=== PATIENT | female | born 1960 | race Caucasian/White ===

== ENCOUNTER → 2023-06-18 | Outpatient (CLI) | payer BC ==
[2023-06-18 12:05] LABS: Hematocrit 26.8 % (36.0-46.0); Hemoglobin 9.1 g/dL (12.2-16.2); Mean Corpuscular Hemoglobin 28.8 pg (28.0-32.0); Mean Corpuscular Hgb Conc. 33.9 g/dL (32.0-36.0); Mean Corpuscular Volume 85.1 fL (80.0-100.0); Red Blood Cells 3.15 10^6/uL (4.0-5.20); Red Cell Distribution Width 16.7 % (11.8-14.3); White Blood Cell 5.4 10^3/uL (4.4-10.8)
[2023-06-18 12:07] LABS: Basophils % (manual) 0 (0.0-2.0); Blast Cells 0; Metamyelocytes % 0; Promyelocytes % 0; Reactive Lymphocytes 0
[2023-06-18 12:37] LABS: Band Neutrophils % (manual) 11; Eosinophils % (manual) 2 (0-7); Lymphocytes % (manual) 27 (10.0-50.0); Monocytes % (manual) 7 (0-12); Myelocytes % 1; Platelet Estimate Adequate
[2023-06-18 12:46] LABS: Creatinine, Urine 98.74 mg/dL (30.0-125.0)
[2023-06-18 12:50] LABS: Protein, Urine 741.8 mg/dL (0.0-11.9); Urine Protein/Creatinine Ratio 7.51
[2023-06-18 12:55] LABS: Anion Gap 6 (5-15); Calcium 9.1 mg/dL (8.5-10.1); Carbon Dioxide 28 mmol/L (20-30); Chloride 106 mmol/L (98-107); Potassium 4.2 mmol/L (3.5-5.1); Sodium 140 mmol/L (136-145)
[2023-06-18 13:01] LABS: BUN/Creatinine Ratio 7.6 (10.0-20.0); Blood Urea Nitrogen 11 mg/dL (9-23); Glucose 89 mg/dL (74-106)
[2023-06-18 13:05] LABS: Ferritin 299.5 ng/mL (10-291); Folate (Folic Acid) 9.68 ng/mL (>5.38); Thyroid Stimulating Hormone 1.28 uIU/mL (0.55-4.78)
== END | disposition home or self-care (01) ==
LOC: LAB 11:38
PROVIDERS: ATTEND Internal Medicine
DX: N18.31 Chronic kidney disease, stage 3a (principal); E03.9 Hypothyroidism, unspecified; D50.9 Iron deficiency anemia, unspecified
CPT/HCPCS: 36415; 80048; 82570; 82607; 82668; 82728; 82746; 83010; 83615; 84156; 84443; 85007; 85027; 86880

== ENCOUNTER → 2023-10-11 | Outpatient (CLI) | payer BC ==
[2023-10-11 12:33] LABS: Hematocrit 24.1 % (36.0-46.0); Mean Corpuscular Hemoglobin 28.7 pg (28.0-32.0); Mean Corpuscular Hgb Conc. 33.1 g/dL (32.0-36.0); Mean Corpuscular Volume 86.6 fL (80.0-100.0); Red Blood Cells 2.79 10^6/uL (4.0-5.20); Red Cell Distribution Width 18.5 % (11.8-14.3)
[2023-10-11 12:39] LABS: Potassium 4.1 mmol/L (3.5-5.1)
[2023-10-11 12:40] LABS: Calcium 9.4 mg/dL (8.5-10.1)
[2023-10-11 12:47] LABS: Albumin 4.3 g/dL (3.2-4.8); Phosphorus 4.1 mg/dL (2.4-5.1)
[2023-10-11 12:53] LABS: Basophils % (manual) 0 (0.0-2.0); Blast Cells 0; Eosinophils % (manual) 0 (0-7); Promyelocytes % 0; Reactive Lymphocytes 0
[2023-10-11 16:18] LABS: Band Neutrophils % (manual) 4; Lymphocytes % (manual) 20 (10.0-50.0); Metamyelocytes % 2; Monocytes % (manual) 7 (0-12); Myelocytes % 1; Platelet Estimate Adequate
== END | disposition home or self-care (01) ==
LOC: LAB 11:35
PROVIDERS: ATTEND Internal Medicine
DX: N18.31 Chronic kidney disease, stage 3a (principal); D63.1 Anemia in chronic kidney disease; N08 Glomerular disorders in diseases classified elsewhere; D51.0 Vitamin B12 deficiency anemia due to intrinsic factor deficiency
CPT/HCPCS: 36415; 80069; 82607; 85007; 85027

== ENCOUNTER → 2023-12-12 | Outpatient (CLI) | payer BC ==
[2023-12-12 12:28] LABS: Urine Bacteria FEW /hpf (None Seen); Urine Blood TRACE /uL (Negative); Urine Clarity HAZY (Clear); Urine Color Colorless (Yellow); Urine Protein, UAD 2+ (Negative); Urine Specific Gravity 1.015 (1.001-1.035); Urine Urobilinogen Normal (Negative); Urine WBC 109 /hpf (0 - 5); Urine WBC Clumps PRESENT /hpf (None Seen); Urine pH 5.5 (5.0-8.0)
[2023-12-12 12:38] LABS: Hemoglobin 7.4 g/dL (12.2-16.2); Mean Corpuscular Volume 83.5 fL (80.0-100.0); White Blood Cell 12.1 10^3/uL (4.4-10.8)
[2023-12-12 12:41] LABS: Hematocrit 22.4 % (36.0-46.0); Mean Corpuscular Hemoglobin 27.5 pg (28.0-32.0); Mean Corpuscular Hgb Conc. 32.9 g/dL (32.0-36.0); Red Blood Cells 2.68 10^6/uL (4.0-5.20); Red Cell Distribution Width 17.5 % (11.8-14.3)
[2023-12-12 12:43] LABS: Band Neutrophils % (manual) 0; Basophils % (manual) 0 (0.0-2.0); Blast Cells 0; Eosinophils % (manual) 0 (0-7); Metamyelocytes % 0; Myelocytes % 0; Promyelocytes % 0; Reactive Lymphocytes 0
[2023-12-12 12:54] LABS: Lymphocytes % (manual) 6 (10.0-50.0); Monocytes % (manual) 3 (0-12); Platelet Estimate Adequate; RBC Morphology Normal
[2023-12-12 13:03] LABS: Chloride 102 mmol/L (98-107); Potassium 4.1 mmol/L (3.5-5.1); Sodium 138 mmol/L (136-145)
[2023-12-12 13:04] LABS: Anion Gap 7 (5-15); Carbon Dioxide 29 mmol/L (20-30)
[2023-12-12 13:05] LABS: Calcium 9.8 mg/dL (8.5-10.1)
[2023-12-12 13:09] LABS: GFR African American 25 mL/min; GFR Non-African American 21 mL/min; Glucose 110 mg/dL (74-106)
[2023-12-12 13:10] LABS: BUN/Creatinine Ratio 9.9 (10.0-20.0); Blood Urea Nitrogen 25 mg/dL (9-23)
[2023-12-12 13:11] LABS: Albumin 4.3 g/dL (3.2-4.8)
[2023-12-12 13:12] LABS: Phosphorus 4.5 mg/dL (2.4-5.1)
[2023-12-12 13:31] LABS: Uric Acid 6.8 mg/dL (3.1-7.8)
[2023-12-12 13:37] LABS: Creatinine, Urine 83.05 mg/dL (30.0-125.0)
== END | disposition home or self-care (01) ==
LOC: LAB 12:03
PROVIDERS: ATTEND Internal Medicine
DX: N18.31 Chronic kidney disease, stage 3a (principal); D63.1 Anemia in chronic kidney disease; E21.3 Hyperparathyroidism, unspecified; E78.5 Hyperlipidemia, unspecified; M10.9 Gout, unspecified; R80.9 Proteinuria, unspecified; R82.90 Unspecified abnormal findings in urine; N04.7 Nephrotic syndrome with diffuse crescentic glomerulonephritis
CPT/HCPCS: 36415; 80048; 80069; 81001; 82043; 82306; 82570; 83970; 84550; 85007; 85027

== ENCOUNTER → 2024-01-10 | Outpatient (CLI) | payer BC ==
[2024-01-10 12:26] LABS: Urine Bacteria None Seen /hpf (None Seen)
[2024-01-10 12:30] LABS: Mean Corpuscular Hemoglobin 27.6 pg (28.0-32.0); Red Cell Distribution Width 18.7 % (11.8-14.3)
[2024-01-10 12:32] LABS: Hematocrit 21.5 % (36.0-46.0); Hemoglobin 7.1 g/dL (12.2-16.2); Mean Corpuscular Volume 83.7 fL (80.0-100.0); Red Blood Cells 2.57 10^6/uL (4.0-5.20)
[2024-01-10 12:45] LABS: Band Neutrophils % (manual) 0; Basophils % (manual) 0 (0.0-2.0); Blast Cells 0; Promyelocytes % 0; Reactive Lymphocytes 0
[2024-01-10 12:48] LABS: Urine Blood TRACE /uL (Negative); Urine Clarity Clear (Clear); Urine Color Light-Yellow (Yellow); Urine Protein, UAD 1+ (Negative); Urine Specific Gravity 1.017 (1.001-1.035); Urine Urobilinogen Normal (Negative); Urine WBC 2 /hpf (0 - 5); Urine pH 5.5 (5.0-9.0)
[2024-01-10 12:53] LABS: Chloride 104 mmol/L (98-107); Potassium 3.6 mmol/L (3.5-5.1); Sodium 141 mmol/L (136-145)
[2024-01-10 12:54] LABS: Anion Gap 12 (5-15); Calcium 9.6 mg/dL (8.5-10.1); Carbon Dioxide 25 mmol/L (20-30)
[2024-01-10 12:59] LABS: BUN/Creatinine Ratio 9.7 (10.0-20.0); Blood Urea Nitrogen 21 mg/dL (9-23); Creatinine, Urine 81.79 mg/dL (30.0-125.0); GFR African American 30 mL/min; GFR Non-African American 24 mL/min; Glucose 106 mg/dL (74-106)
[2024-01-10 13:01] LABS: Albumin 4.3 g/dL (3.2-4.8); Phosphorus 3.8 mg/dL (2.4-5.1)
[2024-01-10 13:03] LABS: Protein, Urine 795.9 mg/dL (0.0-11.9); Urine Protein/Creatinine Ratio 9.73
[2024-01-10 13:04] LABS: Ferritin 462.2 ng/mL (10-291); Folate (Folic Acid) 11.35 ng/mL (>5.38)
[2024-01-10 13:20] LABS: Eosinophils % (manual) 1 (0-7); Lymphocytes % (manual) 26 (10.0-50.0); Metamyelocytes % 1; Monocytes % (manual) 9 (0-12); Myelocytes % 5; Platelet Estimate Adequate
[2024-01-10 14:47] LABS: Erythrocyte Sedimentation Rate 84 mm/hr (0-20)
== END | disposition home or self-care (01) ==
LOC: LAB 12:16
PROVIDERS: ATTEND Internal Medicine
DX: N04.7 Nephrotic syndrome with diffuse crescentic glomerulonephritis (principal); N18.4 Chronic kidney disease, stage 4 (severe); D63.1 Anemia in chronic kidney disease; N08 Glomerular disorders in diseases classified elsewhere; D50.9 Iron deficiency anemia, unspecified; N39.0 Urinary tract infection, site not specified; R80.9 Proteinuria, unspecified
CPT/HCPCS: 36415; 80048; 80069; 81001; 82570; 82728; 82746; 84156; 85007; 85027; 85652; 87086

== ENCOUNTER 2024-02-02 20:23 | Emergency (ER) | payer BC ==
[~2024-02-02] VITALS: Ht 170.2 cm; Wt 70.5 kg
[2024-02-02] MEDS: KETOROLAC TROMETH 60MG/2ML VIAL IM ONE (21:36)
[2024-02-02 21:41] VITALS: BP 165/79; PULSE 100; RESP 18; TEMP 98; O2SAT 98
[2024-02-02] MEDS ORDERED: HYDR-4902 PO (23:11)
[2024-02-02] MEDS ORDERED: IBUP-1454 PO (23:11)
== END 2024-02-02 23:21 | disposition home or self-care (01) ==
LOC: ER 20:23
DX: M25.561 Pain in right knee (principal)
CPT/HCPCS: 73700; 96372; 99285; J1885

== ENCOUNTER → 2024-02-20 | Outpatient (CLI) | payer BC ==
[~2024-02-20] MED LIST: HYDR-4902 PO; IBUP-1454 PO
[2024-02-20 12:34] LABS: White Blood Cell 9.3 10^3/uL (4.4-10.8)
[2024-02-20 12:36] LABS: Hematocrit 20.9 % (36.0-46.0); Hemoglobin 7.2 g/dL (12.2-16.2); Mean Corpuscular Hemoglobin 28.8 pg (28.0-32.0); Mean Corpuscular Hgb Conc. 34.3 g/dL (32.0-36.0); Red Blood Cells 2.49 10^6/uL (4.0-5.20)
[2024-02-20 12:40] LABS: Basophils % (manual) 0 (0.0-2.0); Blast Cells 0; Eosinophils % (manual) 0 (0-7); Myelocytes % 0; Promyelocytes % 0; Reactive Lymphocytes 0
[2024-02-20 12:51] LABS: Band Neutrophils % (manual) 4; Lymphocytes % (manual) 11 (10.0-50.0); Metamyelocytes % 1; Monocytes % (manual) 10 (0-12); Platelet Estimate Adequate
[2024-02-20 12:52] LABS: Anisocytosis Slight
[2024-02-20 12:55] LABS: Potassium 3.3 mmol/L (3.5-5.1)
[2024-02-20 12:56] LABS: Calcium 9.9 mg/dL (8.5-10.1)
[2024-02-20 13:01] LABS: BUN/Creatinine Ratio 7.8 (10.0-20.0)
[2024-02-20 13:03] LABS: Albumin 3.7 g/dL (3.2-4.8); Phosphorus 3.5 mg/dL (2.4-5.1)
== END | disposition home or self-care (01) ==
LOC: LAB 12:08
PROVIDERS: ATTEND Internal Medicine
DX: N18.4 Chronic kidney disease, stage 4 (severe) (principal); D63.1 Anemia in chronic kidney disease
CPT/HCPCS: 36415; 80069; 85007; 85027

== ENCOUNTER → 2024-04-30 | Outpatient (CLI) | payer BC ==
[2024-04-30 12:18] LABS: White Blood Cell 11.9 10^3/uL (4.4-10.8)
[2024-04-30 12:19] LABS: Urine Bacteria FEW /hpf (None Seen); Urine Blood TRACE /uL (Negative); Urine Clarity Turbid (Clear); Urine Color Colorless (Yellow); Urine Mucus FEW (None Seen); Urine Protein, UAD 2+ (Negative); Urine Specific Gravity 1.024 (1.001-1.035); Urine Urobilinogen Normal (Negative); Urine WBC 124 /hpf (0 - 5); Urine WBC Clumps PRESENT /hpf (None Seen); Urine pH 5.5 (5.0-9.0)
[2024-04-30 12:20] LABS: Hematocrit 20.6 % (36.0-46.0); Mean Corpuscular Hemoglobin 27.4 pg (28.0-32.0); Mean Corpuscular Hgb Conc. 33.1 g/dL (32.0-36.0); Mean Corpuscular Volume 82.7 fL (80.0-100.0); Red Blood Cells 2.49 10^6/uL (4.0-5.20); Red Cell Distribution Width 18.3 % (11.8-14.3)
[2024-04-30 12:38] LABS: Alkaline Phosphatase 95 U/L (46-116); Anion Gap 10 (5-15); BUN/Creatinine Ratio 9.7 (10.0-20.0); Bilirubin, Total 0.4 mg/dL (0.2-1.0); Blood Urea Nitrogen 23 mg/dL (9-23); Calcium 9.9 mg/dL (8.7-10.4); Carbon Dioxide 24 mmol/L (20-30); Chloride 104 mmol/L (98-107); GFR African American 27 mL/min; GFR Non-African American 22 mL/min; Glucose 99 mg/dL (74-106); Phosphorus 4.8 mg/dL (2.4-5.1); Potassium 4.1 mmol/L (3.5-5.1); Sodium 138 mmol/L (136-145); Total Protein 6.4 g/dL (5.7-8.2); Uric Acid 9.6 mg/dL (3.1-7.8)
[2024-04-30 12:41] LABS: Ferritin 970.5 ng/mL (10-291)
[2024-04-30 12:48] LABS: Alanine Aminotransferase < 9 U/L (7-40); Aspartate Aminotransferase < 8 U/L (13-40)
[2024-04-30 13:00] LABS: Creatinine, Urine 111.07 mg/dL (30.0-125.0)
[2024-04-30 13:04] LABS: Protein, Urine 1136.7 mg/dL (0.0-11.9); Urine Protein/Creatinine Ratio 10.23
[2024-04-30 13:14] LABS: Basophils % (manual) 0 (0.0-2.0); Blast Cells 0; Eosinophils % (manual) 0 (0-7); Hemoglobin 6.8 g/dL (12.2-16.2); Metamyelocytes % 0; Myelocytes % 0; Promyelocytes % 0; Reactive Lymphocytes 0
[2024-04-30 14:15] LABS: Band Neutrophils % (manual) 9; Lymphocytes % (manual) 8 (10.0-50.0); Monocytes % (manual) 4 (0-12)
[2024-04-30 14:16] LABS: Platelet Estimate Adequate
== END | disposition home or self-care (01) ==
LOC: LAB 11:21
PROVIDERS: ATTEND Internal Medicine
DX: E11.21 Type 2 diabetes mellitus with diabetic nephropathy (principal); N04.7 Nephrotic syndrome with diffuse crescentic glomerulonephritis; N18.4 Chronic kidney disease, stage 4 (severe); N39.0 Urinary tract infection, site not specified; R80.9 Proteinuria, unspecified; D63.1 Anemia in chronic kidney disease; E21.3 Hyperparathyroidism, unspecified; M10.9 Gout, unspecified; E55.9 Vitamin D deficiency, unspecified
CPT/HCPCS: 36415; 80053; 80069; 81001; 82306; 82570; 82607; 82728; 83540; 83615; 83970; 84156; 84550; 85007; 85027; 85045; 86880

== ENCOUNTER 2024-05-04 08:09 | Inpatient (IN) | payer BC ==
[~2024-05-04] VITALS: Ht 172.7 cm; Wt 62.6 kg
[2024-05-04] VITALS (7 sets, daily range): BP systolic 128–152; BP diastolic 64–80; PULSE 87–99; RESP 14–20; TEMP 97.5–98.8; O2SAT 94–100
[2024-05-04 08:50] LABS: Hematocrit 22.4 % (36.0-46.0); Mean Corpuscular Volume 85.4 fL (80.0-100.0)
[2024-05-04 08:52] LABS: Hemoglobin 7.1 g/dL (12.2-16.2); Mean Corpuscular Hemoglobin 27.2 pg (28.0-32.0); Mean Corpuscular Hgb Conc. 31.9 g/dL (32.0-36.0); Red Blood Cells 2.63 10^6/uL (4.0-5.20)
[2024-05-04 08:59] LABS: Basophils % (manual) 0 (0.0-2.0); Blast Cells 0; Myelocytes % 0; Promyelocytes % 0; Reactive Lymphocytes 0
[2024-05-04 09:03] LABS: Band Neutrophils % (manual) 12; Eosinophils % (manual) 1 (0-7); Metamyelocytes % 2
[2024-05-04 09:04] LABS: Lymphocytes % (manual) 9 (10.0-50.0); Monocytes % (manual) 7 (0-12)
[2024-05-04 09:15] LABS: Anisocytosis Slight; Hypochromia Slight; Ovalocytes FEW; Platelet Estimate Adequate; Tear Drop Cells FEW
[2024-05-04 09:24] LABS: Albumin 4.3 g/dL (3.2-4.8); Alkaline Phosphatase 108 U/L (46-116); Anion Gap 8 (5-15); Aspartate Aminotransferase < 8 U/L (13-40); BUN/Creatinine Ratio 9.9 (10.0-20.0); Blood Urea Nitrogen 23 mg/dL (9-23); Calcium 10.3 mg/dL (8.7-10.4); Carbon Dioxide 25 mmol/L (20-30); Chloride 106 mmol/L (98-107); Glucose 115 mg/dL (74-106); Potassium 3.6 mmol/L (3.5-5.1); Sodium 139 mmol/L (136-145)
[2024-05-04 09:25] LABS: Bilirubin, Total 0.3 mg/dL (0.2-1.0); Total Protein 6.4 g/dL (5.7-8.2)
[2024-05-04 09:27] LABS: Alanine Aminotransferase < 9 U/L (7-40)
[2024-05-04] MEDS ORDERED: MORPHINE SULFATE INJ 2 MG/ml SYRG IV PRN (11:15)
[2024-05-04] MEDS ORDERED: NITROGLYCERIN 0.4 MG SL TAB SL PRN (11:15)
[2024-05-04] MEDS ORDERED: ACETAMINOPHEN 325 MG TAB PO PRN (11:15)
[2024-05-04 12:07] LABS: % Iron Saturation 11.2 % (15-50)
[2024-05-04 12:19] LABS: Anisocytosis Slight; Hypochromia Slight; Ovalocytes FEW; Tear Drop Cells FEW
[2024-05-04 12:26] LABS: Nucleated Red Blood Cells % 0.1 %
[2024-05-04 12:27] LABS: Platelet Estimate Adequate
[2024-05-04] MEDS: HYDROcodone-ACET 5/325MG TAB PO PRN (12:43)
[2024-05-04] MEDS: SODIUM CHLORIDE 0.9% 1,000 ML IV SCH (12:48)
[2024-05-04 22:24] LABS: Urine Bacteria FEW /hpf (None Seen); Urine Blood Negative /uL (Negative); Urine Clarity Turbid (Clear); Urine Color Colorless (Yellow); Urine Mucus FEW (None Seen); Urine Protein, UAD 1+ (Negative); Urine Specific Gravity 1.015 (1.001-1.035); Urine Urobilinogen Normal (Negative); Urine WBC 117 /hpf (0 - 5); Urine WBC Clumps PRESENT /hpf (None Seen); Urine pH 5.5 (5.0-9.0)
[2024-05-04 22:37] LABS: Creatinine, Urine 50.83 mg/dL (30.0-125.0)
[2024-05-04 22:39] LABS: Protein, Urine 523.8 mg/dL (0.0-11.9)
[2024-05-05] VITALS (9 sets, daily range): BP systolic 134–153; BP diastolic 73–82; PULSE 82–95; RESP 16–20; TEMP 97.6–98.6; O2SAT 16–98
[2024-05-05] MEDS: KETOROLAC TROMETH 30 MG/ML 1ML VIAL IV ONE (02:21)
[2024-05-05 07:00] LABS: Hemoglobin 7.4 g/dL (12.2-16.2)
[2024-05-05 07:02] LABS: Hematocrit 21.9 % (36.0-46.0); Mean Corpuscular Hemoglobin 28.7 pg (28.0-32.0); Mean Corpuscular Hgb Conc. 33.9 g/dL (32.0-36.0); Mean Corpuscular Volume 84.6 fL (80.0-100.0); Red Blood Cells 2.59 10^6/uL (4.0-5.20); White Blood Cell 9.1 10^3/uL (4.4-10.8)
[2024-05-05 07:18] LABS: Basophils % (manual) 0 (0.0-2.0); Blast Cells 0; Myelocytes % 0; Promyelocytes % 0; Reactive Lymphocytes 0
[2024-05-05 07:27] LABS: Albumin 3.7 g/dL (3.2-4.8); Alkaline Phosphatase 88 U/L (46-116); Anion Gap 6 (5-15); Aspartate Aminotransferase < 8 U/L (13-40); BUN/Creatinine Ratio 10.8 (10.0-20.0); Bilirubin, Total 0.4 mg/dL (0.2-1.0); Blood Urea Nitrogen 23 mg/dL (9-23); Calcium 10.1 mg/dL (8.7-10.4); Carbon Dioxide 25 mmol/L (20-30); Chloride 106 mmol/L (98-107); Glucose 92 mg/dL (74-106); Potassium 4.2 mmol/L (3.5-5.1); Sodium 137 mmol/L (136-145); Total Protein 5.6 g/dL (5.7-8.2)
[2024-05-05 07:34] LABS: Alanine Aminotransferase < 9 U/L (7-40)
[2024-05-05 08:16] LABS: Band Neutrophils % (manual) 9; Eosinophils % (manual) 1 (0-7); Lymphocytes % (manual) 12 (10.0-50.0); Metamyelocytes % 1; Monocytes % (manual) 9 (0-12)
[2024-05-05 08:18] LABS: Anisocytosis Slight; Platelet Estimate Adequate; Tear Drop Cells FEW
[2024-05-05 08:30] LABS: Hepatitis B Surface Antigen Negative (Negative)
[2024-05-05 08:49] LABS: INR 0.92 (0.9-1.15); Partial Thromboplastin Time 23.9 SEC (24.5-34.5); Prothrombin Time 9.8 sec (9.3-11.8)
[2024-05-05 08:50] LABS: Hepatitis A Ab IgM Negative
[2024-05-05 08:51] LABS: Hepatitis B Core IgM Negative; Hepatitis C Antibody Negative (Negative)
[2024-05-05 09:17] LABS: Folate (Folic Acid) 8.57 ng/mL (>5.38)
[2024-05-05] MEDS: fentaNYL CITRATE 100 MCG/2 ML VL IV ONE (10:45)
[2024-05-05] MEDS: HYDROcodone-ACET 5/325MG TAB PO PRN (12:48)
[2024-05-05] MEDS: LIDOCAINE 2%HCL (LOCAL ANESTH.) INJ 10ml MDV ONE (12:52)
[2024-05-05] MEDS: cefTRIAXone 1GM/50ML D5W 50 ML IV ONE (16:03)
[2024-05-05] MEDS: EPOETIN ALFA-EPBX 4,000 UNIT/ML VIAL SC ONE (22:26)
[2024-05-05] MEDS: METOPROLOL TARTRATE 25 MG TAB PO SCH (22:29)
[2024-05-06] VITALS (10 sets, daily range): BP systolic 117–157; BP diastolic 47–83; PULSE 74–92; RESP 16–20; TEMP 97.6–99.1; O2SAT 94–100
[2024-05-06 06:59] LABS: Hematocrit 21.2 % (36.0-46.0); Mean Corpuscular Hemoglobin 28.1 pg (28.0-32.0); Red Blood Cells 2.49 10^6/uL (4.0-5.20); White Blood Cell 5.8 10^3/uL (4.4-10.8)
[2024-05-06 07:02] LABS: Mean Corpuscular Volume 85.1 fL (80.0-100.0); Red Cell Distribution Width 17.5 % (11.8-14.3)
[2024-05-06 07:10] LABS: Basophils % (manual) 0 (0.0-2.0); Blast Cells 0; Eosinophils % (manual) 0 (0-7); Metamyelocytes % 0; Myelocytes % 0; Promyelocytes % 0; Reactive Lymphocytes 0
[2024-05-06 07:29] LABS: Anion Gap 7 (5-15); Carbon Dioxide 26 mmol/L (20-30); Chloride 107 mmol/L (98-107); Potassium 4.3 mmol/L (3.5-5.1); Sodium 140 mmol/L (136-145)
[2024-05-06 07:30] LABS: Calcium 9.8 mg/dL (8.7-10.4)
[2024-05-06 07:35] LABS: BUN/Creatinine Ratio 10.3 (10.0-20.0); Blood Urea Nitrogen 25 mg/dL (9-23); Glucose 88 mg/dL (74-106)
[2024-05-06] MEDS: cefTRIAXone 1GM/50ML D5W 50 ML IV SCH (09:05)
[2024-05-06 10:30] LABS: Band Neutrophils % (manual) 1; Lymphocytes % (manual) 15 (10.0-50.0); Monocytes % (manual) 7 (0-12); Platelet Estimate Adequate
[2024-05-06 13:23] LABS: Hemoglobin 7.1 g/dL (12.2-16.2)
[2024-05-06] MEDS: METOPROLOL TARTRATE 25 MG TAB PO SCH (21:20)
[2024-05-07 01:00] VITALS: BP 157/80; PULSE 74; RESP 18; TEMP 97.8; O2SAT 97
[2024-05-07 05:00] VITALS: BP 149/69; PULSE 74; RESP 20; TEMP 98.2; O2SAT 97
[2024-05-07 08:00] VITALS: PULSE 75; RESP 16
[2024-05-07 08:54] LABS: Red Cell Distribution Width 17.1 % (11.8-14.3)
[2024-05-07 08:57] LABS: Hematocrit 23.4 % (36.0-46.0); Hemoglobin 8.1 g/dL (12.2-16.2); Mean Corpuscular Hemoglobin 29.5 pg (28.0-32.0); Mean Corpuscular Hgb Conc. 34.5 g/dL (32.0-36.0); Mean Corpuscular Volume 85.4 fL (80.0-100.0); Red Blood Cells 2.74 10^6/uL (4.0-5.20); White Blood Cell 5.1 10^3/uL (4.4-10.8)
[2024-05-07 09:02] LABS: Anion Gap 5 (5-15); Carbon Dioxide 28 mmol/L (20-30); Chloride 107 mmol/L (98-107); Potassium 4.4 mmol/L (3.5-5.1); Sodium 140 mmol/L (136-145)
[2024-05-07 09:04] LABS: Calcium 10.2 mg/dL (8.7-10.4)
[2024-05-07 09:08] LABS: BUN/Creatinine Ratio 8.9 (10.0-20.0); Blood Urea Nitrogen 21 mg/dL (9-23); Glucose 91 mg/dL (74-106)
[2024-05-07 09:10] LABS: Basophils % (manual) 0 (0.0-2.0); Blast Cells 0; Metamyelocytes % 0; Myelocytes % 0; Promyelocytes % 0; Reactive Lymphocytes 0
[2024-05-07 09:32] VITALS: BP 156/82; PULSE 75; RESP 16; TEMP 98.2; O2SAT 99
[2024-05-07 12:09] LABS: Band Neutrophils % (manual) 5; Eosinophils % (manual) 1 (0-7); Lymphocytes % (manual) 25 (10.0-50.0); Monocytes % (manual) 7 (0-12); Platelet Estimate Adequate
[2024-05-07 12:47] LABS: Albumin 2.7 g/dL (2.9-4.4); Alpha-1-Globulin 0.4 g/dL (0.0-0.4); Anti-Centromere B Antibody <0.2 AI (0.0-0.9); Anti-Jo-1 Antibody <0.2 AI (0.0-0.9); Anti-dsDNA Antibody <1 IU/mL (0-9); Antichromatin Antibody <0.2 AI (0.0-0.9); Antiscleroderma-70 Antibody <0.2 AI (0.0-0.9); Gamma Globulin 0.3 g/dL (0.4-1.8); Globulin Total 2.6 g/dL (2.2-3.9); Immunoglobulin A 227 mg/dL (87-352); Immunoglobulin G, Serum 294 mg/dL (586-1602); Immunoglobulin M <5 mg/dL (26-217); Kappa Lite Chain Free Serum 9.1 mg/L (3.3-19.4); Protein Total Serum 5.3 g/dL (6.0-8.5); RNP Antibody <0.2 AI (0.0-0.9); Sjogren's Anti-SS-A Antibody <0.2 AI (0.0-0.9); Sjogren's Anti-SS-B Antibody <0.2 AI (0.0-0.9); Smith Antibody <0.2 AI (0.0-0.9)
[2024-05-07] MEDS ORDERED: HYDR-4902 PO (13:07)
[2024-05-07] MEDS ORDERED: NITR-52 PO (13:58)
[2024-05-07] MEDS ORDERED: DOCU-94 PO (13:58)
[2024-05-07] MEDS ORDERED: FERR-7 PO (13:58)
[2024-05-07 17:55] VITALS: BP 144/67; PULSE 79; RESP 18; TEMP 36.8; O2SAT 98
[2024-05-07 18:06] LABS: Antimyeloperoxidase (MPO) Ab <0.2 units (0.0-0.9); Antiproteinase 3 (PR-3) Ab <0.2 units (0.0-0.9)
[2024-05-07 18:09] VITALS: BP 153/79; PULSE 79; RESP 18; TEMP 97.9; O2SAT 98
[2024-05-08 13:07] LABS: Cytoplasmic (C-ANCA) <1:20 titer (Neg:<1:20); Perinuclear (P-ANCA) <1:20 titer (Neg:<1:20)
== END 2024-05-07 20:20 | disposition home or self-care (01) | DRG 841 ==
LOC: ER 08:09 → OVERFLOW 11:42 → EAST 14:35
PROVIDERS: ADMIT Internal Medicine; ATTEND Emergency Medicine
PROC: 30233N1 Transfusion of Nonautologous Red Blood Cells into Peripheral Vein, Percutaneous Approach (ICD-10-PCS; principal; 2024-05-06)
DX: C90.00 Multiple myeloma not having achieved remission (principal); N17.9 Acute kidney failure, unspecified; N39.0 Urinary tract infection, site not specified; N18.4 Chronic kidney disease, stage 4 (severe); D63.1 Anemia in chronic kidney disease; G89.29 Other chronic pain; I12.9 Hypertensive chronic kidney disease with stage 1 through stage 4 chronic kidney disease, or unspecified chronic kidney disease; R80.9 Proteinuria, unspecified; D47.2 Monoclonal gammopathy; M17.0 Bilateral primary osteoarthritis of knee; Z96.651 Presence of right artificial knee joint; Z82.49 Family history of ischemic heart disease and other diseases of the circulatory system; Z79.891 Long term (current) use of opiate analgesic; Z79.1 Long term (current) use of non-steroidal anti-inflammatories (NSAID)
CPT/HCPCS: 36415; 74176; 76775; 80048; 80053; 80074; 81001; 82270; 82570; 82607; 82728; 82746; 82784; 83036; 83516; 83520; 83521; 83540; 83550; 83615; 83930; 84155; 84156; 84165; 84300; 85007; 85014; 85018; 85027; 85045; 85610; 85730; 86225; 86235; 86256; 86334; 86335; 86703; 86850; 86900; 86901; 86920; 87086; 87088; 87186; 93005; G0378; J1885; J2001

== ENCOUNTER → 2024-05-22 | Outpatient (CLI) | payer BC ==
[~2024-05-22] MED LIST changes: +DOCU-94 PO; +FERR-7 PO; +NITR-52 PO
[2024-05-22 14:16] LABS: Hematocrit 26.1 % (36.0-46.0); Hemoglobin 8.5 g/dL (12.2-16.2); Mean Corpuscular Hemoglobin 27.6 pg (28.0-32.0); Mean Corpuscular Hgb Conc. 32.7 g/dL (32.0-36.0); Mean Corpuscular Volume 84.5 fL (80.0-100.0); Platelet Count (auto) 488 10^3/uL (140-450); Red Blood Cells 3.09 10^6/uL (4.0-5.20); Red Cell Distribution Width 17.1 % (11.8-14.3); White Blood Cell 11.3 10^3/uL (4.4-10.8)
[2024-05-22 14:19] LABS: Basophils % (manual) 0 (0.0-2.0); Blast Cells 0; Eosinophils % (manual) 0 (0-7); Metamyelocytes % 0; Myelocytes % 0; Promyelocytes % 0; Reactive Lymphocytes 0
[2024-05-22 14:20] LABS: Urine Bacteria FEW /hpf (None Seen); Urine Blood 1+ /uL (Negative); Urine Clarity Turbid (Clear); Urine Color Colorless (Yellow); Urine Mucus FEW (None Seen); Urine Protein, UAD 2+ (Negative); Urine Specific Gravity 1.022 (1.001-1.035); Urine Urobilinogen Normal (Negative); Urine WBC 9 /hpf (0 - 5); Urine pH 5.5 (5.0-9.0)
[2024-05-22 14:29] LABS: Potassium 3.1 mmol/L (3.5-5.1)
[2024-05-22 14:30] LABS: Calcium 10.9 mg/dL (8.7-10.4)
[2024-05-22 14:34] LABS: Band Neutrophils % (manual) 10; Lymphocytes % (manual) 24 (10.0-50.0); Monocytes % (manual) 5 (0-12); Platelet Estimate Increased
[2024-05-22 14:35] LABS: BUN/Creatinine Ratio 10.6 (10.0-20.0)
[2024-05-22 14:37] LABS: Albumin 4.2 g/dL (3.2-4.8); Phosphorus 3.9 mg/dL (2.4-5.1)
[2024-05-22 14:50] LABS: Creatinine, Urine 102.8 mg/dL (30.0-125.0)
[2024-05-22 14:52] LABS: Protein, Urine 987.1 mg/dL (0.0-11.9); Urine Protein/Creatinine Ratio 9.6
[2024-05-22 15:11] LABS: Uric Acid 11.3 mg/dL (3.1-7.8)
== END | disposition home or self-care (01) ==
LOC: LAB 13:52
PROVIDERS: ATTEND Internal Medicine
DX: E11.22 Type 2 diabetes mellitus with diabetic chronic kidney disease (principal); N18.30 Chronic kidney disease, stage 3 unspecified; E11.21 Type 2 diabetes mellitus with diabetic nephropathy; N39.0 Urinary tract infection, site not specified; R80.9 Proteinuria, unspecified; E21.3 Hyperparathyroidism, unspecified; M10.9 Gout, unspecified; E55.9 Vitamin D deficiency, unspecified; D63.1 Anemia in chronic kidney disease
CPT/HCPCS: 36415; 80069; 81001; 82306; 82570; 83970; 84156; 84550; 85007; 85027

== ENCOUNTER 2024-06-22 07:23 | Inpatient (IN) | payer BC ==
[~2024-06-22] VITALS: Ht 170.2 cm; Wt 65.3 kg
[2024-06-22] MEDS: ONDANSETRON HCL 4 MG/2 ML VIAL IV ONE (08:05)
[2024-06-22] MEDS: FUROSEMIDE 40 MG/4 ML VIAL IV ONE (08:06)
[2024-06-22] MEDS: MORPHINE SULFATE 4 MG/ML SYR/VIAL IV ONE (08:07)
[2024-06-22 08:30] LABS: Red Blood Cells 2.43 10^6/uL (4.0-5.20)
[2024-06-22 08:35] LABS: Hematocrit 20.4 % (36.0-46.0); Mean Corpuscular Hemoglobin 28.1 pg (28.0-32.0); Mean Corpuscular Hgb Conc. 33.3 g/dL (32.0-36.0); Mean Corpuscular Volume 84.2 fL (80.0-100.0); Platelet Count (auto) 315 10^3/uL (140-450); Red Cell Distribution Width 17.7 % (11.8-14.3); White Blood Cell 7.2 10^3/uL (4.4-10.8)
[2024-06-22 08:45] LABS: Albumin 3.8 g/dL (3.2-4.8); Alkaline Phosphatase 92 U/L (46-116); Anion Gap 9 (5-15); Aspartate Aminotransferase < 8 U/L (13-40); BUN/Creatinine Ratio 11.4 (10.0-20.0); Blood Urea Nitrogen 24 mg/dL (9-23); Calcium 9.7 mg/dL (8.7-10.4); Carbon Dioxide 26 mmol/L (20-31); Chloride 105 mmol/L (98-107); Glucose 92 mg/dL (74-106); Potassium 3.5 mmol/L (3.5-5.1); Sodium 140 mmol/L (136-145)
[2024-06-22 08:46] LABS: Bilirubin, Total 0.3 mg/dL (0.2-1.0); Total Protein 5.6 g/dL (5.7-8.2)
[2024-06-22 09:09] LABS: Alanine Aminotransferase < 9 U/L (7-40)
[2024-06-22 09:11] LABS: Basophils % (manual) 0 (0.0-2.0); Blast Cells 0; Eosinophils % (manual) 0 (0-7); Hemoglobin 6.8 g/dL (12.2-16.2); Metamyelocytes % 0; Myelocytes % 0; Promyelocytes % 0; Reactive Lymphocytes 0
[2024-06-22 10:43] LABS: Band Neutrophils % (manual) 6; Lymphocytes % (manual) 30 (10.0-50.0); Monocytes % (manual) 8 (0-12); Ovalocytes FEW; Platelet Estimate Adequate
[2024-06-22 11:04] VITALS: BP 160/101; PULSE 88; RESP 18; TEMP 98.2
[2024-06-22] MEDS: ENOXAPARIN SOD 60 MG/0.6 ML SYRINGE SC ONE (11:04)
[2024-06-22 11:30] VITALS: BP 147/82; PULSE 90; RESP 14; TEMP 98.2
[2024-06-22] MEDS ORDERED: AMLO1TAB22 PO ×2 (11:40→20:27)
[2024-06-22] MEDS ORDERED: ONDANSETRON HCL 4 MG/2 ML VIAL IV PRN (13:15)
[2024-06-22 14:22] LABS: % Iron Saturation 19.4 % (15-50)
[2024-06-22] MEDS: PANTOPRAZOLE 40 MG/10 ML VIAL INJ IV ONE (14:37)
[2024-06-22 14:44] VITALS: BP 133/91; PULSE 90; RESP 22; TEMP 97.7
[2024-06-22 19:10] LABS: Hematocrit 24.8 % (36.0-46.0); Hemoglobin 8.3 g/dL (12.2-16.2)
[2024-06-22 19:30] VITALS: PULSE 76; RESP 16; O2SAT 97
[2024-06-22 20:30] VITALS: PULSE 75; RESP 19; O2SAT 97
[2024-06-22] MEDS ORDERED: FERR140T5 (20:45)
[2024-06-22 21:00] VITALS: BP 154/80; PULSE 93; RESP 17; TEMP 98.9; O2SAT 96
[2024-06-22] MEDS: HYDROcodone-ACET 7.5/325MG TAB PO PRN (21:28)
[2024-06-22] MEDS: PANTOPRAZOLE 40 MG/10 ML VIAL INJ IV SCH (21:28)
[2024-06-23] VITALS (8 sets, daily range): BP systolic 121–139; BP diastolic 71–87; PULSE 77–99; RESP 17–24; TEMP 97.8–98.6; O2SAT 92–100
[2024-06-23 07:06] LABS: Hematocrit 25.6 % (36.0-46.0); Hemoglobin 8.8 g/dL (12.2-16.2); Mean Corpuscular Hemoglobin 28.9 pg (28.0-32.0); Mean Corpuscular Hgb Conc. 34.6 g/dL (32.0-36.0); Mean Corpuscular Volume 83.5 fL (80.0-100.0); Platelet Count (auto) 352 10^3/uL (140-450); Red Blood Cells 3.06 10^6/uL (4.0-5.20); Red Cell Distribution Width 17.2 % (11.8-14.3); White Blood Cell 7.9 10^3/uL (4.4-10.8)
[2024-06-23 07:13] LABS: Basophils % (manual) 0 (0.0-2.0); Blast Cells 0; Myelocytes % 0; Promyelocytes % 0; Reactive Lymphocytes 0
[2024-06-23 07:33] LABS: Alkaline Phosphatase 98 U/L (46-116); Anion Gap 9 (5-15); Blood Urea Nitrogen 25 mg/dL (9-23); Calcium 10.7 mg/dL (8.7-10.4); Carbon Dioxide 30 mmol/L (20-31); Chloride 101 mmol/L (98-107); Glucose 95 mg/dL (74-106); Potassium 3.7 mmol/L (3.5-5.1); Sodium 140 mmol/L (136-145)
[2024-06-23 07:34] LABS: Albumin 4.2 g/dL (3.2-4.8); Aspartate Aminotransferase 9 U/L (13-40)
[2024-06-23 07:35] LABS: Bilirubin, Total 0.4 mg/dL (0.2-1.0); Total Protein 6.2 g/dL (5.7-8.2)
[2024-06-23 07:39] LABS: Alanine Aminotransferase < 9 U/L (7-40)
[2024-06-23 09:57] LABS: Magnesium 2.4 mg/dL (1.6-2.6)
[2024-06-23 09:58] LABS: Phosphorus 4.3 mg/dL (2.4-5.1)
[2024-06-23] MEDS ORDERED: PANTOPRAZOLE 40 MG/10 ML VIAL INJ IV SCH (10:00)
[2024-06-23 11:25] LABS: Ferritin 992.7 ng/mL (10-291); Folate (Folic Acid) 6.93 ng/mL (>5.38)
[2024-06-23] MEDS ORDERED: hydrALAZINE HCL 20 MG/ML VL IV PRN (11:30)
[2024-06-23] MEDS: ENOXAPARIN SOD 60 MG/0.6 ML SYRINGE SC ONE (12:22)
[2024-06-23] MEDS: MORPHINE SULFATE INJ 2 MG/ml SYRG IV PRN (12:23)
[2024-06-23 12:40] LABS: Band Neutrophils % (manual) 8; Eosinophils % (manual) 1 (0-7); Lymphocytes % (manual) 10 (10.0-50.0); Metamyelocytes % 3; Monocytes % (manual) 6 (0-12)
[2024-06-23 12:41] LABS: Platelet Estimate Adequate
[2024-06-23 13:49] LABS: INR 0.98 (0.9-1.15); Partial Thromboplastin Time 25.2 SEC (24.5-34.5); Prothrombin Time 10.4 sec (9.3-11.8)
[2024-06-23] MEDS: CYANOCOBALAMIN (B-12) 1000 MCG/1 ML VIAL IM ONE (16:45)
[2024-06-23] MEDS: BUMETANIDE 2.5mg/10ml (0.25 mg/ml) INJ IV SCH (18:16)
[2024-06-24] VITALS (7 sets, daily range): BP systolic 121–149; BP diastolic 72–93; PULSE 77–103; RESP 17–20; TEMP 97.1–98.9; O2SAT 91–99
[2024-06-24 06:53] LABS: Albumin 4.5 g/dL (3.2-4.8); Alkaline Phosphatase 101 U/L (46-116); Anion Gap 10 (5-15); Aspartate Aminotransferase < 8 U/L (13-40); BUN/Creatinine Ratio 10.6 (10.0-20.0); Blood Urea Nitrogen 26 mg/dL (9-23); Calcium 10.9 mg/dL (8.7-10.4); Carbon Dioxide 29 mmol/L (20-31); Chloride 102 mmol/L (98-107); Glucose 110 mg/dL (74-106); Potassium 3.7 mmol/L (3.5-5.1); Sodium 141 mmol/L (136-145)
[2024-06-24 06:54] LABS: Alanine Aminotransferase < 9 U/L (7-40); Bilirubin, Total 0.4 mg/dL (0.2-1.0); Total Protein 6.6 g/dL (5.7-8.2)
[2024-06-24 06:56] LABS: Hematocrit 26.9 % (36.0-46.0); Hemoglobin 9.3 g/dL (12.2-16.2); Mean Corpuscular Hemoglobin 28.9 pg (28.0-32.0); Mean Corpuscular Hgb Conc. 34.7 g/dL (32.0-36.0); Mean Corpuscular Volume 83.3 fL (80.0-100.0); Platelet Count (auto) 371 10^3/uL (140-450); Red Blood Cells 3.23 10^6/uL (4.0-5.20); Red Cell Distribution Width 17.3 % (11.8-14.3); White Blood Cell 9.9 10^3/uL (4.4-10.8)
[2024-06-24 07:38] LABS: Basophils % (manual) 0 (0.0-2.0); Blast Cells 0; Promyelocytes % 0; Reactive Lymphocytes 0
[2024-06-24] MEDS: MIDAZOLAM HCL 2MG/2ML 2ml VIAL (1mg/ml) IV ONE (09:10)
[2024-06-24] MEDS: fentaNYL CITRATE 100 MCG/2 ML VL IV ONE (09:10)
[2024-06-24] MEDS: LIDOCAINE 2%HCL (LOCAL ANESTH.) INJ 10ml MDV ONE (09:20)
[2024-06-24] MEDS ORDERED: ENOXAPARIN SOD 60 MG/0.6 ML SYRINGE SC SCH (10:00)
[2024-06-24 10:47] LABS: Band Neutrophils % (manual) 8; Eosinophils % (manual) 1 (0-7); Lymphocytes % (manual) 14 (10.0-50.0); Metamyelocytes % 4; Monocytes % (manual) 7 (0-12); Myelocytes % 4; Platelet Estimate Adequate
[2024-06-25] VITALS (8 sets, daily range): BP systolic 124–150; BP diastolic 69–86; PULSE 92–107; RESP 18–20; TEMP 37.2; O2SAT 96–99
[2024-06-25 06:16] LABS: Hematocrit 30.2 % (36.0-46.0); Hemoglobin 9.9 g/dL (12.2-16.2); Mean Corpuscular Hemoglobin 27.2 pg (28.0-32.0); Mean Corpuscular Hgb Conc. 32.8 g/dL (32.0-36.0); Mean Corpuscular Volume 83.1 fL (80.0-100.0); Platelet Count (auto) 416 10^3/uL (140-450); Red Blood Cells 3.63 10^6/uL (4.0-5.20); Red Cell Distribution Width 17.4 % (11.8-14.3)
[2024-06-25 06:31] LABS: Alkaline Phosphatase 105 U/L (46-116); Anion Gap 9 (5-15); BUN/Creatinine Ratio 10.6 (10.0-20.0); Blood Urea Nitrogen 26 mg/dL (9-23); Calcium 11.3 mg/dL (8.7-10.4); Carbon Dioxide 30 mmol/L (20-31); Chloride 102 mmol/L (98-107); Glucose 126 mg/dL (74-106); Potassium 3.9 mmol/L (3.5-5.1); Sodium 141 mmol/L (136-145)
[2024-06-25 06:32] LABS: Albumin 4.6 g/dL (3.2-4.8); Aspartate Aminotransferase 13 U/L (13-40); Bilirubin, Total 0.4 mg/dL (0.2-1.0); Total Protein 6.7 g/dL (5.7-8.2)
[2024-06-25 06:35] LABS: Alanine Aminotransferase 9 U/L (7-40)
[2024-06-25 06:56] LABS: Band Neutrophils % (manual) 0; Basophils % (manual) 0 (0.0-2.0); Blast Cells 0; Eosinophils % (manual) 0 (0-7); Metamyelocytes % 0; Myelocytes % 0; Promyelocytes % 0; Reactive Lymphocytes 0
[2024-06-25 08:15] LABS: Lymphocytes % (manual) 12 (10.0-50.0); Monocytes % (manual) 6 (0-12); Platelet Estimate Adequate
[2024-06-25] MEDS ORDERED: APIX5TAB4 PO (11:31)
[2024-06-25] MEDS ORDERED: APIX2.5T PO ×2 (11:31→11:32)
[2024-06-25] MEDS: APIXABAN 2.5 MG TAB PO SCH (11:36)
[2024-06-25] MEDS: BUMETANIDE 2.5mg/10ml (0.25 mg/ml) INJ IV SCH (17:41)
[2024-06-26 01:00] VITALS: BP 144/83; PULSE 101; RESP 18; TEMP 99.5; O2SAT 100
[2024-06-26 05:00] VITALS: BP 136/75; PULSE 98; RESP 16; TEMP 99.2; O2SAT 97
[2024-06-26 07:04] LABS: Alanine Aminotransferase 11 U/L (7-40); Albumin 4.5 g/dL (3.2-4.8); Alkaline Phosphatase 97 U/L (46-116); Anion Gap 11 (5-15); Aspartate Aminotransferase 18 U/L (13-40); BUN/Creatinine Ratio 12.3 (10.0-20.0); Bilirubin, Total 0.5 mg/dL (0.2-1.0); Blood Urea Nitrogen 31 mg/dL (9-23); Carbon Dioxide 29 mmol/L (20-31); Chloride 101 mmol/L (98-107); Glucose 123 mg/dL (74-106); Potassium 3.7 mmol/L (3.5-5.1); Sodium 141 mmol/L (136-145); Total Protein 6.6 g/dL (5.7-8.2)
[2024-06-26 07:23] LABS: Hematocrit 27.4 % (36.0-46.0); Hemoglobin 9.2 g/dL (12.2-16.2); Mean Corpuscular Hemoglobin 28.1 pg (28.0-32.0); Mean Corpuscular Hgb Conc. 33.6 g/dL (32.0-36.0); Mean Corpuscular Volume 83.6 fL (80.0-100.0); Platelet Count (auto) 405 10^3/uL (140-450); Red Blood Cells 3.28 10^6/uL (4.0-5.20); Red Cell Distribution Width 17.6 % (11.8-14.3); White Blood Cell 15.1 10^3/uL (4.4-10.8)
[2024-06-26 07:31] LABS: Urine Bacteria MOD /hpf (None Seen); Urine Blood 2+ /uL (Negative); Urine Protein, UAD 2+ (Negative); Urine Specific Gravity 1.012 (1.001-1.035); Urine Urobilinogen Normal (Negative); Urine WBC 1954 /hpf (0 - 5); Urine WBC Clumps PRESENT /hpf (None Seen); Urine pH 5.5 (5.0-9.0)
[2024-06-26 07:36] LABS: Urine Clarity Cloudy (Clear); Urine Color Red (Yellow)
[2024-06-26 08:00] VITALS: PULSE 94; RESP 18
[2024-06-26 08:04] LABS: Basophils % (manual) 0 (0.0-2.0); Blast Cells 0; Eosinophils % (manual) 0 (0-7); Myelocytes % 0; Promyelocytes % 0; Reactive Lymphocytes 0
[2024-06-26 08:50] LABS: Band Neutrophils % (manual) 6; Lymphocytes % (manual) 11 (10.0-50.0); Metamyelocytes % 2; Monocytes % (manual) 7 (0-12); Platelet Estimate Adequate
[2024-06-26] MEDS ORDERED: BUME2TAB5 PO (08:51)
[2024-06-26 09:00] VITALS: BP 124/70; PULSE 110; RESP 18; TEMP 97.6; O2SAT 99
[2024-06-26] MEDS ORDERED: CEFD300C2 PO (10:07)
[2024-06-26] MEDS ORDERED: TRAM-626 PO (18:28)
== END 2024-06-26 14:30 | disposition home or self-care (01) | DRG 841 ==
LOC: ER 07:23 → TELE 13:14 → TELE-EAST 19:55 → EAST 06-24 21:40
PROVIDERS: ADMIT Internal Medicine; ATTEND Internal Medicine
PROC: 30233N1 Transfusion of Nonautologous Red Blood Cells into Peripheral Vein, Percutaneous Approach (ICD-10-PCS; 2024-06-22)
PROC: 07DT3ZX Extraction of Bone Marrow, Percutaneous Approach, Diagnostic (ICD-10-PCS; principal; 2024-06-24)
DX: C90.00 Multiple myeloma not having achieved remission (principal); I82.432 Acute embolism and thrombosis of left popliteal vein; N18.4 Chronic kidney disease, stage 4 (severe); N17.9 Acute kidney failure, unspecified; N39.0 Urinary tract infection, site not specified; I12.9 Hypertensive chronic kidney disease with stage 1 through stage 4 chronic kidney disease, or unspecified chronic kidney disease; E83.52 Hypercalcemia; D63.8 Anemia in other chronic diseases classified elsewhere; K80.20 Calculus of gallbladder without cholecystitis without obstruction; Z87.441 Personal history of nephrotic syndrome; Z96.659 Presence of unspecified artificial knee joint; Z82.49 Family history of ischemic heart disease and other diseases of the circulatory system; Z79.899 Other long term (current) drug therapy
CPT/HCPCS: 10005; 36415; 72192; 76775; 77012; 80053; 81001; 82607; 82728; 82746; 82962; 83540; 83550; 83735; 83880; 84100; 84484; 84550; 85007; 85014; 85018; 85027; 85045; 85379; 85610; 85730; 86850; 86900; 86901; 86920; 87086; 93970; 96372; 96374; 96375; 97163; G0378; J2003; J2250; J2405; J2470

== ENCOUNTER → 2024-07-01 | Outpatient (CLI) | payer BC ==
[~2024-07-01] MED LIST changes: +AMLO1TAB22 PO; +APIX2.5T PO; +BUME2TAB5 PO; +CEFD300C2 PO; -HYDR-4902 PO; -IBUP-1454 PO; -NITR-52 PO; +TRAM-626 PO
[2024-07-01 14:14] LABS: Hematocrit 26.2 % (36.0-46.0); Hemoglobin 8.7 g/dL (12.2-16.2); Mean Corpuscular Hemoglobin 27.7 pg (28.0-32.0); Mean Corpuscular Hgb Conc. 33.4 g/dL (32.0-36.0); Platelet Count (auto) 426 10^3/uL (140-450); Red Blood Cells 3.16 10^6/uL (4.0-5.20); Red Cell Distribution Width 17.3 % (11.8-14.3); White Blood Cell 14.7 10^3/uL (4.4-10.8)
[2024-07-01 14:19] LABS: Basophils % (manual) 0 (0.0-2.0); Blast Cells 0; Eosinophils % (manual) 0 (0-7); Promyelocytes % 0; Reactive Lymphocytes 0
[2024-07-01 14:28] LABS: BUN/Creatinine Ratio 13.2 (10.0-20.0); Uric Acid 11.1 mg/dL (3.1-7.8)
[2024-07-01 14:47] LABS: Band Neutrophils % (manual) 4; Lymphocytes % (manual) 10 (10.0-50.0); Metamyelocytes % 2; Monocytes % (manual) 11 (0-12); Myelocytes % 1; Platelet Estimate Adequate
[2024-07-01 16:34] LABS: Albumin 4.4 g/dL (3.2-4.8); Phosphorus 3.6 mg/dL (2.4-5.1)
[2024-07-02 08:06] LABS: Immunoglobulin A 204 mg/dL (87-352); Immunoglobulin G, Serum 352 mg/dL (586-1602); Immunoglobulin M 6 mg/dL (26-217)
== END | disposition home or self-care (01) ==
LOC: LAB 13:06
PROVIDERS: ATTEND Internal Medicine
DX: N18.4 Chronic kidney disease, stage 4 (severe) (principal); N39.0 Urinary tract infection, site not specified; D63.1 Anemia in chronic kidney disease; R80.9 Proteinuria, unspecified; E21.3 Hyperparathyroidism, unspecified; M10.9 Gout, unspecified; E55.9 Vitamin D deficiency, unspecified; E11.21 Type 2 diabetes mellitus with diabetic nephropathy
CPT/HCPCS: 36415; 80069; 82784; 83970; 84550; 85007; 85027; 86334; 87086

== ENCOUNTER → 2024-07-22 | Outpatient (CLI) | payer BC ==
[2024-07-22 13:40] LABS: Basophils # (auto) 0.1 10 ^3/uL (0-0.2); Basophils % (auto) 0.7 % (0.0-2.0); Eosinophils # (auto) 0.1 10 ^3/uL (0-0.8); Eosinophils % (auto) 0.9 % (0.0-7.0); Hemoglobin 7.6 g/dL (12.2-16.2); Lymphocytes # (auto) 1.4 10 ^3/uL (0.4-5.4); Lymphocytes % (auto) 13.2 % (10.0-50.0); Mean Corpuscular Hemoglobin 27.3 pg (28.0-32.0); Mean Corpuscular Hgb Conc. 32.9 g/dL (32.0-36.0); Mean Corpuscular Volume 82.9 fL (80.0-100.0); Monocytes # (auto) 0.9 10 ^3/uL (0-1.3); Monocytes % (auto) 8.4 % (0.0-12.0); Neutrophils # (auto) 7.9 10 ^3/uL (1.6-8.6); Neutrophils % (auto) 76.8 % (37.0-80.0); Platelet Count (auto) 390 10^3/uL (140-450); Red Blood Cells 2.78 10^6/uL (4.0-5.20); Red Cell Distribution Width 17.4 % (11.8-14.3); White Blood Cell 10.3 10^3/uL (4.4-10.8)
== END | disposition home or self-care (01) ==
LOC: LAB 12:43
PROVIDERS: ATTEND Internal Medicine
DX: D64.9 Anemia, unspecified (principal); D47.2 Monoclonal gammopathy
CPT/HCPCS: 36415; 85025

== ENCOUNTER 2024-08-10 16:02 | Inpatient (IN) | payer BC ==
[~2024-08-10] VITALS: Ht 172.7 cm; Wt 64.0 kg
[~2024-08-10 16:02] MED LIST changes: +DOCU-265 PO; +LIDO1PAD55 TOP; +MORP1TAB12 PO; +OXYC325T14 PO
[2024-08-10 18:03] LABS: Hemoglobin 7.7 g/dL (12.2-16.2)
[2024-08-10 18:05] LABS: Hematocrit 23.3 % (36.0-46.0); Mean Corpuscular Hemoglobin 27.5 pg (28.0-32.0); Mean Corpuscular Hgb Conc. 33.3 g/dL (32.0-36.0); Mean Corpuscular Volume 82.8 fL (80.0-100.0); Platelet Count (auto) 456 10^3/uL (140-450); Red Blood Cells 2.81 10^6/uL (4.0-5.20); Red Cell Distribution Width 18.2 % (11.8-14.3); White Blood Cell 19.1 10^3/uL (4.4-10.8)
[2024-08-10 18:10] LABS: Basophils % (manual) 0 (0.0-2.0); Blast Cells 0; Eosinophils % (manual) 0 (0-7); Metamyelocytes % 0; Myelocytes % 0; Promyelocytes % 0; Reactive Lymphocytes 0
[2024-08-10 18:26] LABS: Anisocytosis Slight; Band Neutrophils % (manual) 1; Lymphocytes % (manual) 12 (10.0-50.0); Macrocytosis Slight; Monocytes % (manual) 5 (0-12); Ovalocytes FEW; Stomatocytes Few
[2024-08-10 18:27] LABS: Large Platelets FEW; Platelet Estimate Adequa
[2024-08-10 18:29] LABS: Alanine Aminotransferase 22 U/L (7-40); Albumin 3.9 g/dL (3.2-4.8); Alkaline Phosphatase 88 U/L (46-116); Anion Gap 13 (5-15); Aspartate Aminotransferase 43 U/L (13-40); BUN/Creatinine Ratio 19.6 (10.0-20.0); Bilirubin, Total 0.5 mg/dL (0.2-1.0); Blood Urea Nitrogen 78 mg/dL (9-23); Carbon Dioxide 30 mmol/L (20-31); Chloride 95 mmol/L (98-107); Glucose 113 mg/dL (74-106); Potassium 2.9 mmol/L (3.5-5.1); Sodium 138 mmol/L (136-145); Total Protein 6.3 g/dL (5.7-8.2)
[2024-08-10 18:42] VITALS: PULSE 88; RESP 12; O2SAT 96
[2024-08-10 18:57] LABS: Urine Bacteria None Seen /hpf (None Seen)
--- NOTE | 2024-08-10 19:01 | DVH ---
CHEST RADIOGRAPH Indication:R/o pleural effusion Technique: Single frontal view of the chest was obtained Comparison: None FINDINGS: Lines and Tubes: None Lungs: No focal consolidation. Mild diffuse interstitial prominence. Pleura: No effusion. No pneumothorax. Cardiomediastinal contours: Unremarkable Bones: No acute osseous abnormality. IMPRESSION: Diffuse interstitial prominence which may be from pulmonary vascular congestion/ interstitial pneumon itis. No radiographic findings of pleural effusion.
[2024-08-10 19:05] LABS: Urine Blood 2+ /uL (Negative); Urine Clarity Ex.Turbid (Clear); Urine Color Dark-Brown (Yellow); Urine Protein, UAD 2+ (Negative); Urine Specific Gravity 1.013 (1.001-1.035); Urine Urobilinogen Normal (Negative); Urine WBC 2968 /hpf (0 - 5); Urine WBC Clumps PRESENT /hpf (None Seen); Urine pH 5.5 (5.0-9.0)
[2024-08-10 19:28] VITALS: PULSE 84; RESP 10; O2SAT 96
--- NOTE | 2024-08-10 19:29 | DVH ---
CLINICAL HISTORY: R/o DVT right lower extremity pain and swelling TECHNIQUE: Color and duplex doppler imaging of the right lower extremity veins was performed. Vessel compression if possible was also performed. WID: COMPARISON: US BILAT LOWER DVT on DOS: 06/22/24 FINDINGS: Right external iliac vein: Normal flow and phasicity. Right common femoral vein: Normal compressibility and flow. Right femoral vein: Normal compressibility and flow. Right popliteal vein: Normal compressibility and flow. Proximal calf veins are normally compressible. Subcutaneous edema in the right lower extremity IMPRESSION: NO SONOGRAPHIC EVIDENCE FOR DEEP VENOUS THROMBOSIS IN THE RIGHT LOWER EXTREMITY VEINS.
[2024-08-10] MEDS ORDERED: POTASSIUM CHL 20 Meq TABLET PO ONE (19:45)
--- NOTE | 2024-08-10 19:55 | ED.PDOC ---
History of Present Illness HPI Comments 64-year-old female with past medical history pertinent for CKD, HTN, anemia, multiple myeloma, presents to ED for bilateral leg pain x2 months, worsening in the last couple days. Patient also reports associated generalized weakness. Patient reports that she was seen here two months ago and was diagnosed with a blood cancer and kidney disease. She currently rates her pain as 10/10 in severity. Patient reports that she has been unable to walk due to the pain she has been bed-bound. Patient denies any chest pain, shortness of breath, nausea, vomiting, abdominal pain. She denies any alleviating or aggravating factors. Chief Complaint: General Weakness Time Seen by MD: 16:52 Primary Care Provider: DIXIE PERKINS Notes: Nurses Notes, Medications, Allergies Allergies: Coded Allergies: NO KNOWN ALLERGIES (Unverified , 02/02/24) Home Meds Active Scripts Tramadol HCl (Tramadol HCl) 50 Mg Tab, 50 MG PO Q8HPRN PRN for 5 Days, #15 TAB Prov:EUNICE BEST MD 06/26/24 Cefdinir (Cefdinir) 300 Mg Cap, 1 CAP PO BID for 7 Days, #14 CAP Prov:KIM MATHEWS 06/26/24 Bumetanide (Bumetanide) 2 Mg Tab, 1 TAB PO BID, #60 TAB 5 Refills Prov:KIM MATHEWS 06/26/24 Apixaban Base (ELIQUIS) 2.5 Mg Tab, 2.5 MG PO BID for 180 Days, #180 TAB Prov:KIM MATHEWS 06/25/24 Docusate Sodium (Colace) 100 Mg Cap, 100 MG PO DAILY for 15 Days, #15 CAP Prov:TORO BILLINGS 05/07/24 Ferrous Sulfate (Iron) 325 Mg Tab, 325 MG PO DAILY for 30 Days, #30 TAB Prov:OTRO BILLINGS RESIDENT 05/07/24 Reported Medications Amlodipine Besylate (Amlodipine Besylate) 5 Mg Tab, 5 MG PO DAILY, TAB 06/22/24 Mode of Arrival: EMS Past Medical History PAST MEDICAL HISTORY: Anemia, CKF, HTN Surgical History: Denies all surgeries RESERVATIONS CLERK History: No Pertinent RESERVATIONS CLERK History Family History Family History: Reviewed,noncontributory to illness, No family hx of Cancer, No family hx of DM, No family hx of Heart belem, No family hx of HTN, No family hx ofKidney belem, No family hx of Liver belem, No family hx of Lung belem, No family hx of Stroke Social History Smoker: Non-Smoker Alcohol: Denies ETOH Use Drugs: Denies Drug Use Lives In: Home Constitutional: reports: weakness; denies: chills, diaphoresis, fatigue, fever, malaise, sweats, others EENTM: denies: blurred vision, double vision, ear bleeding, ear discharge, ear drainage, ear pain, ear ringing, eye pain, eye redness, hearing loss, mouth pain, mouth swelling, nasal discharge, nose bleeding, nose congestion, nose pain, photophobia, tearing, throat pain, throat swelling, voice changes, others Respiratory: denies: cough, hemoptysis, orthopnea, SOB at rest, shortness of breath, SOB with excertion, stridor, wheezing, others Cardiovascular: denies: chest pain, dizzy spells, diaphoresis, Dyspnea on exertion, edema, irregular heart beat, left arm pain, lightheadedness, palpitations, PND, syncope, others Gastrointestinal: denies: abdomen distended, abdominal pain, blood streaked bowels, constipated, diarrhea, dysphagia, difficulty swallowing, hematemesis, melena, nausea, poor appetite, poor fluid intake, rectal bleeding, rectal pain, vomiting, others Genitourinary: denies: abnormal vagina bleeding, burning, dyspareunia, dysuria, flank pain, frequency, hematuria, incontinence, pain, , vagina discharge, urgency, others Neurological: denies: dizziness, fainting, headache, left sided numbness, left sided weakness, numbness, paresthesia, pre-existing deficit, right sided numbness, right sided weakness, seizure, speech problems, tingling, tremors, weakness, others Musculoskeletal: reports: joint pain, joint swelling; denies: back pain, gout, muscle pain, muscle stiffness, neck pain, others Integumetry: denies: bruises, change in color, change in hair/nails, dryness, laceration, lesions, lumps, rash, wounds, others Allergic/Immunocompromised: denies: Difficulty Healing, Frequent Infections, Hives, Itching, others Hematologic/Lymphatic: denies: anemia, blood clots, easy bleeding, easy bruising, swollen glands, others Endocrine: denies: excessive hunger, excessive sweating, excessive thirst, excessive urination, flushing, intolerance to cold, intolerance to heat, unexplained weight gain, unexplained weight loss, others Psychiatric: denies: anxiety, bipolar disorder, depression, hopeless, panic disorder, schizophrenia, sleepless, suicidal, others All Other Systems: Reviewed and Negative Physical Exam General Appearance: Moderate Distress, Normal HEENT: Normal ENT Inspection, Pharynx Normal, TMs Normal Neck: Full Range of Motion, Non-Tender, Normal, Normal Inspection Respiratory: Chest Non-Tender, Lungs Clear, No Accessory Muscle Use, No Respiratory Distress, Normal Breath Sounds Cardiovascular: No Edema, No JVD, No Murmur, No Gallop, Normal Peripheral Pulses, Regular Rate/Rhythm Breast Exam: Deferred Gastrointestinal: No Organomegaly, Non Tender, No Pulsatile Mass, Normal Bowel Sounds, Soft Genitalia: Deferred Pelvic: Deferred Rectal: Deferred Extremities: No calf tenderness, Normal capillary refill, Pedal edema, Swelling (3+ pitting edema on the right lower extremity, 2+ pitting edema of the left lower extremity. Right lower extremity is significantly more swollen compared to the right. No discoloration.), Tender (Tenderness to palpation to bilateral lower extremities.) Musculoskeletal : Apperance: Normal Neurologic: Alert, glassware finisher II-XII nml as Tested, No Motor Deficits, Normal Affect, Normal Mood, No Sensory Deficits Cerebellar Function: Normal Reflexes: Normal Skin: Dry, Normal Color, Warm, Other (Pressure sore noted to the right lateral foot) Lymphatic: No Adenopathy Was a procedure done? Was a procedure done?: No Differential Dx Considerations may include: CHF exacerbation, UTI, IVETH, DVT X-Ray, Labs, Meds, VS Vital Signs Date Time Temp Pulse Resp B/P (MAP) Pulse Ox O2 Delivery O2 Flow Rate FiO2 08/10/24 19:28 84 10 96 Room Air* 0 21 08/10/24 19:28 98.7 84 10 91/50 (64) 96 98.7 08/10/24 18:42 88 12 96 Room Air* 0 21 08/10/24 18:42 88 12 111/59 (76) 96 08/10/24 16:20 97.7 87 18 105/62 (76) 100 Lab Test 08/10/24 20:45 08/10/24 18:47 08/10/24 18:40 08/10/24 17:40 Range/Units Lactic Acid Level 1.1 0.4-2.0 mmol/L Troponin I High Sensitivity 32 31 32 </=34 ng/L Urine Color Dark-brown Yellow Urine Clarity Ex.turbid Clear Urine pH 5.5 5.0-9.0 Urine Specific [place] 1.013 1.001-1.035 Urine Protein 2+ H Negative Urine Ketones Negative Negative Urine Blood 2+ H Negative /uL Urine Nitrite Negative Negative Urine Bilirubin Negative Negative Urine Urobilinogen Normal Negative mg/dL Urine Leukocyte Esterase 3+ Negative /uL Urine RBC 46 0 - 4 /hpf Urine WBC 2968 0 - 5 /hpf Urine WBC Clumps Present None Seen /hpf Urine Squamous Epithelial Cells Few <5 /hpf Urine Bacteria None seen None Seen /hpf Urine Glucose Normal Normal mg/dL Magnesium Level 3.1 H 1.6-2.6 mg/dL White Blood Count 19.1 H 4.4-10.8 10^3/uL Red Blood Count 2.81 L 4.0-5.20 10^6/uL Hemoglobin 7.7 L 12.2-16.2 g/dL Hematocrit 23.3 L 36.0-46.0 % Mean Corpuscular Volume 82.8 80.0-100.0 fL Mean Corpuscular Hemoglobin 27.5 L 28.0-32.0 pg Mean Corpuscular Hemoglobin Concent 33.3 32.0-36.0 g/dL Red Cell Distribution Width 18.2 H 11.8-14.3 % Platelet Count 456 H 140-450 10^3/uL Mean Platelet Volume 7.0 6.9-10.8 fL Neutrophils (%) (Auto) 37.0-80.0 % Lymphocytes (%) (Auto) 10.0-50.0 % Monocytes (%) (Auto) 0.0-12.0 % Basophils (%) (Auto) 0.0-2.0 % Neutrophils # (Auto) 1.6-8.6 10 ^3/uL Lymphocytes # (Auto) 0.4-5.4 10 ^3/uL Monocytes # (Auto) 0-1.3 10 ^3/uL Differential Total Cells Counted 100.0 100 Neutrophils % (Manual) 82 H 37.0-80.0 Band Neutrophils % (Manual) 1 Lymphocytes % (Manual) 12 10.0-50.0 Monocytes % (Manual) 5 0-12 Eosinophils % (Manual) 0 0-7 Basophils % (Manual) 0 0.0-2.0 Metamyelocytes % (manual) 0 Myelocytes % (Manual) 0 Promyelocytes % (Manual) 0 Blast Cells % (Manual) 0 Nucleated Red Blood Cells 1.0 % Reactive Lymphocytes 0 Platelet Estimate [place] Large Platelets Few Anisocytosis (manual) Slight Microcytosis Slight Macrocytosis Slight Ovalocytes Few Stomatocytes Few Sodium Level 138 136-145 mmol/L Potassium Level 2.9 L 3.5-5.1 mmol/L Chloride Level 95 L 98-107 mmol/L Carbon Dioxide Level 30 20-31 mmol/L Anion Gap 13 5-15 Blood Urea Nitrogen 78 H 9-23 mg/dL Creatinine 3.98 H 0.550-1.02 mg/dL Glomerular Filtration Rate Calc 12 >90 mL/min BUN/Creatinine Ratio 19.6 10.0-20.0 Serum Glucose 113 H 74-106 mg/dL Calcium Level 13.0 *H 8.7-10.4 mg/dL Total Bilirubin 0.5 0.2-1.0 mg/dL Aspartate Amino Transferase (AST) 43 H 13-40 U/L Alanine Aminotransferase (ALT) 22 7-40 U/L Alkaline Phosphatase 88 46-116 U/L B-Type Natriuretic Peptide 51.34 0-100 pg/mL Total Protein 6.3 5.7-8.2 g/dL Albumin 3.9 3.2-4.8 g/dL Current Medications Medications (Trade) Dose Ordered Sig/Angela Route Start Time Stop Time Status Last Admin Ceftriaxone Sodium 50 ml @ 100 mls/hr ONCE ONCE IV 08/10/24 19:45 08/10/24 20:14 DC 08/10/24 21:02 Azithromycin 250 ml @ 125 mls/hr ONCE ONCE IV 08/10/24 19:45 08/10/24 21:45 DC 08/10/24 21:35 Potassium Chloride/Sodium Chloride 1,000 ml @ 100 mls/hr Q10H ONCE IV 08/10/24 19:45 08/11/24 05:44 08/11/24 00:14 Acetaminophen/ Hydrocodone Bitart ([place] 5/325MG Tab) 1 tab ONCE ONCE PO 08/10/24 20:00 08/10/24 20:01 DC 08/10/24 20:33 X-Ray, Labs, Meds, VS Comment CXR IMPRESSION: Diffuse interstitial prominence which may be from pulmonary vascular congestion/ interstitial pneumonitis. No radiographic findings of pleural effusion. Right Lower Extremity US IMPRESSION: NO SONOGRAPHIC EVIDENCE FOR DEEP VENOUS THROMBOSIS IN THE RIGHT LOWER EXTREMITY VEINS. MDM: Patient with history as above presented with bilateral lower extremity pain. History obtained from patient. Patient was nontoxic, stable, afebrile, in stretcher, moderate distress. Exam as above. Labs reviewed. CBC showed a leukocytosis of 19.1. Hemoglobin decreased at 7.7 and hematocrit at 23.3. CMP showed hypokalemia at 2.9. BUN elevated at 78. Creatinine elevated at 3.98. Calcium severely elevated at 13.0. Troponin x2 were negative. BNP within normal limits at 51.34. Urinalysis showed 3+ leukocyte esterase, significant amount RBC and WBCs. Independently reviewed imaging. Chest x-ray showed diffuse interstitial prominence. Right lower extremity ultrasound did not show DVT. Reviewed external records. All findings were discussed with the patient. Differential diagnosis considered. Overall presentation is consistent with kidney failure, pneumonia, hypercalcemia, UTI, hypokalemia. Low suspicion for DVT, ACS, pleural effusion. Patient was treated with [place] with improvement in symptoms. Patient will be admitted to the hospital for pneumonia and UTI treatment. Patient will require IV antibiotics. Patient also has severe kidney failure and hypercalcemia. Hypercalcemia is likely due to malignancy. Patient was started on IV antibiotics and potassium replacement. Disposition: Admit This medical document was created using the [employer] dictation system. Although this document has been carefully reviewed, there may still be some phonetic and typographical errors, which are due to imperfections of the software program, and do not reflect any compromise in the patient's medical care. Time of 1ST Reevaluation: 19:51 Reevaluation 1ST: Improved Patient Education/Counseling: Diagnosis, Treatment, Prognosis, Need For Follow Up Family Education/Counseling: Diagnosis, Treatment, Prognosis, Need For Follow Up Departure 1 Departure Time of Disposition: 19:55 Impression: Primary Impression: Kidney failure Qualified Codes: N17.9 - Acute kidney failure, unspecified; N18.9 - Chronic kidney disease, unspecified Additional Impressions: Hypercalcemia Pneumonia Qualified Codes: J18.9 - Pneumonia, unspecified organism UTI (urinary tract infection) Qualified Codes: N30.01 - Acute cystitis with hematuria Hypokalemia Disposition: ADMITTED INPATIENT Condition: Fair Critical Care Note Critical Care Time?: No Stability Stability form required: No Heart Score Heart Score: Heart Score Response (Comments) Value History N/A 0 EKG N/A 0 Age N/A 0 Risk Factors N/A 0 Troponin N/A 0 Total 0 MARY WHITAKER PAC Aug 10, 2024 19:55
[2024-08-10] MEDS: HYDROcodone-ACET 5/325MG TAB PO ONE (20:33)
[2024-08-10] MEDS: cefTRIAXone 1GM/50ML D5W 50 ML IV ONE (21:02)
[2024-08-10] MEDS: AZITHROMYCIN 500MG/ 250ML 250 ML IV ONE (21:35)
[2024-08-11] VITALS (8 sets, daily range): BP systolic 100–122; BP diastolic 51–63; PULSE 61–101; RESP 16–17; TEMP 97.8–100.4; O2SAT 91–96
[2024-08-11] MEDS: SOD CHL 0.9%/ KCL 40MEQ 1,000 ML IV ONE (00:14)
[2024-08-11] MEDS ORDERED: NITROGLYCERIN 0.4 MG SL TAB SL PRN (01:45)
[2024-08-11] MEDS: FUROSEMIDE 20 MG/2 ML VIAL IV ONE (01:45)
[2024-08-11] MEDS ORDERED: MORPHINE SULFATE INJ 2 MG/ml SYRG IV PRN (01:45)
[2024-08-11] MEDS ORDERED: ONDANSETRON HCL 4 MG/2 ML VIAL IV PRN (01:45)
--- NOTE | 2024-08-11 06:40 | DVHHP2 ---
History of Present Illness Reason for Visit: Generalized weakness History of Present Illness 64-year-old female presents for evaluation of generalized weakness. Patient's daughter reports decompensation in patient's physical and mental well-being over the past four months. She states patient does not want to get out of bed and has decreased appetite. Patient was diagnosed with multiple myeloma three weeks ago. She also has a history of chronic kidney disease. Denies chest pain or shortness for breath. No other acute complaints reported. Past Medical History Chronic kidney disease, hypertension and multiple myeloma Past Surgical History None Family History Noncontributory Smoke: No ALCOHOL: none Drugs: None Lives: with Family Review of Systems Review of Systems Review of systems are currently negative otherwise addressed in HPI. Allergies: Coded Allergies: NO KNOWN ALLERGIES (Unverified , 02/02/24) Medications Current Medications Medications Dose Ordered Sig/Angela Route Start Time Stop Time Status Last Admin Dose Admin Ceftriaxone Sodium 50 ml @ 100 mls/hr DAILY@2100 IV 08/11/24 21:00 Furosemide 80 mg DAILY PO 08/11/24 10:00 Apixaban 2.5 mg BID PO 08/11/24 10:00 Acetaminophen/ Hydrocodone Bitart 1 tab Q4HP PRN PO 08/11/24 01:45 Ondansetron HCl 4 mg Q4HP PRN IV 08/11/24 01:45 Acetaminophen 650 mg Q6HP PRN PO 08/11/24 01:45 Nitroglycerin 0.4 mg Q5MINP PRN SL 08/11/24 01:45 Morphine Sulfate 2 mg Q30M PRN IV 08/11/24 01:45 Exam Vital Signs Vital Signs Date Time Temp Pulse Resp B/P (MAP) Pulse Ox O2 Delivery O2 Flow Rate FiO2 08/11/24 06:20 Room Air* 0 21 08/11/24 04:00 69 08/11/24 03:05 9 91/51 (64) 100 08/10/24 20:00 98.7 98.7 Exam Gen: 64-year-old female in mild distress, lethargic Skin: Warm, dry, normal color and texture, no rash. HEENT: Normocephalic atraumatic, mucous membranes moist and pink. Neck: Cervical and supraclavicular nodes normal without enlargement, trachea is midline, thyroid gland is normal without masses. Pulmonary: Clear to auscultation and percussion bilaterally. Cardiac: Regular rate and rhythm. No murmur Abdomen: Soft, nontender, nondistended, bowel sounds present all 4 quadrants, no guarding, no rigidity, no organomegaly. Extremities: No cyanosis, clubbing, no edema Neuro: Cranial nerves II through XII grossly intact, normal affect and speech, no focal motor deficits. Labs/Xrays ORDERING PHYSICIAN: MARY WHITAKER PAC PROCEDURE(s): CXRP - CHEST PORTABLE REASON: R/o pleural effusion ORDER NUMBER(s): [id number], ACCESSION NUMBER(s): [id number] CHEST RADIOGRAPH Indication:R/o pleural effusion Technique: Single frontal view of the chest was obtained Comparison: None FINDINGS: Lines and Tubes: None Lungs: No focal consolidation. Mild diffuse interstitial prominence. Pleura: No effusion. No pneumothorax. Cardiomediastinal contours: Unremarkable Bones: No acute osseous abnormality. IMPRESSION: Diffuse interstitial prominence which may be from pulmonary vascular congestion/ interstitial pneumonitis. No radiographic findings of pleural effusion. Labs Test 08/10/24 20:45 08/10/24 18:47 08/10/24 18:40 08/10/24 17:40 Range/Units Lactic Acid Level 1.1 0.4-2.0 mmol/L Troponin I High Sensitivity 32 </=34 ng/L Urine Color Dark-brown Yellow Urine Clarity Ex.turbid Clear Urine pH 5.5 5.0-9.0 Urine Specific [place] 1.013 1.001-1.035 Urine Protein 2+ H Negative Urine Ketones Negative Negative Urine Blood 2+ H Negative /uL Urine Nitrite Negative Negative Urine Bilirubin Negative Negative Urine Urobilinogen Normal Negative mg/dL Urine Leukocyte Esterase 3+ Negative /uL Urine RBC 46 0 - 4 /hpf Urine WBC 2968 0 - 5 /hpf Urine WBC Clumps Present None Seen /hpf Urine Squamous Epithelial Cells Few <5 /hpf Urine Bacteria None seen None Seen /hpf Urine Glucose Normal Normal mg/dL Magnesium Level 3.1 H 1.6-2.6 mg/dL White Blood Count 19.1 H 4.4-10.8 10^3/uL Red Blood Count 2.81 L 4.0-5.20 10^6/uL Hemoglobin 7.7 L 12.2-16.2 g/dL Hematocrit 23.3 L 36.0-46.0 % Mean Corpuscular Volume 82.8 80.0-100.0 fL Mean Corpuscular Hemoglobin 27.5 L 28.0-32.0 pg Mean Corpuscular Hemoglobin Concent 33.3 32.0-36.0 g/dL Red Cell Distribution Width 18.2 H 11.8-14.3 % Platelet Count 456 H 140-450 10^3/uL Mean Platelet Volume 7.0 6.9-10.8 fL Neutrophils (%) (Auto) 37.0-80.0 % Lymphocytes (%) (Auto) 10.0-50.0 % Monocytes (%) (Auto) 0.0-12.0 % Basophils (%) (Auto) 0.0-2.0 % Neutrophils # (Auto) 1.6-8.6 10 ^3/uL Lymphocytes # (Auto) 0.4-5.4 10 ^3/uL Monocytes # (Auto) 0-1.3 10 ^3/uL Differential Total Cells Counted 100.0 100 Neutrophils % (Manual) 82 H 37.0-80.0 Band Neutrophils % (Manual) 1 Lymphocytes % (Manual) 12 10.0-50.0 Monocytes % (Manual) 5 0-12 Eosinophils % (Manual) 0 0-7 Basophils % (Manual) 0 0.0-2.0 Metamyelocytes % (manual) 0 Myelocytes % (Manual) 0 Promyelocytes % (Manual) 0 Blast Cells % (Manual) 0 Nucleated Red Blood Cells 1.0 % Reactive Lymphocytes 0 Platelet Estimate [place] Large Platelets Few Anisocytosis (manual) Slight Microcytosis Slight Macrocytosis Slight Ovalocytes Few Stomatocytes Few Sodium Level 138 136-145 mmol/L Potassium Level 2.9 L 3.5-5.1 mmol/L Chloride Level 95 L 98-107 mmol/L Carbon Dioxide Level 30 20-31 mmol/L Anion Gap 13 5-15 Blood Urea Nitrogen 78 H 9-23 mg/dL Creatinine 3.98 H 0.550-1.02 mg/dL Glomerular Filtration Rate Calc 12 >90 mL/min BUN/Creatinine Ratio 19.6 10.0-20.0 Serum Glucose 113 H 74-106 mg/dL Calcium Level 13.0 *H 8.7-10.4 mg/dL Total Bilirubin 0.5 0.2-1.0 mg/dL Aspartate Amino Transferase (AST) 43 H 13-40 U/L Alanine Aminotransferase (ALT) 22 7-40 U/L Alkaline Phosphatase 88 46-116 U/L B-Type Natriuretic Peptide 51.34 0-100 pg/mL Total Protein 6.3 5.7-8.2 g/dL Albumin 3.9 3.2-4.8 g/dL Assessment/Plan Assessment/Plan Assessment Acute on chronic renal failure Multiple myeloma Urinary tract infection Early sepsis Pneumonitis Plan [facility] Resume home medications Continue treatment per orders. Plan discussed with: Patient My Orders Orders - CAROLE FINLEY Procedure Category Date Status Time Ceftriaxone 1gm/50ml PHA 08/11/24 In Process D5w (Rocephin) 21:00 * Hematology/Oncology CONS 08/11/24 Transmitted Consult 01:31 *Dr. [facility] CONS 08/11/24 Transmitted -[place] 01:31 Furosemide Tablet PHA 08/11/24 In Process (Lasix Tablet) 10:00 Blood Culture GONZALEZ 08/11/24 In Process 01:31 Admit ADMIT 08/11/24 Transmitted 01:31 Renal DIET 08/11/24 Transmitted Standard(2gna,3gk,Lopho) Breakfast Hydrocodone-Acet PHA 08/11/24 In Process 5/325mg Tab ([place] 01:45 Ondansetron Hcl PHA 08/11/24 In Process (Zofran) 01:45 Complete Blood Count LAB 08/12/24 Verified 04:00 Comprehensive LAB 08/12/24 Verified Metabolic Panel 04:00 Condition: Fair MARIAELENA 08/11/24 In Process 01:31 Acetaminophen Tablet PHA 08/11/24 In Process (Tylenol Tablet) 01:45 Bedrest With Bathroom MARIAELENA 08/11/24 In Process Privileg 01:31 Nitroglycerin PHA 08/11/24 In Process Sublingual (Ntrostat 01:45 Morphine Sulfate PHA 08/11/24 In Process Injection 01:45 Stat Ekg For Chest MARIAELENA 08/11/24 In Process Pain 01:31 Notify Of Changes MARIAELENA 08/11/24 In Process From Base 01:31 Rn Training For MARIAELENA 08/11/24 In Process 24 Hours 01:31 Emergency Dysrhythmia MARIAELENA 08/11/24 In Process Protocol 01:31 Rhythm Strips Once MARIAELENA 08/11/24 In Process Every Shift 01:31 Oxygen By Nasal RT 08/11/24 Transmitted Cannula 01:31 Apixaban (Eliquis) PHA 08/11/24 In Process 10:00 Date of Service: Aug 10, 2024 Billing Provider: CAROLE FINLEY Common Visit Codes: [id number] INP/OBS CARE (HIGH) CAROLE FINLEY Aug 11, 2024 06:40
[2024-08-11] MEDS: HYDROcodone-ACET 5/325MG TAB PO PRN (06:45)
[2024-08-11] MEDS: APIXABAN 2.5 MG TAB PO SCH (09:05)
[2024-08-11] MEDS ORDERED: FUROSEMIDE 40 MG TAB PO SCH (10:00)
[2024-08-11] MEDS ORDERED: CALCITRIOL 1 MCG/ML AMPULE IV SCH (10:00)
[2024-08-11] MEDS: CALCITONIN 400unit/2ml Vial (200unit/ml) SC SCH (10:00)
[2024-08-11 11:16] LABS: Mean Corpuscular Volume 82.9 fL (80.0-100.0); Platelet Count (auto) 363 10^3/uL (140-450); Red Cell Distribution Width 18.2 % (11.8-14.3)
[2024-08-11 11:19] LABS: Hematocrit 19.6 % (36.0-46.0); Mean Corpuscular Hemoglobin 28.2 pg (28.0-32.0); Red Blood Cells 2.36 10^6/uL (4.0-5.20); White Blood Cell 13.7 10^3/uL (4.4-10.8)
[2024-08-11] MEDS: FUROSEMIDE 20 MG TAB PO SCH (11:24)
[2024-08-11 11:26] LABS: Hemoglobin 6.7 g/dL (12.2-16.2)
[2024-08-11 11:28] LABS: Alanine Aminotransferase 22 U/L (7-40); Albumin 3.3 g/dL (3.2-4.8); Alkaline Phosphatase 76 U/L (46-116); Anion Gap 9 (5-15); Aspartate Aminotransferase 36 U/L (13-40); BUN/Creatinine Ratio 19.7 (10.0-20.0); Blood Urea Nitrogen 71 mg/dL (9-23); Calcium 11.4 mg/dL (8.7-10.4); Carbon Dioxide 30 mmol/L (20-31); Chloride 101 mmol/L (98-107); Glucose 94 mg/dL (74-106); Potassium 3.1 mmol/L (3.5-5.1); Sodium 140 mmol/L (136-145)
[2024-08-11 11:29] LABS: Bilirubin, Total 0.3 mg/dL (0.2-1.0); Total Protein 5.2 g/dL (5.7-8.2)
[2024-08-11 11:31] LABS: Basophils % (manual) 0 (0.0-2.0); Blast Cells 0; Eosinophils % (manual) 0 (0-7); Metamyelocytes % 0; Myelocytes % 0; Promyelocytes % 0; Reactive Lymphocytes 0
[2024-08-11] MEDS ORDERED: SOD CHL 0.9%/ KCL 40MEQ 1,000 ML IV SCH (11:45)
[2024-08-11 12:14] LABS: Band Neutrophils % (manual) 3; Lymphocytes % (manual) 13 (10.0-50.0); Monocytes % (manual) 9 (0-12)
[2024-08-11 12:15] LABS: Platelet Estimate Decreased
--- NOTE | 2024-08-11 12:46 | DVHINCON2 ---
Date of service: Aug 11, [address] Tona Koo Reason for Consultation Multiple myeloma History of Present Illness 63 years old female with a history of chronic kidney disease, hypertension and anemia. Patient has history of arthritic pains in the knees. She has lost 25 lb of weight in the last six months. She has not noticed any blood in the stools. She has relatively low on B12 on the lower end of normal range, normal folate, negative [place] Serum immune fixation showed a faint band was noted in IgA; light chain sp ecificity could not be verified Urine immune fixation showed Bence Kapoor protein positive lambda type Free kappa light chain [place] lambda ratio was 0 Double-stranded DNA was negative. IgA 227, IgM less than five and IgG 294. Stool guaiac on the last admission in May 17 was negative Her hepatitis A, B surface antigen and B core IgM antibody and C antibody and HIV one and two was negative Chemistry panel on this admission showed GFR 21 uric acid 9.1 calcium 10.7 serum iron 35 saturation 19.4 ferritin 992.7 normal liver functions. LDH was 241. Total protein 6.2 and albumin 4.2. No M spike Urine protein was 987.1 In May 2024 she was found to have a left popliteal venous thrombus and was put on Eliquis 2.5 mg p.o. twice daily CT of the abdomen pelvis on 05/05/2024 showed no acute abnormalities. Now the patient is admitted with complaints of pains in the feet And generalized weakness and tiredness And is found to have high calcium Of 13 with a renal insufficiency and anemia She is being given IV hydration Bone marrow aspiration biopsy from 06/24/2024 showed hypercellular bone marrow for age approximately 70%, involved by plasma cell neoplasm comprising approximately 70% of the marrow was cellularity consistent with multiple myeloma. Cytogenetics showed abnormal karyotype and plasma cell myeloma FISH panel revealed multiple abnormalities and intelligent myeloid NGS revealed a variant of unknown clinical significance FISH showed gain of 1 q. 21, gain of chromosome 7, 9 and 15 and monosomy of chromosome 13 Past Medical History Anemia Arthritis Hypertension Chronic kidney disease Knee replacement Tonsillectomy C-sections Hernia repair Family History: Arthritis G8 MOTHER, Onset:Unknown FH: heart attack G8 MOTHER, Onset:60 years & older G8 FATHER, Onset:60 years & older Family History Unremarkable for malignancy or hematological disorders Social History No smoking or drinking or drugs. She lives with her daughter Allergies: Coded Allergies: NO KNOWN ALLERGIES (Unverified , 02/02/24) Home Meds Active Scripts Cefdinir (Cefdinir) 300 Mg Cap, 1 CAP PO BID for 7 Days, #14 CAP Prov:KIM MATHEWS RESIDENT 06/26/24 Bumetanide (Bumetanide) 2 Mg Tab, 1 TAB PO BID, #60 TAB 5 Refills Prov:KIM MATHEWS RESIDENT 06/26/24 Apixaban Base (ELIQUIS) 2.5 Mg Tab, 2.5 MG PO BID for 180 Days, #180 TAB Prov:KIM MATHEWS RESIDENT 06/25/24 Docusate Sodium (Colace) 100 Mg Cap, 100 MG PO DAILY for 15 Days, #15 CAP Prov:TORO BILLINGS RESIDENT 05/07/24 Ferrous Sulfate (Iron) 325 Mg Tab, 325 MG PO DAILY for 30 Days, #30 TAB Prov:TORO BILLINGS RESIDENT 05/07/24 Reported Medications Amlodipine Besylate (Amlodipine Besylate) 5 Mg Tab, 5 MG PO DAILY, TAB 06/22/24 Current Medications Current Medications Medications (Trade) Dose Ordered Sig/Angela Route PRN Reason Start Time Stop Time Status Last Admin Ceftriaxone Sodium 50 ml @ 100 mls/hr DAILY@2100 IV 08/11/24 21:00 Furosemide (Lasix Tablet) 80 mg DAILY PO 08/11/24 10:00 08/11/24 09:39 DC Apixaban (Eliquis) 2.5 mg BID PO 08/11/24 10:00 08/11/24 09:05 Acetaminophen/ Hydrocodone Bitart ([place] 5/325MG Tab) 1 tab Q4HP PRN PO MODERATE PAIN (4-6 PAIN SCALE) 08/11/24 01:45 08/11/24 11:27 Ondansetron HCl (Zofran) 4 mg Q4HP PRN IV NAUSEA / VOMITING 08/11/24 01:45 Acetaminophen (Tylenol Tablet) 650 mg Q6HP PRN PO PAIN SCALE 1-3 OR TEMP>100.4 08/11/24 01:45 Nitroglycerin (Ntrostat Sublingual) 0.4 mg Q5MINP PRN SL FOR CHEST PAIN 08/11/24 01:45 Morphine Sulfate 2 mg Q30M PRN IV FOR CHEST PAIN 08/11/24 01:45 Calcitriol (Calcitriol Injectable) 200 mcg Q12HR IV 08/11/24 10:00 08/11/24 10:34 DC Furosemide (Lasix Tablet) 20 mg DAILY PO 08/11/24 10:00 08/11/24 11:24 Calcitonin [place] (Miacalcin Injectable) 200 unit Q12HR SC 08/11/24 10:00 08/11/24 10:00 Potassium Chloride/Sodium Chloride 1,000 ml @ 120 mls/hr Q8H20M IV 08/11/24 11:45 Vital Signs Vital Signs Date Time Temp Pulse Resp B/P (MAP) Pulse Ox O2 Delivery O2 Flow Rate FiO2 08/11/24 11: 105/61 08/11/24 06:20 Room Air* 0 21 08/11/24 04:00 69 08/11/24 03:05 9 100 08/10/24 20:00 98.7 98.7 Physical Exam GENERAL: The patient is Cachectic,in no distress, alert and oriented. HEAD AND NECK: Unremarkable. No neck nodes or masses. Conjunctivae: Unremarkable for any mucosal hemorrhage or inflammation. Thyroid is nonpalpable. Throat is unremarkable. SPINE: No deformities or tenderness. CHEST: Chest wall, no tenderness. LUNGS: Clear. CARDIOVASCULAR: Regular sinus rhythm. No murmurs or gallops. ABDOMEN: No organomegaly, tenderness or ascites. Bowel sounds present. EXTREMITIES: No clubbing, edema or cyanosis. Peripheral pulses palpable. No calf tenderness. LYMPHATICS: No significant lymphadenopathy. NEUROLOGIC: No focal neurological deficits. SKIN: Unremarkable for any petechiae, purpura, or ecchymosis. Psych: No abnormalities Available data reviewed Labs/Diagnostic Data Labs Test 08/11/24 10:30 08/10/24 20:45 08/10/24 18:47 08/10/24 18:40 Range/Units White Blood Count 13.7 #H 4.4-10.8 10^3/uL Red Blood Count 2.36 L 4.0-5.20 10^6/uL Hemoglobin 6.7 *L 12.2-16.2 g/dL Hematocrit 19.6 #L 36.0-46.0 % Mean Corpuscular Volume 82.9 80.0-100.0 fL Mean Corpuscular Hemoglobin 28.2 28.0-32.0 pg Mean Corpuscular Hemoglobin Concent 34.0 32.0-36.0 g/dL Red Cell Distribution Width 18.2 H 11.8-14.3 % Platelet Count 363 140-450 10^3/uL Mean Platelet Volume 6.9 6.9-10.8 fL Neutrophils (%) (Auto) 37.0-80.0 % Lymphocytes (%) (Auto) 10.0-50.0 % Monocytes (%) (Auto) 0.0-12.0 % Basophils (%) (Auto) 0.0-2.0 % Neutrophils # (Auto) 1.6-8.6 10 ^3/uL Lymphocytes # (Auto) 0.4-5.4 10 ^3/uL Monocytes # (Auto) 0-1.3 10 ^3/uL Differential Total Cells Counted 100.0 100 Neutrophils % (Manual) 75 37.0-80.0 Band Neutrophils % (Manual) 3 Lymphocytes % (Manual) 13 10.0-50.0 Monocytes % (Manual) 9 0-12 Eosinophils % (Manual) 0 0-7 Basophils % (Manual) 0 0.0-2.0 Metamyelocytes % (manual) 0 Myelocytes % (Manual) 0 Promyelocytes % (Manual) 0 Blast Cells % (Manual) 0 Reactive Lymphocytes 0 Platelet Estimate Decreased Sodium Level 140 136-145 mmol/L Potassium Level 3.1 L 3.5-5.1 mmol/L Chloride Level 101 98-107 mmol/L Carbon Dioxide Level 30 20-31 mmol/L Anion Gap 9 5-15 Blood Urea Nitrogen 71 H 9-23 mg/dL Creatinine 3.61 H 0.550-1.02 mg/dL Glomerular Filtration Rate Calc 14 >90 mL/min BUN/Creatinine Ratio 19.7 10.0-20.0 Serum Glucose 94 74-106 mg/dL Calcium Level 11.4 H 8.7-10.4 mg/dL Total Bilirubin 0.3 0.2-1.0 mg/dL Aspartate Amino Transferase (AST) 36 13-40 U/L Alanine Aminotransferase (ALT) 22 7-40 U/L Alkaline Phosphatase 76 46-116 U/L Total Protein 5.2 L 5.7-8.2 g/dL Albumin 3.3 3.2-4.8 g/dL Lactic Acid Level 1.1 0.4-2.0 mmol/L Troponin I High Sensitivity 32 </=34 ng/L Urine Color Dark-brown Yellow Urine Clarity Ex.turbid Clear Urine pH 5.5 5.0-9.0 Urine Specific [place] 1.013 1.001-1.035 Urine Protein 2+ H Negative Urine Ketones Negative Negative Urine Blood 2+ H Negative /uL Urine Nitrite Negative Negative Urine Bilirubin Negative Negative Urine Urobilinogen Normal Negative mg/dL Urine Leukocyte Esterase 3+ Negative /uL Urine RBC 46 0 - 4 /hpf Urine WBC 2968 0 - 5 /hpf Urine WBC Clumps Present None Seen /hpf Urine Squamous Epithelial Cells Few <5 /hpf Urine Bacteria None seen None Seen /hpf Urine Glucose Normal Normal mg/dL Magnesium Level 3.1 H 1.6-2.6 mg/dL Test 08/10/24 17:40 Range/Units Nucleated Red Blood Cells 1.0 % Large Platelets Few Anisocytosis (manual) Slight Microcytosis Slight Macrocytosis Slight Ovalocytes Few Stomatocytes Few B-Type Natriuretic Peptide 51.34 0-100 pg/mL Assessment 1.Bone marrow aspiration biopsy from 06/24/2024 showed hypercellular bone marrow for age approximately 70%, involved by plasma cell neoplasm comprising approximately 70% of the marrow was cellularity consistent with multiple myeloma. Cytogenetics showed abnormal karyotype and plasma cell myeloma FISH panel revealed multiple abnormalities and intelligent myeloid NGS revealed a variant of unknown clinical significance FISH showed gain of 1 q. 21, gain of chromosome 7, 9 and 15 and monosomy of chromosome 13 IgA lambda multiple myeloma with serum IgA 227, IgM less than 5 and IgG 294 Renal dysfunction Anemia and hypercalcemia 2. Admitted with hypercalcemia and anemia and pain in the distal lower extremities 3. Renal insufficiency 4. Left popliteal vein thrombus 5. History of hypertension Plan/Recommendation Calcitonin as ordered IV hydration Bone survey The patient is advised to follow-up with me as an outpatient for treatment of multiple myeloma Follow calcium And the CBC Plan discussed with: Patient KYLEIGH MCPHERSON MD Aug 11, 2024 12:46
--- NOTE | 2024-08-11 13:19 | DVHCONRES ---
Date Seen: Aug 11, 2024 Resident Creating Document: KIM MATHEWS RESIDENT Referring Physician Salbador CAREY Reason for Consultation Acute on chronic renal failure History of Present Illness Patient is 64-year-old female with past medical history of hypertension, DVT, recently diagnosed multiple myeloma, osteoarthritis, severe anemia, presented to hospital for chief complaint of pain in bilateral feet, back and generalized weakness. Recently patient underwent bone marrow aspiration biopsy on 06/24/2024 which showed hypercellular bone marrow consistent with multiple myeloma. Patient is waiting for insurance authorization to initiate treatment by Dr. Kothari. Other investigation also 10 before including serum immunofixation, urine immunofixation, free kappa chain. Patient also complained of losing weight in last 6 months around 20-30 lb. Apart from generalized weakness and pain in bilateral feet and back patient denied any other complaint. Patient was been diagnosed with CKD and nephrotic range proteinuria during previous hospitalization patient was offered for kidney biopsy however patient denied that point. However patient underwent bone marrow biopsy which showed multiple myeloma. No any other complaints at this point Past Medical History CKD, nephrotic range proteinuria, hypertension, anemia, arthritis Past Surgical History Tonsillectomy, and hernia repair Family History: Arthritis G8 MOTHER, Onset:Unknown FH: heart attack G8 MOTHER, Onset:60 years & older G8 FATHER, Onset:60 years & older Allergies: Coded Allergies: NO KNOWN ALLERGIES (Unverified , 02/02/24) Allergies No known allergy Home Meds Active Scripts Cefdinir (Cefdinir) 300 Mg Cap, 1 CAP PO BID for 7 Days, #14 CAP Prov:KIM MATHEWS RESIDENT 06/26/24 Bumetanide (Bumetanide) 2 Mg Tab, 1 TAB PO BID, #60 TAB 5 Refills Prov:KIM MATHEWS RESIDENT 06/26/24 Apixaban Base (ELIQUIS) 2.5 Mg Tab, 2.5 MG PO BID for 180 Days, #180 TAB Prov:KIM MATHEWS 06/25/24 Docusate Sodium (Colace) 100 Mg Cap, 100 MG PO DAILY for 15 Days, #15 CAP Prov:TORO BILLINGS RESIDENT 05/07/24 Ferrous Sulfate (Iron) 325 Mg Tab, 325 MG PO DAILY for 30 Days, #30 TAB Prov:TORO BILLINGS RESIDENT 05/07/24 Reported Medications Amlodipine Besylate (Amlodipine Besylate) 5 Mg Tab, 5 MG PO DAILY, TAB 06/22/24 Current Medications Current Medications Medications (Trade) Dose Ordered Sig/Angela Route PRN Reason Start Time Stop Time Status Last Admin Ceftriaxone Sodium 50 ml @ 100 mls/hr DAILY@2100 IV 08/11/24 21:00 Furosemide (Lasix Tablet) 80 mg DAILY PO 08/11/24 10:00 08/11/24 09:39 DC Apixaban (Eliquis) 2.5 mg BID PO 08/11/24 10:00 08/11/24 09:05 Acetaminophen/ Hydrocodone Bitart ([place] 5/325MG Tab) 1 tab Q4HP PRN PO MODERATE PAIN (4-6 PAIN SCALE) 08/11/24 01:45 08/11/24 11:27 Ondansetron HCl (Zofran) 4 mg Q4HP PRN IV NAUSEA / VOMITING 08/11/24 01:45 Acetaminophen (Tylenol Tablet) 650 mg Q6HP PRN PO PAIN SCALE 1-3 OR TEMP>100.4 08/11/24 01:45 Nitroglycerin (Ntrostat Sublingual) 0.4 mg Q5MINP PRN SL FOR CHEST PAIN 08/11/24 01:45 Morphine Sulfate 2 mg Q30M PRN IV FOR CHEST PAIN 08/11/24 01:45 Calcitriol (Calcitriol Injectable) 200 mcg Q12HR IV 08/11/24 10:00 08/11/24 10:34 DC Furosemide (Lasix Tablet) 20 mg DAILY PO 08/11/24 10:00 08/11/24 11:24 Calcitonin [place] (Miacalcin Injectable) 200 unit Q12HR SC 08/11/24 10:00 08/11/24 10:00 Potassium Chloride/Sodium Chloride 1,000 ml @ 120 mls/hr Q8H20M IV 08/11/24 11:45 Review of Systems Patient complaining of bilateral feet pain, back pain. Patient is mild distress. Patient denied any other symptom at this point. HEENT-denies headache, denies vision changes, no hearing issue, denies neck complaints, denies throat issues Respiratory system-denies cough, denies shortness of breath Cardiovascular system-denies chest pain, denies palpitations Abdomen-denies abdominal pain, denies nausea, denies vomiting, denies constipation or diarrhea Musculoskeletal-denies swelling in the legs, denies pain in the extremities Genitourinary-denies urinary symptoms like dysuria, stream issues Neuro-denies dizziness, denies seizures Psychiatric-denies psychiatric history Vital Signs Vital Signs Date Time Temp Pulse Resp B/P (MAP) Pulse Ox O2 Delivery O2 Flow Rate FiO2 08/11/24 11:24 105/61 08/11/24 06:20 Room Air* 0 21 08/11/24 04:00 69 08/11/24 03:05 9 100 08/10/24 20:00 98.7 98.7 Physical Exam General Appearance: Alert, Oriented X3, Cooperative, in distress HEENT: Atraumatic, PERRLA, EOMI, Mucous membr. pail Respiratory: Clear to auscultation, Normal air movement Cardiovascular: Regular rate, Normal S1, Normal S2, No murmurs Abdominal: Normal bowel sounds, Soft Extremities: Bilateral edema 1 +, tenderness at palpation in both calfs Neuro: Normal gait, Normal speech, Strength at 5/5 X4 ext, Normal tone Labs/Diagnostic Data Labs Test 08/11/24 10:30 08/10/24 20:45 08/10/24 18:47 08/10/24 18:40 Range/Units White Blood Count 13.7 #H 4.4-10.8 10^3/uL Red Blood Count 2.36 L 4.0-5.20 10^6/uL Hemoglobin 6.7 *L 12.2-16.2 g/dL Hematocrit 19.6 #L 36.0-46.0 % Mean Corpuscular Volume 82.9 80.0-100.0 fL Mean Corpuscular Hemoglobin 28.2 28.0-32.0 pg Mean Corpuscular Hemoglobin Concent 34.0 32.0-36.0 g/dL Red Cell Distribution Width 18.2 H 11.8-14.3 % Platelet Count 363 140-450 10^3/uL Mean Platelet Volume 6.9 6.9-10.8 fL Neutrophils (%) (Auto) 37.0-80.0 % Lymphocytes (%) (Auto) 10.0-50.0 % Monocytes (%) (Auto) 0.0-12.0 % Basophils (%) (Auto) 0.0-2.0 % Neutrophils # (Auto) 1.6-8.6 10 ^3/uL Lymphocytes # (Auto) 0.4-5.4 10 ^3/uL Monocytes # (Auto) 0-1.3 10 ^3/uL Differential Total Cells Counted 100.0 100 Neutrophils % (Manual) 75 37.0-80.0 Band Neutrophils % (Manual) 3 Lymphocytes % (Manual) 13 10.0-50.0 Monocytes % (Manual) 9 0-12 Eosinophils % (Manual) 0 0-7 Basophils % (Manual) 0 0.0-2.0 Metamyelocytes % (manual) 0 Myelocytes % (Manual) 0 Promyelocytes % (Manual) 0 Blast Cells % (Manual) 0 Reactive Lymphocytes 0 Platelet Estimate Decreased Sodium Level 140 136-145 mmol/L Potassium Level 3.1 L 3.5-5.1 mmol/L Chloride Level 101 98-107 mmol/L Carbon Dioxide Level 30 20-31 mmol/L Anion Gap 9 5-15 Blood Urea Nitrogen 71 H 9-23 mg/dL Creatinine 3.61 H 0.550-1.02 mg/dL Glomerular Filtration Rate Calc 14 >90 mL/min BUN/Creatinine Ratio 19.7 10.0-20.0 Serum Glucose 94 74-106 mg/dL Calcium Level 11.4 H 8.7-10.4 mg/dL Total Bilirubin 0.3 0.2-1.0 mg/dL Aspartate Amino Transferase (AST) 36 13-40 U/L Alanine Aminotransferase (ALT) 22 7-40 U/L Alkaline Phosphatase 76 46-116 U/L Total Protein 5.2 L 5.7-8.2 g/dL Albumin 3.3 3.2-4.8 g/dL Lactic Acid Level 1.1 0.4-2.0 mmol/L Troponin I High Sensitivity 32 </=34 ng/L Urine Color Dark-brown Yellow Urine Clarity Ex.turbid Clear Urine pH 5.5 5.0-9.0 Urine Specific [place] 1.013 1.001-1.035 Urine Protein 2+ H Negative Urine Ketones Negative Negative Urine Blood 2+ H Negative /uL Urine Nitrite Negative Negative Urine Bilirubin Negative Negative Urine Urobilinogen Normal Negative mg/dL Urine Leukocyte Esterase 3+ Negative /uL Urine RBC 46 0 - 4 /hpf Urine WBC 2968 0 - 5 /hpf Urine WBC Clumps Present None Seen /hpf Urine Squamous Epithelial Cells Few <5 /hpf Urine Bacteria None seen None Seen /hpf Urine Glucose Normal Normal mg/dL Magnesium Level 3.1 H 1.6-2.6 mg/dL Test 08/10/24 17:40 Range/Units Nucleated Red Blood Cells 1.0 % Large Platelets Few Anisocytosis (manual) Slight Microcytosis Slight Macrocytosis Slight Ovalocytes Few Stomatocytes Few B-Type Natriuretic Peptide 51.34 0-100 pg/mL Assessment IVETH on CKD stage 5 , most likely intrinsic due to multiple myeloma vs hemodynamic Severe anemia UTI Hypokalemia Hypercalcemia Leukocytosis/sirs History of left popliteal vein DVT History of hypertension Arthritis Plan/recommendation Plan discussed with Dr Beckwith -IV hydration with normal saline 120 mL/hour ( 1 bag ) -follow up with calcium level and CBC tomorrow a.m. calcium trending down from 13 to 11.4 -treat anemia with PRBC as per hospitalist -continue Lasix 20 mg p.o. daily. -recent renal ultrasound on 06/23/2024: Mild right-sided hydronephrosis. -follow up with urine sodium, creatinine, protein. -avoid nephrotoxic drug -strict I&O -patient sees hematology oncology for multiple myeloma in outpatient setting Reviewed EMR include vital signs, laboratory findings, imaging studies, medication reconciled, previous hospital course Time spent greater than 80 minutes. More than 50% of time spent providing direct [id number] care Addendum Patient seen and examined, plan discussed with resident. Agree with above, we will follow closely Plan discussed with: Patient, Daughter, Other (RN) KIM MATHEWS Aug 11, 2024 13:19 DARCY BECKWITH MD Aug 11, 2024 16:41
[2024-08-11] MEDS: SOD CHL 0.9%/ KCL 40MEQ 1,000 ML IV SCH (13:45)
--- NOTE | 2024-08-11 15:37 | DVHPN2 ---
Subjective Seen and examined at bedside, will transfuse 1 PRBC. Changes from previous H/P or p: No Changes Objective Vitals Vital Signs Date Time Temp Pulse Resp B/P (MAP) Pulse Ox O2 Delivery O2 Flow Rate FiO2 08/11/24 13:36 99.5 99 16 113/60 99.5 08/11/24 13:00 94 08/11/24 08:05 Room Air* 0 21 Intake/Output Intake and Output 08/11/24 07:00 Intake Total 200 ml Balance 200 ml Intake IV Total 200 ml Exam Gen: in bed cachectic Cvs: N S1/S2, RRR Resp: BLAE Abd: Thin Padder: AAO x 4 Medications Current Medications Medications Dose Ordered Sig/Angela Route Start Time Stop Time Status Last Admin Dose Admin Ceftriaxone Sodium 50 ml @ 100 mls/hr DAILY@2100 IV 08/11/24 21:00 Apixaban 2.5 mg BID PO 08/11/24 10:00 08/11/24 09:05 2.5 MG Acetaminophen/ Hydrocodone Bitart 1 tab Q4HP PRN PO 08/11/24 01:45 08/11/24 11:27 1 TAB Ondansetron HCl 4 mg Q4HP PRN IV 08/11/24 01:45 Acetaminophen 650 mg Q6HP PRN PO 08/11/24 01:45 Nitroglycerin 0.4 mg Q5MINP PRN SL 08/11/24 01:45 Morphine Sulfate 2 mg Q30M PRN IV 08/11/24 01:45 Furosemide 20 mg DAILY PO 08/11/24 10:00 08/11/24 11:24 20 MG Calcitonin [place] 200 unit Q12HR SC 08/11/24 10:00 08/11/24 10:00 200 UNIT Potassium Chloride/Sodium Chloride 1,000 ml @ 120 mls/hr Q8H20M IV 08/11/24 13:45 08/11/24 20:00 Azithromycin 250 mg DAILY PO 08/12/24 10:00 UNV Laboratory Results Laboratory Tests 08/11/24 10:30 Chemistry Test 08/10/24 17:40 08/10/24 18:40 08/11/24 10:30 Albumin 3.9 g/dL (3.2-4.8) 3.3 g/dL (3.2-4.8) Calcium Level 13.0 mg/dL (8.7-10.4) *H 11.4 mg/dL (8.7-10.4) H Total Protein 6.3 g/dL (5.7-8.2) 5.2 g/dL (5.7-8.2) L Magnesium Level 3.1 mg/dL (1.6-2.6) H Cardiac Markers Test 08/10/24 17:40 B-Type Natriuretic Peptide 51.34 pg/mL (0-100) LFT Test 08/10/24 17:40 08/11/24 10:30 Alanine Aminotransferase (ALT) 22 U/L (7-40) 22 U/L (7-40) Alkaline Phosphatase 88 U/L (46-116) 76 U/L (46-116) Aspartate Amino Transferase (AST) 43 U/L (13-40) H 36 U/L (13-40) Total Bilirubin 0.5 mg/dL (0.2-1.0) 0.3 mg/dL (0.2-1.0) Urinalysis Test 08/10/24 18:47 Urine Color Dark-brown (Yellow) Urine Clarity Ex.turbid (Clear) Urine pH 5.5 (5.0-9.0) Urine Specific [place] 1.013 (1.001-1.035) Urine Protein 2+ (Negative) H Urine Ketones Negative (Negative) Urine Blood 2+ /uL (Negative) H Urine Nitrite Negative (Negative) Urine Bilirubin Negative (Negative) Urine Urobilinogen Normal mg/dL (Negative) Urine Leukocyte Esterase 3+ /uL (Negative) Urine RBC 46 /hpf (0 - 4) Urine WBC 2968 /hpf (0 - 5) Urine WBC Clumps Present /hpf (None Seen) Urine Squamous Epithelial Cells Few /hpf (<5) Urine Bacteria None seen /hpf (None Seen) Urine Glucose Normal mg/dL (Normal) Assessment/Plan Assessment/Plan IVETH on CKD stage 5- Nephro Cx Multiple myeloma- Oncology Consult noted Severe anemia- Transfuse 1 PRBC UTI- Abx Acute Pneumonitis- ABx Hypokalemia Hypercalcemia History of left popliteal vein DVT History of hypertension Arthritis Plan discussed with: Patient My Orders Orders - EUNICE BEST MD Procedure Category Date Status Time Azithromycin Tablet PHA 08/12/24 Logged (Zithromax Tablet) 10:00 Date of Service: Aug 11, 2024 Billing Provider: EUNICE BEST MD Common Visit Codes: [id number] INP/OBS CARE(HIGH) EUNICE BEST MD Aug 11, 2024 15:37
[2024-08-11] MEDS: cefTRIAXone 1GM/50ML D5W 50 ML IV SCH (21:17)
[2024-08-12] VITALS (8 sets, daily range): BP systolic 101–121; BP diastolic 48–60; PULSE 72–90; RESP 16–18; TEMP 96.9–99.8; O2SAT 92–96
[2024-08-12 06:01] LABS: Hematocrit 23.5 % (36.0-46.0); Hemoglobin 7.7 g/dL (12.2-16.2); Mean Corpuscular Hemoglobin 27.6 pg (28.0-32.0); Mean Corpuscular Hgb Conc. 32.9 g/dL (32.0-36.0); Mean Corpuscular Volume 83.9 fL (80.0-100.0); Platelet Count (auto) 376 10^3/uL (140-450); Red Cell Distribution Width 17.4 % (11.8-14.3); White Blood Cell 14.9 10^3/uL (4.4-10.8)
[2024-08-12 06:04] LABS: Basophils % (manual) 0 (0.0-2.0); Blast Cells 0; Myelocytes % 0; Promyelocytes % 0; Reactive Lymphocytes 0
[2024-08-12 06:33] LABS: Alanine Aminotransferase 19 U/L (7-40); Albumin 3.3 g/dL (3.2-4.8); Alkaline Phosphatase 71 U/L (46-116); Anion Gap 10 (5-15); Aspartate Aminotransferase 26 U/L (13-40); BUN/Creatinine Ratio 18.2 (10.0-20.0); Bilirubin, Total 0.3 mg/dL (0.2-1.0); Calcium 10.4 mg/dL (8.7-10.4); Carbon Dioxide 28 mmol/L (20-31); Chloride 105 mmol/L (98-107); Glucose 99 mg/dL (74-106); Potassium 3.4 mmol/L (3.5-5.1); Sodium 143 mmol/L (136-145)
[2024-08-12 06:34] LABS: Total Protein 5.1 g/dL (5.7-8.2)
[2024-08-12 06:37] LABS: Blood Urea Nitrogen 60 mg/dL (9-23)
[2024-08-12 06:54] LABS: Band Neutrophils % (manual) 1; Eosinophils % (manual) 1 (0-7); Lymphocytes % (manual) 12 (10.0-50.0); Metamyelocytes % 1; Monocytes % (manual) 7 (0-12)
[2024-08-12 06:55] LABS: Anisocytosis Slight; Ovalocytes FEW; Platelet Estimate Adequate
[2024-08-12] MEDS: AZITHROMYCIN 250 MG TAB PO SCH (08:55)
[2024-08-12] MEDS: CALCITONIN 400unit/2ml Vial (200unit/ml) SC SCH (08:58)
[2024-08-12] MEDS ORDERED: ALLO100T PO (12:00)
[2024-08-12] MEDS ORDERED: FURO80TA3 PO (12:01)
[2024-08-12] MEDS: SODIUM CHLORIDE 0.9% 1,000 ML IV SCH (13:36)
[2024-08-12] MEDS: POTASSIUM EFFERVESENT TAB 25 MEQ PO ONE (13:37)
--- NOTE | 2024-08-12 14:43 | DVHPN2 ---
Progress Note Date Seen: Aug 12, 2024 Resident Creating Document: KIM MATHEWS RESIDENT Medical Necessity Reason Pt with a Central, PICC or Fol: No Subjective Review of Systems Reason for Consultation Acute on chronic renal failure History of Present Illness Patient is 64-year-old female with past medical history of hypertension, DVT, recently diagnosed multiple myeloma, osteoarthritis, severe anemia, presented to hospital for chief complaint of pain in bilateral feet, back and generalized weakness. Recently patient underwent bone marrow aspiration biopsy on 06/24/2024 which showed hypercellular bone marrow consistent with multiple myeloma. Patient is waiting for insurance authorization to initiate treatment by Dr. Kothari. Other investigation also 10 before including serum immunofixation, urine immunofixation, free kappa chain. Patient also complained of losing weight in last 6 months around 20-30 lb. Apart from generalized weakness and pain in bilateral feet and back patient denied any other complaint. Patient was been diagnosed with CKD and nephrotic range proteinuria during previous hospitalization patient was offered for kidney biopsy however patient denied that point. However patient underwent bone marrow biopsy which showed multiple myeloma. No any other complaints at this point Past Medical History CKD, nephrotic range proteinuria, hypertension, anemia, arthritis Past Surgical History Tonsillectomy, and hernia repair Patient seen and examined at bedside. Patient continued to feel better, pain is well controlled compared to yesterday. Patient has significant insulin mildly improving with urine output, and calcium also trending down. No other complaints at this point. Objective vital signs Vital Sign Date Time Temp Pulse Resp B/P (MAP) Pulse Ox O2 Delivery O2 Flow Rate FiO2 08/12/24 13:00 98.4 90 17 121/60 (80) 93 98.4 08/12/24 08:00 Room Air* 0 21 Total Intake and Output 08/11/24 08/11/24 08/12/24 15:00 23:00 07:00 Intake Total 800 ml 900 ml 0 ml Output Total 1300 ml 1500 ml Balance 800 ml -400 ml -1500 ml medications Current Medications Medications Dose Ordered Sig/Angela Route Start Time Stop Time Status Last Admin Dose Admin Ceftriaxone Sodium 50 ml @ 100 mls/hr DAILY@2100 IV 08/11/24 21:00 08/11/24 21:17 100 MLS/HR Apixaban 2.5 mg BID PO 08/11/24 10:00 08/12/24 08:56 2.5 MG Acetaminophen/ Hydrocodone Bitart 1 tab Q4HP PRN PO 08/11/24 01:45 08/12/24 13:38 1 TAB Ondansetron HCl 4 mg Q4HP PRN IV 08/11/24 01:45 Acetaminophen 650 mg Q6HP PRN PO 08/11/24 01:45 Nitroglycerin 0.4 mg Q5MINP PRN SL 08/11/24 01:45 Morphine Sulfate 2 mg Q30M PRN IV 08/11/24 01:45 Furosemide 20 mg DAILY PO 08/11/24 10:00 08/12/24 08:59 20 MG Azithromycin 250 mg DAILY PO 08/12/24 10:00 08/12/24 08:55 250 MG Calcitonin [place] 200 unit Q12HR SC 08/12/24 08:30 08/13/24 10:00 08/12/24 08:58 200 UNIT Sodium Chloride 1,000 ml @ 100 mls/hr Q10H IV 08/12/24 12:45 08/12/24 13:36 100 MLS/HR Examination General Appearance: Alert, Oriented X3, Cooperative, in distress HEENT: Atraumatic, PERRLA, EOMI, Mucous membr. pail Respiratory: Clear to auscultation, Normal air movement Cardiovascular: Regular rate, Normal S1, Normal S2, No murmurs Abdominal: Normal bowel sounds, Soft Extremities: Bilateral edema 1 +, tenderness at palpation in both calfs Neuro: Normal gait, Normal speech, Strength at 5/5 X4 ext, Normal tone laboratory and microbiology Laboratory Tests 08/12/24 05:00 Test 08/12/24 05:00 Range/Units Serum Glucose 99 74-106 mg/dL Microbiology Date/Time Source Procedure Growth Status 08/11/24 02:53 Blood Blood Culture - Preliminary NO GROWTH AFTER 24 HOURS OF INCUBATION. 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 daily. -recent renal ultrasound on 06/23/2024: Mild right-sided hydronephrosis. -follow up with urine sodium, creatinine, protein.: Pending -avoid nephrotoxic drug -strict I&O -patient sees hematology oncology for multiple myeloma in outpatient setting -follow with BMP tomorrow a.m.. Addendum Patient seen and examined, plan discussed with resident. Agree with above, we will follow closely d/w daughter bedside Plan discussed with: Patient, Daughter, Other (RN) KIM MATHEWS Aug 12, 2024 14:43 DARCY CAMARILLO MD Aug 12, 2024 18:29
--- NOTE | 2024-08-12 15:00 | DVHPN2 ---
Subjective Seen and examined at bedside, daughter at bedside, per daughter she did not know of diagnosis of MM till last weekend. Patient is feeling lethargic. Had an extensive discussion with the patients daughter about diagnosis Changes from previous H/P or p: No Changes Objective Vitals Vital Signs Date Time Temp Pulse Resp B/P (MAP) Pulse Ox O2 Delivery O2 Flow Rate FiO2 08/12/24 13:00 98.4 90 17 121/60 (80) 93 98.4 08/12/24 08:00 Room Air* 0 21 Intake/Output Intake and Output 08/12/24 07:00 Intake Total 1700 ml Output Total 2800 ml Balance -1100 ml Intake Oral 500 ml IV Total 900 ml Blood Product 300 ml Output Urine Total 2800 ml Exam Gen: in bed cachectic Cvs: N S1/S2, RRR Resp: BLAE Abd: Thin Bumper Operator: AAO x 4 Medications Current Medications Medications Dose Ordered Sig/Angela Route Start Time Stop Time Status Last Admin Dose Admin Ceftriaxone Sodium 50 ml @ 100 mls/hr DAILY@2100 IV 08/11/24 21:00 08/11/24 21:17 100 MLS/HR Apixaban 2.5 mg BID PO 08/11/24 10:00 08/12/24 08:56 2.5 MG Acetaminophen/ Hydrocodone Bitart 1 tab Q4HP PRN PO 08/11/24 01:45 08/12/24 13:38 1 TAB Ondansetron HCl 4 mg Q4HP PRN IV 08/11/24 01:45 Acetaminophen 650 mg Q6HP PRN PO 08/11/24 01:45 Nitroglycerin 0.4 mg Q5MINP PRN SL 08/11/24 01:45 Morphine Sulfate 2 mg Q30M PRN IV 08/11/24 01:45 Furosemide 20 mg DAILY PO 08/11/24 10:00 08/12/24 08:59 20 MG Azithromycin 250 mg DAILY PO 08/12/24 10:00 08/12/24 08:55 250 MG Calcitonin [place] 200 unit Q12HR SC 08/12/24 08:30 08/13/24 10:00 08/12/24 08:58 200 UNIT Sodium Chloride 1,000 ml @ 100 mls/hr Q10H IV 08/12/24 12:45 08/12/24 13:36 100 MLS/HR Laboratory Results Laboratory Tests 08/12/24 05:00 Chemistry Test 08/12/24 05:00 Albumin 3.3 g/dL (3.2-4.8) Calcium Level 10.4 mg/dL (8.7-10.4) Total Protein 5.1 g/dL (5.7-8.2) L LFT Test 08/12/24 05:00 Alanine Aminotransferase (ALT) 19 U/L (7-40) Alkaline Phosphatase 71 U/L (46-116) Aspartate Amino Transferase (AST) 26 U/L (13-40) Total Bilirubin 0.3 mg/dL (0.2-1.0) Urinalysis Test 08/10/24 18:47 Urine Color Dark-brown (Yellow) Urine Clarity Ex.turbid (Clear) Urine pH 5.5 (5.0-9.0) Urine Specific [place] 1.013 (1.001-1.035) Urine Protein 2+ (Negative) H Urine Ketones Negative (Negative) Urine Blood 2+ /uL (Negative) H Urine Nitrite Negative (Negative) Urine Bilirubin Negative (Negative) Urine Urobilinogen Normal mg/dL (Negative) Urine Leukocyte Esterase 3+ /uL (Negative) Urine RBC 46 /hpf (0 - 4) Urine WBC 2968 /hpf (0 - 5) Urine WBC Clumps Present /hpf (None Seen) Urine Squamous Epithelial Cells Few /hpf (<5) Urine Bacteria None seen /hpf (None Seen) Urine Glucose Normal mg/dL (Normal) Microbiology Microbiology Date/Time Source Procedure Growth Status 08/11/24 02:53 Blood Blood Culture - Preliminary NO GROWTH AFTER 24 HOURS OF INCUBATION. Resulted Assessment/Plan Assessment/Plan IVETH on CKD stage 5- Nephro Cx Multiple myeloma- Oncology Consult noted Severe anemia- Transfuse 1 PRBC UTI- Abx Acute Pneumonitis- ABx Hypokalemia Hypercalcemia History of left popliteal vein DVT History of hypertension Arthritis Plan discussed with: Patient, Daughter My Orders Orders - EUNICE BEST MD Procedure Category Date Status Time Azithromycin Tablet PHA 08/12/24 In Process (Zithromax Tablet) 10:00 * Dietary Consult CONS 08/11/24 Transmitted 16:53 Date of Service: Aug 12, 2024 Billing Provider: EUNICE BEST MD Common Visit Codes: [id number] INP/OBS CARE(HIGH) EUNICE BEST MD Aug 12, 2024 15:00
--- NOTE | 2024-08-12 16:45 | DVH ---
EXAM: XY CHEST XRAY 1 VIEW TECHNIQUE: Single frontal chest radiograph CLINICAL HISTORY: PVC COMPARISON: XY CHEST PORTABLE on DOS: 08/10/24 Findings/Impression: Frontal chest radiograph demonstrates no acute osseous or superficial soft tissue abnormalities. The trachea is midline. The cardiac silhouette and mediastinum are within normal limits. No pneumothorax, pleural effusions, or consolidations.
[2024-08-13] VITALS (8 sets, daily range): BP systolic 107–128; BP diastolic 51–66; PULSE 80–89; RESP 16–19; TEMP 97.8–99.7; O2SAT 93–96
[2024-08-13] MEDS: LACTULOSE 20Gm/30ML SOLN PO PRN (05:19)
[2024-08-13 07:04] LABS: Alanine Aminotransferase 18 U/L (7-40); Albumin 3.2 g/dL (3.2-4.8); Alkaline Phosphatase 65 U/L (46-116); Anion Gap 10 (5-15); Aspartate Aminotransferase 17 U/L (13-40); BUN/Creatinine Ratio 17.6 (10.0-20.0); Bilirubin, Total 0.2 mg/dL (0.2-1.0); Calcium 9.7 mg/dL (8.7-10.4); Carbon Dioxide 29 mmol/L (20-31); Chloride 107 mmol/L (98-107); Glucose 94 mg/dL (74-106); Potassium 3.3 mmol/L (3.5-5.1); Sodium 146 mmol/L (136-145); Total Protein 4.9 g/dL (5.7-8.2)
[2024-08-13 07:07] LABS: Blood Urea Nitrogen 49 mg/dL (9-23)
[2024-08-13] MEDS: POTASSIUM CHL 20 Meq TABLET PO ONE (09:30)
[2024-08-13] MEDS ORDERED: POTASSIUM EFFERVESENT TAB 25 MEQ PO ONE (09:30)
[2024-08-13] MEDS: SOD CHL 0.45% 1,000 ML IV ONE (09:30)
--- NOTE | 2024-08-13 11:20 | DVHPN2 ---
Progress Note Date Seen: Aug 13, 2024 Resident Creating Document: KIM MATHEWS RESIDENT Medical Necessity Reason Pt with a Central, PICC or Fol: No Subjective Review of Systems Reason for Consultation Acute on chronic renal failure History of Present Illness Patient is 64-year-old female with past medical history of hypertension, DVT, recently diagnosed multiple myeloma, osteoarthritis, severe anemia, presented to hospital for chief complaint of pain in bilateral feet, back and generalized weakness. Recently patient underwent bone marrow aspiration biopsy on 06/24/2024 which showed hypercellular bone marrow consistent with multiple myeloma. Patient is waiting for insurance authorization to initiate treatment by Dr. Kothari. Other investigation also 10 before including serum immunofixation, urine immunofixation, free kappa chain. Patient also complained of losing weight in last 6 months around 20-30 lb. Apart from generalized weakness and pain in bilateral feet and back patient denied any other complaint. Patient was been diagnosed with CKD and nephrotic range proteinuria during previous hospitalization patient was offered for kidney biopsy however patient denied that point. However patient underwent bone marrow biopsy which showed multiple myeloma. No any other complaints at this point Past Medical History CKD, nephrotic range proteinuria, hypertension, anemia, arthritis Past Surgical History Tonsillectomy, and hernia repair Patient seen and examined at bedside. Patient continued to feel better, pain is well controlled . No other complaint. Objective vital signs Vital Sign Date Time Temp Pulse Resp B/P (MAP) Pulse Ox O2 Delivery O2 Flow Rate FiO2 08/13/24 09:06 128/66 08/13/24 09:00 99.7 87 19 96 99.7 08/12/24 20:00 Room Air* 0 21 Total Intake and Output 08/12/24 08/12/24 08/13/24 15:00 23:00 07:00 Intake Total 570 ml 1275 ml Output Total 850 ml 1100 ml Balance -280 ml 175 ml medications Current Medications Medications Dose Ordered Sig/Angela Route Start Time Stop Time Status Last Admin Dose Admin Ceftriaxone Sodium 50 ml @ 100 mls/hr DAILY@2100 IV 08/11/24 21:00 08/12/24 21:21 100 MLS/HR Apixaban 2.5 mg BID PO 08/11/24 10:00 08/13/24 09:06 2.5 MG Acetaminophen/ Hydrocodone Bitart 1 tab Q4HP PRN PO 08/11/24 01:45 08/13/24 09:08 1 TAB Ondansetron HCl 4 mg Q4HP PRN IV 08/11/24 01:45 Acetaminophen 650 mg Q6HP PRN PO 08/11/24 01:45 Nitroglycerin 0.4 mg Q5MINP PRN SL 08/11/24 01:45 Morphine Sulfate 2 mg Q30M PRN IV 08/11/24 01:45 Azithromycin 250 mg DAILY PO 08/12/24 10:00 08/13/24 09:07 250 MG Lactulose 30 ml DAILYPRN PRN PO 08/12/24 22:00 08/13/24 05:19 30 ML Examination General Appearance: Alert, Oriented X3, Cooperative, in distress HEENT: Atraumatic, PERRLA, EOMI, Mucous membr. pail Respiratory: Clear to auscultation, Normal air movement Cardiovascular: Regular rate, Normal S1, Normal S2, No murmurs Abdominal: Normal bowel sounds, Soft Extremities: Bilateral edema 1 +, tenderness at palpation in both calfs Neuro: Normal gait, Normal speech, Strength at 5/5 X4 ext, Normal tone laboratory and microbiology Laboratory Tests 08/13/24 05:40 08/12/24 05:00 Test 08/13/24 05:40 Range/Units Serum Glucose 94 74-106 mg/dL Microbiology Date/Time Source Procedure Growth Status 08/11/24 02:53 Blood Blood Culture - Preliminary NO GROWTH AFTER 48 HOURS OF INCUBATION. 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 -follow up with urine sodium, creatinine, protein.: Still Pending -avoid nephrotoxic drug -strict I&O -patient sees hematology oncology for multiple myeloma in outpatient setting -follow with BMP tomorrow a.m.. Addendum Patient seen and examined, plan discussed with resident. Agree with above, we will follow closely Half NS for sodium correction K replace p.r.n. Calcium better Plan discussed with: Patient, Other (RN) My Orders My Orders Orders - KIM MATHEWS Procedure Category Date Status Time Chest Xray 1 View XY 08/12/24 Resulted 16:04 Dietary Evaluation Review Comments: 1) Consider a Renal Specific K2,low phos,2gmNa,50gPro diet 2) Continue current plan of care Expected Outcomes/Goals: 1) F/U in 3-5 days KIM MATHEWS Aug 13, 2024 11:20 DARCY CAMARILLO MD Aug 13, 2024 15:45
[2024-08-13] MEDS ORDERED: BUME2TAB5 PO (18:27)
--- NOTE | 2024-08-13 18:33 | DVHPN2 ---
Subjective Seen and examined at bedside, out of bed to chair. Needs PT Changes from previous H/P or p: No Changes Objective Vitals Vital Signs Date Time Temp Pulse Resp B/P (MAP) Pulse Ox O2 Delivery O2 Flow Rate FiO2 08/13/24 17:00 98.8 82 18 116/59 (78) 94 98.8 08/13/24 08:00 Room Air* 0 21 Intake/Output Intake and Output 08/13/24 07:00 Intake Total 1845 ml Output Total 1950 ml Balance -105 ml Intake Oral 695 ml IV Total 1150 ml Output Urine Total 1950 ml Exam Gen: in bed cachectic Cvs: N S1/S2, RRR Resp: BLAE Abd: Thin Awake Overnight Monitor: AAO x 4 Medications Current Medications Medications Dose Ordered Sig/Angela Route Start Time Stop Time Status Last Admin Dose Admin Ceftriaxone Sodium 50 ml @ 100 mls/hr DAILY@2100 IV 08/11/24 21:00 08/12/24 21:21 100 MLS/HR Apixaban 2.5 mg BID PO 08/11/24 10:00 08/13/24 09:06 2.5 MG Acetaminophen/ Hydrocodone Bitart 1 tab Q4HP PRN PO 08/11/24 01:45 08/13/24 18:07 1 TAB Ondansetron HCl 4 mg Q4HP PRN IV 08/11/24 01:45 Acetaminophen 650 mg Q6HP PRN PO 08/11/24 01:45 Nitroglycerin 0.4 mg Q5MINP PRN SL 08/11/24 01:45 Morphine Sulfate 2 mg Q30M PRN IV 08/11/24 01:45 Azithromycin 250 mg DAILY PO 08/12/24 10:00 08/13/24 09:07 250 MG Lactulose 30 ml DAILYPRN PRN PO 08/12/24 22:00 08/13/24 05:19 30 ML Laboratory Results Laboratory Tests 08/12/24 05:00 08/13/24 05:40 Chemistry Test 08/13/24 05:40 Albumin 3.2 g/dL (3.2-4.8) Calcium Level 9.7 mg/dL (8.7-10.4) Magnesium Level 2.3 mg/dL (1.6-2.6) Total Protein 4.9 g/dL (5.7-8.2) L LFT Test 08/13/24 05:40 Alanine Aminotransferase (ALT) 18 U/L (7-40) Alkaline Phosphatase 65 U/L (46-116) Aspartate Amino Transferase (AST) 17 U/L (13-40) Total Bilirubin 0.2 mg/dL (0.2-1.0) Urinalysis Test 08/10/24 18:47 Urine Color Dark-brown (Yellow) Urine Clarity Ex.turbid (Clear) Urine pH 5.5 (5.0-9.0) Urine Specific [place] 1.013 (1.001-1.035) Urine Protein 2+ (Negative) H Urine Ketones Negative (Negative) Urine Blood 2+ /uL (Negative) H Urine Nitrite Negative (Negative) Urine Bilirubin Negative (Negative) Urine Urobilinogen Normal mg/dL (Negative) Urine Leukocyte Esterase 3+ /uL (Negative) Urine RBC 46 /hpf (0 - 4) Urine WBC 2968 /hpf (0 - 5) Urine WBC Clumps Present /hpf (None Seen) Urine Squamous Epithelial Cells Few /hpf (<5) Urine Bacteria None seen /hpf (None Seen) Urine Glucose Normal mg/dL (Normal) Microbiology Microbiology Date/Time Source Procedure Growth Status 08/11/24 02:53 Blood Blood Culture - Preliminary NO GROWTH AFTER 48 HOURS OF INCUBATION. Resulted Assessment/Plan Assessment/Plan IVETH on CKD stage 5- Nephro Cx Multiple myeloma- Oncology Consult noted Severe anemia- Transfuse 1 PRBC UTI- Abx Acute Pneumonitis- ABx Hypokalemia Hypercalcemia History of left popliteal vein DVT History of hypertension Arthritis Deconditioned Plan discussed with: Patient My Orders Orders - EUNICE BEST MD Procedure Category Date Status Time Oob To Chair MARIAELENA 08/13/24 Verified 18:30 Pt Request For Service PT 08/13/24 Verified 18:30 Basic Metabolic Panel LAB 08/14/24 Verified 04:00 Complete Blood Count LAB 08/14/24 Verified 04:00 Date of Service: Aug 13, 2024 Billing Provider: EUNICE BEST MD Common Visit Codes: [id number] INP/OBS CARE(HIGH) EUNICE BEST MD Aug 13, 2024 18:33
[2024-08-13] MEDS: HYDROcodone-ACET 10/325MG TAB PO PRN (22:46)
[2024-08-14] VITALS (9 sets, daily range): BP systolic 101–113; BP diastolic 51–63; PULSE 83–91; RESP 16–19; TEMP 97.9–100.8; O2SAT 94–96
[2024-08-14 06:27] LABS: Basophils # (auto) 0.1 10 ^3/uL (0-0.2); Eosinophils # (auto) 0.2 10 ^3/uL (0-0.8); Neutrophils # (auto) 10.1 10 ^3/uL (1.6-8.6); Red Blood Cells 2.73 10^6/uL (4.0-5.20); White Blood Cell 12.5 10^3/uL (4.4-10.8)
[2024-08-14 06:31] LABS: Basophils % (auto) 0.7 % (0.0-2.0); Eosinophils % (auto) 1.6 % (0.0-7.0); Hematocrit 23.3 % (36.0-46.0); Hemoglobin 7.7 g/dL (12.2-16.2); Lymphocytes # (auto) 1.3 10 ^3/uL (0.4-5.4); Lymphocytes % (auto) 10.4 % (10.0-50.0); Mean Corpuscular Hgb Conc. 32.8 g/dL (32.0-36.0); Mean Corpuscular Volume 85.2 fL (80.0-100.0); Monocytes # (auto) 0.7 10 ^3/uL (0-1.3); Monocytes % (auto) 5.9 % (0.0-12.0); Neutrophils % (auto) 81.4 % (37.0-80.0); Platelet Count (auto) 353 10^3/uL (140-450); Red Cell Distribution Width 17.7 % (11.8-14.3)
[2024-08-14 06:45] LABS: Calcium 9.6 mg/dL (8.7-10.4); Chloride 108 mmol/L (98-107); Potassium 3.6 mmol/L (3.5-5.1); Sodium 144 mmol/L (136-145)
[2024-08-14 06:46] LABS: Anion Gap 9 (5-15); Carbon Dioxide 27 mmol/L (20-31)
[2024-08-14 06:51] LABS: BUN/Creatinine Ratio 17.4 (10.0-20.0); Blood Urea Nitrogen 46 mg/dL (9-23); Glucose 90 mg/dL (74-106)
--- NOTE | 2024-08-14 11:20 | DVHPN2 ---
Progress Note Date Seen: Aug 14, 2024 Resident Creating Document: KIM MATHEWS RESIDENT Medical Necessity Reason Pt with a Central, PICC or Fol: No Subjective Review of Systems History of Present Illness Patient is 64-year-old female with past medical history of hypertension, DVT, recently diagnosed multiple myeloma, osteoarthritis, severe anemia, presented to hospital for chief complaint of pain in bilateral feet, back and generalized weakness. Recently patient underwent bone marrow aspiration biopsy on 06/24/2024 which showed hypercellular bone marrow consistent with multiple myeloma. Patient is waiting for insurance authorization to initiate treatment by Dr. Kothari. Other investigation also 10 before including serum immunofixation, urine immunofixation, free kappa chain. Patient also complained of losing weight in last 6 months around 20-30 lb. Apart from generalized weakness and pain in bilateral feet and back patient denied any other complaint. Patient was been diagnosed with CKD and nephrotic range proteinuria during previous hospitalization patient was offered for kidney biopsy however patient denied that point. However patient underwent bone marrow biopsy which showed multiple myeloma. No any other complaints at this point Past Medical History CKD, nephrotic range proteinuria, hypertension, anemia, arthritis Past Surgical History Tonsillectomy, and hernia repair Patient seen and examined at bedside. No other complaint. Appropriate urine output, total on 2275 mL in last 24 hour. Objective vital signs Vital Sign Date Time Temp Pulse Resp B/P (MAP) Pulse Ox O2 Delivery O2 Flow Rate FiO2 08/14/24 09:10 85 16 95 Room Air* 0 08/14/24 08:38 98.3 101/57 (72) 98.3 Total Intake and Output 08/13/24 08/13/24 08/14/24 15:00 23:00 07:00 Intake Total 290 ml 720 ml Output Total 1275 ml 1000 ml Balance -985 ml -280 ml medications Current Medications Medications Dose Ordered Sig/Angela Route Start Time Stop Time Status Last Admin Dose Admin Ceftriaxone Sodium 50 ml @ 100 mls/hr DAILY@2100 IV 08/11/24 21:00 08/13/24 21:16 100 MLS/HR Apixaban 2.5 mg BID PO 08/11/24 10:00 08/14/24 08:58 2.5 MG Acetaminophen/ Hydrocodone Bitart 1 tab Q4HP PRN PO 08/11/24 01:45 08/14/24 09:21 1 TAB Ondansetron HCl 4 mg Q4HP PRN IV 08/11/24 01:45 Acetaminophen 650 mg Q6HP PRN PO 08/11/24 01:45 Nitroglycerin 0.4 mg Q5MINP PRN SL 08/11/24 01:45 Morphine Sulfate 2 mg Q30M PRN IV 08/11/24 01:45 Azithromycin 250 mg DAILY PO 08/12/24 10:00 08/14/24 08:58 250 MG Lactulose 30 ml DAILYPRN PRN PO 08/12/24 22:00 08/13/24 05:19 30 ML Acetaminophen/ Hydrocodone Bitart 1 tab Q8HP PRN PO 08/13/24 21:00 08/14/24 05:44 1 TAB Examination General Appearance: Alert, Oriented X3, Cooperative, in distress HEENT: Atraumatic, PERRLA, EOMI, Mucous membr. pail Respiratory: Clear to auscultation, Normal air movement Cardiovascular: Regular rate, Normal S1, Normal S2, No murmurs Abdominal: Normal bowel sounds, Soft Extremities: Bilateral edema 1 +, tenderness at palpation in both calfs Neuro: Normal gait, Normal speech, Strength at 5/5 X4 ext, Normal tone laboratory and microbiology Laboratory Tests 08/14/24 05:40 Test 08/14/24 05:40 Range/Units Serum Glucose 90 74-106 mg/dL Microbiology Date/Time Source Procedure Growth Status 08/11/24 02:53 Blood Blood Culture - Preliminary NO GROWTH AFTER 72 HOURS OF INCUBATION. 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 -treated anemia with PRBC as per hospitalist -recent renal ultrasound on 06/23/2024: Mild right-sided hydronephrosis. -follow up with urine sodium, creatinine, protein.: Still Pending -avoid nephrotoxic drug -strict I&O -patient follows hematology oncology for multiple myeloma in outpatient setting -follow with BMP tomorrow a.m.. Addendum Patient seen and examined, plan discussed with resident. Agree with above, we will follow closely hold ivf Plan discussed with: Patient, Daughter (RN) Dietary Evaluation Review Comments: 1) Consider a Renal Specific K2,low phos,2gmNa,50gPro diet 2) Continue current plan of care Expected Outcomes/Goals: 1) F/U in 3-5 days KIM MATHEWS Aug 14, 2024 11:20 DARCY CAMARILLO MD Aug 14, 2024 14:39
[2024-08-14] MEDS: LACTULOSE 20Gm/30ML SOLN PO ONE (14:52)
[2024-08-14] MEDS: traMADol HCL 50 MG TAB PO ONE (14:52)
--- NOTE | 2024-08-14 16:06 | DVHPN2 ---
Subjective Seen and examined at bedside. Weak. Daughter at bedside. Needs incentive spirometer. Changes from previous H/P or p: No Changes Objective Vitals Vital Signs Date Time Temp Pulse Resp B/P (MAP) Pulse Ox O2 Delivery O2 Flow Rate FiO2 08/14/24 13:00 100.8 86 16 109/52 (71) 95 100.8 08/14/24 09:10 Room Air* 0 21 Intake/Output Intake and Output 08/14/24 07:00 Intake Total 1010 ml Output Total 2275 ml Balance -1265 ml Intake Oral 960 ml IV Total 50 ml Output Urine Total 2275 ml Exam Gen: in bed cachectic Cvs: N S1/S2, RRR Resp: BLAE Abd: Thin [employer] Mixer: AAO x 4 Medications Current Medications Medications Dose Ordered Sig/Angela Route Start Time Stop Time Status Last Admin Dose Admin Ceftriaxone Sodium 50 ml @ 100 mls/hr DAILY@2100 IV 08/11/24 21:00 08/13/24 21:16 100 MLS/HR Apixaban 2.5 mg BID PO 08/11/24 10:00 08/14/24 08:58 2.5 MG Acetaminophen/ Hydrocodone Bitart 1 tab Q4HP PRN PO 08/11/24 01:45 08/14/24 09:21 1 TAB Ondansetron HCl 4 mg Q4HP PRN IV 08/11/24 01:45 Acetaminophen 650 mg Q6HP PRN PO 08/11/24 01:45 Nitroglycerin 0.4 mg Q5MINP PRN SL 08/11/24 01:45 Morphine Sulfate 2 mg Q30M PRN IV 08/11/24 01:45 Azithromycin 250 mg DAILY PO 08/12/24 10:00 08/14/24 08:58 250 MG Lactulose 30 ml DAILYPRN PRN PO 08/12/24 22:00 08/13/24 05:19 30 ML Acetaminophen/ Hydrocodone Bitart 1 tab Q8HP PRN PO 08/13/24 21:00 08/14/24 13:35 1 TAB Laboratory Results Laboratory Tests 08/14/24 05:40 Chemistry Test 08/14/24 05:40 Calcium Level 9.6 mg/dL (8.7-10.4) Urinalysis Test 08/10/24 18:47 Urine Color Dark-brown (Yellow) Urine Clarity Ex.turbid (Clear) Urine pH 5.5 (5.0-9.0) Urine Specific [place] 1.013 (1.001-1.035) Urine Protein 2+ (Negative) H Urine Ketones Negative (Negative) Urine Blood 2+ /uL (Negative) H Urine Nitrite Negative (Negative) Urine Bilirubin Negative (Negative) Urine Urobilinogen Normal mg/dL (Negative) Urine Leukocyte Esterase 3+ /uL (Negative) Urine RBC 46 /hpf (0 - 4) Urine WBC 2968 /hpf (0 - 5) Urine WBC Clumps Present /hpf (None Seen) Urine Squamous Epithelial Cells Few /hpf (<5) Urine Bacteria None seen /hpf (None Seen) Urine Glucose Normal mg/dL (Normal) Microbiology Microbiology Date/Time Source Procedure Growth Status 08/11/24 02:53 Blood Blood Culture - Preliminary NO GROWTH AFTER 72 HOURS OF INCUBATION. Resulted Assessment/Plan Assessment/Plan IVETH on CKD stage 5- Nephro Cx Multiple myeloma- Oncology Consult noted Severe anemia- Transfuse 1 PRBC UTI- Abx Acute Pneumonitis- ABx Hypokalemia Hypercalcemia History of left popliteal vein DVT History of hypertension Arthritis Deconditioned Plan discussed with: Patient My Orders Orders - EUNICE BEST MD Procedure Category Date Status Time Oob To Chair MARIAELENA 08/13/24 In Process 18:30 Pt Request For Service PT 08/13/24 Logged 18:30 Incentive Spirometry ORDERS 08/14/24 Transmitted 14:23 Date of Service: Aug 14, 2024 Billing Provider: EUNICE BEST MD Common Visit Codes: [id number] INP/OBS CARE(HIGH) EUNICE BEST MD Aug 14, 2024 16:06
[2024-08-15] VITALS (7 sets, daily range): BP systolic 99–129; BP diastolic 58–70; PULSE 80–100; RESP 14–19; TEMP 97.6–99.2; O2SAT 93–95
[2024-08-15 06:43] LABS: Alanine Aminotransferase 13 U/L (7-40); Albumin 3.3 g/dL (3.2-4.8); Alkaline Phosphatase 71 U/L (46-116); Anion Gap 10 (5-15); Aspartate Aminotransferase 11 U/L (13-40); Blood Urea Nitrogen 41 mg/dL (9-23); Calcium 9.6 mg/dL (8.7-10.4); Carbon Dioxide 27 mmol/L (20-31); Chloride 107 mmol/L (98-107); Glucose 113 mg/dL (74-106); Potassium 3.6 mmol/L (3.5-5.1); Sodium 144 mmol/L (136-145)
[2024-08-15 06:44] LABS: Bilirubin, Total 0.2 mg/dL (0.2-1.0); Total Protein 5.2 g/dL (5.7-8.2)
--- NOTE | 2024-08-15 13:09 | DVHPN2 ---
Progress Note Date Seen: Aug 15, 2024 Resident Creating Document: KIM MATHEWS RESIDENT Medical Necessity Reason Pt with a Central, PICC or Fol: No Subjective Review of Systems Patient is 64-year-old female with past medical history of hypertension, DVT, recently diagnosed multiple myeloma, osteoarthritis, severe anemia, presented to hospital for chief complaint of pain in bilateral feet, back and generalized weakness. Recently patient underwent bone marrow aspiration biopsy on 06/24/2024 which showed hypercellular bone marrow consistent with multiple myeloma. Patient is waiting for insurance authorization to initiate treatment by Dr. Kothari. Other investigation also 10 before including serum immunofixation, urine immunofixation, free kappa chain. Patient also complained of losing weight in last 6 months around 20-30 lb. Apart from generalized weakness and pain in bilateral feet and back patient denied any other complaint. Patient was been diagnosed with CKD and nephrotic range proteinuria during previous hospitalization patient was offered for kidney biopsy however patient denied that point. However patient underwent bone marrow biopsy which showed multiple myeloma. No any other complaints at this point Past Medical History CKD, nephrotic range proteinuria, hypertension, anemia, arthritis Past Surgical History Tonsillectomy, and hernia repair Patient seen and examined at bedside. No other complaint. Objective vital signs Vital Sign Date Time Temp Pulse Resp B/P (MAP) Pulse Ox O2 Delivery O2 Flow Rate FiO2 08/15/24 09:00 99.2 80 14 99/58 (72) 95 99.2 08/15/24 08:00 Room Air* 0 21 Total Intake and Output 08/14/24 08/14/24 08/15/24 14:59 22:59 06:59 Intake Total 410 ml 525 ml Output Total 975 ml 550 ml Balance -565 ml -25 ml medications Current Medications Medications Dose Ordered Sig/Angela Route Start Time Stop Time Status Last Admin Dose Admin Ceftriaxone Sodium 50 ml @ 100 mls/hr DAILY@2100 IV 08/11/24 21:00 08/14/24 21:31 100 MLS/HR Apixaban 2.5 mg BID PO 08/11/24 10:00 08/15/24 09:21 2.5 MG Acetaminophen/ Hydrocodone Bitart 1 tab Q4HP PRN PO 08/11/24 01:45 08/15/24 09:23 1 TAB Ondansetron HCl 4 mg Q4HP PRN IV 08/11/24 01:45 Acetaminophen 650 mg Q6HP PRN PO 08/11/24 01:45 Nitroglycerin 0.4 mg Q5MINP PRN SL 08/11/24 01:45 Morphine Sulfate 2 mg Q30M PRN IV 08/11/24 01:45 Azithromycin 250 mg DAILY PO 08/12/24 10:00 08/15/24 09:24 250 MG Lactulose 30 ml DAILYPRN PRN PO 08/12/24 22:00 08/15/24 06:09 30 ML Acetaminophen/ Hydrocodone Bitart 1 tab Q8HP PRN PO 08/13/24 21:00 08/15/24 12:35 1 TAB Examination General Appearance: Alert, Oriented X3, Cooperative, in distress HEENT: Atraumatic, PERRLA, EOMI, Mucous membr. pail Respiratory: Clear to auscultation, Normal air movement Cardiovascular: Regular rate, Normal S1, Normal S2, No murmurs Abdominal: Normal bowel sounds, Soft Extremities: Bilateral edema 1 +, tenderness at palpation in both calfs Neuro: Normal gait, Normal speech, Strength at 5/5 X4 ext, Normal tone laboratory and microbiology Laboratory Tests 08/15/24 05:53 08/14/24 05:40 Test 08/15/24 05:53 Range/Units Serum Glucose 113 H 74-106 mg/dL Microbiology Date/Time Source Procedure Growth Status 08/11/24 02:53 Blood Blood Culture - Preliminary NO GROWTH AFTER 72 HOURS OF INCUBATION. 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 Continue monitor Calcium level. -improving kidney function, creatinine trending down, GFR trending up. -treated anemia with PRBC as per hospitalist -recent renal ultrasound on 06/23/2024: Mild right-sided hydronephrosis. -follow up with urine sodium, creatinine, protein.: Still Pending -avoid nephrotoxic drug -strict I&O -patient follows hematology oncology for multiple myeloma in outpatient setting -follow with BMP tomorrow a.m.. We will continue closely follow up. Plan discussed with: Patient, Other Dietary Evaluation Review Comments: 1) Consider a Renal Specific K2,low phos,2gmNa,50gPro diet 2) Continue current plan of care Expected Outcomes/Goals: 1) F/U in 3-5 days KIM MATHEWS RESIDENT Aug 15, 2024 13:09
--- NOTE | 2024-08-15 17:44 | DVHPN2 ---
Subjective Seen and examined at bedside. Unable to get out of bed. Hands are swollen, c/o pain. Changes from previous H/P or p: No Changes Objective Vitals Vital Signs Date Time Temp Pulse Resp B/P (MAP) Pulse Ox O2 Delivery O2 Flow Rate FiO2 08/15/24 16:48 98.0 90 16 111/66 (81) 93 98.0 08/15/24 08:00 Room Air* 0 21 Intake/Output Intake and Output 08/15/24 07:00 Intake Total 935 ml Output Total 1525 ml Balance -590 ml Intake Oral 885 ml IV Total 50 ml Output Urine Total 1525 ml Exam Gen: in bed cachectic Cvs: N S1/S2, RRR Resp: BLAE Abd: Thin [employer] Receivable Assistant: AAO x 4 Medications Current Medications Medications Dose Ordered Sig/Angela Route Start Time Stop Time Status Last Admin Dose Admin Ceftriaxone Sodium 50 ml @ 100 mls/hr DAILY@2100 IV 08/11/24 21:00 08/14/24 21:31 100 MLS/HR Apixaban 2.5 mg BID PO 08/11/24 10:00 08/15/24 09:21 2.5 MG Acetaminophen/ Hydrocodone Bitart 1 tab Q4HP PRN PO 08/11/24 01:45 08/15/24 09:23 1 TAB Ondansetron HCl 4 mg Q4HP PRN IV 08/11/24 01:45 Acetaminophen 650 mg Q6HP PRN PO 08/11/24 01:45 Nitroglycerin 0.4 mg Q5MINP PRN SL 08/11/24 01:45 Morphine Sulfate 2 mg Q30M PRN IV 08/11/24 01:45 Azithromycin 250 mg DAILY PO 08/12/24 10:00 08/15/24 09:24 250 MG Lactulose 30 ml DAILYPRN PRN PO 08/12/24 22:00 08/15/24 06:09 30 ML Acetaminophen/ Hydrocodone Bitart 1 tab Q8HP PRN PO 08/13/24 21:00 08/15/24 12:35 1 TAB Laboratory Results Laboratory Tests 08/14/24 05:40 08/15/24 05:53 Chemistry Test 08/15/24 05:53 Albumin 3.3 g/dL (3.2-4.8) Calcium Level 9.6 mg/dL (8.7-10.4) Total Protein 5.2 g/dL (5.7-8.2) L LFT Test 08/15/24 05:53 Alanine Aminotransferase (ALT) 13 U/L (7-40) Alkaline Phosphatase 71 U/L (46-116) Aspartate Amino Transferase (AST) 11 U/L (13-40) L Total Bilirubin 0.2 mg/dL (0.2-1.0) Urinalysis Test 08/10/24 18:47 Urine Color Dark-brown (Yellow) Urine Clarity Ex.turbid (Clear) Urine pH 5.5 (5.0-9.0) Urine Specific [place] 1.013 (1.001-1.035) Urine Protein 2+ (Negative) H Urine Ketones Negative (Negative) Urine Blood 2+ /uL (Negative) H Urine Nitrite Negative (Negative) Urine Bilirubin Negative (Negative) Urine Urobilinogen Normal mg/dL (Negative) Urine Leukocyte Esterase 3+ /uL (Negative) Urine RBC 46 /hpf (0 - 4) Urine WBC 2968 /hpf (0 - 5) Urine WBC Clumps Present /hpf (None Seen) Urine Squamous Epithelial Cells Few /hpf (<5) Urine Bacteria None seen /hpf (None Seen) Urine Glucose Normal mg/dL (Normal) Microbiology Microbiology Date/Time Source Procedure Growth Status 08/11/24 02:53 Blood Blood Culture - Preliminary NO GROWTH AFTER 72 HOURS OF INCUBATION. Resulted Assessment/Plan Assessment/Plan IVETH on CKD stage 5- Nephro Cx Multiple myeloma- Oncology Consult noted Severe anemia- Transfuse 1 PRBC UTI- Abx Acute Pneumonitis- ABx Hypokalemia Hypercalcemia History of left popliteal vein DVT History of hypertension Arthritis Deconditioned Plan discussed with: Patient My Orders Orders - EUNICE BEST MD Procedure Category Date Status Time Renal Specific DIET 08/15/24 Transmitted Diet(Renal) Lunch Date of Service: Aug 15, 2024 Billing Provider: EUNICE BEST MD Common Visit Codes: [id number] INP/OBS CARE(HIGH) EUNICE BEST MD Aug 15, 2024 17:44
[2024-08-15 18:35] LABS: Uric Acid 9.3 mg/dL (3.1-7.8)
--- NOTE | 2024-08-15 18:37 | DVH ---
CLINICAL INDICATION: arhtirits TECHNIQUE: 2 radiographic views of the right hand were obtained. Comparison: None FINDINGS/IMPRESSION: There is no evidence of acute fracture or dislocation. Mild osteoarthritic changes are noted at the distal interphalangeal joint of all the fingers. The alignment is anatomical. There is no radiopaque foreign body. HS:Y
--- NOTE | 2024-08-15 18:38 | DVH ---
CLINICAL INDICATION: arthritis TECHNIQUE: 2 radiographic views of the left hand were obtained. Comparison: None FINDINGS/IMPRESSION: There is no evidence of acute fracture or dislocation. Mild narrowing of the distal interphalangeal joint of all fingers suggesting osteoarthritis is noted. . The alignment is anatomical. There is no radiopaque foreign body. HS:Y
[2024-08-15 18:51] LABS: Erythrocyte Sedimentation Rate 45 mm/hr (0-20)
[2024-08-16] VITALS (9 sets, daily range): BP systolic 121–132; BP diastolic 63–77; PULSE 82–101; RESP 16–19; TEMP 97.8–98.3; O2SAT 93–96
[2024-08-16 07:09] LABS: Anion Gap 9 (5-15); Calcium 9.8 mg/dL (8.7-10.4); Carbon Dioxide 27 mmol/L (20-31); Chloride 106 mmol/L (98-107); Potassium 3.7 mmol/L (3.5-5.1); Sodium 142 mmol/L (136-145)
[2024-08-16 07:15] LABS: BUN/Creatinine Ratio 15.3 (10.0-20.0); Blood Urea Nitrogen 36 mg/dL (9-23); Glucose 111 mg/dL (74-106)
[2024-08-16 07:37] LABS: Hemoglobin 8.4 g/dL (12.2-16.2); White Blood Cell 15.4 10^3/uL (4.4-10.8)
[2024-08-16 07:40] LABS: Hematocrit 25.8 % (36.0-46.0); Mean Corpuscular Hemoglobin 27.8 pg (28.0-32.0); Mean Corpuscular Hgb Conc. 32.6 g/dL (32.0-36.0); Mean Corpuscular Volume 85.3 fL (80.0-100.0); Platelet Count (auto) 380 10^3/uL (140-450); Red Blood Cells 3.02 10^6/uL (4.0-5.20); Red Cell Distribution Width 18.2 % (11.8-14.3)
[2024-08-16 07:43] LABS: Basophils % (manual) 0 (0.0-2.0); Blast Cells 0; Metamyelocytes % 0; Myelocytes % 0; Promyelocytes % 0; Reactive Lymphocytes 0
[2024-08-16 09:23] LABS: Band Neutrophils % (manual) 6; Eosinophils % (manual) 2 (0-7); Lymphocytes % (manual) 18 (10.0-50.0); Monocytes % (manual) 2 (0-12); Platelet Estimate Adequate
--- NOTE | 2024-08-16 12:15 | DVHPN2 ---
Subjective Seen and examined at bedside. Still weak, unable to get out of bed. Try Colchicine. Changes from previous H/P or p: No Changes Objective Vitals Vital Signs Date Time Temp Pulse Resp B/P (MAP) Pulse Ox O2 Delivery O2 Flow Rate FiO2 08/16/24 09:00 97.9 93 17 121/64 (83) 96 97.9 08/15/24 20:00 Room Air* 0 21 Intake/Output Intake and Output 08/16/24 07:00 Intake Total 790 ml Output Total 690 ml Balance 100 ml Intake Oral 740 ml IV Total 50 ml Output Urine Total 690 ml Stool Total 0 ml Exam Gen: in bed cachectic Cvs: N S1/S2, RRR Resp: BLAE Abd: Thin [employer] Supervisor: AAO x 4 Medications Current Medications Medications Dose Ordered Sig/Angela Route Start Time Stop Time Status Last Admin Dose Admin Ceftriaxone Sodium 50 ml @ 100 mls/hr DAILY@2100 IV 08/11/24 21:00 08/15/24 20:17 100 MLS/HR Apixaban 2.5 mg BID PO 08/11/24 10:00 08/16/24 08:57 2.5 MG Acetaminophen/ Hydrocodone Bitart 1 tab Q4HP PRN PO 08/11/24 01:45 08/16/24 08:57 1 TAB Ondansetron HCl 4 mg Q4HP PRN IV 08/11/24 01:45 Acetaminophen 650 mg Q6HP PRN PO 08/11/24 01:45 Nitroglycerin 0.4 mg Q5MINP PRN SL 08/11/24 01:45 Morphine Sulfate 2 mg Q30M PRN IV 08/11/24 01:45 Azithromycin 250 mg DAILY PO 08/12/24 10:00 08/16/24 08:54 250 MG Lactulose 30 ml DAILYPRN PRN PO 08/12/24 22:00 08/15/24 06:09 30 ML Acetaminophen/ Hydrocodone Bitart 1 tab Q8HP PRN PO 08/13/24 21:00 08/16/24 06:20 1 TAB Laboratory Results Laboratory Tests 08/16/24 06:19 Chemistry Test 08/16/24 06:19 Calcium Level 9.8 mg/dL (8.7-10.4) Urinalysis Test 08/10/24 18:47 Urine Color Dark-brown (Yellow) Urine Clarity Ex.turbid (Clear) Urine pH 5.5 (5.0-9.0) Urine Specific [place] 1.013 (1.001-1.035) Urine Protein 2+ (Negative) H Urine Ketones Negative (Negative) Urine Blood 2+ /uL (Negative) H Urine Nitrite Negative (Negative) Urine Bilirubin Negative (Negative) Urine Urobilinogen Normal mg/dL (Negative) Urine Leukocyte Esterase 3+ /uL (Negative) Urine RBC 46 /hpf (0 - 4) Urine WBC 2968 /hpf (0 - 5) Urine WBC Clumps Present /hpf (None Seen) Urine Squamous Epithelial Cells Few /hpf (<5) Urine Bacteria None seen /hpf (None Seen) Urine Glucose Normal mg/dL (Normal) Microbiology Microbiology Date/Time Source Procedure Growth Status 08/11/24 02:53 Blood Blood Culture - Final NO GROWTH AFTER 5 DAYS OF INCUBATION. Complete Assessment/Plan Assessment/Plan IVETH on CKD stage 5- Nephro Cx Multiple myeloma- Oncology Consult noted Severe anemia- Transfuse 1 PRBC UTI- Abx Acute Pneumonitis- ABx Hypokalemia Hypercalcemia History of left popliteal vein DVT- On Eliquis. Patient is mostly bedbound, high risk of DVT again History of hypertension Arthritis Deconditioned Plan discussed with: Patient My Orders Orders - EUNICE BEST MD Procedure Category Date Status Time Rheumatoid Arthritis LAB 08/15/24 In Process Factor 17:43 L Hand 2v Xray XY 08/15/24 Resulted 17:43 R Hand 2 View Xray XY 08/15/24 Resulted 17:43 Date of Service: Aug 16, 2024 Billing Provider: EUNICE BEST MD Common Visit Codes: [id number] INP/OBS CARE(HIGH) EUNICE BEST MD Aug 16, 2024 12:15
--- NOTE | 2024-08-16 13:31 | DVHPN2 ---
Progress Note - Dictate Date Seen: Aug 16, 2024 Medical Necessity Reason Pt with a Central, PICC or Fol: No Subjective Awake and alert, states that she has an appetite for lunch vital signs Vital Sign Date Time Temp Pulse Resp B/P (MAP) Pulse Ox O2 Delivery O2 Flow Rate FiO2 08/16/24 13:25 98.0 95 16 131/77 (95) 96 98.0 08/16/24 08:05 Room Air* 0 21 Total Intake and Output 08/15/24 08/15/24 08/16/24 15:00 23:00 07:00 Intake Total 450 ml 340 ml Output Total 650 ml 40 ml Balance -200 ml 300 ml medications Current Medications Medications Dose Ordered Sig/Angela Route Start Time Stop Time Status Last Admin Dose Admin Ceftriaxone Sodium 50 ml @ 100 mls/hr DAILY@2100 IV 08/11/24 21:00 08/15/24 20:17 100 MLS/HR Apixaban 2.5 mg BID PO 08/11/24 10:00 08/16/24 08:57 2.5 MG Acetaminophen/ Hydrocodone Bitart 1 tab Q4HP PRN PO 08/11/24 01:45 08/16/24 08:57 1 TAB Ondansetron HCl 4 mg Q4HP PRN IV 08/11/24 01:45 Acetaminophen 650 mg Q6HP PRN PO 08/11/24 01:45 Nitroglycerin 0.4 mg Q5MINP PRN SL 08/11/24 01:45 Morphine Sulfate 2 mg Q30M PRN IV 08/11/24 01:45 Lactulose 30 ml DAILYPRN PRN PO 08/12/24 22:00 08/15/24 06:09 30 ML Acetaminophen/ Hydrocodone Bitart 1 tab Q8HP PRN PO 08/13/24 21:00 08/16/24 06:20 1 TAB objective Gen: nad, cachectic chronically ill-appearing heent: nc/at, mmm lungs: cta anteriorly cvs: no rub abd: soft, bowel sounds audible ext: no edema skin: no rash neuro: alert and oriented laboratory and microbiology Laboratory Tests 08/16/24 06:19 Test 08/16/24 06:19 Range/Units Serum Glucose 111 H 74-106 mg/dL Assessment/Plan Problem List/Assessment/Plan IVETH on CKD stage 4 , 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 /multiple myeloma/ tubular injury in the setting of hypercalcemia Severe anemia UTI Hypokalemia Hypercalcemia Leukocytosis/sirs History of left popliteal vein DVT History of hypertension Arthritis Hypernatremia:Improved Plan/recommendation - clinically stable from Nephrology perspective, GFR gradually improving - hypercalcemia resolved - we will continue to follow Dietary Evaluation Review Comments: 1) Consider a Renal Specific K2,low phos,2gmNa,50gPro diet 2) Continue current plan of care Expected Outcomes/Goals: 1) F/U in 3-5 days Plan discussed with: Patient TRACY VILLELA MD Aug 16, 2024 13:31
[2024-08-16] MEDS ORDERED: traMADol HCL 50 MG TAB PO PRN ×2 (14:30)
[2024-08-16] MEDS: COLCHICINE 0.6 MG CAP PO ONE (15:03)
[2024-08-16] MEDS: traMADol HCL 50 MG TAB PO PRN (15:03)
[2024-08-17] VITALS (8 sets, daily range): BP systolic 110–133; BP diastolic 57–80; PULSE 83–97; RESP 16–19; TEMP 97.1–98.6; O2SAT 93–96
[2024-08-17 06:45] LABS: Mean Corpuscular Hgb Conc. 32.4 g/dL (32.0-36.0); Red Blood Cells 2.95 10^6/uL (4.0-5.20)
[2024-08-17 06:47] LABS: Hematocrit 25.2 % (36.0-46.0); Hemoglobin 8.2 g/dL (12.2-16.2); Mean Corpuscular Hemoglobin 27.7 pg (28.0-32.0); Mean Corpuscular Volume 85.5 fL (80.0-100.0); Platelet Count (auto) 375 10^3/uL (140-450); White Blood Cell 14.3 10^3/uL (4.4-10.8)
[2024-08-17 06:55] LABS: Basophils % (manual) 0 (0.0-2.0); Blast Cells 0; Metamyelocytes % 0; Myelocytes % 0; Promyelocytes % 0; Reactive Lymphocytes 0
[2024-08-17 06:57] LABS: Anion Gap 10 (5-15); Calcium 9.9 mg/dL (8.7-10.4); Carbon Dioxide 27 mmol/L (20-31); Chloride 106 mmol/L (98-107); Potassium 3.7 mmol/L (3.5-5.1); Sodium 143 mmol/L (136-145)
[2024-08-17 07:03] LABS: BUN/Creatinine Ratio 15.2 (10.0-20.0); Blood Urea Nitrogen 37 mg/dL (9-23); Glucose 99 mg/dL (74-106); Magnesium 2.2 mg/dL (1.6-2.6)
[2024-08-17 07:57] LABS: Band Neutrophils % (manual) 9; Eosinophils % (manual) 1 (0-7); Lymphocytes % (manual) 14 (10.0-50.0); Monocytes % (manual) 3 (0-12)
[2024-08-17 07:58] LABS: Platelet Estimate Adequate
--- NOTE | 2024-08-17 15:03 | DVHPN2 ---
Progress Note - Dictate Date Seen: Aug 17, 2024 Medical Necessity Reason Pt with a Central, PICC or Fol: No Subjective patient seen earlier today, denies shortness of breath vital signs Vital Sign Date Time Temp Pulse Resp B/P (MAP) Pulse Ox O2 Delivery O2 Flow Rate FiO2 08/17/24 13:00 97.5 89 19 133/80 (97) 95 97.5 08/17/24 08:10 Room Air* 0 21 Total Intake and Output 08/16/24 08/16/24 08/17/24 15:00 23:00 07:00 Intake Total 370 ml 450 ml Output Total 800 ml 1100 ml Balance -430 ml -650 ml medications Current Medications Medications Dose Ordered Sig/Angela Route Start Time Stop Time Status Last Admin Dose Admin Ceftriaxone Sodium 50 ml @ 100 mls/hr DAILY@2100 IV 08/11/24 21:00 08/16/24 20:34 100 MLS/HR Apixaban 2.5 mg BID PO 08/11/24 10:00 08/17/24 09:59 2.5 MG Ondansetron HCl 4 mg Q4HP PRN IV 08/11/24 01:45 Acetaminophen 650 mg Q6HP PRN PO 08/11/24 01:45 Nitroglycerin 0.4 mg Q5MINP PRN SL 08/11/24 01:45 Morphine Sulfate 2 mg Q30M PRN IV 08/11/24 01:45 Lactulose 30 ml DAILYPRN PRN PO 08/12/24 22:00 08/15/24 06:09 30 ML Acetaminophen/ Hydrocodone Bitart 1 tab Q8HP PRN PO 08/13/24 21:00 08/17/24 09:59 1 TAB Tramadol HCl 50 mg [id number] PRN PO 08/16/24 14:30 08/17/24 04:48 50 MG objective Gen: nad, cachectic chronically ill-appearing heent: nc/at, mmm lungs: cta anteriorly cvs: no rub abd: soft, bowel sounds audible ext: no edema skin: no rash neuro: alert and oriented laboratory and microbiology Laboratory Tests 08/17/24 06:14 Test 08/17/24 06:14 Range/Units Serum Glucose 99 74-106 mg/dL Assessment/Plan Problem List/Assessment/Plan IVETH on CKD stage 4 , 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
--- NOTE | 2024-08-17 16:11 | DVHPN2 ---
Subjective Update 08/17-patient is having right knee pain and does not want to move due to this pain. Nephrology has cleared patient, as oncology wants to follow up patient outpatient. PT is evaluating patient incisions are ongoing. Patient needs home health with PT in order is being placed with social consult today. Patient with right knee pain and no effusion, we will get right knee x-ray. Reviewed: H&P Changes from previous H/P or p: No Changes General: Per HPI Objective Vitals Vital Signs Date Time Temp Pulse Resp B/P (MAP) Pulse Ox O2 Delivery O2 Flow Rate FiO2 08/17/24 13:00 97.5 89 19 133/80 (97) 95 97.5 08/17/24 08:10 Room Air* 0 21 Intake/Output Intake and Output 08/17/24 07:00 Intake Total 820 ml Output Total 1900 ml Balance -1080 ml Intake Oral 770 ml IV Total 50 ml Output Urine Total 1900 ml # Bowel Movements 1 Exam GEN: Cachectic-appearing HEENT: NC/AT; MMM. CV: Bibasilar rales LUNGS: CTAB, no w/r/c. ABD: Soft, NT/ND, NBS, no masses or organomegaly. EXT: skin Warm, well perfused. no rashes. No clubbing, cyanosis, or edema. Right knee without rash or effusion. Painful range of motion. Tenderness to medial aspect of knee. NEURO: Ambulating with no limitations. No focal deficits. Medications Current Medications Medications Dose Ordered Sig/Angela Route Start Time Stop Time Status Last Admin Dose Admin Ceftriaxone Sodium 50 ml @ 100 mls/hr DAILY@2100 IV 08/11/24 21:00 08/16/24 20:34 100 MLS/HR Apixaban 2.5 mg BID PO 08/11/24 10:00 08/17/24 09:59 2.5 MG Ondansetron HCl 4 mg Q4HP PRN IV 08/11/24 01:45 Acetaminophen 650 mg Q6HP PRN PO 08/11/24 01:45 Nitroglycerin 0.4 mg Q5MINP PRN SL 08/11/24 01:45 Morphine Sulfate 2 mg Q30M PRN IV 08/11/24 01:45 Lactulose 30 ml DAILYPRN PRN PO 08/12/24 22:00 08/15/24 06:09 30 ML Acetaminophen/ Hydrocodone Bitart 1 tab Q8HP PRN PO 08/13/24 21:00 08/17/24 09:59 1 TAB Tramadol HCl 50 mg [id number] PRN PO 08/16/24 14:30 08/17/24 04:48 50 MG Laboratory Results Laboratory Tests 08/17/24 06:14 Chemistry Test 08/17/24 06:14 Calcium Level 9.9 mg/dL (8.7-10.4) Magnesium Level 2.2 mg/dL (1.6-2.6) Urinalysis Test 08/10/24 18:47 Urine Color Dark-brown (Yellow) Urine Clarity Ex.turbid (Clear) Urine pH 5.5 (5.0-9.0) Urine Specific [place] 1.013 (1.001-1.035) Urine Protein 2+ (Negative) H Urine Ketones Negative (Negative) Urine Blood 2+ /uL (Negative) H Urine Nitrite Negative (Negative) Urine Bilirubin Negative (Negative) Urine Urobilinogen Normal mg/dL (Negative) Urine Leukocyte Esterase 3+ /uL (Negative) Urine RBC 46 /hpf (0 - 4) Urine WBC 2968 /hpf (0 - 5) Urine WBC Clumps Present /hpf (None Seen) Urine Squamous Epithelial Cells Few /hpf (<5) Urine Bacteria None seen /hpf (None Seen) Urine Glucose Normal mg/dL (Normal) Microbiology Microbiology Date/Time Source Procedure Growth Status 08/11/24 02:53 Blood Blood Culture - Final NO GROWTH AFTER 5 DAYS OF INCUBATION. Complete Labs and/or images reviewed: Labs reviewed by me, Image(s) reviewed by me Assessment/Plan Assessment/Plan Update 08/17-patient is having right knee pain and does not want to move due to this pain. Nephrology has cleared patient, as oncology wants to follow up patient outpatient. PT is evaluating patient incisions are ongoing. Patient needs home health with PT in order is being placed with social consult today. Patient with right knee pain and no effusion, we will get right knee x-ray. IVETH on CKD stage 5- Nephro Cx Multiple myeloma- Oncology Consult noted Severe anemia- Transfuse 1 PRBC UTI- Abx Acute Pneumonitis- iv ABx ceftriaxone, no urine culture to deescalate. Hypokalemia Hypercalcemia History of left popliteal vein DVT- On Eliquis. Patient is mostly bedbound, high risk of DVT again History of hypertension Arthritis Deconditioned - Plan discussed with: Patient My Orders Orders - ROSIO GONZALEZ MD Procedure Category Date Status Time R Knee 2v Xray XY 08/17/24 Logged 14:21 * Home Care Chaplain CONS 08/17/24 Transmitted Consult Date of Service: Aug 17, 2024 Billing Provider: ROSIO GONZALEZ MD Common Visit Codes: [id number] INP/OBS CARE(HIGH) ROSIO GONZALEZ MD Aug 17, 2024 16:10
--- NOTE | 2024-08-17 16:56 | DVH ---
EXAM: XY R KNEE 2V XRAY CLINICAL HISTORY: right knee pain COMPARISON: XY L HAND 2V XRAY on DOS: 08/15/24, XY R HAND 2 VIEW XRAY on DOS: 08/15/24 TECHNIQUE: XY R KNEE 2V XRAY Findings/Impression: 2 views of the right knee. There is no evidence of an acute fracture, dislocation, blastic, or lytic lesions. Right total knee arthroplasty. Moderate to large joint effusion with mild soft tissue edema.
[2024-08-18] VITALS (8 sets, daily range): BP systolic 111–143; BP diastolic 62–91; PULSE 74–88; RESP 16–18; TEMP 97.1–98.5; O2SAT 95–97
[2024-08-18 07:37] LABS: Anion Gap 7 (5-15); Calcium 9.9 mg/dL (8.7-10.4); Carbon Dioxide 28 mmol/L (20-31); Chloride 107 mmol/L (98-107); Potassium 3.8 mmol/L (3.5-5.1); Sodium 142 mmol/L (136-145)
[2024-08-18 07:40] LABS: INR 1.03 (0.9-1.15); Prothrombin Time 10.9 sec (9.3-11.8)
[2024-08-18 07:43] LABS: BUN/Creatinine Ratio 14.1 (10.0-20.0); Blood Urea Nitrogen 35 mg/dL (9-23); Glucose 97 mg/dL (74-106)
[2024-08-18 07:51] LABS: Basophils # (auto) 0.1 10 ^3/uL (0-0.2); Eosinophils # (auto) 0.1 10 ^3/uL (0-0.8); Nucleated Red Blood Cells % 0.1 %; Platelet Count (auto) 380 10^3/uL (140-450)
[2024-08-18 07:52] LABS: Basophils % (auto) 0.7 % (0.0-2.0); Eosinophils % (auto) 0.8 % (0.0-7.0); Hematocrit 25.2 % (36.0-46.0); Hemoglobin 8.2 g/dL (12.2-16.2); Lymphocytes # (auto) 1.5 10 ^3/uL (0.4-5.4); Lymphocytes % (auto) 9.7 % (10.0-50.0); Mean Corpuscular Hemoglobin 27.8 pg (28.0-32.0); Mean Corpuscular Hgb Conc. 32.4 g/dL (32.0-36.0); Mean Corpuscular Volume 85.9 fL (80.0-100.0); Monocytes % (auto) 6.4 % (0.0-12.0); Neutrophils # (auto) 12.7 10 ^3/uL (1.6-8.6); Neutrophils % (auto) 82.4 % (37.0-80.0); Red Blood Cells 2.93 10^6/uL (4.0-5.20); White Blood Cell 15.4 10^3/uL (4.4-10.8)
[2024-08-18 07:54] LABS: Partial Thromboplastin Time 26.2 SEC (24.5-34.5)
--- NOTE | 2024-08-18 08:35 | DVH ---
Exam: US RIGHT LOWER EXTREMITY ULTRASOU Clinical History: FLUID CHECK FOR POSSIBLE RIGHT KNEE EFFUSION Comparison: None Technique: Targeted sonographic evaluation of the soft tissues of the right knee was obtained utilizing graysca le and color Doppler imaging. Findings/Impression: Trace joint effusion. Diffuse soft-tissue edema and swelling.
[2024-08-18] MEDS: ACETAMINOPHEN 325 MG TAB PO PRN (09:47)
--- NOTE | 2024-08-18 12:07 | DVHPN2 ---
Progress Note Date Seen: Aug 18, 2024 Resident Creating Document: KIM MATHEWS RESIDENT Medical Necessity Reason Pt with a Central, PICC or Fol: No Subjective Review of Systems Patient is 64-year-old female with past medical history of hypertension, DVT, recently diagnosed multiple myeloma, osteoarthritis, severe anemia, presented to hospital for chief complaint of pain in bilateral feet, back and generalized weakness. Recently patient underwent bone marrow aspiration biopsy on 06/24/2024 which showed hypercellular bone marrow consistent with multiple myeloma. Patient is waiting for insurance authorization to initiate treatment by Dr. Kothari. Other investigation also 10 before including serum immunofixation, urine immunofixation, free kappa chain. Patient also complained of losing weight in last 6 months around 20-30 lb. Apart from generalized weakness and pain in bilateral feet and back patient denied any other complaint. Patient was been diagnosed with CKD and nephrotic range proteinuria during previous hospitalization patient was offered for kidney biopsy however patient denied that point. However patient underwent bone marrow biopsy which showed multiple myeloma. No any other complaints at this point Past Medical History CKD, nephrotic range proteinuria, hypertension, anemia, arthritis Past Surgical History Tonsillectomy, and hernia repair Patient seen and examined at bedside. No other complaint. Other Systems: Patient seen and examined by myself with the medicine resident today on rounds I agree with the assessment and plan as documented in the note below Objective vital signs Vital Sign Date Time Temp Pulse Resp B/P (MAP) Pulse Ox O2 Delivery O2 Flow Rate FiO2 08/18/24 09:00 97.1 81 16 124/80 (95) 96 97.1 08/17/24 20:10 Room Air* 0 21 Total Intake and Output 08/17/24 08/17/24 08/18/24 15:00 23:00 07:00 Intake Total 470 ml 200 ml Output Total 1200 ml 150 ml Balance -730 ml 50 ml medications Current Medications Medications Dose Ordered Sig/Angela Route Start Time Stop Time Status Last Admin Dose Admin Ceftriaxone Sodium 50 ml @ 100 mls/hr DAILY@2100 IV 08/11/24 21:00 08/17/24 20:20 100 MLS/HR Apixaban 2.5 mg BID PO 08/11/24 10:00 08/18/24 09:47 2.5 MG Ondansetron HCl 4 mg Q4HP PRN IV 08/11/24 01:45 Acetaminophen 650 mg Q6HP PRN PO 08/11/24 01:45 08/18/24 09:47 650 MG Nitroglycerin 0.4 mg Q5MINP PRN SL 08/11/24 01:45 Morphine Sulfate 2 mg Q30M PRN IV 08/11/24 01:45 Lactulose 30 ml DAILYPRN PRN PO 08/12/24 22:00 08/15/24 06:09 30 ML Acetaminophen/ Hydrocodone Bitart 1 tab Q8HP PRN PO 08/13/24 21:00 08/18/24 04:55 1 TAB Tramadol HCl 50 mg [id number] PRN PO 08/16/24 14:30 08/18/24 08:35 50 MG Examination General Appearance: Alert, Oriented X3, Cooperative, in distress HEENT: Atraumatic, PERRLA, EOMI, Mucous membr. pail Respiratory: Clear to auscultation, Normal air movement Cardiovascular: Regular rate, Normal S1, Normal S2, No murmurs Abdominal: Normal bowel sounds, Soft Extremities: Bilateral edema 1 +, tenderness at palpation in both calfs Neuro: Normal gait, Normal speech, Strength at 5/5 X4 ext, Normal tone laboratory and microbiology Laboratory Tests 08/18/24 06:38 Test 08/18/24 06:38 Range/Units Serum Glucose 97 74-106 mg/dL Microbiology Date/Time Source Procedure Growth Status 08/11/24 02:53 Blood Blood Culture - Final NO GROWTH AFTER 5 DAYS OF INCUBATION. 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 -treated anemia with PRBC as per hospitalist -recent renal ultrasound on 06/23/2024: Mild right-sided hydronephrosis. -follow up with urine sodium, creatinine, protein.: Still Pending -avoid nephrotoxic drug -strict I&O -patient follows hematology oncology for multiple myeloma in outpatient setting -follow with BMP tomorrow a.m.. We will continue closely follow up. Plan discussed with: Patient, Other (RN) My Orders My Orders Orders - KIM MATHEWS Procedure Category Date Status Time * Radiologist Consult CONS 08/18/24 Verified 11:57 Dietary Evaluation Review Comments: 1) Consider a Renal Specific K2,low phos,2gmNa,50gPro diet 2) Continue current plan of care Expected Outcomes/Goals: 1) F/U in 3-5 days KIM MATHEWS Aug 18, 2024 12:07 HAMIDA KENDALL MD Aug 18, 2024 16:33
--- NOTE | 2024-08-18 12:31 | DVHINCON2 ---
Date of service: Aug 18, 2024 Reason for Consultation Right knee pain S/P total knee arthroplasty History of Present Illness Mrs. Suarez is a 64-year-old female who has been experiencing progressively worsening right knee pain that began approximately a year ago without a known injury or incident. Patient reports that she had a right total knee replacement back in 2016 with [facility] and was doing well up until about a year ago where she developed her pain that has been worsening and limiting her ambulation and physical activity. Patient reports that she has been unable to get up out of bed and has tried perform gentle [id number] exercises but feels a lot of pain and stiffness when she tries. Past Medical History Multiple myeloma, hypertension, and CKD Past Surgical History Right total knee arthroplasty Family History: Arthritis G8 MOTHER, Onset:Unknown FH: heart attack G8 MOTHER, Onset:60 years & older G8 FATHER, Onset:60 years & older Family History Noncontributory Social History Patient denies smoking, EtOH, or illicit substance Allergies: Coded Allergies: NO KNOWN ALLERGIES (Unverified , 02/02/24) Home Meds Active Scripts Apixaban Base (ELIQUIS) 2.5 Mg Tab, 2.5 MG PO BID for 180 Days, #180 TAB Prov:KIM MATHEWS RESIDENT 06/25/24 Ferrous Sulfate (Iron) 325 Mg Tab, 325 MG PO DAILY for 30 Days, #30 TAB Prov:TORO BILLINGS RESIDENT 05/07/24 Reported Medications Bumetanide (Bumetanide) 2 Mg Tab, 2 MG PO BID for 30 Days, MG 08/13/24 Oxycodone W/ Acetaminophen (Apap/Oxycodone) 1 Tab Tab, 1 TAB PO TID for 28 Days, #84 [10/325 MG] TAKE 1 TABLET BY MOUTH 3 TIMES DAILY FOR 30 DAYS. 08/12/24 Lidocaine (Lidocaine) 5 % Pad, 1 PATCH TOP BID for 30 Days, #30 08/12/24 Docusate Sodium (Docusate Sodium) 100 Mg Cap, 1 CAP PO BID for 90 Days, #180 08/12/24 Furosemide (Furosemide) 80 Mg Tab, 1 TAB PO DAILY 08/12/24 Allopurinol (Allopurinol) 100 Mg Tab, 1 TAB PO DAILY 08/12/24 Morphine Sulfate (Morphine Sulfate Cr) 15 Mg Tab, 1 TAB PO BID for 30 Days, #60 08/12/24 Amlodipine Besylate (Amlodipine Besylate) 5 Mg Tab, 5 MG PO DAILY, TAB 06/22/24 Review of Systems 10 point review of systems negative except as per HPI Vital Signs Vital Signs Date Time Temp Pulse Resp B/P (MAP) Pulse Ox O2 Delivery O2 Flow Rate FiO2 08/18/24 09:00 97.1 81 16 124/80 (95) 96 97.1 08/18/24 08:00 Room Air* 0 21 Physical Exam General appearance: A&O x4 in no acute distress HEENT: Normal ENT inspection, pharynx normal, TMs normal Neck: Full range of motion, nontender, normal inspection Respiratory: Chest nontender, without accessory muscle use, no respiratory distress Cardiovascular: No edema, no JVD, normal peripheral pulses Gastrointestinal: Soft, nontender, no organomegaly. Musculoskeletal: Right knee range of motion grossly limited with pain on movement, swelling, well healed incision, no calf tenderness, normal capillary refill, no pedal edema, neurovascularly intact. Skin: Dry, normal color, warm Lymphatic: No adenopathy Labs/Diagnostic Data Labs Test 08/18/24 06:38 08/17/24 06:14 08/15/24 05:53 08/12/24 05:00 Range/Units White Blood Count 15.4 H 4.4-10.8 10^3/uL Red Blood Count 2.93 L 4.0-5.20 10^6/uL Hemoglobin 8.2 L 12.2-16.2 g/dL Hematocrit 25.2 L 36.0-46.0 % Mean Corpuscular Volume 85.9 80.0-100.0 fL Mean Corpuscular Hemoglobin 27.8 L 28.0-32.0 pg Mean Corpuscular Hemoglobin Concent 32.4 32.0-36.0 g/dL Red Cell Distribution Width 18.0 H 11.8-14.3 % Platelet Count 380 140-450 10^3/uL Mean Platelet Volume 6.9 6.9-10.8 fL Neutrophils (%) (Auto) 82.4 H 37.0-80.0 % Lymphocytes (%) (Auto) 9.7 L 10.0-50.0 % Monocytes (%) (Auto) 6.4 0.0-12.0 % Eosinophils (%) (Auto) 0.8 0.0-7.0 % Basophils (%) (Auto) 0.7 0.0-2.0 % Neutrophils # (Auto) 12.7 H 1.6-8.6 10 ^3/uL Lymphocytes # (Auto) 1.5 0.4-5.4 10 ^3/uL Monocytes # (Auto) 1.0 0-1.3 10 ^3/uL Eosinophils # (Auto) 0.1 0-0.8 10 ^3/uL Basophils # (Auto) 0.1 0-0.2 10 ^3/uL Nucleated Red Blood Cells 0.1 % Prothrombin Time 10.9 9.3-11.8 sec Prothrombin Time INR 1.03 0.9-1.15 Activated Partial Thromboplast Time 26.2 24.5-34.5 SEC Sodium Level 142 136-145 mmol/L Potassium Level 3.8 3.5-5.1 mmol/L Chloride Level 107 98-107 mmol/L Carbon Dioxide Level 28 20-31 mmol/L Anion Gap 7 5-15 Blood Urea Nitrogen 35 H 9-23 mg/dL Creatinine 2.49 H 0.550-1.02 mg/dL Glomerular Filtration Rate Calc 21 >90 mL/min BUN/Creatinine Ratio 14.1 10.0-20.0 Serum Glucose 97 74-106 mg/dL Calcium Level 9.9 8.7-10.4 mg/dL Differential Total Cells Counted 100.0 100 Neutrophils % (Manual) 73 37.0-80.0 Band Neutrophils % (Manual) 9 Lymphocytes % (Manual) 14 10.0-50.0 Monocytes % (Manual) 3 0-12 Eosinophils % (Manual) 1 0-7 Basophils % (Manual) 0 0.0-2.0 Metamyelocytes % (manual) 0 Myelocytes % (Manual) 0 Promyelocytes % (Manual) 0 Blast Cells % (Manual) 0 Reactive Lymphocytes 0 Platelet Estimate Adequate Magnesium Level 2.2 1.6-2.6 mg/dL Erythrocyte Sedimentation Rate 45 H 0-20 mm/hr Uric Acid 9.3 H 3.1-7.8 mg/dL Total Bilirubin 0.2 0.2-1.0 mg/dL Aspartate Amino Transferase (AST) 11 L 13-40 U/L Alanine Aminotransferase (ALT) 13 7-40 U/L Alkaline Phosphatase 71 46-116 U/L Creatine Kinase 40 34-145 U/L Total Protein 5.2 L 5.7-8.2 g/dL Albumin 3.3 3.2-4.8 g/dL Rheumatoid Factor <10.0 <14.0 IU/mL Anisocytosis (manual) Slight Ovalocytes Few Test 08/10/24 20:45 08/10/24 18:47 08/10/24 17:40 Range/Units Lactic Acid Level 1.1 0.4-2.0 mmol/L Troponin I High Sensitivity 32 </=34 ng/L Urine Color Dark-brown Yellow Urine Clarity Ex.turbid Clear Urine pH 5.5 5.0-9.0 Urine Specific [place] 1.013 1.001-1.035 Urine Protein 2+ H Negative Urine Ketones Negative Negative Urine Blood 2+ H Negative /uL Urine Nitrite Negative Negative Urine Bilirubin Negative Negative Urine Urobilinogen Normal Negative mg/dL Urine Leukocyte Esterase 3+ Negative /uL Urine RBC 46 0 - 4 /hpf Urine WBC 2968 0 - 5 /hpf Urine WBC Clumps Present None Seen /hpf Urine Squamous Epithelial Cells Few <5 /hpf Urine Bacteria None seen None Seen /hpf Urine Glucose Normal Normal mg/dL Large Platelets Few Microcytosis Slight Macrocytosis Slight Stomatocytes Few B-Type Natriuretic Peptide 51.34 0-100 pg/mL Microbiology Date/Time Source Procedure Growth Status 08/11/24 02:53 Blood Blood Culture - Final NO GROWTH AFTER 5 DAYS OF INCUBATION. Complete Right knee x-ray reviewed and demonstrated: There is no evidence of an acute fracture, dislocation, blastic, or lytic lesions. Right total knee arthroplasty. Moderate to large joint effusion with mild soft tissue edema. Assessment Right knee pain and swelling S/P right total knee arthroplasty Plan/Recommendation I had a lengthy discussion with the patient and after discussing her case and reviewing her imaging studies with Dr. Arana we will be ordering an IR guided aspiration of her right knee with fluid analysis to rule out any infection given her continued limited range of motion and difficulty ambulating. We will reconvene with the patient once the aspiration and the fluid analysis has been completed to review the results and determine the course of action. Plan discussed with: Patient VICTOR MANUEL YAN MIRZA Aug 18, 2024 12:31
--- NOTE | 2024-08-18 17:25 | DVHPN2 ---
Subjective Seen and examined at bedside. Still weak, c/o Right Knee pain. Xrays reviewed, ortho consult noted. Need IR aspiration. Reviewed: H&P Changes from previous H/P or p: No Changes General: Per HPI Objective Vitals Vital Signs Date Time Temp Pulse Resp B/P (MAP) Pulse Ox O2 Delivery O2 Flow Rate FiO2 08/18/24 16:48 97.8 74 16 126/77 (93) 97 97.8 08/18/24 08:00 Room Air* 0 21 Intake/Output Intake and Output 08/18/24 07:00 Intake Total 670 ml Output Total 1350 ml Balance -680 ml Intake Oral 620 ml IV Total 50 ml Output Urine Total 1350 ml Exam Gen: in bed cachectic Cvs: N S1/S2, RRR Resp: BLAE Abd: Thin Submersible Pilot: AAO x 4 Ext: Right Knee swelling Medications Current Medications Medications Dose Ordered Sig/Angela Route Start Time Stop Time Status Last Admin Dose Admin Ceftriaxone Sodium 50 ml @ 100 mls/hr DAILY@2100 IV 08/11/24 21:00 08/17/24 20:20 100 MLS/HR Apixaban 2.5 mg BID PO 08/11/24 10:00 08/18/24 09:47 2.5 MG Ondansetron HCl 4 mg Q4HP PRN IV 08/11/24 01:45 Acetaminophen 650 mg Q6HP PRN PO 08/11/24 01:45 08/18/24 09:47 650 MG Nitroglycerin 0.4 mg Q5MINP PRN SL 08/11/24 01:45 Morphine Sulfate 2 mg Q30M PRN IV 08/11/24 01:45 Lactulose 30 ml DAILYPRN PRN PO 08/12/24 22:00 08/15/24 06:09 30 ML Acetaminophen/ Hydrocodone Bitart 1 tab Q8HP PRN PO 08/13/24 21:00 08/18/24 17:10 1 TAB Tramadol HCl 50 mg [id number] PRN PO 08/16/24 14:30 08/18/24 08:35 50 MG Laboratory Results Laboratory Tests 08/18/24 06:38 Chemistry Test 08/18/24 06:38 Calcium Level 9.9 mg/dL (8.7-10.4) Coagulation Test 08/18/24 06:38 Prothrombin Time 10.9 sec (9.3-11.8) Prothrombin Time INR 1.03 (0.9-1.15) Activated Partial Thromboplast Time 26.2 SEC (24.5-34.5) Urinalysis Test 08/10/24 18:47 Urine Color Dark-brown (Yellow) Urine Clarity Ex.turbid (Clear) Urine pH 5.5 (5.0-9.0) Urine Specific [place] 1.013 (1.001-1.035) Urine Protein 2+ (Negative) H Urine Ketones Negative (Negative) Urine Blood 2+ /uL (Negative) H Urine Nitrite Negative (Negative) Urine Bilirubin Negative (Negative) Urine Urobilinogen Normal mg/dL (Negative) Urine Leukocyte Esterase 3+ /uL (Negative) Urine RBC 46 /hpf (0 - 4) Urine WBC 2968 /hpf (0 - 5) Urine WBC Clumps Present /hpf (None Seen) Urine Squamous Epithelial Cells Few /hpf (<5) Urine Bacteria None seen /hpf (None Seen) Urine Glucose Normal mg/dL (Normal) Microbiology Microbiology Date/Time Source Procedure Growth Status 08/11/24 02:53 Blood Blood Culture - Final NO GROWTH AFTER 5 DAYS OF INCUBATION. Complete Assessment/Plan Assessment/Plan Right Knee Pain- Xray reviewed, Ortho consult, IR aspiration IVETH on CKD stage 5- Nephro Cx Multiple myeloma- Oncology Consult noted Severe anemia- Transfuse 1 PRBC UTI- Abx Acute Pneumonitis- ABx Hypokalemia Hypercalcemia History of left popliteal vein DVT- On Eliquis. Patient is mostly bedbound, high risk of DVT again History of hypertension Arthritis Deconditioned Plan discussed with: Patient My Orders Orders - EUNICE BEST MD Procedure Category Date Status Time * Radiologist Consult CONS 08/17/24 Transmitted 21:55 * Orthopedic Consult CONS 08/18/24 Transmitted 11:05 Date of Service: Aug 18, 2024 Billing Provider: EUNICE BEST MD Common Visit Codes: [id number] INP/OBS CARE(HIGH) EUNICE BEST MD Aug 18, 2024 17:25
[2024-08-18] MEDS: COLCHICINE 0.6 MG CAP PO ONE (18:57)
[2024-08-19] VITALS (8 sets, daily range): BP systolic 111–137; BP diastolic 67–96; PULSE 75–154; RESP 15–18; TEMP 97.4–98.4; O2SAT 95–96
[2024-08-19] MEDS: COLCHICINE 0.6 MG CAP PO SCH (09:15)
--- NOTE | 2024-08-19 14:18 | DVHPN2 ---
Progress Note Date Seen: Aug 19, 2024 Resident Creating Document: KIM MATHEWS RESIDENT Medical Necessity Reason Pt with a Central, PICC or Fol: No Subjective Review of Systems Patient is 64-year-old female with past medical history of hypertension, DVT, recently diagnosed multiple myeloma, osteoarthritis, severe anemia, presented to hospital for chief complaint of pain in bilateral feet, back and generalized weakness. Recently patient underwent bone marrow aspiration biopsy on 06/24/2024 which showed hypercellular bone marrow consistent with multiple myeloma. Patient is waiting for insurance authorization to initiate treatment by Dr. Kothari. Other investigation also 10 before including serum immunofixation, urine immunofixation, free kappa chain. Patient also complained of losing weight in last 6 months around 20-30 lb. Apart from generalized weakness and pain in bilateral feet and back patient denied any other complaint. Patient was been diagnosed with CKD and nephrotic range proteinuria during previous hospitalization patient was offered for kidney biopsy however patient denied that point. However patient underwent bone marrow biopsy which showed multiple myeloma. No any other complaints at this point Past Medical History CKD, nephrotic range proteinuria, hypertension, anemia, arthritis Past Surgical History Tonsillectomy, and hernia repair Patient seen and examined at bedside. No other complaint. Other Systems: Patient seen and examined by myself with the medicine resident today on rounds, I agree with his assessment and plan as documented in this note Objective vital signs Vital Sign Date Time Temp Pulse Resp B/P (MAP) Pulse Ox O2 Delivery O2 Flow Rate FiO2 08/19/24 13:00 97.8 81 16 137/77 (97) 95 97.8 08/19/24 07:30 Room Air* 0 21 Total Intake and Output 08/18/24 08/18/24 08/19/24 14:59 22:59 06:59 Intake Total 240 ml 400 ml Output Total 150 ml 350 ml Balance 90 ml 50 ml medications Current Medications Medications Dose Ordered Sig/Angela Route Start Time Stop Time Status Last Admin Dose Admin Apixaban 2.5 mg BID PO 08/11/24 10:00 08/19/24 09:15 Ondansetron HCl 4 mg Q4HP PRN IV 08/11/24 01:45 Acetaminophen 650 mg Q6HP PRN PO 08/11/24 01:45 08/18/24 18:58 Nitroglycerin 0.4 mg Q5MINP PRN SL 08/11/24 01:45 Morphine Sulfate 2 mg Q30M PRN IV 08/11/24 01:45 Lactulose 30 ml DAILYPRN PRN PO 08/12/24 22:00 08/15/24 06:09 Acetaminophen/ Hydrocodone Bitart 1 tab Q8HP PRN PO 08/13/24 21:00 08/19/24 12:41 Tramadol HCl 50 mg [id number] PRN PO 08/16/24 14:30 08/19/24 08:57 Colchicine 0.6 mg DAILY PO 08/19/24 10:00 08/19/24 09:15 Examination General Appearance: Alert, Oriented X3, Cooperative, in distress HEENT: Atraumatic, PERRLA, EOMI, Mucous membr. pail Respiratory: Clear to auscultation, Normal air movement Cardiovascular: Regular rate, Normal S1, Normal S2, No murmurs Abdominal: Normal bowel sounds, Soft Extremities: Bilateral edema 1 +, tenderness at palpation in both calfs Neuro: Normal gait, Normal speech, Strength at 5/5 X4 ext, Normal tone laboratory and microbiology Laboratory Tests 08/18/24 06:38 Test 08/18/24 06:38 Range/Units Serum Glucose 97 74-106 mg/dL Microbiology Date/Time Source Procedure Growth Status 08/11/24 02:53 Blood Blood Culture - Final NO GROWTH AFTER 5 DAYS OF INCUBATION. 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 -minimal variance in GFR and creatinine, continue to monitor kidney function -stable calcium level now. -encouraged oral intake of liquid -treated anemia with PRBC as per hospitalist -recent renal ultrasound on 06/23/2024: Mild right-sided hydronephrosis. -follow up with urine sodium, creatinine, protein.: Still Pending -avoid nephrotoxic drug -strict I&O -patient follows hematology oncology for multiple myeloma in outpatient setting -follow with BMP tomorrow a.m.. We will continue closely follow up. Plan discussed with: Patient, Daughter (RN), Other Dietary Evaluation Review Comments: 1) Consider a Renal Specific K2,low phos,2gmNa,50gPro diet 2) Continue current plan of care Expected Outcomes/Goals: 1) F/U in 3-5 days KIM MATHEWS Aug 19, 2024 14:18 HAMIDA KENDALL MD Aug 19, 2024 14:55
--- NOTE | 2024-08-19 15:34 | DVHPN2 ---
Subjective Seen and examined at bedside. Still weak, cont PT Reviewed: H&P Changes from previous H/P or p: No Changes General: Per HPI Objective Vitals Vital Signs Date Time Temp Pulse Resp B/P (MAP) Pulse Ox O2 Delivery O2 Flow Rate FiO2 08/19/24 13:00 97.8 81 16 137/77 (97) 95 97.8 08/19/24 07:30 Room Air* 0 21 Intake/Output Intake and Output 08/19/24 06:59 Intake Total 640 ml Output Total 500 ml Balance 140 ml Intake Oral 640 ml Output Urine Total 500 ml Exam Gen: in bed cachectic Cvs: N S1/S2, RRR Resp: BLAE Abd: Thin Network Strategist: AAO x 4 Ext: Right Knee swelling Medications Current Medications Medications Dose Ordered Sig/Angela Route Start Time Stop Time Status Last Admin Dose Admin Apixaban 2.5 mg BID PO 08/11/24 10:00 08/19/24 09:15 2.5 MG Ondansetron HCl 4 mg Q4HP PRN IV 08/11/24 01:45 Acetaminophen 650 mg Q6HP PRN PO 08/11/24 01:45 08/18/24 18:58 650 MG Nitroglycerin 0.4 mg Q5MINP PRN SL 08/11/24 01:45 Morphine Sulfate 2 mg Q30M PRN IV 08/11/24 01:45 Lactulose 30 ml DAILYPRN PRN PO 08/12/24 22:00 08/15/24 06:09 30 ML Acetaminophen/ Hydrocodone Bitart 1 tab Q8HP PRN PO 08/13/24 21:00 08/19/24 12:41 1 TAB Tramadol HCl 50 mg [id number] PRN PO 08/16/24 14:30 08/19/24 08:57 50 MG Colchicine 0.6 mg DAILY PO 08/19/24 10:00 08/19/24 09:15 0.6 MG Laboratory Results Laboratory Tests 08/18/24 06:38 Urinalysis Test 08/10/24 18:47 Urine Color Dark-brown (Yellow) Urine Clarity Ex.turbid (Clear) Urine pH 5.5 (5.0-9.0) Urine Specific [place] 1.013 (1.001-1.035) Urine Protein 2+ (Negative) H Urine Ketones Negative (Negative) Urine Blood 2+ /uL (Negative) H Urine Nitrite Negative (Negative) Urine Bilirubin Negative (Negative) Urine Urobilinogen Normal mg/dL (Negative) Urine Leukocyte Esterase 3+ /uL (Negative) Urine RBC 46 /hpf (0 - 4) Urine WBC 2968 /hpf (0 - 5) Urine WBC Clumps Present /hpf (None Seen) Urine Squamous Epithelial Cells Few /hpf (<5) Urine Bacteria None seen /hpf (None Seen) Urine Glucose Normal mg/dL (Normal) Microbiology Microbiology Date/Time Source Procedure Growth Status 08/11/24 02:53 Blood Blood Culture - Final NO GROWTH AFTER 5 DAYS OF INCUBATION. Complete Assessment/Plan Assessment/Plan Right Knee Pain- Xray reviewed, Ortho consult, IR aspiration IVETH on CKD stage 5- Nephro Cx Multiple myeloma- Oncology Consult noted Severe anemia- Transfuse 1 PRBC UTI- Abx Acute Pneumonitis- ABx Hypokalemia Hypercalcemia History of left popliteal vein DVT- On Eliquis. Patient is mostly bedbound, high risk of DVT again History of hypertension Arthritis Deconditioned Plan discussed with: Patient, Daughter My Orders Orders - EUNICE BEST MD Procedure Category Date Status Time Colchicine (Colcrys) PHA 08/19/24 In Process 10:00 Date of Service: Aug 19, 2024 Billing Provider: EUNICE BEST MD Common Visit Codes: [id number] INP/OBS CARE(HIGH) EUNICE BEST MD Aug 19, 2024 15:33
[2024-08-20] VITALS (8 sets, daily range): BP systolic 115–141; BP diastolic 62–84; PULSE 80–92; RESP 16–17; TEMP 97.8–99; O2SAT 92–98
[2024-08-20 10:21] LABS: Anion Gap 8 (5-15); Calcium 9.9 mg/dL (8.7-10.4); Carbon Dioxide 29 mmol/L (20-31); Chloride 106 mmol/L (98-107); Potassium 3.7 mmol/L (3.5-5.1); Sodium 143 mmol/L (136-145)
[2024-08-20 10:25] LABS: Glucose 111 mg/dL (74-106)
[2024-08-20 10:27] LABS: Blood Urea Nitrogen 31 mg/dL (9-23)
--- NOTE | 2024-08-20 13:08 | DVHPN2 ---
Progress Note Date Seen: Aug 20, 2024 Resident Creating Document: KIM MATHEWS RESIDENT Medical Necessity Reason Pt with a Central, PICC or Fol: No Subjective Review of Systems Patient is 64-year-old female with past medical history of hypertension, DVT, recently diagnosed multiple myeloma, osteoarthritis, severe anemia, presented to hospital for chief complaint of pain in bilateral feet, back and generalized weakness. Recently patient underwent bone marrow aspiration biopsy on 06/24/2024 which showed hypercellular bone marrow consistent with multiple myeloma. Patient is waiting for insurance authorization to initiate treatment by Dr. Kothari. Other investigation also 10 before including serum immunofixation, urine immunofixation, free kappa chain. Patient also complained of losing weight in last 6 months around 20-30 lb. Apart from generalized weakness and pain in bilateral feet and back patient denied any other complaint. Patient was been diagnosed with CKD and nephrotic range proteinuria during previous hospitalization patient was offered for kidney biopsy however patient denied that point. However patient underwent bone marrow biopsy which showed multiple myeloma. No any other complaints at this point Past Medical History CKD, nephrotic range proteinuria, hypertension, anemia, arthritis Past Surgical History Tonsillectomy, and hernia repair Patient seen and examined at bedside. No new complaints. Pain under control. Other Systems: Patient seen and examined by myself with the medicien resident, I agree with the assessment and plan documented in this note Objective vital signs Vital Sign Date Time Temp Pulse Resp B/P (MAP) Pulse Ox O2 Delivery O2 Flow Rate FiO2 08/20/24 09:00 97.8 86 16 119/70 (86) 95 97.8 08/19/24 20:00 Room Air* 0 21 Total Intake and Output 08/19/24 08/19/24 08/20/24 15:00 23:00 07:00 Intake Total 550 ml 200 ml Output Total 520 ml Balance 550 ml -320 ml medications Current Medications Medications Dose Ordered Sig/Angela Route Start Time Stop Time Status Last Admin Dose Admin Apixaban 2.5 mg BID PO 08/11/24 10:00 08/20/24 10:36 2.5 MG Ondansetron HCl 4 mg Q4HP PRN IV 08/11/24 01:45 Acetaminophen 650 mg Q6HP PRN PO 08/11/24 01:45 08/19/24 17:21 650 MG Nitroglycerin 0.4 mg Q5MINP PRN SL 08/11/24 01:45 Morphine Sulfate 2 mg Q30M PRN IV 08/11/24 01:45 Lactulose 30 ml DAILYPRN PRN PO 08/12/24 22:00 08/20/24 10:48 30 ML Acetaminophen/ Hydrocodone Bitart 1 tab Q8HP PRN PO 08/13/24 21:00 08/20/24 06:07 1 TAB Tramadol HCl 50 mg [id number] PRN PO 08/16/24 14:30 08/20/24 04:58 50 MG Colchicine 0.6 mg DAILY PO 08/19/24 10:00 08/20/24 10:36 0.6 MG Examination General Appearance: Alert, Oriented X3, Cooperative, in distress HEENT: Atraumatic, PERRLA, EOMI, Mucous membr. pail Respiratory: Clear to auscultation, Normal air movement Cardiovascular: Regular rate, Normal S1, Normal S2, No murmurs Abdominal: Normal bowel sounds, Soft Extremities: Bilateral edema 1 +, tenderness at palpation in both calfs Neuro: Normal gait, Normal speech, Strength at 5/5 X4 ext, Normal tone laboratory and microbiology Laboratory Tests 08/20/24 09:45 08/18/24 06:38 Test 08/20/24 09:45 Range/Units Serum Glucose 111 H 74-106 mg/dL Microbiology Date/Time Source Procedure Growth Status 08/11/24 02:53 Blood Blood Culture - Final NO GROWTH AFTER 5 DAYS OF INCUBATION. 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 -we will hold kidney biopsy for now given high-risk for bleeding due to currently on blood thinner Eliquis. -minimal variance in GFR and creatinine, continue to monitor kidney function -stable calcium level now. -encouraged oral intake of liquid -treated anemia with PRBC as per hospitalist -recent renal ultrasound on 06/23/2024: Mild right-sided hydronephrosis. -follow up with urine sodium, creatinine, protein.: Still Pending -avoid nephrotoxic drug -strict I&O -patient follows hematology oncology for multiple myeloma in outpatient setting -follow with BMP tomorrow a.m.. We will continue closely follow up. Plan discussed with: Patient, Other (RN) Dietary Evaluation Review Comments: 1) Consider a Renal Specific K2,low phos,2gmNa,50gPro diet 2) Continue current plan of care Expected Outcomes/Goals: 1) F/U in 3-5 days KIM MATHEWS Aug 20, 2024 13:08 HAMIDA KENDALL MD Aug 20, 2024 13:32
--- NOTE | 2024-08-20 15:49 | DVHPN2 ---
Subjective Complains of right knee pain and generalized pain Reviewed: H&P Changes from previous H/P or p: Changes General: Per HPI Objective Vitals Vital Signs Date Time Temp Pulse Resp B/P (MAP) Pulse Ox O2 Delivery O2 Flow Rate FiO2 08/20/24 13:00 97.9 80 16 123/80 (94) 97 97.9 08/20/24 07:30 Room Air* 0 21 Intake/Output Intake and Output 08/20/24 07:00 Intake Total 750 ml Output Total 520 ml Balance 230 ml Intake Oral 750 ml Output Urine Total 520 ml # Voids 3 General Appearance: Alert, Oriented X3, Cooperative, No acute distress Lungs: Clear to auscultation, Normal air movement Cardiovascular: Regular rate, Normal S1, Normal S2 Abdomen: Normal bowel sounds, Soft, No tenderness Extremities: No edema Medications Current Medications Medications Dose Ordered Sig/Anegla Route Start Time Stop Time Status Last Admin Dose Admin Apixaban 2.5 mg BID PO 08/11/24 10:00 08/20/24 10:36 2.5 MG Ondansetron HCl 4 mg Q4HP PRN IV 08/11/24 01:45 Acetaminophen 650 mg Q6HP PRN PO 08/11/24 01:45 08/19/24 17:21 650 MG Nitroglycerin 0.4 mg Q5MINP PRN SL 08/11/24 01:45 Morphine Sulfate 2 mg Q30M PRN IV 08/11/24 01:45 Lactulose 30 ml DAILYPRN PRN PO 08/12/24 22:00 08/20/24 10:48 30 ML Acetaminophen/ Hydrocodone Bitart 1 tab Q8HP PRN PO 08/13/24 21:00 08/20/24 14:37 1 TAB Tramadol HCl 50 mg [id number] PRN PO 08/16/24 14:30 08/20/24 04:58 50 MG Colchicine 0.6 mg DAILY PO 08/19/24 10:00 08/20/24 10:36 0.6 MG Enteral Nutritional Formula 240 ml TIDWM PO 08/20/24 18:00 UNV Laboratory Results Laboratory Tests 08/18/24 06:38 08/20/24 09:45 Chemistry Test 08/20/24 09:45 Calcium Level 9.9 mg/dL (8.7-10.4) Urinalysis Test 08/10/24 18:47 Urine Color Dark-brown (Yellow) Urine Clarity Ex.turbid (Clear) Urine pH 5.5 (5.0-9.0) Urine Specific [place] 1.013 (1.001-1.035) Urine Protein 2+ (Negative) H Urine Ketones Negative (Negative) Urine Blood 2+ /uL (Negative) H Urine Nitrite Negative (Negative) Urine Bilirubin Negative (Negative) Urine Urobilinogen Normal mg/dL (Negative) Urine Leukocyte Esterase 3+ /uL (Negative) Urine RBC 46 /hpf (0 - 4) Urine WBC 2968 /hpf (0 - 5) Urine WBC Clumps Present /hpf (None Seen) Urine Squamous Epithelial Cells Few /hpf (<5) Urine Bacteria None seen /hpf (None Seen) Urine Glucose Normal mg/dL (Normal) Microbiology Microbiology Date/Time Source Procedure Growth Status 08/11/24 02:53 Blood Blood Culture - Final NO GROWTH AFTER 5 DAYS OF INCUBATION. Complete Assessment/Plan Assessment/Plan Right knee pain and swelling, IR aspiration was ordered however radiology determined there was not enough effusion for aspiration IVETH Chronic kidney disease Multiple myeloma Anemia UTI Acute pneumonitis Sepsis Hypertension History of DVT on Eliquis Generalized weakness Plan Continue and [place] for pain, increase the frequency to q.6 hours p.r.n. Continue tramadol Continue physical therapy Colchicine 0.6 mg daily Eliquis 2.5 mg twice a day Plan discussed with: Patient My Orders Orders - CLAU LOVETT MD Procedure Category Date Status Time Nutritional PHA 08/20/24 Logged Supplements (Ensure 18:00 Date of Service: Aug 20, 2024 Billing Provider: CLAU LOVETT MD Common Visit Codes: [id number] INP/OBS CARE(HIGH) CLAU LOVETT MD Aug 20, 2024 15:49
[2024-08-20] MEDS: ENSURE CLEAR Mixed Berry 8oz Carton PO SCH (18:34)
[2024-08-20] MEDS: HYDROcodone-ACET 10/325MG TAB PO PRN (23:05)
[2024-08-21] VITALS (7 sets, daily range): BP systolic 131–140; BP diastolic 63–84; PULSE 78–89; RESP 16–19; TEMP 97.9–98.3; O2SAT 95–97
[2024-08-21 06:26] LABS: Hemoglobin 8.2 g/dL (12.2-16.2); Mean Corpuscular Hgb Conc. 32.9 g/dL (32.0-36.0); White Blood Cell 13.5 10^3/uL (4.4-10.8)
[2024-08-21 06:28] LABS: Mean Corpuscular Volume 85.2 fL (80.0-100.0); Platelet Count (auto) 402 10^3/uL (140-450); Red Blood Cells 2.93 10^6/uL (4.0-5.20); Red Cell Distribution Width 17.7 % (11.8-14.3)
[2024-08-21 06:35] LABS: Basophils % (manual) 0 (0.0-2.0); Blast Cells 0; Metamyelocytes % 0; Myelocytes % 0; Promyelocytes % 0; Reactive Lymphocytes 0
[2024-08-21 06:41] LABS: Albumin 3.3 g/dL (3.2-4.8); Alkaline Phosphatase 88 U/L (46-116); Anion Gap 9 (5-15); BUN/Creatinine Ratio 12.2 (10.0-20.0); Calcium 9.8 mg/dL (8.7-10.4); Carbon Dioxide 28 mmol/L (20-31); Chloride 106 mmol/L (98-107); Glucose 98 mg/dL (74-106); Magnesium 2.2 mg/dL (1.6-2.6); Potassium 3.6 mmol/L (3.5-5.1); Sodium 143 mmol/L (136-145)
[2024-08-21 06:47] LABS: Alanine Aminotransferase < 9 U/L (7-40); Aspartate Aminotransferase < 8 U/L (13-40); Bilirubin, Total 0.3 mg/dL (0.2-1.0); Blood Urea Nitrogen 29 mg/dL (9-23); Total Protein 5.2 g/dL (5.7-8.2)
[2024-08-21 08:17] LABS: Band Neutrophils % (manual) 4; Eosinophils % (manual) 1 (0-7); Lymphocytes % (manual) 11 (10.0-50.0); Monocytes % (manual) 6 (0-12)
[2024-08-21 08:18] LABS: Anisocytosis Slight; Platelet Estimate Adequate
--- NOTE | 2024-08-21 11:46 | DVHPN2 ---
Subjective His of pain in her feet Reviewed: H&P Changes from previous H/P or p: Changes General: Per HPI Objective Vitals Vital Signs Date Time Temp Pulse Resp B/P (MAP) Pulse Ox O2 Delivery O2 Flow Rate FiO2 08/21/24 09:00 98.1 84 18 136/78 (97) 96 98.1 08/21/24 08:00 Room Air* 0 21 Intake/Output Intake and Output 08/21/24 07:00 Intake Total 900 ml Output Total 850 ml Balance 50 ml Intake Oral 900 ml Output Urine Total 850 ml # Bowel Movements 2 General Appearance: Alert, Oriented X3, Cooperative, No acute distress Lungs: Clear to auscultation, Normal air movement Cardiovascular: Regular rate, Normal S1, Normal S2 Abdomen: Normal bowel sounds, Soft, No tenderness Extremities: No edema Medications Current Medications Medications Dose Ordered Sig/Angela Route Start Time Stop Time Status Last Admin Dose Admin Apixaban 2.5 mg BID PO 08/11/24 10:00 08/21/24 10:06 2.5 MG Ondansetron HCl 4 mg Q4HP PRN IV 08/11/24 01:45 Acetaminophen 650 mg Q6HP PRN PO 08/11/24 01:45 08/19/24 17:21 650 MG Nitroglycerin 0.4 mg Q5MINP PRN SL 08/11/24 01:45 Morphine Sulfate 2 mg Q30M PRN IV 08/11/24 01:45 Lactulose 30 ml DAILYPRN PRN PO 08/12/24 22:00 08/20/24 10:48 30 ML Tramadol HCl 50 mg [id number] PRN PO 08/16/24 14:30 08/21/24 02:38 50 MG Colchicine 0.6 mg DAILY PO 08/19/24 10:00 08/21/24 10:06 0.6 MG Enteral Nutritional Formula 240 ml TIDWM PO 08/20/24 18:00 08/20/24 18:34 240 ML Acetaminophen/ Hydrocodone Bitart 1 tab Q6HP PRN PO 08/20/24 16:00 08/21/24 06:01 1 TAB Laboratory Results Laboratory Tests 08/21/24 05:41 Chemistry Test 08/21/24 05:41 Albumin 3.3 g/dL (3.2-4.8) Calcium Level 9.8 mg/dL (8.7-10.4) Magnesium Level 2.2 mg/dL (1.6-2.6) Total Protein 5.2 g/dL (5.7-8.2) L LFT Test 08/21/24 05:41 Alanine Aminotransferase (ALT) < 9 U/L (7-40) Alkaline Phosphatase 88 U/L (46-116) Aspartate Amino Transferase (AST) < 8 U/L (13-40) L Total Bilirubin 0.3 mg/dL (0.2-1.0) Urinalysis Test 08/10/24 18:47 Urine Color Dark-brown (Yellow) Urine Clarity Ex.turbid (Clear) Urine pH 5.5 (5.0-9.0) Urine Specific [place] 1.013 (1.001-1.035) Urine Protein 2+ (Negative) H Urine Ketones Negative (Negative) Urine Blood 2+ /uL (Negative) H Urine Nitrite Negative (Negative) Urine Bilirubin Negative (Negative) Urine Urobilinogen Normal mg/dL (Negative) Urine Leukocyte Esterase 3+ /uL (Negative) Urine RBC 46 /hpf (0 - 4) Urine WBC 2968 /hpf (0 - 5) Urine WBC Clumps Present /hpf (None Seen) Urine Squamous Epithelial Cells Few /hpf (<5) Urine Bacteria None seen /hpf (None Seen) Urine Glucose Normal mg/dL (Normal) Microbiology Microbiology Date/Time Source Procedure Growth Status 08/11/24 02:53 Blood Blood Culture - Final NO GROWTH AFTER 5 DAYS OF INCUBATION. Complete Assessment/Plan Assessment/Plan Right knee pain and swelling, IR aspiration was ordered however radiology determined there was not enough effusion for aspiration IVETH Chronic kidney disease Multiple myeloma Anemia UTI Acute pneumonitis Sepsis Hypertension History of DVT on Eliquis Generalized weakness Plan Continue and [place] for pain, increase the frequency to q.6 hours p.r.n. Continue tramadol Continue physical therapy Colchicine 0.6 mg daily Eliquis 2.5 mg twice a day 08/21/2024: Continue the current management She says the pain control is better now Continue Eliquis Continue colchicine Physical therapy as tolerated Plan discussed with: Patient My Orders Orders - CLAU LOVETT MD Procedure Category Date Status Time Nutritional PHA 08/20/24 In Process Supplements (Ensure 18:00 Hydrocodone-Acet PHA 08/20/24 In Process 10/325mg Tab ([place] 16:00 Date of Service: Aug 21, 2024 Billing Provider: CLAU LOVETT MD Common Visit Codes: [id number] INP/OBS CARE(HIGH) CLAU LOVETT MD Aug 21, 2024 11:46
--- NOTE | 2024-08-21 14:01 | DVHPN2 ---
Progress Note Date Seen: Aug 21, 2024 Medical Necessity Reason Pt with a Central, PICC or Fol: Yes The following are medically ne: Kyle Catheter Subjective Patient reports: No new complaints Review of Systems: MSK:Abnormal Objective vital signs Vital Sign Date Time Temp Pulse Resp B/P (MAP) Pulse Ox O2 Delivery O2 Flow Rate FiO2 08/21/24 09:00 98.1 84 18 136/78 (97) 96 98.1 08/21/24 08:00 Room Air* 0 21 Total Intake and Output 08/20/24 08/20/24 08/21/24 15:00 23:00 07:00 Intake Total 600 ml 300 ml Output Total 400 ml 450 ml Balance 200 ml -150 ml medications Current Medications Medications Dose Ordered Sig/Angela Route Start Time Stop Time Status Last Admin Dose Admin Apixaban 2.5 mg BID PO 08/11/24 10:00 08/21/24 10:06 2.5 MG Ondansetron HCl 4 mg Q4HP PRN IV 08/11/24 01:45 Acetaminophen 650 mg Q6HP PRN PO 08/11/24 01:45 08/19/24 17:21 650 MG Nitroglycerin 0.4 mg Q5MINP PRN SL 08/11/24 01:45 Morphine Sulfate 2 mg Q30M PRN IV 08/11/24 01:45 Lactulose 30 ml DAILYPRN PRN PO 08/12/24 22:00 08/20/24 10:48 30 ML Tramadol HCl 50 mg [id number] PRN PO 08/16/24 14:30 08/21/24 02:38 50 MG Colchicine 0.6 mg DAILY PO 08/19/24 10:00 08/21/24 10:06 0.6 MG Enteral Nutritional Formula 240 ml TIDWM PO 08/20/24 18:00 08/20/24 18:34 240 ML Acetaminophen/ Hydrocodone Bitart 1 tab Q6HP PRN PO 08/20/24 16:00 08/21/24 12:02 1 TAB Examination: GENERAL:Normal, HEENT:Normal, NECK:Normal, LUNGS:Normal, CVS:Normal, ABDOMEN:Normal, MSK:Abnormal, SKIN:Normal, NEURO:Normal, :Normal laboratory and microbiology Laboratory Tests 08/21/24 05:41 Test 08/21/24 05:41 Range/Units Serum Glucose 98 74-106 mg/dL Microbiology Date/Time Source Procedure Growth Status 08/11/24 02:53 Blood Blood Culture - Final NO GROWTH AFTER 5 DAYS OF INCUBATION. 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
[2024-08-22] VITALS (8 sets, daily range): BP systolic 117–147; BP diastolic 76–90; PULSE 81–88; RESP 16–20; TEMP 97.5–98.7; O2SAT 96–98
--- NOTE | 2024-08-22 12:16 | DVHPN2 ---
Subjective The patient seen and examined at bedside. Complains of knee pain. Reviewed: Care Plan, H&P, Labs, Medications, Previous Orders, Radiology Changes from previous H/P or p: No Changes General: Per HPI Objective Vitals Vital Signs Date Time Temp Pulse Resp B/P (MAP) Pulse Ox O2 Delivery O2 Flow Rate FiO2 08/22/24 09:00 97.5 83 20 121/83 (96) 96 97.5 08/22/24 07:55 Room Air* 0 21 Intake/Output Intake and Output 08/22/24 07:00 Intake Total 325 ml Output Total 1075 ml Balance -750 ml Intake Oral 325 ml Output Urine Total 1075 ml General Appearance: Alert, Oriented X3, Cooperative, No acute distress HEENT: Atraumatic, PERRLA, EOMI, Mucous membr. moist/pink Lungs: Clear to auscultation, Normal air movement Cardiovascular: Regular rate, Normal S1, Normal S2 Abdomen: Normal bowel sounds, Soft, No tenderness Extremities: No edema Medications Current Medications Medications Dose Ordered Sig/Angela Route Start Time Stop Time Status Last Admin Dose Admin Apixaban 2.5 mg BID PO 08/11/24 10:00 08/22/24 08:02 2.5 MG Ondansetron HCl 4 mg Q4HP PRN IV 08/11/24 01:45 Acetaminophen 650 mg Q6HP PRN PO 08/11/24 01:45 08/21/24 23:53 650 MG Nitroglycerin 0.4 mg Q5MINP PRN SL 08/11/24 01:45 Morphine Sulfate 2 mg Q30M PRN IV 08/11/24 01:45 Lactulose 30 ml DAILYPRN PRN PO 08/12/24 22:00 08/21/24 18:25 30 ML Tramadol HCl 50 mg [id number] PRN PO 08/16/24 14:30 08/22/24 04:52 50 MG Enteral Nutritional Formula 240 ml TIDWM PO 08/20/24 18:00 08/20/24 18:34 240 ML Acetaminophen/ Hydrocodone Bitart 1 tab Q6HP PRN PO 08/20/24 16:00 08/22/24 08:02 1 TAB Laboratory Results Laboratory Tests 08/21/24 05:41 Urinalysis Test 08/10/24 18:47 Urine Color Dark-brown (Yellow) Urine Clarity Ex.turbid (Clear) Urine pH 5.5 (5.0-9.0) Urine Specific [place] 1.013 (1.001-1.035) Urine Protein 2+ (Negative) H Urine Ketones Negative (Negative) Urine Blood 2+ /uL (Negative) H Urine Nitrite Negative (Negative) Urine Bilirubin Negative (Negative) Urine Urobilinogen Normal mg/dL (Negative) Urine Leukocyte Esterase 3+ /uL (Negative) Urine RBC 46 /hpf (0 - 4) Urine WBC 2968 /hpf (0 - 5) Urine WBC Clumps Present /hpf (None Seen) Urine Squamous Epithelial Cells Few /hpf (<5) Urine Bacteria None seen /hpf (None Seen) Urine Glucose Normal mg/dL (Normal) Microbiology Microbiology Date/Time Source Procedure Growth Status 08/11/24 02:53 Blood Blood Culture - Final NO GROWTH AFTER 5 DAYS OF INCUBATION. Complete Labs and/or images reviewed: Labs reviewed by me Assessment/Plan Assessment/Plan Right knee pain and swelling, IR aspiration was ordered however radiology determined there was not enough effusion for aspiration IVETH Chronic kidney disease Multiple myeloma Anemia UTI Acute pneumonitis Sepsis Hypertension History of DVT on Eliquis Generalized weakness Plan : Continue current management with norco, tramadol. Encourage to work with physical therapy. Out of bed and ambulate with PT as tolerate. Continue colchicine 0.6mg daily Continue leiquis 2.5 mg bid. Plan discussed with: Patient Date of Service: Aug 22, 2024 Billing Provider: HERMILO KISER MD Common Visit Codes: [id number] INP/OBS CARE(HIGH) HERMILO KISER MD Aug 22, 2024 12:16
[2024-08-22] MEDS: traMADol HCL 50 MG TAB PO PRN (15:52)
--- NOTE | 2024-08-22 21:51 | DVHPN2 ---
Progress Note Date Seen: Aug 22, 2024 Medical Necessity Reason Pt with a Central, PICC or Fol: Yes The following are medically ne: Kyle Catheter Subjective Patient reports: No new complaints Review of Systems: Deferred Objective vital signs Vital Sign Date Time Temp Pulse Resp B/P (MAP) Pulse Ox O2 Delivery O2 Flow Rate FiO2 08/22/24 20:55 98.7 86 17 117/76 (90) 96 98.7 08/22/24 07:55 Room Air* 0 21 Total Intake and Output 08/21/24 08/21/24 08/22/24 15:00 23:00 07:00 Intake Total 325 ml 0 ml Output Total 625 ml 450 ml Balance -300 ml -450 ml medications Current Medications Medications Dose Ordered Sig/Angela Route Start Time Stop Time Status Last Admin Dose Admin Apixaban 2.5 mg BID PO 08/11/24 10:00 08/22/24 21:22 2.5 MG Ondansetron HCl 4 mg Q4HP PRN IV 08/11/24 01:45 Acetaminophen 650 mg Q6HP PRN PO 08/11/24 01:45 08/21/24 23:53 650 MG Nitroglycerin 0.4 mg Q5MINP PRN SL 08/11/24 01:45 Morphine Sulfate 2 mg Q30M PRN IV 08/11/24 01:45 Lactulose 30 ml DAILYPRN PRN PO 08/12/24 22:00 08/21/24 18:25 30 ML Enteral Nutritional Formula 240 ml TIDWM PO 08/20/24 18:00 08/20/24 18:34 240 ML Acetaminophen/ Hydrocodone Bitart 1 tab Q6HP PRN PO 08/20/24 16:00 08/22/24 21:22 1 TAB Tramadol HCl 50 mg Q6HP PRN PO 08/22/24 15:45 08/22/24 15:52 50 MG Examination: GENERAL:Normal, MSK:Abnormal, NEURO:Normal laboratory and microbiology Laboratory Tests 08/21/24 05:41 Test 08/21/24 05:41 Range/Units Serum Glucose 98 74-106 mg/dL Microbiology Date/Time Source Procedure Growth Status 08/11/24 02:53 Blood Blood Culture - Final NO GROWTH AFTER 5 DAYS OF INCUBATION. 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
[2024-08-23] VITALS (8 sets, daily range): BP systolic 121–126; BP diastolic 69–79; PULSE 84–93; RESP 16–20; TEMP 97.7–98.7; O2SAT 94–98
--- NOTE | 2024-08-23 14:05 | DVHPN2 ---
Subjective The patient seen and examined at bedside. Knee pain improved a little bit. Reviewed: Care Plan, H&P, Labs, Medications, Previous Orders Changes from previous H/P or p: No Changes General: Per HPI Objective Vitals Vital Signs Date Time Temp Pulse Resp B/P (MAP) Pulse Ox O2 Delivery O2 Flow Rate FiO2 08/23/24 09:05 97.7 88 16 126/72 (90) 95 97.7 08/23/24 07:45 Room Air* 0 21 Intake/Output Intake and Output 08/23/24 07:00 Intake Total 2000 ml Output Total 1650 ml Balance 350 ml Intake Oral 2000 ml Output Urine Total 1650 ml # Bowel Movements 1 General Appearance: Alert, Oriented X3, Cooperative, No acute distress HEENT: Atraumatic, PERRLA, EOMI, Mucous membr. moist/pink Lungs: Clear to auscultation, Normal air movement Cardiovascular: Regular rate, Normal S1, Normal S2 Abdomen: Normal bowel sounds, Soft, No tenderness Extremities: No edema Medications Current Medications Medications Dose Ordered Sig/Angela Route Start Time Stop Time Status Last Admin Dose Admin Apixaban 2.5 mg BID PO 08/11/24 10:00 08/23/24 08:41 2.5 MG Ondansetron HCl 4 mg Q4HP PRN IV 08/11/24 01:45 Acetaminophen 650 mg Q6HP PRN PO 08/11/24 01:45 08/21/24 23:53 650 MG Nitroglycerin 0.4 mg Q5MINP PRN SL 08/11/24 01:45 Morphine Sulfate 2 mg Q30M PRN IV 08/11/24 01:45 Lactulose 30 ml DAILYPRN PRN PO 08/12/24 22:00 08/21/24 18:25 30 ML Enteral Nutritional Formula 240 ml TIDWM PO 08/20/24 18:00 08/20/24 18:34 240 ML Acetaminophen/ Hydrocodone Bitart 1 tab Q6HP PRN PO 08/20/24 16:00 08/23/24 08:41 1 TAB Tramadol HCl 50 mg Q6HP PRN PO 08/22/24 15:45 08/23/24 11:15 50 MG Laboratory Results Laboratory Tests 08/21/24 05:41 Urinalysis Test 08/10/24 18:47 Urine Color Dark-brown (Yellow) Urine Clarity Ex.turbid (Clear) Urine pH 5.5 (5.0-9.0) Urine Specific [place] 1.013 (1.001-1.035) Urine Protein 2+ (Negative) H Urine Ketones Negative (Negative) Urine Blood 2+ /uL (Negative) H Urine Nitrite Negative (Negative) Urine Bilirubin Negative (Negative) Urine Urobilinogen Normal mg/dL (Negative) Urine Leukocyte Esterase 3+ /uL (Negative) Urine RBC 46 /hpf (0 - 4) Urine WBC 2968 /hpf (0 - 5) Urine WBC Clumps Present /hpf (None Seen) Urine Squamous Epithelial Cells Few /hpf (<5) Urine Bacteria None seen /hpf (None Seen) Urine Glucose Normal mg/dL (Normal) Microbiology Microbiology Date/Time Source Procedure Growth Status 08/11/24 02:53 Blood Blood Culture - Final NO GROWTH AFTER 5 DAYS OF INCUBATION. Complete Labs and/or images reviewed: Labs reviewed by me Assessment/Plan Assessment/Plan Right knee pain and swelling, IR aspiration was ordered however radiology determined there was not enough effusion for aspiration IVETH Chronic kidney disease Multiple myeloma Anemia UTI Acute pneumonitis Sepsis Hypertension History of DVT on Eliquis Generalized weakness Plan : Continue current management with norco, tramadol. Encourage to work with physical therapy. Out of bed and ambulate with PT as tolerate. Continue colchicine 0.6mg daily Continue leiquis 2.5 mg bid. Will monitor kidney function. Youth Worker input appreciated. Plan discussed with: Patient My Orders Orders - HERMILO KISER MD Procedure Category Date Status Time Tramadol Hcl (Ultram) PHA 08/22/24 In Process 15:45 Date of Service: Aug 23, 2024 Billing Provider: HERMILO KISER MD Common Visit Codes: [id number] INP/OBS CARE(HIGH) HERMILO KISER MD Aug 23, 2024 14:05
--- NOTE | 2024-08-23 15:41 | DVHPN2 ---
Progress Note Date Seen: Aug 23, 2024 Medical Necessity Reason Pt with a Central, PICC or Fol: Yes The following are medically ne: Kyle Catheter Subjective Patient reports: Other (No events) Review of Systems: Deferred Objective vital signs Vital Sign Date Time Temp Pulse Resp B/P (MAP) Pulse Ox O2 Delivery O2 Flow Rate FiO2 08/23/24 13:00 97.9 87 16 125/70 (88) 94 97.9 08/23/24 07:45 Room Air* 0 21 Total Intake and Output 08/22/24 08/22/24 08/23/24 14:59 22:59 06:59 Intake Total 1500 ml 500 ml Output Total 1200 ml 450 ml Balance 300 ml 50 ml medications Current Medications Medications Dose Ordered Sig/Angela Route Start Time Stop Time Status Last Admin Dose Admin Apixaban 2.5 mg BID PO 08/11/24 10:00 08/23/24 08:41 2.5 MG Ondansetron HCl 4 mg Q4HP PRN IV 08/11/24 01:45 Acetaminophen 650 mg Q6HP PRN PO 08/11/24 01:45 08/21/24 23:53 650 MG Nitroglycerin 0.4 mg Q5MINP PRN SL 08/11/24 01:45 Morphine Sulfate 2 mg Q30M PRN IV 08/11/24 01:45 Lactulose 30 ml DAILYPRN PRN PO 08/12/24 22:00 08/21/24 18:25 30 ML Enteral Nutritional Formula 240 ml TIDWM PO 08/20/24 18:00 08/20/24 18:34 240 ML Acetaminophen/ Hydrocodone Bitart 1 tab Q6HP PRN PO 08/20/24 16:00 08/23/24 14:55 1 TAB Tramadol HCl 50 mg Q6HP PRN PO 08/22/24 15:45 08/23/24 11:15 50 MG Examination: GENERAL:Abnormal, LUNGS:Abnormal, MSK:Abnormal, NEURO:Normal laboratory and microbiology Laboratory Tests 08/21/24 05:41 Test 08/21/24 05:41 Range/Units Serum Glucose 98 74-106 mg/dL Microbiology Date/Time Source Procedure Growth Status 08/11/24 02:53 Blood Blood Culture - Final NO GROWTH AFTER 5 DAYS OF INCUBATION. 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
[2024-08-24] VITALS (8 sets, daily range): BP systolic 98–133; BP diastolic 51–74; PULSE 81–112; RESP 8–19; TEMP 97.6–98.2; O2SAT 96–98
[2024-08-24] MEDS: MORPHINE SULFATE INJ 2 MG/ml SYRG IV ONE (01:55)
--- NOTE | 2024-08-24 08:29 | DVHPN2 ---
Subjective The patient seen and examined at bedside. Complains of knee pain. Reviewed: Care Plan, H&P, Labs, Medications, Previous Orders, Radiology Changes from previous H/P or p: No Changes General: Per HPI Objective Vitals Vital Signs Date Time Temp Pulse Resp B/P (MAP) Pulse Ox O2 Delivery O2 Flow Rate FiO2 08/24/24 05:00 97.7 83 18 118/72 (87) 96 97.7 08/23/24 20:00 Room Air* 0 21 Intake/Output Intake and Output 08/24/24 07:00 Intake Total 1655 ml Output Total 925 ml Balance 730 ml Intake Oral 1655 ml Output Urine Total 925 ml # Bowel Movements 1 General Appearance: Alert, Oriented X3, Cooperative, No acute distress HEENT: Atraumatic, PERRLA, EOMI, Mucous membr. moist/pink Lungs: Clear to auscultation, Normal air movement Cardiovascular: Regular rate, Normal S1, Normal S2 Abdomen: Normal bowel sounds, Soft, No tenderness Extremities: No edema Medications Current Medications Medications Dose Ordered Sig/Angela Route Start Time Stop Time Status Last Admin Dose Admin Apixaban 2.5 mg BID PO 08/11/24 10:00 08/23/24 21:06 2.5 MG Ondansetron HCl 4 mg Q4HP PRN IV 08/11/24 01:45 Acetaminophen 650 mg Q6HP PRN PO 08/11/24 01:45 08/21/24 23:53 650 MG Nitroglycerin 0.4 mg Q5MINP PRN SL 08/11/24 01:45 Morphine Sulfate 2 mg Q30M PRN IV 08/11/24 01:45 Lactulose 30 ml DAILYPRN PRN PO 08/12/24 22:00 08/21/24 18:25 30 ML Enteral Nutritional Formula 240 ml TIDWM PO 08/20/24 18:00 08/20/24 18:34 240 ML Acetaminophen/ Hydrocodone Bitart 1 tab Q6HP PRN PO 08/20/24 16:00 08/24/24 05:43 1 TAB Tramadol HCl 50 mg Q6HP PRN PO 08/22/24 15:45 08/24/24 00:26 50 MG Laboratory Results Laboratory Tests 08/21/24 05:41 Urinalysis Test 08/10/24 18:47 Urine Color Dark-brown (Yellow) Urine Clarity Ex.turbid (Clear) Urine pH 5.5 (5.0-9.0) Urine Specific [place] 1.013 (1.001-1.035) Urine Protein 2+ (Negative) H Urine Ketones Negative (Negative) Urine Blood 2+ /uL (Negative) H Urine Nitrite Negative (Negative) Urine Bilirubin Negative (Negative) Urine Urobilinogen Normal mg/dL (Negative) Urine Leukocyte Esterase 3+ /uL (Negative) Urine RBC 46 /hpf (0 - 4) Urine WBC 2968 /hpf (0 - 5) Urine WBC Clumps Present /hpf (None Seen) Urine Squamous Epithelial Cells Few /hpf (<5) Urine Bacteria None seen /hpf (None Seen) Urine Glucose Normal mg/dL (Normal) Microbiology Microbiology Date/Time Source Procedure Growth Status 08/11/24 02:53 Blood Blood Culture - Final NO GROWTH AFTER 5 DAYS OF INCUBATION. Complete Labs and/or images reviewed: Labs reviewed by me Assessment/Plan Assessment/Plan Right knee pain and swelling, IR aspiration was ordered however radiology determined there was not enough effusion for aspiration IVETH Chronic kidney disease Multiple myeloma Anemia UTI Acute pneumonitis Sepsis Hypertension History of DVT on Eliquis Generalized weakness Plan : Continue current management with norco, tramadol. Encourage to work with physical therapy. Out of bed and ambulate with PT as tolerate. Continue colchicine 0.6mg daily Continue leiquis 2.5 mg bid. Will monitor kidney function. Card Scraper input appreciated. Plan discussed with: Patient Date of Service: Aug 24, 2024 Billing Provider: HERMILO KISER MD Common Visit Codes: [id number] INP/OBS CARE(HIGH) HERMILO KISER MD Aug 24, 2024 08:29
[2024-08-24 14:01] LABS: Albumin 3.7 g/dL (3.2-4.8); Alkaline Phosphatase 113 U/L (46-116); Anion Gap 10 (5-15); BUN/Creatinine Ratio 11.5 (10.0-20.0); Bilirubin, Total 0.3 mg/dL (0.2-1.0); Carbon Dioxide 28 mmol/L (20-31); Chloride 99 mmol/L (98-107); Potassium 3.8 mmol/L (3.5-5.1); Sodium 137 mmol/L (136-145)
[2024-08-24 14:12] LABS: Alanine Aminotransferase < 9 U/L (7-40); Aspartate Aminotransferase < 8 U/L (13-40); Blood Urea Nitrogen 30 mg/dL (9-23); Calcium 10.5 mg/dL (8.7-10.4); Glucose 142 mg/dL (74-106)
--- NOTE | 2024-08-24 17:04 | DVHPN2 ---
Progress Note Date Seen: Aug 24, 2024 Medical Necessity Reason Pt with a Central, PICC or Fol: Yes The following are medically ne: Kyle Catheter Subjective Patient reports: No new complaints Review of Systems: Deferred Objective vital signs Vital Sign Date Time Temp Pulse Resp B/P (MAP) Pulse Ox O2 Delivery O2 Flow Rate FiO2 08/24/24 13:00 97.6 112 18 105/69 (81) 98 97.6 08/24/24 08:00 Room Air* 0 21 Total Intake and Output 08/23/24 08/23/24 08/24/24 15:00 23:00 07:00 Intake Total 950 ml 705 ml Output Total 500 ml 425 ml Balance 450 ml 280 ml medications Current Medications Medications Dose Ordered Sig/Angela Route Start Time Stop Time Status Last Admin Dose Admin Apixaban 2.5 mg BID PO 08/11/24 10:00 08/24/24 09:31 2.5 MG Ondansetron HCl 4 mg Q4HP PRN IV 08/11/24 01:45 Acetaminophen 650 mg Q6HP PRN PO 08/11/24 01:45 08/21/24 23:53 650 MG Nitroglycerin 0.4 mg Q5MINP PRN SL 08/11/24 01:45 Morphine Sulfate 2 mg Q30M PRN IV 08/11/24 01:45 Lactulose 30 ml DAILYPRN PRN PO 08/12/24 22:00 08/21/24 18:25 30 ML Enteral Nutritional Formula 240 ml TIDWM PO 08/20/24 18:00 08/24/24 12:34 240 ML Acetaminophen/ Hydrocodone Bitart 1 tab Q6HP PRN PO 08/20/24 16:00 08/24/24 12:15 1 TAB Tramadol HCl 50 mg Q6HP PRN PO 08/22/24 15:45 08/24/24 15:36 50 MG Examination: GENERAL:Normal, HEENT:Normal, NECK:Normal, LUNGS:Normal, CVS:Normal, ABDOMEN:Normal, MSK:Abnormal, SKIN:Normal, NEURO:Normal, :Normal laboratory and microbiology Laboratory Tests 08/24/24 13:20 08/21/24 05:41 Test 08/24/24 13:20 Range/Units Serum Glucose 142 H 74-106 mg/dL Microbiology Date/Time Source Procedure Growth Status 08/11/24 02:53 Blood Blood Culture - Final NO GROWTH AFTER 5 DAYS OF INCUBATION. 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 /multiple myeloma/ tubular injury in the setting of hypercalcemia Severe anemia UTI Hypokalemia Hypercalcemia Leukocytosis/sirs History of left popliteal vein DVT History of hypertension Arthritis Hypernatremia:Improved Plan/recommendation she is working with PT today mild elevation in calcium and renal function slightly worse --1 L ivf NS today monitor closely if calcium goes significantly high will need pamidronate low dose Plan discussed with: Patient, Other My Orders My Orders Orders - DARCY BECKWITH MD Procedure Category Date Status Time Comprehensive LAB 08/25/24 Verified Metabolic Panel 04:00 Dietary Evaluation Review Comments: 1) Consider a Renal Specific K2,low phos,2gmNa,50gPro diet 2) Continue current plan of care Expected Outcomes/Goals: 1) F/U in 3-5 days DARCY BECKWITH MD Aug 24, 2024 17:04
[2024-08-24] MEDS: SODIUM CHLORIDE 0.9% 1,000 ML IV SCH (18:14)
[2024-08-25] VITALS (8 sets, daily range): BP systolic 121–135; BP diastolic 67–80; PULSE 77–101; RESP 18–20; TEMP 97.4–98.8; O2SAT 96–99
[2024-08-25 07:04] LABS: Alkaline Phosphatase 95 U/L (46-116); Anion Gap 7 (5-15); BUN/Creatinine Ratio 12.2 (10.0-20.0); Calcium 9.8 mg/dL (8.7-10.4); Carbon Dioxide 27 mmol/L (20-31); Chloride 104 mmol/L (98-107); Glucose 96 mg/dL (74-106); Potassium 3.8 mmol/L (3.5-5.1); Sodium 138 mmol/L (136-145)
[2024-08-25 07:07] LABS: Alanine Aminotransferase < 9 U/L (7-40); Albumin 3.1 g/dL (3.2-4.8); Aspartate Aminotransferase < 8 U/L (13-40); Bilirubin, Total 0.2 mg/dL (0.2-1.0); Blood Urea Nitrogen 29 mg/dL (9-23)
[2024-08-25] MEDS: oxyCODONE ER 10 MG TAB PO ONE (12:13)
--- NOTE | 2024-08-25 13:09 | DVHPN2 ---
Progress Note Date Seen: Aug 25, 2024 Resident Creating Document: KIM MATHEWS RESIDENT Medical Necessity Reason Pt with a Central, PICC or Fol: Yes The following are medically ne: Kyle Catheter Subjective Review of Systems Review of Systems Patient is 64-year-old female with past medical history of hypertension, DVT, recently diagnosed multiple myeloma, osteoarthritis, severe anemia, presented to hospital for chief complaint of pain in bilateral feet, back and generalized weakness. Recently patient underwent bone marrow aspiration biopsy on 06/24/2024 which showed hypercellular bone marrow consistent with multiple myeloma. Patient is waiting for insurance authorization to initiate treatment by Dr. Kothari. Other investigation also 10 before including serum immunofixation, urine immunofixation, free kappa chain. Patient also complained of losing weight in last 6 months around 20-30 lb. Apart from generalized weakness and pain in bilateral feet and back patient denied any other complaint. Patient was been diagnosed with CKD and nephrotic range proteinuria during previous hospitalization patient was offered for kidney biopsy however patient denied that point. However patient underwent bone marrow biopsy which showed multiple myeloma. No any other complaints at this point Past Medical History CKD, nephrotic range proteinuria, hypertension, anemia, arthritis Past Surgical History Tonsillectomy, and hernia repair Patient seen and examined at bedside. No new complaints. Patient started receiving physical therapy in the hospital. Objective vital signs Vital Sign Date Time Temp Pulse Resp B/P (MAP) Pulse Ox O2 Delivery O2 Flow Rate FiO2 08/25/24 09:41 97.5 81 19 133/80 (97) 98 97.5 08/25/24 08:00 Room Air* 0 21 Total Intake and Output 08/24/24 08/24/24 08/25/24 15:00 23:00 07:00 Intake Total 425 ml 1000 ml Output Total 400 ml 245 ml Balance 25 ml 755 ml medications Current Medications Medications Dose Ordered Sig/Angela Route Start Time Stop Time Status Last Admin Dose Admin Apixaban 2.5 mg BID PO 08/11/24 10:00 08/25/24 10:34 2.5 MG Ondansetron HCl 4 mg Q4HP PRN IV 08/11/24 01:45 Acetaminophen 650 mg Q6HP PRN PO 08/11/24 01:45 08/21/24 23:53 650 MG Nitroglycerin 0.4 mg Q5MINP PRN SL 08/11/24 01:45 Morphine Sulfate 2 mg Q30M PRN IV 08/11/24 01:45 Lactulose 30 ml DAILYPRN PRN PO 08/12/24 22:00 08/21/24 18:25 30 ML Enteral Nutritional Formula 240 ml TIDWM PO 08/20/24 18:00 08/25/24 12:34 240 ML Acetaminophen/ Hydrocodone Bitart 1 tab Q6HP PRN PO 08/20/24 16:00 08/25/24 08:05 1 TAB Tramadol HCl 50 mg Q6HP PRN PO 08/22/24 15:45 08/25/24 05:24 50 MG Sodium Chloride 1,000 ml @ 75 mls/hr [id number] IV 08/24/24 17:15 08/25/24 06:20 75 MLS/HR Examination General Appearance: Alert, Oriented X3, Cooperative, in distress HEENT: Atraumatic, PERRLA, EOMI, Mucous membr. pail Respiratory: Clear to auscultation, Normal air movement Cardiovascular: Regular rate, Normal S1, Normal S2, No murmurs Abdominal: Normal bowel sounds, Soft Extremities: Bilateral edema 1 +, tenderness at palpation in both calfs Neuro: Normal gait, Normal speech, Strength at 5/5 X4 ext, Normal tone laboratory and microbiology Laboratory Tests 08/25/24 06:07 08/21/24 05:41 Test 08/25/24 06:07 Range/Units Serum Glucose 96 74-106 mg/dL Microbiology Date/Time Source Procedure Growth Status 08/11/24 02:53 Blood Blood Culture - Final NO GROWTH AFTER 5 DAYS OF INCUBATION. 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 Calcium level slightly improved compared to yesterday. -patient is waiting for authorization for treatment of multiple myeloma/chemotherapy. -we will hold kidney biopsy for now given high-risk for bleeding due to currently on blood thinner Eliquis. -minimal variance in GFR and creatinine, continue to monitor kidney function -encouraged oral intake of liquid -treated anemia with PRBC as per hospitalist -recent renal ultrasound on 06/23/2024: Mild right-sided hydronephrosis. -follow up with urine sodium, creatinine, protein.: Still Pending -avoid nephrotoxic drug -strict I&O -patient follows hematology oncology for multiple myeloma in outpatient setting -follow with BMP tomorrow a.m.. We will continue closely follow u Plan discussed with: Patient, Other (RN) Dietary Evaluation Review Comments: 1) Consider a Renal Specific K2,low phos,2gmNa,50gPro diet 2) Continue current plan of care Expected Outcomes/Goals: 1) F/U in 3-5 days KIM MATHEWS RESIDENT Aug 25, 2024 13:09
[2024-08-25] MEDS: EPOETIN ALFA-EPBX 10,000 UNIT/1ML VIAL SC ONE (14:42)
--- NOTE | 2024-08-25 17:00 | DVHPN2 ---
Subjective Seen and examined at bedside. Will need SNF for DC LOBO. Reviewed: H&P Changes from previous H/P or p: No Changes General: Per HPI Objective Vitals Vital Signs Date Time Temp Pulse Resp B/P (MAP) Pulse Ox O2 Delivery O2 Flow Rate FiO2 08/25/24 13:36 98.0 83 19 127/73 (91) 98 98.0 08/25/24 08:00 Room Air* 0 21 Intake/Output Intake and Output 08/25/24 07:00 Intake Total 1425 ml Output Total 645 ml Balance 780 ml Intake Oral 425 ml IV Total 1000 ml Output Urine Total 645 ml Exam Gen: in bed cachectic Cvs: N S1/S2, RRR Resp: BLAE Abd: Thin Interior Surface Insulation Worker: AAO x 4 Ext: Right Knee swelling General Appearance: Alert, Oriented X3, Cooperative, No acute distress Lungs: Clear to auscultation, Normal air movement Cardiovascular: Regular rate, Normal S1, Normal S2 Abdomen: Normal bowel sounds, Soft, No tenderness Extremities: No edema Medications Current Medications Medications Dose Ordered Sig/Angela Route Start Time Stop Time Status Last Admin Dose Admin Apixaban 2.5 mg BID PO 08/11/24 10:00 08/25/24 10:34 2.5 MG Ondansetron HCl 4 mg Q4HP PRN IV 08/11/24 01:45 Acetaminophen 650 mg Q6HP PRN PO 08/11/24 01:45 08/21/24 23:53 650 MG Nitroglycerin 0.4 mg Q5MINP PRN SL 08/11/24 01:45 Morphine Sulfate 2 mg Q30M PRN IV 08/11/24 01:45 Lactulose 30 ml DAILYPRN PRN PO 08/12/24 22:00 08/21/24 18:25 30 ML Enteral Nutritional Formula 240 ml TIDWM PO 08/20/24 18:00 08/25/24 12:34 240 ML Acetaminophen/ Hydrocodone Bitart 1 tab Q6HP PRN PO 08/20/24 16:00 08/25/24 14:29 1 TAB Tramadol HCl 50 mg Q6HP PRN PO 08/22/24 15:45 08/25/24 15:48 50 MG Sodium Chloride 1,000 ml @ 75 mls/hr [id number] IV 08/24/24 17:15 08/25/24 06:20 75 MLS/HR Laboratory Results Laboratory Tests 08/21/24 05:41 08/25/24 06:07 Chemistry Test 08/25/24 06:07 Albumin 3.1 g/dL (3.2-4.8) L Calcium Level 9.8 mg/dL (8.7-10.4) Total Protein 5.0 g/dL (5.7-8.2) L LFT Test 08/25/24 06:07 Alanine Aminotransferase (ALT) < 9 U/L (7-40) Alkaline Phosphatase 95 U/L (46-116) Aspartate Amino Transferase (AST) < 8 U/L (13-40) L Total Bilirubin 0.2 mg/dL (0.2-1.0) Urinalysis Test 08/10/24 18:47 Urine Color Dark-brown (Yellow) Urine Clarity Ex.turbid (Clear) Urine pH 5.5 (5.0-9.0) Urine Specific [place] 1.013 (1.001-1.035) Urine Protein 2+ (Negative) H Urine Ketones Negative (Negative) Urine Blood 2+ /uL (Negative) H Urine Nitrite Negative (Negative) Urine Bilirubin Negative (Negative) Urine Urobilinogen Normal mg/dL (Negative) Urine Leukocyte Esterase 3+ /uL (Negative) Urine RBC 46 /hpf (0 - 4) Urine WBC 2968 /hpf (0 - 5) Urine WBC Clumps Present /hpf (None Seen) Urine Squamous Epithelial Cells Few /hpf (<5) Urine Bacteria None seen /hpf (None Seen) Urine Glucose Normal mg/dL (Normal) Microbiology Microbiology Date/Time Source Procedure Growth Status 08/11/24 02:53 Blood Blood Culture - Final NO GROWTH AFTER 5 DAYS OF INCUBATION. Complete Assessment/Plan Assessment/Plan Right Knee Pain- Xray reviewed, Ortho consult, IR aspiration IVETH on CKD stage 5- Nephro Cx Multiple myeloma- Oncology Consult noted Severe anemia- Transfuse 1 PRBC UTI- Abx Acute Pneumonitis- ABx Hypokalemia Hypercalcemia History of left popliteal vein DVT- On Eliquis. Patient is mostly bedbound, high risk of DVT again History of hypertension Arthritis Deconditioned Plan discussed with: Patient Date of Service: Aug 25, 2024 Billing Provider: EUNICE BEST MD Common Visit Codes: [id number] INP/OBS CARE(HIGH) EUNICE BEST MD Aug 25, 2024 16:59
[2024-08-26] VITALS (8 sets, daily range): BP systolic 118–142; BP diastolic 62–77; PULSE 75–94; RESP 16–19; TEMP 98.1–98.4; O2SAT 96–99
[2024-08-26 06:54] LABS: Hematocrit 21.6 % (36.0-46.0); Hemoglobin 7.3 g/dL (12.2-16.2); Mean Corpuscular Hemoglobin 28.8 pg (28.0-32.0); Mean Corpuscular Hgb Conc. 34.1 g/dL (32.0-36.0); Mean Corpuscular Volume 84.6 fL (80.0-100.0); Platelet Count (auto) 290 10^3/uL (140-450); Red Blood Cells 2.55 10^6/uL (4.0-5.20); Red Cell Distribution Width 17.4 % (11.8-14.3); White Blood Cell 7.5 10^3/uL (4.4-10.8)
[2024-08-26 07:07] LABS: Basophils % (manual) 0 (0.0-2.0); Blast Cells 0; Metamyelocytes % 0; Myelocytes % 0; Promyelocytes % 0; Reactive Lymphocytes 0
[2024-08-26 07:16] LABS: Calcium 9.3 mg/dL (8.7-10.4); Chloride 107 mmol/L (98-107); Potassium 3.2 mmol/L (3.5-5.1); Sodium 141 mmol/L (136-145)
[2024-08-26 07:17] LABS: % Iron Saturation 21.9 % (15-50); Anion Gap 10 (5-15); Carbon Dioxide 24 mmol/L (20-31)
[2024-08-26 07:22] LABS: BUN/Creatinine Ratio 11.6 (10.0-20.0); Blood Urea Nitrogen 25 mg/dL (9-23); Glucose 91 mg/dL (74-106)
[2024-08-26 08:45] LABS: Band Neutrophils % (manual) 2; Eosinophils % (manual) 2 (0-7); Lymphocytes % (manual) 10 (10.0-50.0); Monocytes % (manual) 7 (0-12); Platelet Estimate Adequate
[2024-08-26] MEDS: POTASSIUM EFFERVESENT TAB 25 MEQ PO ONE (11:08)
--- NOTE | 2024-08-26 13:45 | DVHPN2 ---
Progress Note Date Seen: Aug 26, 2024 Resident Creating Document: KIM MATHEWS RESIDENT Medical Necessity Reason Pt with a Central, PICC or Fol: Yes The following are medically ne: Kyle Catheter Subjective Review of Systems Patient is 64-year-old female with past medical history of hypertension, DVT, recently diagnosed multiple myeloma, osteoarthritis, severe anemia, presented to hospital for chief complaint of pain in bilateral feet, back and generalized weakness. Recently patient underwent bone marrow aspiration biopsy on 06/24/2024 which showed hypercellular bone marrow consistent with multiple myeloma. Patient is waiting for insurance authorization to initiate treatment by Dr. Kothari. Other investigation also 10 before including serum immunofixation, urine immunofixation, free kappa chain. Patient also complained of losing weight in last 6 months around 20-30 lb. Apart from generalized weakness and pain in bilateral feet and back patient denied any other complaint. Patient was been diagnosed with CKD and nephrotic range proteinuria during previous hospitalization patient was offered for kidney biopsy however patient denied that point. However patient underwent bone marrow biopsy which showed multiple myeloma. No any other complaints at this point Past Medical History CKD, nephrotic range proteinuria, hypertension, anemia, arthritis Past Surgical History Tonsillectomy, and hernia repair Patient seen and examined at bedside. No other new complaints. Patient started receiving physical therapy in the hospital. Objective vital signs Vital Sign Date Time Temp Pulse Resp B/P (MAP) Pulse Ox O2 Delivery O2 Flow Rate FiO2 08/26/24 13:00 98.3 94 19 120/73 (89) 99 98.3 08/25/24 20:00 Room Air* 0 21 Total Intake and Output 08/25/24 08/25/24 08/26/24 14:59 22:59 06:59 Intake Total 550 ml 400 ml Output Total 400 ml 1000 ml Balance 150 ml -600 ml medications Current Medications Medications Dose Ordered Sig/Angela Route Start Time Stop Time Status Last Admin Dose Admin Apixaban 2.5 mg BID PO 08/11/24 10:00 08/26/24 11:01 2.5 MG Ondansetron HCl 4 mg Q4HP PRN IV 08/11/24 01:45 Acetaminophen 650 mg Q6HP PRN PO 08/11/24 01:45 08/21/24 23:53 650 MG Nitroglycerin 0.4 mg Q5MINP PRN SL 08/11/24 01:45 Morphine Sulfate 2 mg Q30M PRN IV 08/11/24 01:45 Lactulose 30 ml DAILYPRN PRN PO 08/12/24 22:00 08/21/24 18:25 30 ML Enteral Nutritional Formula 240 ml TIDWM PO 08/20/24 18:00 08/26/24 12:00 240 ML Acetaminophen/ Hydrocodone Bitart 1 tab Q6HP PRN PO 08/20/24 16:00 08/26/24 11:02 1 TAB Tramadol HCl 50 mg Q6HP PRN PO 08/22/24 15:45 08/26/24 07:47 50 MG Sodium Chloride 1,000 ml @ 75 mls/hr [id number] IV 08/24/24 17:15 08/26/24 09:15 75 MLS/HR Examination General Appearance: Alert, Oriented X3, Cooperative, in distress HEENT: Atraumatic, PERRLA, EOMI, Mucous membr. pail Respiratory: Clear to auscultation, Normal air movement Cardiovascular: Regular rate, Normal S1, Normal S2, No murmurs Abdominal: Normal bowel sounds, Soft Extremities: Bilateral edema 1 +, tenderness at palpation in both calfs Neuro: Normal gait, Normal speech, Strength at 5/5 X4 ext, Normal tone laboratory and microbiology Laboratory Tests 08/26/24 05:22 Test 08/26/24 05:22 Range/Units Serum Glucose 91 74-106 mg/dL Microbiology Date/Time Source Procedure Growth Status 08/11/24 02:53 Blood Blood Culture - Final NO GROWTH AFTER 5 DAYS OF INCUBATION. 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 Calcium level slightly improved compared to yesterday. CA:9.3 -patient is waiting for authorization for treatment of multiple myeloma/chemotherapy. -we will hold kidney biopsy for now given high-risk for bleeding due to currently on blood thinner Eliquis. -minimal variance in GFR and creatinine, continue to monitor kidney function -encouraged oral intake of liquid -treated anemia with PRBC as per hospitalist -recent renal ultrasound on 06/23/2024: Mild right-sided hydronephrosis. -follow up with urine sodium, creatinine, protein.: Still Pending -avoid nephrotoxic drug -strict I&O -patient follows hematology oncology for multiple myeloma in outpatient setting Plan discussed with: Patient, Other (RN) Dietary Evaluation Review Comments: 1) Consider a Renal Specific K2,low phos,2gmNa,50gPro diet 2) Continue current plan of care Expected Outcomes/Goals: 1) F/U in 3-5 days KIM MATHEWS RESIDENT Aug 26, 2024 13:45
--- NOTE | 2024-08-26 15:47 | DVHPN2 ---
Subjective Seen and examined at bedside. Agrees to SNF. Awaiting placement. Reviewed: H&P Changes from previous H/P or p: No Changes General: Per HPI Objective Vitals Vital Signs Date Time Temp Pulse Resp B/P (MAP) Pulse Ox O2 Delivery O2 Flow Rate FiO2 08/26/24 13:00 98.3 94 19 120/73 (89) 99 98.3 08/26/24 07:30 Room Air* 0 21 Intake/Output Intake and Output 08/26/24 07:00 Intake Total 950 ml Output Total 1400 ml Balance -450 ml Intake Oral 950 ml Output Urine Total 1400 ml Exam Gen: in bed cachectic Cvs: N S1/S2, RRR Resp: BLAE Abd: Thin Animal Care Taker: AAO x 4 Ext: Right Knee swelling General Appearance: Alert, Oriented X3, Cooperative, No acute distress Lungs: Clear to auscultation, Normal air movement Cardiovascular: Regular rate, Normal S1, Normal S2 Abdomen: Normal bowel sounds, Soft, No tenderness Extremities: No edema Medications Current Medications Medications Dose Ordered Sig/Angela Route Start Time Stop Time Status Last Admin Dose Admin Apixaban 2.5 mg BID PO 08/11/24 10:00 08/26/24 11:01 2.5 MG Ondansetron HCl 4 mg Q4HP PRN IV 08/11/24 01:45 Acetaminophen 650 mg Q6HP PRN PO 08/11/24 01:45 08/21/24 23:53 650 MG Nitroglycerin 0.4 mg Q5MINP PRN SL 08/11/24 01:45 Morphine Sulfate 2 mg Q30M PRN IV 08/11/24 01:45 Lactulose 30 ml DAILYPRN PRN PO 08/12/24 22:00 08/21/24 18:25 30 ML Enteral Nutritional Formula 240 ml TIDWM PO 08/20/24 18:00 08/26/24 12:00 240 ML Acetaminophen/ Hydrocodone Bitart 1 tab Q6HP PRN PO 08/20/24 16:00 08/26/24 11:02 1 TAB Tramadol HCl 50 mg Q6HP PRN PO 08/22/24 15:45 08/26/24 15:04 50 MG Sodium Chloride 1,000 ml @ 75 mls/hr [id number] IV 08/24/24 17:15 08/26/24 09:15 75 MLS/HR Laboratory Results Laboratory Tests 08/26/24 05:22 Chemistry Test 08/26/24 05:22 Calcium Level 9.3 mg/dL (8.7-10.4) Urinalysis Test 08/10/24 18:47 Urine Color Dark-brown (Yellow) Urine Clarity Ex.turbid (Clear) Urine pH 5.5 (5.0-9.0) Urine Specific [place] 1.013 (1.001-1.035) Urine Protein 2+ (Negative) H Urine Ketones Negative (Negative) Urine Blood 2+ /uL (Negative) H Urine Nitrite Negative (Negative) Urine Bilirubin Negative (Negative) Urine Urobilinogen Normal mg/dL (Negative) Urine Leukocyte Esterase 3+ /uL (Negative) Urine RBC 46 /hpf (0 - 4) Urine WBC 2968 /hpf (0 - 5) Urine WBC Clumps Present /hpf (None Seen) Urine Squamous Epithelial Cells Few /hpf (<5) Urine Bacteria None seen /hpf (None Seen) Urine Glucose Normal mg/dL (Normal) Microbiology Microbiology Date/Time Source Procedure Growth Status 08/11/24 02:53 Blood Blood Culture - Final NO GROWTH AFTER 5 DAYS OF INCUBATION. Complete Assessment/Plan Assessment/Plan Right Knee Pain- Xray reviewed, Ortho consult done IVETH on CKD stage 5- Nephro Cx Multiple myeloma- Oncology Consult noted Severe anemia- Transfuse 1 PRBC UTI- Abx Acute Pneumonitis- ABx Hypokalemia Hypercalcemia History of left popliteal vein DVT- On Eliquis. Patient is mostly bedbound, high risk of DVT again History of hypertension Arthritis Severe Deconditioned Plan discussed with: Patient My Orders Orders - EUNICE BEST MD Procedure Category Date Status Time * Sec Reporting Consultant CONS 08/25/24 Transmitted Consult Basic Metabolic Panel LAB 08/27/24 Verified 04:00 Complete Blood Count LAB 08/27/24 Verified 04:00 Date of Service: Aug 26, 2024 Billing Provider: EUNICE BEST MD Common Visit Codes: [id number] INP/OBS CARE(HIGH) EUNICE BEST MD Aug 26, 2024 15:47
[2024-08-27] VITALS (8 sets, daily range): BP systolic 109–126; BP diastolic 66–73; PULSE 73–87; RESP 17–20; TEMP 97.7–98.5; O2SAT 96–98
[2024-08-27 06:32] LABS: Anion Gap 9 (5-15); Carbon Dioxide 25 mmol/L (20-31); Chloride 106 mmol/L (98-107); Potassium 3.5 mmol/L (3.5-5.1); Sodium 140 mmol/L (136-145)
[2024-08-27 06:33] LABS: Calcium 9.4 mg/dL (8.7-10.4)
[2024-08-27 06:37] LABS: Glucose 85 mg/dL (74-106)
[2024-08-27 06:38] LABS: BUN/Creatinine Ratio 10.9 (10.0-20.0)
[2024-08-27 06:45] LABS: Blood Urea Nitrogen 23 mg/dL (9-23)
[2024-08-27 07:18] LABS: Hemoglobin 7.3 g/dL (12.2-16.2); White Blood Cell 7.8 10^3/uL (4.4-10.8)
[2024-08-27 07:19] LABS: Hematocrit 22.4 % (36.0-46.0); Mean Corpuscular Hemoglobin 27.6 pg (28.0-32.0); Mean Corpuscular Hgb Conc. 32.4 g/dL (32.0-36.0); Mean Corpuscular Volume 85.1 fL (80.0-100.0); Platelet Count (auto) 291 10^3/uL (140-450); Red Blood Cells 2.64 10^6/uL (4.0-5.20); Red Cell Distribution Width 17.6 % (11.8-14.3)
[2024-08-27 07:26] LABS: Basophils % (manual) 0 (0.0-2.0); Blast Cells 0; Metamyelocytes % 0; Myelocytes % 0; Promyelocytes % 0
--- NOTE | 2024-08-27 07:50 | DVH ---
Exam: US RIGHT LOWER EXTREMITY ULTRASOU Clinical History: FLUID CHECK FOR POSSIBLE RIGHT KNEE ASPIRATION Comparison: US RIGHT LOWER EXTREMITY ULTRASOU on DOS: 08/18/24, US RIGHT LOWER EXTREMITY ULTRASOU on DOS: 08/18/24 Technique: Targeted sonographic evaluation of the soft tissues of the right knee was obtained utilizing graysca le and color Doppler imaging. Findings/Impression: Complex small fluid around the medial right knee. This measures approximately 2.0 cm. Diffuse soft-tissue edema and swelling. Findings appear similar in appearance to ultrasound dated 08/18/2024
[2024-08-27 08:19] LABS: Band Neutrophils % (manual) 3; Eosinophils % (manual) 1 (0-7); Lymphocytes % (manual) 16 (10.0-50.0); Monocytes % (manual) 11 (0-12); Reactive Lymphocytes 1
[2024-08-27 08:20] LABS: Platelet Estimate Adequate
--- NOTE | 2024-08-27 11:48 | DVHPN2 ---
Progress Note Date Seen: Aug 27, 2024 Resident Creating Document: KIM MATHEWS RESIDENT Medical Necessity Reason Pt with a Central, PICC or Fol: Yes The following are medically ne: Kyle Catheter Subjective Review of Systems Patient is 64-year-old female with past medical history of hypertension, DVT, recently diagnosed multiple myeloma, osteoarthritis, severe anemia, presented to hospital for chief complaint of pain in bilateral feet, back and generalized weakness. Recently patient underwent bone marrow aspiration biopsy on 06/24/2024 which showed hypercellular bone marrow consistent with multiple myeloma. Patient is waiting for insurance authorization to initiate treatment by Dr. Kothari. Other investigation also 10 before including serum immunofixation, urine immunofixation, free kappa chain. Patient also complained of losing weight in last 6 months around 20-30 lb. Apart from generalized weakness and pain in bilateral feet and back patient denied any other complaint. Patient was been diagnosed with CKD and nephrotic range proteinuria during previous hospitalization patient was offered for kidney biopsy however patient denied that point. However patient underwent bone marrow biopsy which showed multiple myeloma. No any other complaints at this point Past Medical History CKD, nephrotic range proteinuria, hypertension, anemia, arthritis Past Surgical History Tonsillectomy, and hernia repair Patient seen and examined at bedside. No other new complaints. Able to tolerate oral liquids, IV fluid has been stopped. Objective vital signs Vital Sign Date Time Temp Pulse Resp B/P (MAP) Pulse Ox O2 Delivery O2 Flow Rate FiO2 08/27/24 09:00 98.0 76 17 112/66 (81) 97 98.0 08/26/24 20:00 Room Air* 0 21 Total Intake and Output 08/26/24 08/26/24 08/27/24 15:00 23:00 07:00 Intake Total 625 ml 674 ml Output Total 1200 ml 1200 ml Balance -575 ml -526 ml medications Current Medications Medications Dose Ordered Sig/Angela Route Start Time Stop Time Status Last Admin Dose Admin Apixaban 2.5 mg BID PO 08/11/24 10:00 08/27/24 10:14 2.5 MG Ondansetron HCl 4 mg Q4HP PRN IV 08/11/24 01:45 Acetaminophen 650 mg Q6HP PRN PO 08/11/24 01:45 08/21/24 23:53 650 MG Nitroglycerin 0.4 mg Q5MINP PRN SL 08/11/24 01:45 Morphine Sulfate 2 mg Q30M PRN IV 08/11/24 01:45 Lactulose 30 ml DAILYPRN PRN PO 08/12/24 22:00 08/21/24 18:25 30 ML Enteral Nutritional Formula 240 ml TIDWM PO 08/20/24 18:00 08/27/24 08:00 240 ML Acetaminophen/ Hydrocodone Bitart 1 tab Q6HP PRN PO 08/20/24 16:00 08/27/24 06:40 1 TAB Tramadol HCl 50 mg Q6HP PRN PO 08/22/24 15:45 08/27/24 10:19 50 MG Examination General Appearance: Alert, Oriented X3, Cooperative, in distress HEENT: Atraumatic, PERRLA, EOMI, Mucous membr. pail Respiratory: Clear to auscultation, Normal air movement Cardiovascular: Regular rate, Normal S1, Normal S2, No murmurs Abdominal: Normal bowel sounds, Soft Extremities: Bilateral edema 1 +, tenderness at palpation in both calfs Neuro: Normal gait, Normal speech, Strength at 5/5 X4 ext, Normal tone laboratory and microbiology Laboratory Tests 08/27/24 04:54 Test 08/27/24 04:54 Range/Units Serum Glucose 85 74-106 mg/dL Microbiology Date/Time Source Procedure Growth Status 08/11/24 02:53 Blood Blood Culture - Final NO GROWTH AFTER 5 DAYS OF INCUBATION. 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 -patient is waiting for authorization for treatment of multiple myeloma/chemotherapy. -we will hold kidney biopsy for now given high-risk for bleeding due to currently on blood thinner Eliquis. -minimal variance in GFR and creatinine, continue to monitor kidney function -encouraged oral intake of liquid -treated anemia with PRBC as per hospitalist -recent renal ultrasound on 06/23/2024: Mild right-sided hydronephrosis. -follow up with urine sodium, creatinine, protein.: Still Pending -avoid nephrotoxic drug -strict I&O -patient follows hematology oncology for multiple myeloma in outpatient setting Plan discussed with: Patient, Other (RN) Dietary Evaluation Review Comments: 1) Consider a Renal Specific K2,low phos,2gmNa,50gPro diet 2) Continue current plan of care Expected Outcomes/Goals: 1) F/U in 3-5 days KIM MATHEWS RESIDENT Aug 27, 2024 11:48
--- NOTE | 2024-08-27 16:26 | DVHPN2 ---
Subjective Seen and examined at bedside. Agrees to SNF. Awaiting placement. Refusing repositioning, risks of Decubitus. Reviewed: H&P Changes from previous H/P or p: No Changes General: Per HPI Objective Vitals Vital Signs Date Time Temp Pulse Resp B/P (MAP) Pulse Ox O2 Delivery O2 Flow Rate FiO2 08/27/24 13:00 98.2 79 17 109/67 (81) 98 98.2 08/27/24 07:30 Room Air* 0 21 Intake/Output Intake and Output 08/27/24 07:00 Intake Total 1299 ml Output Total 2400 ml Balance -1101 ml Intake Oral 1299 ml Output Urine Total 2400 ml Exam Gen: in bed cachectic Cvs: N S1/S2, RRR Resp: BLAE Abd: Thin Scroll Shear Operator: AAO x 4 Ext: Right Knee swelling General Appearance: Alert, Oriented X3, Cooperative, No acute distress Lungs: Clear to auscultation, Normal air movement Cardiovascular: Regular rate, Normal S1, Normal S2 Abdomen: Normal bowel sounds, Soft, No tenderness Extremities: No edema Medications Current Medications Medications Dose Ordered Sig/Angela Route Start Time Stop Time Status Last Admin Dose Admin Apixaban 2.5 mg BID PO 08/11/24 10:00 08/27/24 10:14 2.5 MG Ondansetron HCl 4 mg Q4HP PRN IV 08/11/24 01:45 Acetaminophen 650 mg Q6HP PRN PO 08/11/24 01:45 08/27/24 11:50 650 MG Nitroglycerin 0.4 mg Q5MINP PRN SL 08/11/24 01:45 Morphine Sulfate 2 mg Q30M PRN IV 08/11/24 01:45 Lactulose 30 ml DAILYPRN PRN PO 08/12/24 22:00 08/21/24 18:25 30 ML Enteral Nutritional Formula 240 ml TIDWM PO 08/20/24 18:00 08/27/24 12:00 240 ML Acetaminophen/ Hydrocodone Bitart 1 tab Q6HP PRN PO 08/20/24 16:00 08/27/24 13:00 1 TAB Tramadol HCl 50 mg Q6HP PRN PO 08/22/24 15:45 08/27/24 10:19 50 MG Laboratory Results Laboratory Tests 08/27/24 04:54 Chemistry Test 08/27/24 04:54 Calcium Level 9.4 mg/dL (8.7-10.4) Urinalysis Test 08/10/24 18:47 Urine Color Dark-brown (Yellow) Urine Clarity Ex.turbid (Clear) Urine pH 5.5 (5.0-9.0) Urine Specific [place] 1.013 (1.001-1.035) Urine Protein 2+ (Negative) H Urine Ketones Negative (Negative) Urine Blood 2+ /uL (Negative) H Urine Nitrite Negative (Negative) Urine Bilirubin Negative (Negative) Urine Urobilinogen Normal mg/dL (Negative) Urine Leukocyte Esterase 3+ /uL (Negative) Urine RBC 46 /hpf (0 - 4) Urine WBC 2968 /hpf (0 - 5) Urine WBC Clumps Present /hpf (None Seen) Urine Squamous Epithelial Cells Few /hpf (<5) Urine Bacteria None seen /hpf (None Seen) Urine Glucose Normal mg/dL (Normal) Microbiology Microbiology Date/Time Source Procedure Growth Status 08/11/24 02:53 Blood Blood Culture - Final NO GROWTH AFTER 5 DAYS OF INCUBATION. Complete Assessment/Plan Assessment/Plan Right Knee Pain- Xray reviewed, Ortho consult done. REFUSED ASPIRATION IVETH on CKD stage 5- Nephro Cx Multiple myeloma- Oncology Consult noted Severe anemia- Transfuse 1 PRBC UTI- Abx Acute Pneumonitis- ABx Hypokalemia Hypercalcemia History of left popliteal vein DVT- On Eliquis. Patient is mostly bedbound, high risk of DVT again History of hypertension Arthritis Severe Deconditioned Plan discussed with: Patient Date of Service: Aug 27, 2024 Billing Provider: EUNICE BEST MD Common Visit Codes: [id number] INP/OBS CARE(HIGH) EUNICE BEST MD Aug 27, 2024 16:26
[2024-08-28] VITALS (8 sets, daily range): BP systolic 118–134; BP diastolic 67–81; PULSE 70–88; RESP 16–20; TEMP 97.9–98.8; O2SAT 96–99
[2024-08-28 10:25] LABS: Chloride 104 mmol/L (98-107)
[2024-08-28 10:26] LABS: Sodium 138 mmol/L (136-145)
[2024-08-28 10:27] LABS: Anion Gap 9 (5-15); Calcium 9.7 mg/dL (8.7-10.4); Carbon Dioxide 25 mmol/L (20-31)
[2024-08-28 10:32] LABS: BUN/Creatinine Ratio 10.4 (10.0-20.0); Blood Urea Nitrogen 22 mg/dL (9-23)
[2024-08-28 10:48] LABS: Glucose 120 mg/dL (74-106); Potassium 3.1 mmol/L (3.5-5.1)
--- NOTE | 2024-08-28 10:54 | DVHPN2 ---
Progress Note Date Seen: Aug 28, 2024 Resident Creating Document: KIM MATHEWS RESIDENT Medical Necessity Reason Pt with a Central, PICC or Fol: Yes The following are medically ne: Kyle Catheter Subjective Review of Systems Patient is 64-year-old female with past medical history of hypertension, DVT, recently diagnosed multiple myeloma, osteoarthritis, severe anemia, presented to hospital for chief complaint of pain in bilateral feet, back and generalized weakness. Recently patient underwent bone marrow aspiration biopsy on 06/24/2024 which showed hypercellular bone marrow consistent with multiple myeloma. Patient is waiting for insurance authorization to initiate treatment by Dr. Kothari. Other investigation also 10 before including serum immunofixation, urine immunofixation, free kappa chain. Patient also complained of losing weight in last 6 months around 20-30 lb. Apart from generalized weakness and pain in bilateral feet and back patient denied any other complaint. Patient was been diagnosed with CKD and nephrotic range proteinuria during previous hospitalization patient was offered for kidney biopsy however patient denied that point. However patient underwent bone marrow biopsy which showed multiple myeloma. No any other complaints at this point Past Medical History CKD, nephrotic range proteinuria, hypertension, anemia, arthritis Past Surgical History Tonsillectomy, and hernia repair Patient seen and examined at bedside. No other new complaints. Able to tolerate oral liquids, IV fluid has been stopped. Patient currently receiving physical therapy. Able to seen by herself at the edge of bed. Objective vital signs Vital Sign Date Time Temp Pulse Resp B/P (MAP) Pulse Ox O2 Delivery O2 Flow Rate FiO2 08/28/24 09:00 98.0 88 16 122/70 (87) 97 98.0 08/27/24 20:00 Room Air* 0 21 Total Intake and Output 08/27/24 08/27/24 08/28/24 15:00 23:00 07:00 Intake Total 1080 ml 650 ml Output Total 450 ml 550 ml Balance 630 ml 100 ml medications Current Medications Medications Dose Ordered Sig/Angela Route Start Time Stop Time Status Last Admin Dose Admin Apixaban 2.5 mg BID PO 08/11/24 10:00 08/27/24 21:16 2.5 MG Ondansetron HCl 4 mg Q4HP PRN IV 08/11/24 01:45 Acetaminophen 650 mg Q6HP PRN PO 08/11/24 01:45 08/27/24 11:50 650 MG Nitroglycerin 0.4 mg Q5MINP PRN SL 08/11/24 01:45 Lactulose 30 ml DAILYPRN PRN PO 08/12/24 22:00 08/21/24 18:25 30 ML Enteral Nutritional Formula 240 ml TIDWM PO 08/20/24 18:00 08/27/24 18:21 240 ML Acetaminophen/ Hydrocodone Bitart 1 tab Q6HP PRN PO 08/20/24 16:00 08/28/24 03:41 1 TAB Tramadol HCl 50 mg Q6HP PRN PO 08/22/24 15:45 08/28/24 07:54 50 MG Examination General Appearance: Alert, Oriented X3, Cooperative, HEENT: Atraumatic, PERRLA, EOMI, Mucous membr. pail Respiratory: Clear to auscultation, Normal air movement Cardiovascular: Regular rate, Normal S1, Normal S2, No murmurs Abdominal: Normal bowel sounds, Soft Neuro: Normal gait, Normal speech, Strength at 5/5 X4 ext, Normal tone laboratory and microbiology Laboratory Tests 08/27/24 04:54 Test 08/28/24 09:55 Range/Units Serum Glucose Pending Microbiology Date/Time Source Procedure Growth Status 08/11/24 02:53 Blood Blood Culture - Final NO GROWTH AFTER 5 DAYS OF INCUBATION. 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 -patient is waiting for authorization for treatment of multiple myeloma/chemotherapy. -minimal variance in GFR and creatinine, continue to monitor kidney function -encouraged oral intake of liquid -treated anemia with PRBC as per hospitalist -recent renal ultrasound on 06/23/2024: Mild right-sided hydronephrosis. -follow up with urine sodium, creatinine, protein.: Still Pending -avoid nephrotoxic drug -strict I&O -patient follows hematology oncology for multiple myeloma in outpatient setting Plan discussed with: Patient, Other (RN) My Orders My Orders Orders - KIM MATHEWS Procedure Category Date Status Time Basic Metabolic Panel LAB 08/28/24 In Process 08:59 Dietary Evaluation Review Comments: 1) Consider a Renal Specific K2,low phos,2gmNa,50gPro diet 2) Continue current plan of care Expected Outcomes/Goals: 1) F/U in 3-5 days ADDENDUM ADDENDUM Agree with medical plan seen with resident renal function is now stable KIM MATHEWS Aug 28, 2024 10:54 BAYRON RIOS MD Aug 28, 2024 15:19
--- NOTE | 2024-08-28 17:26 | DVHPN2 ---
Subjective Seen and examined at bedside. Agrees to SNF. Supplement potassium Reviewed: H&P Changes from previous H/P or p: No Changes General: Per HPI Objective Vitals Vital Signs Date Time Temp Pulse Resp B/P (MAP) Pulse Ox O2 Delivery O2 Flow Rate FiO2 08/28/24 13:00 98.1 82 17 134/78 (96) 97 98.1 08/28/24 07:30 Room Air* 0 21 Intake/Output Intake and Output 08/28/24 07:00 Intake Total 1730 ml Output Total 1000 ml Balance 730 ml Intake Oral 1730 ml Output Urine Total 1000 ml Exam Gen: in bed cachectic Cvs: N S1/S2, RRR Resp: BLAE Abd: Thin Hydrant Setter: AAO x 4 Ext: Right Knee swelling General Appearance: Alert, Oriented X3, Cooperative, No acute distress Lungs: Clear to auscultation, Normal air movement Cardiovascular: Regular rate, Normal S1, Normal S2 Abdomen: Normal bowel sounds, Soft, No tenderness Extremities: No edema Medications Current Medications Medications Dose Ordered Sig/Angela Route Start Time Stop Time Status Last Admin Dose Admin Apixaban 2.5 mg BID PO 08/11/24 10:00 08/28/24 10:56 2.5 MG Ondansetron HCl 4 mg Q4HP PRN IV 08/11/24 01:45 Acetaminophen 650 mg Q6HP PRN PO 08/11/24 01:45 08/28/24 10:56 650 MG Nitroglycerin 0.4 mg Q5MINP PRN SL 08/11/24 01:45 Lactulose 30 ml DAILYPRN PRN PO 08/12/24 22:00 08/21/24 18:25 30 ML Enteral Nutritional Formula 240 ml TIDWM PO 08/20/24 18:00 08/28/24 12:00 240 ML Acetaminophen/ Hydrocodone Bitart 1 tab Q6HP PRN PO 08/20/24 16:00 08/28/24 11:21 1 TAB Tramadol HCl 50 mg Q6HP PRN PO 08/22/24 15:45 08/28/24 14:24 50 MG Laboratory Results Laboratory Tests 08/27/24 04:54 08/28/24 09:55 Chemistry Test 08/28/24 09:55 Calcium Level 9.7 mg/dL (8.7-10.4) Urinalysis Test 08/10/24 18:47 Urine Color Dark-brown (Yellow) Urine Clarity Ex.turbid (Clear) Urine pH 5.5 (5.0-9.0) Urine Specific [place] 1.013 (1.001-1.035) Urine Protein 2+ (Negative) H Urine Ketones Negative (Negative) Urine Blood 2+ /uL (Negative) H Urine Nitrite Negative (Negative) Urine Bilirubin Negative (Negative) Urine Urobilinogen Normal mg/dL (Negative) Urine Leukocyte Esterase 3+ /uL (Negative) Urine RBC 46 /hpf (0 - 4) Urine WBC 2968 /hpf (0 - 5) Urine WBC Clumps Present /hpf (None Seen) Urine Squamous Epithelial Cells Few /hpf (<5) Urine Bacteria None seen /hpf (None Seen) Urine Glucose Normal mg/dL (Normal) Microbiology Microbiology Date/Time Source Procedure Growth Status 08/11/24 02:53 Blood Blood Culture - Final NO GROWTH AFTER 5 DAYS OF INCUBATION. Complete Assessment/Plan Assessment/Plan Right Knee Pain- Xray reviewed, Ortho consult done. REFUSED ASPIRATION IVETH on CKD stage 5- Nephro Cx Multiple myeloma- Oncology Consult noted Severe anemia- Transfuse 1 PRBC UTI- Abx Acute Pneumonitis- ABx Hypokalemia Hypercalcemia History of left popliteal vein DVT- On Eliquis. Patient is mostly bedbound, high risk of DVT again History of hypertension Arthritis Severe Deconditioned Refusing to position and turn to prevent decubitus Plan discussed with: Patient Date of Service: Aug 28, 2024 Billing Provider: EUNICE BEST MD Common Visit Codes: [id number] INP/OBS CARE(HIGH) EUNICE BEST MD Aug 28, 2024 17:26
[2024-08-28] MEDS: POTASSIUM CHL 20 Meq TABLET PO ONE (17:48)
[2024-08-29] VITALS (8 sets, daily range): BP systolic 97–123; BP diastolic 61–70; PULSE 69–89; RESP 14–20; TEMP 97.5–98.5; O2SAT 96–98
[2024-08-29 07:17] LABS: Anion Gap 10 (5-15); Carbon Dioxide 24 mmol/L (20-31); Chloride 105 mmol/L (98-107); Potassium 3.8 mmol/L (3.5-5.1); Sodium 139 mmol/L (136-145)
[2024-08-29 07:19] LABS: Calcium 9.6 mg/dL (8.7-10.4)
[2024-08-29 07:23] LABS: BUN/Creatinine Ratio 11.5 (10.0-20.0); Glucose 90 mg/dL (74-106)
[2024-08-29 07:24] LABS: Magnesium 1.9 mg/dL (1.6-2.6)
[2024-08-29 07:26] LABS: Hemoglobin 7.5 g/dL (12.2-16.2)
[2024-08-29 07:28] LABS: Mean Corpuscular Hemoglobin 27.6 pg (28.0-32.0); Mean Corpuscular Hgb Conc. 32.6 g/dL (32.0-36.0); Mean Corpuscular Volume 84.8 fL (80.0-100.0); Platelet Count (auto) 341 10^3/uL (140-450); Red Blood Cells 2.72 10^6/uL (4.0-5.20); Red Cell Distribution Width 17.8 % (11.8-14.3); White Blood Cell 10.5 10^3/uL (4.4-10.8)
[2024-08-29 07:34] LABS: Basophils % (manual) 0 (0.0-2.0); Blast Cells 0; Metamyelocytes % 0; Myelocytes % 0; Promyelocytes % 0; Reactive Lymphocytes 0
[2024-08-29 07:52] LABS: Blood Urea Nitrogen 24 mg/dL (9-23)
[2024-08-29 08:03] LABS: Band Neutrophils % (manual) 3; Eosinophils % (manual) 2 (0-7); Lymphocytes % (manual) 10 (10.0-50.0); Monocytes % (manual) 10 (0-12)
[2024-08-29 08:04] LABS: Platelet Estimate Adequate
--- NOTE | 2024-08-29 17:15 | DVHPN2 ---
Progress Note - Dictate Date Seen: Aug 29, 2024 Medical Necessity Reason Pt with a Central, PICC or Fol: Yes The following are medically ne: Kyle Catheter Subjective Resting comfortably this afternoon vital signs Vital Sign Date Time Temp Pulse Resp B/P (MAP) Pulse Ox O2 Delivery O2 Flow Rate FiO2 08/29/24 17:01 98.5 85 16 108/65 (79) 97 98.5 08/29/24 08:00 Room Air* 0 21 Total Intake and Output 08/28/24 08/28/24 08/29/24 15:00 23:00 07:00 Intake Total 1180 ml 350 ml Output Total 600 ml 750 ml Balance 580 ml -400 ml medications Current Medications Medications Dose Ordered Sig/Angela Route Start Time Stop Time Status Last Admin Dose Admin Apixaban 2.5 mg BID PO 08/11/24 10:00 08/29/24 08:58 2.5 MG Ondansetron HCl 4 mg Q4HP PRN IV 08/11/24 01:45 Acetaminophen 650 mg Q6HP PRN PO 08/11/24 01:45 08/29/24 07:03 650 MG Nitroglycerin 0.4 mg Q5MINP PRN SL 08/11/24 01:45 Lactulose 30 ml DAILYPRN PRN PO 08/12/24 22:00 08/21/24 18:25 30 ML Enteral Nutritional Formula 240 ml TIDWM PO 08/20/24 18:00 08/29/24 15:59 240 ML Acetaminophen/ Hydrocodone Bitart 1 tab Q6HP PRN PO 08/20/24 16:00 08/29/24 15:59 1 TAB Tramadol HCl 50 mg Q6HP PRN PO 08/22/24 15:45 08/29/24 11:36 50 MG objective Gen: nad, cachectic chronically ill-appearing heent: nc/at, mmm lungs: cta anteriorly cvs: no rub abd: soft, bowel sounds audible ext: no edema skin: no rash laboratory and microbiology Laboratory Tests 08/29/24 06:37 Test 08/29/24 06:37 Range/Units Serum Glucose 90 74-106 mg/dL Assessment/Plan Problem List/Assessment/Plan IVETH on CKD stage 4 , 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 Dietary Evaluation Review Comments: 1) Consider a Renal Specific K2,low phos,2gmNa,50gPro diet 2) Continue current plan of care Expected Outcomes/Goals: 1) F/U in 3-5 days Plan discussed with: Other TRACY VILLELA MD Aug 29, 2024 17:15
--- NOTE | 2024-08-29 17:44 | DVHDS2 ---
Discharge Summary Date of Admission Aug 11, 2024 at 01:44 Date of Discharge: Aug 30, 2024 Labs/Diagnostic Data: Laboratory Results Test 08/29/24 06:37 08/29/24 06:12 08/26/24 05:22 08/25/24 06:07 White Blood Count 10.5 10^3/uL (4.4-10.8) Red Blood Count 2.72 10^6/uL (4.0-5.20) Hemoglobin 7.5 g/dL (12.2-16.2) Hematocrit 23.0 % (36.0-46.0) Mean Corpuscular Volume 84.8 fL (80.0-100.0) Mean Corpuscular Hemoglobin 27.6 pg (28.0-32.0) Mean Corpuscular Hemoglobin Concent 32.6 g/dL (32.0-36.0) Red Cell Distribution Width 17.8 % (11.8-14.3) Platelet Count 341 10^3/uL (140-450) Mean Platelet Volume 6.8 fL (6.9-10.8) Neutrophils (%) (Auto) % (37.0-80.0) Lymphocytes (%) (Auto) % (10.0-50.0) Monocytes (%) (Auto) % (0.0-12.0) Basophils (%) (Auto) % (0.0-2.0) Neutrophils # (Auto) 10 ^3/uL (1.6-8.6) Lymphocytes # (Auto) 10 ^3/uL (0.4-5.4) Monocytes # (Auto) 10 ^3/uL (0-1.3) Differential Total Cells Counted 100.0 (100) Neutrophils % (Manual) 75 (37.0-80.0) Band Neutrophils % (Manual) 3 Lymphocytes % (Manual) 10 (10.0-50.0) Monocytes % (Manual) 10 (0-12) Eosinophils % (Manual) 2 (0-7) Basophils % (Manual) 0 (0.0-2.0) Metamyelocytes % (manual) 0 Myelocytes % (Manual) 0 Promyelocytes % (Manual) 0 Blast Cells % (Manual) 0 Reactive Lymphocytes 0 Platelet Estimate Adequate Sodium Level 139 mmol/L (136-145) Potassium Level 3.8 mmol/L (3.5-5.1) Chloride Level 105 mmol/L (98-107) Carbon Dioxide Level 24 mmol/L (20-31) Anion Gap 10 (5-15) Blood Urea Nitrogen 24 mg/dL (9-23) Creatinine 2.09 mg/dL (0.550-1.02) Glomerular Filtration Rate Calc 26 mL/min (>90) BUN/Creatinine Ratio 11.5 (10.0-20.0) Serum Glucose 90 mg/dL (74-106) Calcium Level 9.6 mg/dL (8.7-10.4) Magnesium Level 1.9 mg/dL (1.6-2.6) POC Glucose 89 mg/dl (70-106) Iron Level 30 ug/dL (50-170) Total Iron Binding Capacity 137 ug/dL (250-425) Percent Iron Saturation 21.9 % (15-50) Ferritin 963.0 ng/mL (10-291) Total Bilirubin 0.2 mg/dL (0.2-1.0) Aspartate Amino Transferase (AST) < 8 U/L (13-40) Alanine Aminotransferase (ALT) < 9 U/L (7-40) Alkaline Phosphatase 95 U/L (46-116) Total Protein 5.0 g/dL (5.7-8.2) Albumin 3.1 g/dL (3.2-4.8) Test 08/21/24 05:41 08/19/24 05:25 08/18/24 06:38 08/15/24 05:53 Anisocytosis (manual) Slight C-Reactive Protein High Sensitivity 2.95 mg/dL (<1.0) Eosinophils (%) (Auto) 0.8 % (0.0-7.0) Eosinophils # (Auto) 0.1 10 ^3/uL (0-0.8) Basophils # (Auto) 0.1 10 ^3/uL (0-0.2) Nucleated Red Blood Cells 0.1 % Prothrombin Time 10.9 sec (9.3-11.8) Prothrombin Time INR 1.03 (0.9-1.15) Activated Partial Thromboplast Time 26.2 SEC (24.5-34.5) Erythrocyte Sedimentation Rate 45 mm/hr (0-20) Uric Acid 9.3 mg/dL (3.1-7.8) Creatine Kinase 40 U/L (34-145) Rheumatoid Factor <10.0 IU/mL (<14.0) Test 08/12/24 05:00 08/10/24 20:45 08/10/24 18:47 08/10/24 17:40 Ovalocytes Few Lactic Acid Level 1.1 mmol/L (0.4-2.0) Troponin I High Sensitivity 32 ng/L (</=34) Urine Color Dark-brown (Yellow) Urine Clarity Ex.turbid (Clear) Urine pH 5.5 (5.0-9.0) Urine Specific [place] 1.013 (1.001-1.035) Urine Protein 2+ (Negative) Urine Ketones Negative (Negative) Urine Blood 2+ /uL (Negative) Urine Nitrite Negative (Negative) Urine Bilirubin Negative (Negative) Urine Urobilinogen Normal mg/dL (Negative) Urine Leukocyte Esterase 3+ /uL (Negative) Urine RBC 46 /hpf (0 - 4) Urine WBC 2968 /hpf (0 - 5) Urine WBC Clumps Present /hpf (None Seen) Urine Squamous Epithelial Cells Few /hpf (<5) Urine Bacteria None seen /hpf (None Seen) Urine Glucose Normal mg/dL (Normal) Large Platelets Few Microcytosis Slight Macrocytosis Slight Stomatocytes Few B-Type Natriuretic Peptide 51.34 pg/mL (0-100) Other Laboratory Tests 08/29/24 06:37 Brief Hx & Hospital Course: 63 years old female with a history of chronic kidney disease, hypertension and anemia. Patient has history of arthritic pains in the knees. She has lost 25 lb of weight in the last six months. She has not noticed any blood in the stools. She has relatively low on B12 on the lower end of normal range, normal folate, negative [place] Serum immune fixation showed a faint band was noted in IgA; light chain specificity could not be verified Urine immune fixation showed Bence Kapoor protein positive lambda type Free kappa light chain [place] lambda ratio was 0 Double-stranded DNA was negative. IgA 227, IgM less than five and IgG 294. Stool guaiac on the last admission in May 17 was negative Her hepatitis A, B surface antigen and B core IgM antibody and C antibody and HIV one and two was negative Chemistry panel on this admission showed GFR 21 uric acid 9.1 calcium 10.7 serum iron 35 saturation 19.4 ferritin 992.7 normal liver functions. LDH was 241. Total protein 6.2 and albumin 4.2. No M spike Urine protein was 987.1 In May 2024 she was found to have a left popliteal venous thrombus and was put on Eliquis 2.5 mg p.o. twice daily CT of the abdomen pelvis on 05/05/2024 showed no acute abnormalities. Now the patient is admitted with complaints of pains in the feet And generalized weakness and tiredness And is found to have high calcium Of 13 with a renal insufficiency and anemia She is being given IV hydration Bone marrow aspiration biopsy from 06/24/2024 showed hypercellular bone marrow for age approximately 70%, involved by plasma cell neoplasm comprising approximately 70% of the marrow was cellularity consistent with multiple myeloma. Cytogenetics showed abnormal karyotype and plasma cell myeloma FISH panel revealed multiple abnormalities and intelligent myeloid NGS revealed a variant of unknown clinical significance FISH showed gain of 1 q. 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 Patient is in severe pain, renal function has improved. Patient will be discharged to SNF for Rehab., Condition at Discharge: Poor Final Diagnosis/Problems List Right Knee Pain- Xray reviewed, Ortho consult done. REFUSED ASPIRATION IVETH on CKD stage 5- Nephro Cx Multiple myeloma- Oncology Consult noted Severe anemia- Transfuse 1 PRBC UTI- Abx Acute Pneumonitis- ABx Hypokalemia Hypercalcemia History of left popliteal vein DVT- On Eliquis. Patient is mostly bedbound, high risk of DVT again History of hypertension Arthritis Severe Deconditioned Discharge Disposition: Long Term Facility Discharge Instruct/Medications Diet: Regular Activity: No Restrictions, As Tolerated Follow Up/Referral: Dr. Kothari in 1 week Medications: See [facility] Discharge Statement: "Patient was advised to return to the ER or call 911 if any headaches, dizziness, shortness of breath, chest pain, abdominal pain, bleeding, fevers, or worsening of medical condition. Patient was counseled about treatment plan, medications, possible side effects, patientverbalized understanding. All questions were answered to the best of my ability. This discharge took greater then 30 minutes in planning, reviewing documentation, counseling the patient, and discussing with other team members." ASSESSMENT ASSESSMENT Assessment Date of Service: Aug 29, 2024 Billing Provider: EUNICE BEST MD Common Visit Codes: 49613-LQD/OBS DISCH DAY >30min EUNICE BEST MD Aug 29, 2024 17:44
[2024-08-30 01:00] VITALS: BP 128/72; PULSE 90; RESP 20; TEMP 97.8; O2SAT 97
[2024-08-30 05:00] VITALS: BP 134/73; PULSE 80; RESP 18; TEMP 98.5; O2SAT 97
[2024-08-30 08:00] VITALS: PULSE 74; PULSE 81; RESP 18; O2SAT 96
[2024-08-30 09:00] VITALS: BP 134/76; PULSE 87; RESP 15; TEMP 98.3; O2SAT 98
== END 2024-08-30 14:11 | DRG 871 ==
LOC: EDBD 16:02 → ER 16:02 → TELE 08-11 01:44 → TELE-WESTW 08-11 06:04
PROVIDERS: ADMIT Nurse Practitioner; ATTEND Internal Medicine
PROC: 30233N1 Transfusion of Nonautologous Red Blood Cells into Peripheral Vein, Percutaneous Approach (ICD-10-PCS; principal; 2024-08-11)
DX: A41.9 Sepsis, unspecified organism (principal); J18.9 Pneumonia, unspecified organism; C90.00 Multiple myeloma not having achieved remission; N17.9 Acute kidney failure, unspecified; I12.0 Hypertensive chronic kidney disease with stage 5 chronic kidney disease or end stage renal disease; N18.5 Chronic kidney disease, stage 5; E87.0 Hyperosmolality and hypernatremia; N39.0 Urinary tract infection, site not specified; E83.52 Hypercalcemia; E87.6 Hypokalemia; M19.09 Primary osteoarthritis, other specified site; J98.4 Other disorders of lung; D64.9 Anemia, unspecified; Z74.01 Bed confinement status; Z96.651 Presence of right artificial knee joint; Z79.01 Long term (current) use of anticoagulants; Z86.718 Personal history of other venous thrombosis and embolism; Z82.49 Family history of ischemic heart disease and other diseases of the circulatory system
CPT/HCPCS: 36415; 71045; 73120; 73560; 76881; 80048; 80053; 81001; 82550; 82728; 82962; 83540; 83550; 83605; 83735; 83880; 84484; 84550; 85007; 85025; 85027; 85610; 85652; 85730; 86141; 86431; 86850; 86900; 86901; 86920; 87040; 93971; 96365; 96366; 96367; 97110; 97163; 97530; G0378; J0636

== ENCOUNTER 2024-10-14 13:39 | Inpatient (IN) | payer BC, OTHER ==
[~2024-10-14] VITALS: Ht 160 cm; Wt 54.2 kg
[~2024-10-14 13:39] MED LIST changes: +ALLO100T PO; -CEFD300C2 PO; -DOCU-94 PO; +FURO80TA3 PO; -TRAM-626 PO
--- NOTE | 2024-10-14 13:49 | ED.PDOC ---
History of Present Illness HPI Comments 64-year-old female brought by paramedics because of decubitus ulcer which has been increasing in size. Family member stated that it is worse today which I then called the paramedics. She is bed ridden for the past several months. She is suffering from multiple myeloma. She does take Eliquis. Blood pressure 128/89 with a heart rate of 90. Denies use of any other medication. 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 History Social History Smoker: Non-Smoker Alcohol: Denies ETOH Use Drugs: Denies Drug Use Constitutional: denies: chills, diaphoresis, fatigue, fever, malaise, sweats, weakness, others EENTM: denies: blurred vision, double vision, ear bleeding, ear discharge, ear drainage, ear pain, ear ringing, eye pain, eye redness, hearing loss, mouth pain, mouth swelling, nasal discharge, nose bleeding, nose congestion, nose desean n, photophobia, tearing, throat pain, throat swelling, voice changes, others Respiratory: denies: cough, hemoptysis, orthopnea, SOB at rest, shortness of breath, SOB with excertion, stridor, wheezing, others Cardiovascular: denies: chest pain, dizzy spells, diaphoresis, Dyspnea on exertion, edema, irregular heart beat, left arm pain, lightheadedness, palpitations, PND, syncope, others Gastrointestinal: denies: abdomen distended, abdominal pain, blood streaked bowels, constipated, diarrhea, dysphagia, difficulty swallowing, hematemesis, melena, nausea, poor appetite, poor fluid intake, rectal bleeding, rectal pain, vomiting, others Genitourinary: denies: abnormal vagina bleeding, burning, dyspareunia, dysuria, flank pain, frequency, hematuria, incontinence, pain, , vagina discharge, urgency, others Neurological: denies: dizziness, fainting, headache, left sided numbness, left sided weakness, numbness, paresthesia, pre-existing deficit, right sided numbness, right sided weakness, seizure, speech problems, tingling, tremors, weakness, others Musculoskeletal: denies: back pain, gout, joint pain, joint swelling, muscle pain, muscle stiffness, neck pain, others Integumetry: reports: wounds (Decubitus); denies: bruises, change in color, change in hair/nails, dryness, laceration, lesions, lumps, rash, others Allergic/Immunocompromised: denies: Difficulty Healing, Frequent Infections, Hives, Itching, others Hematologic/Lymphatic: denies: anemia, blood clots, easy bleeding, easy bruising, swollen glands, others Endocrine: denies: excessive hunger, excessive sweating, excessive thirst, excessive urination, flushing, intolerance to cold, intolerance to heat, unexplained weight gain, unexplained weight loss, others Psychiatric: denies: anxiety, bipolar disorder, depression, hopeless, panic disorder, schizophrenia, sleepless, suicidal, others Physical Exam General Appearance: Moderate Distress HEENT: Normal ENT Inspection, Pharynx Normal, TMs Normal Neck: Full Range of Motion, Non-Tender, Normal, Normal Inspection Respiratory: Chest Non-Tender, Lungs Clear, No Accessory Muscle Use, No Respiratory Distress, Normal Breath Sounds Cardiovascular: No Edema, No JVD, No Murmur, No Gallop, Normal Peripheral Pulses, Regular Rate/Rhythm Breast Exam: Deferred Gastrointestinal: No Organomegaly, Non Tender, No Pulsatile Mass, Normal Bowel Sounds, Soft Genitalia: Deferred Pelvic: Deferred Rectal: Deferred Extremities: Decreased range of motion (Bilateral lower extremity) Musculoskeletal : Apperance: Normal Neurologic: Alert Cerebellar Function: NOT DONE Reflexes: NOT DONE Skin: Wounds (Decubitus) Peripheral Pulses: 3+ Radial (R), 3+ Radial (L) Lymphatic: No Adenopathy Was a procedure done? Was a procedure done?: No Differential Dx Considerations may include: Anemia Electrolyte imbalance X-Ray, Labs, Meds, VS Vital Signs Date Time Temp Pulse Resp B/P (MAP) Pulse Ox O2 Delivery O2 Flow Rate FiO2 10/14/24 16:35 98.3 97 16 122/73 (89) 97 98.3 10/14/24 15:54 96 16 115/79 10/14/24 15:28 100 17 134/74 10/14/24 14:41 103 20 98 Nasal Cannula* 2 28 10/14/24 14:39 98.0 103 20 151/86 (107) 98 98.0 10/14/24 14:02 98.4 97 18 134/87 (103) 99 Lab Test 10/14/24 16:25 10/14/24 14:30 Range/Units Urine Color Light-brown Yellow Urine Clarity Ex.turbid Clear Urine pH 6.5 5.0-9.0 Urine Specific [place] 1.018 1.001-1.035 Urine Protein 2+ H Negative Urine Ketones Negative Negative Urine Blood 2+ H Negative /uL Urine Nitrite 1+ H Negative Urine Bilirubin Negative Negative Urine Urobilinogen Normal Negative mg/dL Urine Leukocyte Esterase 3+ Negative /uL Urine RBC 86 0 - 4 /hpf Urine WBC Clumps Present None Seen /hpf Urine Microscopic WBC 2211 H 0-5 /HPF Urine Squamous Epithelial Cells Few <5 /hpf Urine Bacteria Few H None Seen /hpf Urine Hyaline Casts Mod 0 - 2 /lpf Urine Yeast (Budding) Moderate None Seen /hpf Urine Glucose Normal Normal mg/dL White Blood Count 21.0 H 4.4-10.8 10^3/uL Red Blood Count 2.68 L 4.0-5.20 10^6/uL Hemoglobin 7.5 L 12.2-16.2 g/dL Hematocrit 23.0 L 36.0-46.0 % Mean Corpuscular Volume 85.8 80.0-100.0 fL Mean Corpuscular Hemoglobin 28.0 28.0-32.0 pg Mean Corpuscular Hemoglobin Concent 32.7 32.0-36.0 g/dL Red Cell Distribution Width 17.0 H 11.8-14.3 % Platelet Count 529 H 140-450 10^3/uL Mean Platelet Volume 6.6 L 6.9-10.8 fL Neutrophils (%) (Auto) 37.0-80.0 % Lymphocytes (%) (Auto) 10.0-50.0 % Monocytes (%) (Auto) 0.0-12.0 % Basophils (%) (Auto) 0.0-2.0 % Neutrophils # (Auto) 1.6-8.6 10 ^3/uL Lymphocytes # (Auto) 0.4-5.4 10 ^3/uL Monocytes # (Auto) 0-1.3 10 ^3/uL Differential Total Cells Counted Pending Neutrophils % (Manual) Pending Band Neutrophils % (Manual) Pending Lymphocytes % (Manual) Pending Monocytes % (Manual) Pending Eosinophils % (Manual) Pending Basophils % (Manual) Pending Metamyelocytes % (manual) Pending Myelocytes % (Manual) Pending Promyelocytes % (Manual) Pending Blast Cells % (Manual) Pending Reactive Lymphocytes Pending Platelet Estimate Pending Sodium Level 136 136-145 mmol/L Potassium Level 4.0 3.5-5.1 mmol/L Chloride Level 98 98-107 mmol/L Carbon Dioxide Level 30 20-31 mmol/L Anion Gap 8 5-15 Blood Urea Nitrogen 28 H 9-23 mg/dL Creatinine 2.61 H 0.550-1.02 mg/dL Glomerular Filtration Rate Calc 20 >90 mL/min BUN/Creatinine Ratio 10.7 10.0-20.0 Serum Glucose 103 74-106 mg/dL Calcium Level 11.4 H 8.7-10.4 mg/dL Current Medications Medications (Trade) Dose Ordered Sig/Angela Route Start Time Stop Time Status Last Admin Sodium Chloride 1,000 ml @ 150 mls/hr Q6H40M ONCE IV 10/14/24 14:00 10/14/24 20:39 10/14/24 14:51 Piperacillin Sod/ Tazobactam Sod 100 ml @ 100 mls/hr ONCE ONCE IV 10/14/24 14:00 10/14/24 14:59 DC 10/14/24 14:50 Morphine Sulfate 4 mg ONCE ONCE IV 10/14/24 15:15 10/14/24 15:16 DC 10/14/24 15:28 Ondansetron HCl (Zofran) 4 mg ONCE ONCE IV 10/14/24 15:15 10/14/24 15:16 DC 10/14/24 15:28 Patient alert. Brought by paramedics. Decubitus ulcer. Vitals stable. Blood cultures. Establish intravenous access. Was given fluids. Was given Zosyn. Wound consultation. Reviewed her previous visit. Explained to the patient. Continue cardiac monitoring. Time of 1ST Reevaluation: 13:47 Reevaluation 1ST: Unchanged Patient Education/Counseling: Diagnosis, Treatment, Prognosis Family Education/Counseling: No Family Present Additional Information I reviewed the following notes from patient's past medical encounters: None The following tests were ordered, and results were reviewed by me: Blood culture, CBC, BMP, UA Additional Information was gathered from interviewing the following independent historians: EMS I reviewed and agreed with the following test results read by other providers: None I discussed treatment and results with medical personnel. Departure 1 Departure Time of Disposition: 13:48 Impression: Primary Impression: Decubitus ulcer Qualified Codes: L89.90 - Pressure ulcer of unspecified site, unspecified stage Disposition: ADMITTED INPATIENT Admit to: Med Surg Condition: Guarded Critical Care Note Critical Care Time?: No Stability Stability form required: No Heart Score Heart Score: Heart Score Response (Comments) Value History N/A 0 EKG N/A 0 Age N/A 0 Risk Factors N/A 0 Troponin N/A 0 Total 0 I personally scribed for ROBERTO GONGORA MD ([email or web address]) on 10/14/24 at 14:01. E lectronically submitted by Ankush Parikh ([email or web address]). ROBERTO GONGORA MD Oct 14, 2024 13:49
[2024-10-14 14:41] VITALS: PULSE 103; RESP 20; O2SAT 98
[2024-10-14] MEDS: PIPERACILLIN-TAZOB 3.375GM 100 ML IV ONE (14:50)
[2024-10-14] MEDS: SODIUM CHLORIDE 0.9% 1,000 ML IV ONE (14:51)
[2024-10-14 14:59] LABS: Chloride 98 mmol/L (98-107); Hemoglobin 7.5 g/dL (12.2-16.2); Mean Corpuscular Volume 85.8 fL (80.0-100.0)
[2024-10-14 15:00] LABS: Anion Gap 8 (5-15); Carbon Dioxide 30 mmol/L (20-31)
[2024-10-14 15:01] LABS: Mean Corpuscular Hgb Conc. 32.7 g/dL (32.0-36.0); Platelet Count (auto) 529 10^3/uL (140-450); Red Blood Cells 2.68 10^6/uL (4.0-5.20)
[2024-10-14 15:05] LABS: BUN/Creatinine Ratio 10.7 (10.0-20.0); Glucose 103 mg/dL (74-106)
[2024-10-14 15:08] LABS: Blood Urea Nitrogen 28 mg/dL (9-23); Calcium 11.4 mg/dL (8.7-10.4); Sodium 136 mmol/L (136-145)
[2024-10-14 15:09] LABS: Basophils % (manual) 0 (0.0-2.0); Blast Cells 0; Eosinophils % (manual) 0 (0-7); Metamyelocytes % 0; Myelocytes % 0; Promyelocytes % 0; Reactive Lymphocytes 0
[2024-10-14] MEDS: MORPHINE SULFATE 4 MG/ML SYR/VIAL IV ONE ×2 (15:28→19:55)
[2024-10-14] MEDS: ONDANSETRON HCL 4 MG/2 ML VIAL IV ONE ×2 (15:28→19:56)
[2024-10-14 16:47] LABS: Urine Bacteria FEW /hpf (None Seen); Urine Blood 2+ /uL (Negative); Urine Budding Yeast MODERATE /hpf (None Seen); Urine Clarity Ex.Turbid (Clear); Urine Color Light-Brown (Yellow); Urine Hyaline Cast MOD /lpf (0 - 2); Urine Protein, UAD 2+ (Negative); Urine Specific Gravity 1.018 (1.001-1.035); Urine Squamous Epithelial Cell FEW /hpf (<5); Urine Urobilinogen Normal (Negative); Urine WBC 2211 /HPF (0-5); Urine WBC Clumps PRESENT /hpf (None Seen); Urine pH 6.5 (5.0-9.0)
[2024-10-14 17:00] VITALS: PULSE 89; RESP 16; O2SAT 97
[2024-10-14 17:10] LABS: Band Neutrophils % (manual) 7; Lymphocytes % (manual) 7 (10.0-50.0); Monocytes % (manual) 6 (0-12)
[2024-10-14 17:11] LABS: Platelet Estimate Increased
[2024-10-14 19:42] VITALS: PULSE 76; RESP 16; O2SAT 97
[2024-10-14] MEDS: SODIUM CHLORIDE 0.9% 1,000 ML IV SCH (22:45)
[2024-10-14] MEDS ORDERED: VANCOMYCIN PER PHARMACY 0 MG IV SCH ×3 (22:45→23:30)
--- NOTE | 2024-10-14 22:45 | DVHHPRES ---
History of Present Illness Resident Creating Document: SAADIA SHANKAR RESDIENT History of Present Illness This is a 64-year-old female with past medical history of AFib, hypertension, DVT, osteoarthritis, multiple myeloma with nephrotic syndrome and severe anemia brought to the hospital due to worsening of sacral wound. Patient reports generalized body pain, weakness and constipation. The patient is bed ridden due to severe weakness (due to multiple myeloma) and she was living in SNF (was in [facility] for rehabilitation), was discharged to the home 1 week back with home health care. Today, the caregiver noticed that the wound at sacral area has worsened which prompted this visit. The patient was diagnosed with multiple myeloma, been followed with Dr. Kothari, due to poor health status the patient has not been started treatment for multiple myeloma. Patient denies fever, cough, shortness of breath, or any recent changes in bowel and bladder habits. PMHx: AFib, hypertension, DVT, osteoarthritis, multiple myeloma with nephrotic syndrome and severe anemia Social history: Patient is bed ridden due to severe weakness (due to multiple myeloma) and she was living in SNF (was in [facility] for rehabilitation), was discharged to the home 1 week back with home health care. Home medication: Eliquis, [place], and stool softener Allergic history: No known allergies Review of Systems Review of Systems General: Reports generalized weakness and pain HEENT: No headaches, visiual changes, hearing loss, tinnitus, nasal congestion and discharge, and sore throat. Cardiovascular: Denies chest pain, palpitations, dyspnea on exertion, orthopnea, or claudication. Respiratory: No cough, and wheezing. Gastrointestinal: Reports constipation Genitourinary: No dysuria, hematuria, discharge, frequency, urgency, nocturia, incontinence, and urinary retention. Endocrine: No heat or cold intolerance, polydipsia, polyuria, and polyphagia. Neurological: No dizziness, extremity weakness and numbness, tremors, gait di sturbance, seizures, and memory impairment. Psychiatric: Denies depression, anxiety,or insomnia. Musculoskeletal: Denies neck pain, stiffness and swelling, back pain, muscle weakness, joint pain, stiffness, swelling, or limited range of motion. Skin: No rashes, itching, skin lesion, changes in hair, nail, skin texture and breast. Hematologic/Lymphatic: Denies easy bruising, bleeding tendencies, or lymph node enlargement. Allergies: Coded Allergies: NO KNOWN ALLERGIES (Unverified , 02/02/24) Exam Vital Signs Vital Signs Date Time Temp Pulse Resp B/P (MAP) Pulse Ox O2 Delivery O2 Flow Rate FiO2 10/14/24 19:55 76 16 110/80 10/14/24 19:42 98.0 97 98.0 10/14/24 19:42 Room Air* 0 21 Exam General Appearance: Letharic , Oriented X3, Cooperative, and cachectic HEENT: Atraumatic, PERRLA, EOMI, Mucous membrane moist/pink Respiratory: Clear to auscultation, Normal air movement Cardiovascular: Regular rate, Normal S1, Normal S2, No murmurs, no chest wall tenderness Abdominal: Normal bowel sounds, Soft, No tenderness, No hepatospenomegaly, No masses Extremities: No clubbing, No cyanosis, No edema, Normal pulses, No tenderness/swelling Skin: There is a grade 4 decubitus ulcer on sacral area, with grade 1 bilateral heel Neuro: Normal gait, Normal speech, Strength at 5/5 X4 ext, Normal tone, Sensation intact, Cranial nerves 3-12 NL, Reflexes 2+ Psych/Mental Status: Mental status NL, Mood NL Labs/Xrays Labs Test 10/14/24 16:25 10/14/24 14:30 Range/Units Urine Color Light-brown Yellow Urine Clarity Ex.turbid Clear Urine pH 6.5 5.0-9.0 Urine Specific [place] 1.018 1.001-1.035 Urine Protein 2+ H Negative Urine Ketones Negative Negative Urine Blood 2+ H Negative /uL Urine Nitrite 1+ H Negative Urine Bilirubin Negative Negative Urine Urobilinogen Normal Negative mg/dL Urine Leukocyte Esterase 3+ Negative /uL Urine RBC 86 0 - 4 /hpf Urine WBC Clumps Present None Seen /hpf Urine Microscopic WBC 2211 H 0-5 /HPF Urine Squamous Epithelial Cells Few <5 /hpf Urine Bacteria Few H None Seen /hpf Urine Hyaline Casts Mod 0 - 2 /lpf Urine Yeast (Budding) Moderate None Seen /hpf Urine Glucose Normal Normal mg/dL White Blood Count 21.0 H 4.4-10.8 10^3/uL Red Blood Count 2.68 L 4.0-5.20 10^6/uL Hemoglobin 7.5 L 12.2-16.2 g/dL Hematocrit 23.0 L 36.0-46.0 % Mean Corpuscular Volume 85.8 80.0-100.0 fL Mean Corpuscular Hemoglobin 28.0 28.0-32.0 pg Mean Corpuscular Hemoglobin Concent 32.7 32.0-36.0 g/dL Red Cell Distribution Width 17.0 H 11.8-14.3 % Platelet Count 529 H 140-450 10^3/uL Mean Platelet Volume 6.6 L 6.9-10.8 fL Neutrophils (%) (Auto) 37.0-80.0 % Lymphocytes (%) (Auto) 10.0-50.0 % Monocytes (%) (Auto) 0.0-12.0 % Basophils (%) (Auto) 0.0-2.0 % Neutrophils # (Auto) 1.6-8.6 10 ^3/uL Lymphocytes # (Auto) 0.4-5.4 10 ^3/uL Monocytes # (Auto) 0-1.3 10 ^3/uL Differential Total Cells Counted 100.0 100 Neutrophils % (Manual) 80 37.0-80.0 Band Neutrophils % (Manual) 7 Lymphocytes % (Manual) 7 L 10.0-50.0 Monocytes % (Manual) 6 0-12 Eosinophils % (Manual) 0 0-7 Basophils % (Manual) 0 0.0-2.0 Metamyelocytes % (manual) 0 Myelocytes % (Manual) 0 Promyelocytes % (Manual) 0 Blast Cells % (Manual) 0 Reactive Lymphocytes 0 Platelet Estimate Increased Poikilocytosis (manual) Slight Sodium Level 136 136-145 mmol/L Potassium Level 4.0 3.5-5.1 mmol/L Chloride Level 98 98-107 mmol/L Carbon Dioxide Level 30 20-31 mmol/L Anion Gap 8 5-15 Blood Urea Nitrogen 28 H 9-23 mg/dL Creatinine 2.61 H 0.550-1.02 mg/dL Glomerular Filtration Rate Calc 20 >90 mL/min BUN/Creatinine Ratio 10.7 10.0-20.0 Serum Glucose 103 74-106 mg/dL Calcium Level 11.4 H 8.7-10.4 mg/dL Assessment/Plan Assessment/Plan Sepsis, likely due to UTI/decubitus ulcer UTI, unspecified location Urinalysis shows UTI picture Urine/blood culture Empiric antibiotics, Doxycycline and Rocephin IV normal saline Decubitus ulcer grade 3/4, on sacral area Wound culture Wound counseled Empiric antibiotics, Doxycycline and Rocephin Wound dressing IVETH, on CKD 4, likely VMN IV normal saline Cachexia, likely due to multiple myeloma/cancer Multiple myeloma History of nephrotic range proteinuria, likely due to multiple myeloma Severe anemia, likely due to multiple myeloma, transfused 1 PRBC Hypercalcemia, likely due to multiple myeloma/dehydration Generalized body pain, likely due to multiple myeloma [place] Morphine p.r.n. Constipation, likely due to opioid induced Colace History of atrial fibrillation, currently sinus rhythm History of DVT Continue Eliquis DIET: Regular diet DVT PROPHYLAXIS: On Eliquis BOWEL REGIMEN: [place] CODE STATUS: Goal of care discussed for more than 21 minutes, DNR DISPOSITION: Med/surge Patient's status and paln discussed with the patient. Case discussed with Dr. Koo Plan discussed with: Patient, Other (RN) My Orders Orders - SAADIA SHANKAR Procedure Category Date Status Time Admit ADMIT 10/14/24 Transmitted 21:55 Stat Ekg For Chest MARIAELENA 10/14/24 In Process Pain 21:55 Notify Of Changes MARIAELENA 10/14/24 In Process From Base 21:55 Date of Service: Oct 14, 2024 Billing Provider: EUNICE KOO MD Common Visit Codes: [id number] INP/OBS CARE (HIGH) SAADIA SHANKAR RESDISILVIA Oct 14, 2024 22:45 EUNICE KOO MD Oct 15, 2024 09:17
[2024-10-14 23:19] LABS: Albumin 3.5 g/dL (3.2-4.8); Alkaline Phosphatase 100 U/L (46-116)
[2024-10-14 23:21] LABS: Alanine Aminotransferase < 9 U/L (7-40); Aspartate Aminotransferase 12 U/L (13-40); Bilirubin, Total 0.3 mg/dL (0.2-1.0); Total Protein 5.4 g/dL (5.7-8.2)
[2024-10-14 23:41] LABS: Bilirubin, Direct < 0.1 mg/dL (<0.3)
[2024-10-14] MEDS: SODIUM CHLORIDE 0.9% 500 ML IV ONE (23:53)
[2024-10-14] MEDS: VANCOMYCIN 1GM/250ML KIT 250 ML IV ONE (23:53)
[2024-10-15] VITALS (8 sets, daily range): BP systolic 106–130; BP diastolic 70–83; PULSE 80–87; RESP 11–20; TEMP 98–99; O2SAT 94–97
[2024-10-15 03:56] LABS: Hematocrit 18.7 % (36.0-46.0)
[2024-10-15 03:59] LABS: Mean Corpuscular Hemoglobin 27.5 pg (28.0-32.0); Mean Corpuscular Volume 85.8 fL (80.0-100.0); Platelet Count (auto) 355 10^3/uL (140-450); Red Blood Cells 2.18 10^6/uL (4.0-5.20); Red Cell Distribution Width 17.4 % (11.8-14.3)
[2024-10-15 04:10] LABS: Alkaline Phosphatase 80 U/L (46-116); Anion Gap 4 (5-15); Aspartate Aminotransferase 15 U/L (13-40); BUN/Creatinine Ratio 10.8 (10.0-20.0); Calcium 10.2 mg/dL (8.7-10.4); Carbon Dioxide 29 mmol/L (20-31); Chloride 103 mmol/L (98-107); Glucose 89 mg/dL (74-106); Potassium 3.6 mmol/L (3.5-5.1); Sodium 136 mmol/L (136-145)
[2024-10-15 04:14] LABS: Basophils % (manual) 0 (0.0-2.0); Blast Cells 0; Myelocytes % 0; Promyelocytes % 0; Reactive Lymphocytes 0
[2024-10-15 04:18] LABS: Alanine Aminotransferase < 9 U/L (7-40); Albumin 2.9 g/dL (3.2-4.8); Bilirubin, Total 0.2 mg/dL (0.2-1.0); Blood Urea Nitrogen 26 mg/dL (9-23); Total Protein 4.6 g/dL (5.7-8.2)
[2024-10-15] MEDS: MORPHINE SULFATE INJ 2 MG/ml SYRG IV PRN (07:00)
[2024-10-15] MEDS: DOXYCYCLINE 100MG/100ML 100 ML IV SCH (07:21)
[2024-10-15 07:37] LABS: Band Neutrophils % (manual) 3; Eosinophils % (manual) 3 (0-7); Lymphocytes % (manual) 7 (10.0-50.0); Metamyelocytes % 2; Monocytes % (manual) 4 (0-12); Platelet Estimate Adequate
[2024-10-15] MEDS ORDERED: cefTRIAXone 1GM/50ML D5W 50 ML IV SCH (09:00)
--- NOTE | 2024-10-15 09:02 | ECG ---
[facility] Test Date: 2024-10-15 Test Time: 03:00:27 Pat Name: DIAMOND KELLY Department: ER Room: 0248 Gender: F Clinical Practice Consultant: ER : [id number] Requested By: SAADIA SHANKAR Order Number: [id number] Reading MD: Aleksey Crowder Measurements Intervals [place] Rate: 79 P: 35 NV: 185 QRS: 15 QRSD: 93 T: 72 QT: 396 QTc: 455 Interpretive Statements Sinus rhythm Baseline wander in lead(s) I,II,aVR Electronically Signed On 10-17-2024 17:04:29 PST by Aleksey Crowder Please click the below link to view image of tracing.
[2024-10-15] MEDS ORDERED: APIXABAN 2.5 MG TAB PO SCH (10:00)
[2024-10-15] MEDS ORDERED: CEFEPIME 1GM/ 50ML 50 ML IV SCH (10:00)
[2024-10-15] MEDS: cefTRIAXone 1GM/50ML D5W 50 ML IV SCH (12:00)
[2024-10-15] MEDS: HYDROcodone-ACET 10/325MG TAB PO PRN (13:10)
[2024-10-15 14:37] LABS: Hematocrit 24.1 % (36.0-46.0); Hemoglobin 7.9 g/dL (12.2-16.2)
--- NOTE | 2024-10-15 16:06 | DVHPN2 ---
Progress Note Date Seen: Oct 15, 2024 Medical Necessity Reason Pt with a Central, PICC or Fol: Yes The following are medically ne: Owen Catheter Reason for owen catheter: Strict I&O Subjective Patient reports: No new complaints Review of Systems: HEENT:Normal, CVS:Normal, RESPIRATORY:Normal, GI:Normal, :Normal, MSK:Normal, NEURO:Normal Objective vital signs Vital Sign Date Time Temp Pulse Resp B/P (MAP) Pulse Ox O2 Delivery O2 Flow Rate FiO2 10/15/24 11:26 98.4 84 12 125/83 98.4 10/15/24 07:50 95 10/15/24 05:23 Room Air* 0 21 Total Intake and Output 10/14/24 10/14/24 10/15/24 15:00 23:00 07:00 Intake Total 100 ml 350 ml 730 ml Output Total 400 ml Balance 100 ml 350 ml 330 ml medications Current Medications Medications Dose Ordered Sig/Angela Route Start Time Stop Time Status Last Admin Dose Admin Acetaminophen/ Hydrocodone Bitart 1 tab Q6HP PRN PO 10/14/24 22:45 10/15/24 13:10 1 TAB Morphine Sulfate 1 mg Q6HP PRN IV 10/14/24 22:45 10/15/24 07:00 1 MG Doxycycline Hyclate 100 ml @ 50 mls/hr Q12H IV 10/15/24 07:00 10/15/24 07:21 50 MLS/HR Ceftriaxone Sodium 50 ml @ 100 mls/hr DAILY@09 IV 10/15/24 09:00 10/15/24 12:00 100 MLS/HR Examination: GENERAL:Normal, HEENT:Normal, NECK:Normal, LUNGS:Normal, CVS:Normal, ABDOMEN:Normal, MSK:Normal, MSK:Abnormal (decub ulcer), SKIN:Normal, NEURO:Normal, :Normal laboratory and microbiology Laboratory Tests 10/15/24 14:20 10/15/24 03:30 Test 10/15/24 03:30 Range/Units Serum Glucose 89 74-106 mg/dL Microbiology Date/Time Source Procedure Growth Status 10/15/24 12:00 Sacrum Gram Stain - Final Resulted 10/15/24 12:00 Sacrum Wound Culture Pending Resulted 10/14/24 14:30 Blood Blood Culture - Preliminary NO GROWTH AFTER 24 HOURS OF INCUBATION. Resulted Problem List/Assessment/Plan Problem List/Assessment/Plan #1 sepsis with decub ulcer: iv antibiotics #2 multiple myeloma #3 h/o a fib: hold eliquis #4 severe anemia s/p transfusion #5 severe protein malnutrition #6 ckd stage 3 b #7 h/o dvt advance care planning- dnr- time spent 21 mins Plan discussed with: Patient My Orders My Orders Orders - CAROLE LOMAX MD Procedure Category Date Status Time Cleanse Wound With MARIAELENA 10/15/24 In Process Wound Clean 11:16 * Dietary Consult CONS 10/15/24 Transmitted 13:40 Zosyn Extended PHA 10/15/24 Verified Infusion 22:00 Vancomycin Per PHA 10/15/24 Verified Pharmacy 16:15 NS PHA 10/15/24 Verified 16:15 Urine Bacterial GONZALEZ 10/15/24 Verified Culture 16:01 Complete Blood Count LAB 10/16/24 Verified 06:00 Comprehensive LAB 10/16/24 Verified Metabolic Panel 06:00 PTPTT LAB 10/16/24 Verified 04:00 Chest Portable XY 10/15/24 Verified 16:01 Date of Service: Oct 15, 2024 Billing Provider: CAROLE LOMAX MD Common Visit Codes: [id number] INP/OBS CARE(HIGH) Secondary Visit Codes: [id number] CARE PLAN 30 MINUTES CC Plasma Assessment Blood Product Administration S: [id number] CAROLE LOMAX MD Oct 15, 2024 16:06
[2024-10-15] MEDS ORDERED: VANCOMYCIN PER PHARMACY 0 MG IV SCH (16:15)
--- NOTE | 2024-10-15 16:41 | DVH ---
CHEST RADIOGRAPH Indication: a fib Technique: Single frontal view of the chest was obtained COMPARISON: XY CHEST XRAY 1 VIEW on DOS: 08/12/24, XY CHEST PORTABLE on DOS: 08/10/24 FINDINGS: Lines and Tubes: None Lungs: Clear Pleura: No effusion. No pneumothorax. Cardiomediastinal contours: Unremarkable Bones: Unremarkable IMPRESSION: No acute disease.
[2024-10-15] MEDS: SODIUM CHLORIDE 0.9% 1,000 ML IV SCH (17:00)
[2024-10-15] MEDS: VANCOMYCIN 750MG KIT 100 ML IV ONE (20:05)
[2024-10-15] MEDS ORDERED: PIPERACILLIN-TAZOB 3.375GM 100 ML IV SCH (22:00)
[2024-10-15] MEDS: PIPERACILLIN-TAZOB 3.375GM 100 ML IV SCH (22:41)
[2024-10-16 00:41] VITALS: BP 104/63; PULSE 80; RESP 20; TEMP 98.3; O2SAT 96
[2024-10-16 05:00] VITALS: BP 119/80; PULSE 77; RESP 18; TEMP 98; O2SAT 97
[2024-10-16 08:00] VITALS: PULSE 82; RESP 16; O2SAT 94
[2024-10-16 08:28] LABS: Hemoglobin 7.2 g/dL (12.2-16.2); Mean Corpuscular Hemoglobin 27.5 pg (28.0-32.0); Mean Corpuscular Hgb Conc. 29.9 g/dL (32.0-36.0); Mean Corpuscular Volume 91.7 fL (80.0-100.0); Platelet Count (auto) 361 10^3/uL (140-450); Red Blood Cells 2.61 10^6/uL (4.0-5.20); Red Cell Distribution Width 17.5 % (11.8-14.3); White Blood Cell 12.5 10^3/uL (4.4-10.8)
[2024-10-16 08:30] LABS: Basophils % (manual) 0 (0.0-2.0); Blast Cells 0; Metamyelocytes % 0; Myelocytes % 0; Promyelocytes % 0; Reactive Lymphocytes 0
[2024-10-16 08:47] VITALS: BP 126/80; PULSE 77; RESP 18; TEMP 98.5; O2SAT 98
[2024-10-16 08:50] LABS: Alkaline Phosphatase 79 U/L (46-116); Anion Gap 7 (5-15); BUN/Creatinine Ratio 10.6 (10.0-20.0); Carbon Dioxide 27 mmol/L (20-31); Chloride 104 mmol/L (98-107); Glucose 80 mg/dL (74-106); Potassium 3.6 mmol/L (3.5-5.1); Sodium 138 mmol/L (136-145)
[2024-10-16 08:52] LABS: Alanine Aminotransferase < 9 U/L (7-40); Aspartate Aminotransferase 9 U/L (13-40); Blood Urea Nitrogen 27 mg/dL (9-23)
[2024-10-16 08:53] LABS: Bilirubin, Total 0.3 mg/dL (0.2-1.0); Total Protein 4.6 g/dL (5.7-8.2)
[2024-10-16 08:57] LABS: INR 0.95 (0.9-1.15); Prothrombin Time 10.1 sec (9.3-11.8)
[2024-10-16 09:09] LABS: Band Neutrophils % (manual) 1; Eosinophils % (manual) 1 (0-7); Lymphocytes % (manual) 10 (10.0-50.0); Monocytes % (manual) 4 (0-12); Platelet Estimate Adequate
[2024-10-16 12:36] VITALS: BP 125/69; PULSE 94; RESP 18; TEMP 98.1; O2SAT 96
--- NOTE | 2024-10-16 14:51 | DVHPN2 ---
Progress Note Date Seen: Oct 16, 2024 Medical Necessity Reason Pt with a Central, PICC or Fol: Yes The following are medically ne: Owen Catheter Reason for owen catheter: Strict I&O Subjective Patient reports: No new complaints Review of Systems: HEENT:Normal, CVS:Normal, RESPIRATORY:Normal, GI:Normal, :Normal, MSK:Normal, NEURO:Normal Objective vital signs Vital Sign Date Time Temp Pulse Resp B/P (MAP) Pulse Ox O2 Delivery O2 Flow Rate FiO2 10/16/24 13:18 88 16 125/68 10/16/24 12:36 98.1 96 98.1 10/16/24 08:00 Room Air* 0 21 Total Intake and Output 10/15/24 10/15/24 10/16/24 14:59 22:59 06:59 Intake Total 600 ml 100 ml 250 ml Output Total 0 ml Balance 600 ml 100 ml 250 ml medications Current Medications Medications Dose Ordered Sig/Angela Route Start Time Stop Time Status Last Admin Dose Admin Acetaminophen/ Hydrocodone Bitart 1 tab Q6HP PRN PO 10/14/24 22:45 10/16/24 09:50 1 TAB Morphine Sulfate 1 mg Q6HP PRN IV 10/14/24 22:45 10/16/24 13:18 1 MG Vancomycin HCl 0 ml @ 0 mls/hr UD IV 10/15/24 16:15 Sodium Chloride 1,000 ml @ 60 mls/hr [id number] IV 10/15/24 16:15 10/15/24 17:00 60 MLS/HR Piperacillin Sod/ Tazobactam Sod 100 ml @ 25 mls/hr Q12HR IV 10/15/24 22:00 10/16/24 09:49 25 MLS/HR Examination: GENERAL:Normal, HEENT:Normal, NECK:Normal, LUNGS:Normal, CVS:Normal, ABDOMEN:Normal, MSK:Normal, MSK:Abnormal (DECUB ULCER), SKIN:Normal, NEURO:Normal, :Normal laboratory and microbiology Laboratory Tests 10/16/24 07:13 Test 10/16/24 07:13 Range/Units Serum Glucose 80 74-106 mg/dL Microbiology Date/Time Source Procedure Growth Status 10/15/24 12:00 Sacrum Gram Stain - Final Resulted 10/15/24 12:00 Sacrum Wound Culture - Preliminary Resulted 10/14/24 16:25 Voided Urine Urine Culture - Preliminary Resulted 10/14/24 14:30 Blood Blood Culture - Preliminary NO GROWTH AFTER 48 HOURS OF INCUBATION. Resulted Problem List/Assessment/Plan Problem List/Assessment/Plan #1 sepsis with decub ulcer: iv antibiotics #2 multiple myeloma #3 h/o a fib: hold eliquis #4 severe anemia s/p transfusion, iv iron #5 severe protein malnutrition #6 ckd stage 3 b #7 h/o dvt advance care planning- dnr- time spent 21 mins Plan discussed with: Patient My Orders My Orders Orders - CAROLE LOMAX MD Procedure Category Date Status Time Vancomycin Per PHA 10/15/24 In Process Pharmacy 16:15 Sodium Chloride 0.9% PHA 10/15/24 In Process 16:15 Urine Bacterial GONZALEZ 10/15/24 Logged Culture 16:01 Chest Portable XY 10/15/24 Resulted 16:01 Piperacillin-Tazob PHA 10/15/24 In Process 3.375gm (Zosyn 3.375g 22:00 Vancomycin Per MARIAELENA 10/15/24 In Process Pharmacy Protoc 17:52 Dietary Evaluation Review Comments: No Rigo supplements 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 Expected Outcomes/Goals: Improved protein nutrition, gain body strength, improved wound healing. Date of Service: Oct 16, 2024 Billing Provider: CAROLE LOMAX MD Common Visit Codes: [id number] INP/OBS CARE(HIGH) Secondary Visit Codes: [id number] CARE PLAN 30 MINUTES CC Plasma Assessment Blood Product Administration S: [id number] CAROLE LOMAX MD Oct 16, 2024 14:51
[2024-10-16] MEDS: HYDROmorphone HCL 2 MG/ML VL/or syr IV PRN (15:15)
[2024-10-16 21:00] VITALS: BP 116/73; PULSE 77; RESP 18; TEMP 98.3; O2SAT 96
[2024-10-17] VITALS (8 sets, daily range): BP systolic 109–125; BP diastolic 67–85; PULSE 79–108; RESP 16–19; TEMP 97.4–98.2; O2SAT 95–97
[2024-10-17 07:42] LABS: Hematocrit 23.8 % (36.0-46.0); Hemoglobin 7.6 g/dL (12.2-16.2); Mean Corpuscular Hemoglobin 27.6 pg (28.0-32.0); Mean Corpuscular Volume 86.1 fL (80.0-100.0); Platelet Count (auto) 364 10^3/uL (140-450); Red Blood Cells 2.76 10^6/uL (4.0-5.20); Red Cell Distribution Width 16.3 % (11.8-14.3); White Blood Cell 11.8 10^3/uL (4.4-10.8)
[2024-10-17 07:48] LABS: Basophils % (manual) 0 (0.0-2.0); Blast Cells 0; Myelocytes % 0; Promyelocytes % 0; Reactive Lymphocytes 0
[2024-10-17 07:49] LABS: Anion Gap 7 (5-15); Carbon Dioxide 28 mmol/L (20-31); Chloride 105 mmol/L (98-107); Potassium 3.9 mmol/L (3.5-5.1); Sodium 140 mmol/L (136-145)
[2024-10-17 07:51] LABS: Calcium 10.2 mg/dL (8.7-10.4)
[2024-10-17 07:55] LABS: Glucose 99 mg/dL (74-106)
[2024-10-17 07:56] LABS: BUN/Creatinine Ratio 10.5 (10.0-20.0)
[2024-10-17 08:02] LABS: Blood Urea Nitrogen 28 mg/dL (9-23)
[2024-10-17 09:09] LABS: Band Neutrophils % (manual) 3; Eosinophils % (manual) 3 (0-7); Lymphocytes % (manual) 12 (10.0-50.0); Metamyelocytes % 1; Monocytes % (manual) 6 (0-12)
[2024-10-17 09:10] LABS: Platelet Estimate Adequate
[2024-10-17] MEDS: IRON SUCROSE COMPLEX 110 ML IV SCH (12:33)
--- NOTE | 2024-10-17 13:25 | DVHPN2 ---
Reviewed: Care Plan, H&P, Labs, Medications, Previous Orders Changes from previous H/P or p: No Changes General: Per HPI Objective Vitals Vital Signs Date Time Temp Pulse Resp B/P (MAP) Pulse Ox O2 Delivery O2 Flow Rate FiO2 10/17/24 08:20 16 Room Air* 0 21 10/17/24 05:50 77 107/74 10/17/24 05:00 97.9 97 97.9 Intake/Output Intake and Output 10/17/24 07:00 Intake Total 1400 ml Output Total 1750 ml Balance -350 ml Intake Oral 1200 ml IV Total 200 ml Output Urine Total 1750 ml Medications Current Medications Medications Dose Ordered Sig/Angela Route Start Time Stop Time Status Last Admin Dose Admin Acetaminophen/ Hydrocodone Bitart 1 tab Q6HP PRN PO 10/14/24 22:45 10/17/24 09:21 1 TAB Vancomycin HCl 0 ml @ 0 mls/hr UD IV 10/15/24 16:15 Piperacillin Sod/ Tazobactam Sod 100 ml @ 25 mls/hr Q12HR IV 10/15/24 22:00 10/17/24 09:20 25 MLS/HR Hydromorphone HCl 0.5 mg Q4HPRN PRN IV 10/16/24 15:00 10/17/24 05:20 0.5 MG Iron Sucrose 110 ml @ 110 mls/hr DAILY@1200 IV 10/17/24 12:00 10/21/24 12:59 10/17/24 12:33 110 MLS/HR Laboratory Results Laboratory Tests 10/17/24 06:49 Chemistry Test 10/17/24 06:49 Calcium Level 10.2 mg/dL (8.7-10.4) Urinalysis Test 10/14/24 16:25 Urine Color Light-brown (Yellow) Urine Clarity Ex.turbid (Clear) Urine pH 6.5 (5.0-9.0) Urine Specific [place] 1.018 (1.001-1.035) Urine Protein 2+ (Negative) H Urine Ketones Negative (Negative) Urine Blood 2+ /uL (Negative) H Urine Nitrite 1+ (Negative) H Urine Bilirubin Negative (Negative) Urine Urobilinogen Normal mg/dL (Negative) Urine Leukocyte Esterase 3+ /uL (Negative) Urine RBC 86 /hpf (0 - 4) Urine WBC Clumps Present /hpf (None Seen) Urine Microscopic WBC 2211 /HPF (0-5) H Urine Squamous Epithelial Cells Few /hpf (<5) Urine Bacteria Few /hpf (None Seen) H Urine Hyaline Casts Mod /lpf (0 - 2) Urine Yeast (Budding) Moderate /hpf (None Seen) Urine Glucose Normal mg/dL (Normal) Microbiology Microbiology Date/Time Source Procedure Growth Status 10/15/24 12:00 Sacrum Gram Stain - Final Resulted 10/15/24 12:00 Sacrum Wound Culture - Preliminary Resulted 10/14/24 16:25 Voided Urine Urine Culture - Final Complete 10/14/24 14:30 Blood Blood Culture - Preliminary NO GROWTH AFTER 48 HOURS OF INCUBATION. Resulted Assessment/Plan Assessment/Plan #1 sepsis with decub ulcer: iv antibiotics #2 multiple myeloma #3 h/o a fib: hold eliquis #4 severe anemia s/p transfusion, iv iron #5 severe protein malnutrition #6 ckd stage 3 b #7 h/o dvt continue with current care Plan discussed with: Patient Date of Service: Oct 17, 2024 Billing Provider: EREN PRIEST DO Common Visit Codes: [id number] INP/OBS CARE(HIGH) EREN PRIEST DO Oct 17, 2024 13:25
[2024-10-18] VITALS (9 sets, daily range): BP systolic 103–136; BP diastolic 66–99; PULSE 75–93; RESP 15–18; TEMP 97.2–98.8; O2SAT 93–97
[2024-10-18 07:54] LABS: Anion Gap 8 (5-15); Calcium 10.1 mg/dL (8.7-10.4); Carbon Dioxide 27 mmol/L (20-31); Chloride 104 mmol/L (98-107); Potassium 3.8 mmol/L (3.5-5.1); Sodium 139 mmol/L (136-145)
[2024-10-18 08:00] LABS: BUN/Creatinine Ratio 10.4 (10.0-20.0); Glucose 87 mg/dL (74-106)
[2024-10-18 08:08] LABS: Blood Urea Nitrogen 26 mg/dL (9-23)
--- NOTE | 2024-10-18 13:44 | DVHPN2 ---
Reviewed: Care Plan, H&P, Labs, Medications, Previous Orders Changes from previous H/P or p: No Changes General: Per HPI Objective Vitals Vital Signs Date Time Temp Pulse Resp B/P (MAP) Pulse Ox O2 Delivery O2 Flow Rate FiO2 10/18/24 10:54 75 16 120/77 10/18/24 09:00 97.4 96 97.4 10/17/24 20:00 Room Air* 0 21 Intake/Output Intake and Output 10/18/24 07:00 Intake Total 1550 ml Output Total 2300 ml Balance -750 ml Intake Oral 1450 ml IV Total 100 ml Output Urine Total 2300 ml Medications Current Medications Medications Dose Ordered Sig/Angela Route Start Time Stop Time Status Last Admin Dose Admin Acetaminophen/ Hydrocodone Bitart 1 tab Q6HP PRN PO 10/14/24 22:45 10/18/24 05:56 1 TAB Vancomycin HCl 0 ml @ 0 mls/hr UD IV 10/15/24 16:15 Piperacillin Sod/ Tazobactam Sod 100 ml @ 25 mls/hr Q12HR IV 10/15/24 22:00 10/18/24 10:52 25 MLS/HR Hydromorphone HCl 0.5 mg Q4HPRN PRN IV 10/16/24 15:00 10/18/24 10:54 0.5 MG Iron Sucrose 110 ml @ 110 mls/hr DAILY@1200 IV 10/17/24 12:00 10/21/24 12:59 10/17/24 12:33 110 MLS/HR Laboratory Results Laboratory Tests 10/17/24 06:49 10/18/24 06:40 Chemistry Test 10/18/24 06:40 Calcium Level 10.1 mg/dL (8.7-10.4) Urinalysis Test 10/14/24 16:25 Urine Color Light-brown (Yellow) Urine Clarity Ex.turbid (Clear) Urine pH 6.5 (5.0-9.0) Urine Specific [place] 1.018 (1.001-1.035) Urine Protein 2+ (Negative) H Urine Ketones Negative (Negative) Urine Blood 2+ /uL (Negative) H Urine Nitrite 1+ (Negative) H Urine Bilirubin Negative (Negative) Urine Urobilinogen Normal mg/dL (Negative) Urine Leukocyte Esterase 3+ /uL (Negative) Urine RBC 86 /hpf (0 - 4) Urine WBC Clumps Present /hpf (None Seen) Urine Microscopic WBC 2211 /HPF (0-5) H Urine Squamous Epithelial Cells Few /hpf (<5) Urine Bacteria Few /hpf (None Seen) H Urine Hyaline Casts Mod /lpf (0 - 2) Urine Yeast (Budding) Moderate /hpf (None Seen) Urine Glucose Normal mg/dL (Normal) Microbiology Microbiology Date/Time Source Procedure Growth Status 10/15/24 12:00 Sacrum Gram Stain - Final Resulted 10/15/24 12:00 Sacrum Wound Culture - Preliminary Resulted 10/14/24 16:25 Voided Urine Urine Culture - Final Complete 10/14/24 14:30 Blood Blood Culture - Preliminary NO GROWTH AFTER 72 HOURS OF INCUBATION. Resulted Labs and/or images reviewed: Labs reviewed by me, Image(s) reviewed by me Assessment/Plan Assessment/Plan Covering for Dr. Davis Sepsis secondary to decubitus ulcer: Zosyn vancomycin AFib Severe anemia Severe protein calorie malnutrition Multiple myeloma CKD three History of DVT Plan discussed with: Patient Date of Service: Oct 18, 2024 Billing Provider: GALI ORELLANA MD Common Visit Codes: [id number] INP/OBS CARE(HIGH) GALI ORELLANA MD Oct 18, 2024 13:44
[2024-10-18] MEDS: LACTULOSE 20Gm/30ML SOLN PO ONE (19:01)
[2024-10-19 01:00] VITALS: BP 118/81; PULSE 85; RESP 18; TEMP 97.8; O2SAT 96
[2024-10-19 05:00] VITALS: BP 115/80; PULSE 76; RESP 18; TEMP 97.7; O2SAT 96
[2024-10-19 09:38] VITALS: BP 120/82; PULSE 86; RESP 18; TEMP 98.4; O2SAT 97
--- NOTE | 2024-10-19 11:01 | DVHPN2 ---
Reviewed: Care Plan, H&P, Labs, Medications, Previous Orders Changes from previous H/P or p: No Changes General: Per HPI Objective Vitals Vital Signs Date Time Temp Pulse Resp B/P (MAP) Pulse Ox O2 Delivery O2 Flow Rate FiO2 10/19/24 09:38 98.4 86 18 120/82 (95) 97 98.4 10/18/24 20:00 Room Air* 0 21 Intake/Output Intake and Output 10/19/24 07:00 Intake Total 1560 ml Output Total 1650 ml Balance -90 ml Intake Oral 1350 ml IV Total 210 ml Output Urine Total 1650 ml Medications Current Medications Medications Dose Ordered Sig/Angela Route Start Time Stop Time Status Last Admin Dose Admin Acetaminophen/ Hydrocodone Bitart 1 tab Q6HP PRN PO 10/14/24 22:45 10/18/24 05:56 1 TAB Vancomycin HCl 0 ml @ 0 mls/hr UD IV 10/15/24 16:15 Piperacillin Sod/ Tazobactam Sod 100 ml @ 25 mls/hr Q12HR IV 10/15/24 22:00 10/19/24 10:08 25 MLS/HR Hydromorphone HCl 0.5 mg Q4HPRN PRN IV 10/16/24 15:00 10/19/24 08:21 0.5 MG Iron Sucrose 110 ml @ 110 mls/hr DAILY@1200 IV 10/17/24 12:00 10/21/24 12:59 10/18/24 15:42 110 MLS/HR Laboratory Results Laboratory Tests 10/17/24 06:49 10/18/24 06:40 10/19/24 05:43 Urinalysis Test 10/14/24 16:25 Urine Color Light-brown (Yellow) Urine Clarity Ex.turbid (Clear) Urine pH 6.5 (5.0-9.0) Urine Specific [place] 1.018 (1.001-1.035) Urine Protein 2+ (Negative) H Urine Ketones Negative (Negative) Urine Blood 2+ /uL (Negative) H Urine Nitrite 1+ (Negative) H Urine Bilirubin Negative (Negative) Urine Urobilinogen Normal mg/dL (Negative) Urine Leukocyte Esterase 3+ /uL (Negative) Urine RBC 86 /hpf (0 - 4) Urine WBC Clumps Present /hpf (None Seen) Urine Microscopic WBC 2211 /HPF (0-5) H Urine Squamous Epithelial Cells Few /hpf (<5) Urine Bacteria Few /hpf (None Seen) H Urine Hyaline Casts Mod /lpf (0 - 2) Urine Yeast (Budding) Moderate /hpf (None Seen) Urine Glucose Normal mg/dL (Normal) Microbiology Microbiology Date/Time Source Procedure Growth Status 10/15/24 12:00 Sacrum Gram Stain - Final Complete 10/15/24 12:00 Sacrum Wound Culture - Final Complete 10/14/24 16:25 Voided Urine Urine Culture - Final Complete 10/14/24 14:30 Blood Blood Culture - Preliminary NO GROWTH AFTER 72 HOURS OF INCUBATION. Resulted Labs and/or images reviewed: Labs reviewed by me, Image(s) reviewed by me Assessment/Plan Assessment/Plan Covering for Dr. Davis Sepsis secondary to decubitus ulcer: Zosyn vancomycin , wound cultures neg wound care nurse consult AFib Severe anemia Severe protein calorie malnutrition Multiple myeloma CKD 3 History of DVT RN Karlie at bed side Discussed about placement on hospice; she is going to consider going on hospice. Plan discussed with: Patient Date of Service: Oct 19, 2024 Billing Provider: GALI ORELLANA MD Common Visit Codes: [id number] INP/OBS CARE(HIGH) GALI ORELLANA MD Oct 19, 2024 11:01
--- NOTE | 2024-10-19 11:27 | DVHINCON2 ---
Date of service: Oct 19, 2024 History of Present Illness 64 yo f who presents to hosp with sacral decub ulcer. Pt has been getting progressively weaker since July 2024. Has multiple myeloma. Is considering going to hospice Past Medical History mm, a fib? Family History: Arthritis G8 MOTHER, Onset:Unknown FH: heart attack G8 MOTHER, Onset:60 years & older G8 FATHER, Onset:60 years & older Allergies: Coded Allergies: NO KNOWN ALLERGIES (Unverified , 02/02/24) Home Meds Active Scripts Apixaban Base (ELIQUIS) 2.5 Mg Tab, 2.5 MG PO BID for 180 Days, #180 TAB Prov:KIM MATHEWS RESIDENT 06/25/24 Review of Systems neg unless mentioned in hpi Vital Signs Vital Signs Date Time Temp Pulse Resp B/P (MAP) Pulse Ox O2 Delivery O2 Flow Rate FiO2 10/19/24 09:38 98.4 86 18 120/82 (95) 97 98.4 10/18/24 20:00 Room Air* 0 21 Physical Exam gen; aaox3,nad abd; soft nd nttp integ; 4x5 cm stage 3 sacral decub, slight fibrinous debris, no purulence noted ext; no edema Labs/Diagnostic Data Labs Test 10/19/24 05:43 10/18/24 06:40 10/17/24 06:49 10/16/24 07:13 Range/Units Creatinine 2.41 H 0.550-1.02 mg/dL Glomerular Filtration Rate Calc 22 >90 mL/min Random Vancomycin Level 12.0 H 5-10 ug/mL Sodium Level 139 136-145 mmol/L Potassium Level 3.8 3.5-5.1 mmol/L Chloride Level 104 98-107 mmol/L Carbon Dioxide Level 27 20-31 mmol/L Anion Gap 8 5-15 Blood Urea Nitrogen 26 H 9-23 mg/dL BUN/Creatinine Ratio 10.4 10.0-20.0 Serum Glucose 87 74-106 mg/dL Calcium Level 10.1 8.7-10.4 mg/dL White Blood Count 11.8 H 4.4-10.8 10^3/uL Red Blood Count 2.76 L 4.0-5.20 10^6/uL Hemoglobin 7.6 L 12.2-16.2 g/dL Hematocrit 23.8 L 36.0-46.0 % Mean Corpuscular Volume 86.1 # 80.0-100.0 fL Mean Corpuscular Hemoglobin 27.6 L 28.0-32.0 pg Mean Corpuscular Hemoglobin Concent 32.0 32.0-36.0 g/dL Red Cell Distribution Width 16.3 H 11.8-14.3 % Platelet Count 364 140-450 10^3/uL Mean Platelet Volume 6.7 L 6.9-10.8 fL Neutrophils (%) (Auto) 37.0-80.0 % Lymphocytes (%) (Auto) 10.0-50.0 % Monocytes (%) (Auto) 0.0-12.0 % Basophils (%) (Auto) 0.0-2.0 % Neutrophils # (Auto) 1.6-8.6 10 ^3/uL Lymphocytes # (Auto) 0.4-5.4 10 ^3/uL Monocytes # (Auto) 0-1.3 10 ^3/uL Differential Total Cells Counted 100.0 100 Neutrophils % (Manual) 75 37.0-80.0 Band Neutrophils % (Manual) 3 Lymphocytes % (Manual) 12 10.0-50.0 Monocytes % (Manual) 6 0-12 Eosinophils % (Manual) 3 0-7 Basophils % (Manual) 0 0.0-2.0 Metamyelocytes % (manual) 1 Myelocytes % (Manual) 0 Promyelocytes % (Manual) 0 Blast Cells % (Manual) 0 Reactive Lymphocytes 0 Platelet Estimate Adequate Prothrombin Time 10.1 9.3-11.8 sec Prothrombin Time INR 0.95 0.9-1.15 Activated Partial Thromboplast Time 23.0 L 24.5-34.5 SEC Total Bilirubin 0.3 0.2-1.0 mg/dL Aspartate Amino Transferase (AST) 9 L 13-40 U/L Alanine Aminotransferase (ALT) < 9 7-40 U/L Alkaline Phosphatase 79 46-116 U/L Total Protein 4.6 L 5.7-8.2 g/dL Albumin 3.0 L 3.2-4.8 g/dL Test 10/15/24 03:30 10/14/24 16:25 10/14/24 14:30 Range/Units Lactic Acid Level 0.8 0.4-2.0 mmol/L Urine Color Light-brown Yellow Urine Clarity Ex.turbid Clear Urine pH 6.5 5.0-9.0 Urine Specific [place] 1.018 1.001-1.035 Urine Protein 2+ H Negative Urine Ketones Negative Negative Urine Blood 2+ H Negative /uL Urine Nitrite 1+ H Negative Urine Bilirubin Negative Negative Urine Urobilinogen Normal Negative mg/dL Urine Leukocyte Esterase 3+ Negative /uL Urine RBC 86 0 - 4 /hpf Urine WBC Clumps Present None Seen /hpf Urine Microscopic WBC 2211 H 0-5 /HPF Urine Squamous Epithelial Cells Few <5 /hpf Urine Bacteria Few H None Seen /hpf Urine Hyaline Casts Mod 0 - 2 /lpf Urine Yeast (Budding) Moderate None Seen /hpf Urine Glucose Normal Normal mg/dL Poikilocytosis (manual) Slight Direct Bilirubin < 0.1 <0.3 mg/dL Microbiology Date/Time Source Procedure Growth Status 10/15/24 12:00 Sacrum Gram Stain - Final Complete 10/15/24 12:00 Sacrum Wound Culture - Final Complete 10/14/24 16:25 Voided Urine Urine Culture - Final Complete 10/14/24 14:30 Blood Blood Culture - Preliminary NO GROWTH AFTER 72 HOURS OF INCUBATION. Resulted Assessment 64 yo female with stage 3 decub ulcer Plan/Recommendation apply wet to dry dakins dressing to wound offload protein additive diet cover with foam/padded dressing pt is considering hospice, will manage conservatively Plan discussed with: Patient SULMA CORRAL MD Oct 19, 2024 11:27
[2024-10-19 13:00] VITALS: BP 112/74; PULSE 87; RESP 18; TEMP 98.6; O2SAT 97
[2024-10-19] MEDS: VANCOMYCIN 500mg/100mL 100 ML IV ONE (16:50)
[2024-10-19 17:15] VITALS: BP 114/71; PULSE 89; RESP 19; TEMP 98.5; O2SAT 97
[2024-10-19 21:00] VITALS: BP 106/70; PULSE 89; RESP 16; TEMP 98.9; O2SAT 96
[2024-10-20] VITALS (7 sets, daily range): BP systolic 116–139; BP diastolic 67–83; PULSE 69–95; RESP 16–19; TEMP 98.5–99; O2SAT 95–100
[2024-10-20 07:11] LABS: Hemoglobin 7.4 g/dL (12.2-16.2); White Blood Cell 10.3 10^3/uL (4.4-10.8)
[2024-10-20 07:13] LABS: Mean Corpuscular Hemoglobin 29.1 pg (28.0-32.0); Mean Corpuscular Hgb Conc. 33.8 g/dL (32.0-36.0); Mean Corpuscular Volume 85.9 fL (80.0-100.0); Platelet Count (auto) 297 10^3/uL (140-450); Red Blood Cells 2.56 10^6/uL (4.0-5.20); Red Cell Distribution Width 16.1 % (11.8-14.3)
[2024-10-20 07:22] LABS: Basophils % (manual) 0 (0.0-2.0); Blast Cells 0; Metamyelocytes % 0; Myelocytes % 0; Promyelocytes % 0; Reactive Lymphocytes 0
[2024-10-20 07:36] LABS: Alkaline Phosphatase 76 U/L (46-116); Anion Gap 6 (5-15); BUN/Creatinine Ratio 9.9 (10.0-20.0); Carbon Dioxide 28 mmol/L (20-31); Chloride 103 mmol/L (98-107); Glucose 89 mg/dL (74-106); Potassium 4.1 mmol/L (3.5-5.1); Sodium 137 mmol/L (136-145)
[2024-10-20 07:44] LABS: Alanine Aminotransferase < 9 U/L (7-40); Albumin 3.1 g/dL (3.2-4.8); Aspartate Aminotransferase < 8 U/L (13-40); Bilirubin, Total 0.2 mg/dL (0.2-1.0); Blood Urea Nitrogen 24 mg/dL (9-23); Total Protein 4.9 g/dL (5.7-8.2)
[2024-10-20 08:19] LABS: Anisocytosis Slight; Band Neutrophils % (manual) 4; Eosinophils % (manual) 3 (0-7); Lymphocytes % (manual) 11 (10.0-50.0); Monocytes % (manual) 9 (0-12); Platelet Estimate Adequate
--- NOTE | 2024-10-20 11:38 | DVHPN2 ---
Progress Note Date Seen: Oct 20, 2024 Medical Necessity Reason Pt with a Central, PICC or Fol: Yes The following are medically ne: Owen Catheter Reason for owen catheter: Strict I&O Subjective Patient reports: No new complaints Review of Systems: HEENT:Normal, CVS:Normal, RESPIRATORY:Normal, GI:Normal, :Normal, MSK:Normal, NEURO:Normal Objective vital signs Vital Sign Date Time Temp Pulse Resp B/P (MAP) Pulse Ox O2 Delivery O2 Flow Rate FiO2 10/20/24 09:25 81 19 129/76 10/20/24 09:23 98.5 97 98.5 10/19/24 20:00 Room Air* 0 21 Total Intake and Output 10/19/24 10/19/24 10/20/24 15:00 23:00 07:00 Intake Total 210 ml 425 ml 450 ml Output Total 900 ml 1000 ml Balance 210 ml -475 ml -550 ml medications Current Medications Medications Dose Ordered Sig/Angela Route Start Time Stop Time Status Last Admin Dose Admin Acetaminophen/ Hydrocodone Bitart 1 tab Q6HP PRN PO 10/14/24 22:45 10/18/24 05:56 1 TAB Vancomycin HCl 0 ml @ 0 mls/hr UD IV 10/15/24 16:15 Piperacillin Sod/ Tazobactam Sod 100 ml @ 25 mls/hr Q12HR IV 10/15/24 22:00 10/20/24 09:24 25 MLS/HR Hydromorphone HCl 0.5 mg Q4HPRN PRN IV 10/16/24 15:00 10/20/24 09:25 0.5 MG Iron Sucrose 110 ml @ 110 mls/hr DAILY@1200 IV 10/17/24 12:00 10/21/24 12:59 10/19/24 12:34 110 MLS/HR Examination: GENERAL:Normal, HEENT:Normal, NECK:Normal, LUNGS:Normal, CVS:Normal, ABDOMEN:Normal, MSK:Normal, MSK:Abnormal (decub ulcer), SKIN:Normal, NEURO:Normal, :Normal laboratory and microbiology Laboratory Tests 10/20/24 06:41 Test 10/20/24 06:41 Range/Units Serum Glucose 89 74-106 mg/dL Microbiology Date/Time Source Procedure Growth Status 10/15/24 12:00 Sacrum Gram Stain - Final Complete 10/15/24 12:00 Sacrum Wound Culture - Final Complete 10/14/24 16:25 Voided Urine Urine Culture - Final Complete 10/14/24 14:30 Blood Blood Culture - Final NO GROWTH AFTER 5 DAYS OF INCUBATION. 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 Expected Outcomes/Goals: Improved protein nutrition, gain body strength, improved wound healing. Date of Service: Oct 20, 2024 Billing Provider: CAROLE LOMAX MD Common Visit Codes: [id number] INP/OBS CARE(HIGH) CC Plasma Assessment Blood Product Administration S: [id number] CAROLE LOMAX MD Oct 20, 2024 11:38
[2024-10-21] VITALS (7 sets, daily range): BP systolic 120–142; BP diastolic 71–87; PULSE 60–85; RESP 16–20; TEMP 97.9–98.5; O2SAT 95–97
--- NOTE | 2024-10-21 11:43 | DVHPN2 ---
Progress Note Date Seen: Oct 21, 2024 Medical Necessity Reason Pt with a Central, PICC or Fol: Yes The following are medically ne: Owen Catheter Reason for owen catheter: Strict I&O Subjective Patient reports: No new complaints Review of Systems: HEENT:Normal, CVS:Normal, RESPIRATORY:Normal, GI:Normal, :Normal, MSK:Normal, NEURO:Normal Objective vital signs Vital Sign Date Time Temp Pulse Resp B/P (MAP) Pulse Ox O2 Delivery O2 Flow Rate FiO2 10/21/24 09:00 98.4 78 18 127/79 (95) 97 98.4 10/21/24 08:00 Room Air* 0 21 Total Intake and Output 10/20/24 10/20/24 10/21/24 15:00 23:00 07:00 Intake Total 120 ml 560 ml 580 ml Output Total 800 ml 900 ml Balance 120 ml -240 ml -320 ml medications Current Medications Medications Dose Ordered Sig/Angela Route Start Time Stop Time Status Last Admin Dose Admin Acetaminophen/ Hydrocodone Bitart 1 tab Q6HP PRN PO 10/14/24 22:45 10/20/24 15:59 1 TAB Vancomycin HCl 0 ml @ 0 mls/hr UD IV 10/15/24 16:15 Piperacillin Sod/ Tazobactam Sod 100 ml @ 25 mls/hr Q12HR IV 10/15/24 22:00 10/21/24 08:19 25 MLS/HR Hydromorphone HCl 0.5 mg Q4HPRN PRN IV 10/16/24 15:00 10/21/24 08:19 0.5 MG Iron Sucrose 110 ml @ 110 mls/hr DAILY@1200 IV 10/17/24 12:00 10/21/24 12:59 10/20/24 14:23 110 MLS/HR Examination: GENERAL:Normal, HEENT:Normal, NECK:Normal, LUNGS:Normal, CVS:Normal, ABDOMEN:Normal, MSK:Normal, MSK:Abnormal (decub ulcer), SKIN:Normal, NEURO:Normal, :Normal laboratory and microbiology Laboratory Tests 10/21/24 10:03 10/20/24 06:41 Test 10/20/24 06:41 Range/Units Serum Glucose 89 74-106 mg/dL Microbiology Date/Time Source Procedure Growth Status 10/15/24 12:00 Sacrum Gram Stain - Final Complete 10/15/24 12:00 Sacrum Wound Culture - Final Complete 10/14/24 16:25 Voided Urine Urine Culture - Final Complete 10/14/24 14:30 Blood Blood Culture - Final NO GROWTH AFTER 5 DAYS OF INCUBATION. 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 Expected Outcomes/Goals: Improved protein nutrition, gain body strength, improved wound healing. Date of Service: Oct 21, 2024 Billing Provider: CAROLE LOMAX MD Common Visit Codes: [id number] INP/OBS CARE(HIGH) CC Plasma Assessment Blood Product Administration S: [id number] CAROEL LOMAX MD Oct 21, 2024 11:43
[2024-10-21] MEDS: HYDROCORTISONE ACET 25 MG RECTAL SUPP PR ONE (11:45)
[2024-10-21] MEDS: VANCOMYCIN 500mg/100mL 100 ML IV ONE (15:16)
[2024-10-21] MEDS: HYDROCORTISONE ACET 25 MG RECTAL SUPP PR SCH (22:00)
[2024-10-22] VITALS (8 sets, daily range): BP systolic 118–144; BP diastolic 77–88; PULSE 80–95; RESP 14–18; TEMP 36.8; O2SAT 94–98
[2024-10-22 06:42] LABS: Hemoglobin 7.8 g/dL (12.2-16.2); Platelet Count (auto) 280 10^3/uL (140-450)
[2024-10-22 06:44] LABS: Hematocrit 22.9 % (36.0-46.0); Mean Corpuscular Hemoglobin 29.3 pg (28.0-32.0); Mean Corpuscular Hgb Conc. 34.2 g/dL (32.0-36.0); Mean Corpuscular Volume 85.5 fL (80.0-100.0); Red Blood Cells 2.67 10^6/uL (4.0-5.20); Red Cell Distribution Width 16.1 % (11.8-14.3); White Blood Cell 9.6 10^3/uL (4.4-10.8)
[2024-10-22 06:48] LABS: Chloride 102 mmol/L (98-107); Sodium 138 mmol/L (136-145)
[2024-10-22 06:49] LABS: Anion Gap 7 (5-15); Carbon Dioxide 29 mmol/L (20-31)
[2024-10-22 06:54] LABS: BUN/Creatinine Ratio 9.3 (10.0-20.0); Blood Urea Nitrogen 22 mg/dL (9-23); Glucose 86 mg/dL (74-106)
[2024-10-22 06:55] LABS: Calcium 10.7 mg/dL (8.7-10.4)
[2024-10-22 07:04] LABS: Basophils % (manual) 0 (0.0-2.0); Blast Cells 0; Metamyelocytes % 0; Myelocytes % 0; Promyelocytes % 0; Reactive Lymphocytes 0
[2024-10-22 08:16] LABS: Band Neutrophils % (manual) 2; Eosinophils % (manual) 2 (0-7); Lymphocytes % (manual) 13 (10.0-50.0); Monocytes % (manual) 9 (0-12); Platelet Estimate Adequate; Smudge Cells 5 /100 WBC
--- NOTE | 2024-10-22 10:56 | DVHDS2 ---
Discharge Summary Date of Admission Oct 14, 2024 at 21:55 Date of Discharge: Oct 22, 2024 Labs/Diagnostic Data: Laboratory Results Test 10/22/24 06:17 10/20/24 06:41 10/16/24 07:13 10/15/24 03:30 White Blood Count 9.6 10^3/uL (4.4-10.8) Red Blood Count 2.67 10^6/uL (4.0-5.20) Hemoglobin 7.8 g/dL (12.2-16.2) Hematocrit 22.9 % (36.0-46.0) Mean Corpuscular Volume 85.5 fL (80.0-100.0) Mean Corpuscular Hemoglobin 29.3 pg (28.0-32.0) Mean Corpuscular Hemoglobin Concent 34.2 g/dL (32.0-36.0) Red Cell Distribution Width 16.1 % (11.8-14.3) Platelet Count 280 10^3/uL (140-450) Mean Platelet Volume 6.4 fL (6.9-10.8) Neutrophils (%) (Auto) % (37.0-80.0) Lymphocytes (%) (Auto) % (10.0-50.0) Monocytes (%) (Auto) % (0.0-12.0) Basophils (%) (Auto) % (0.0-2.0) Neutrophils # (Auto) 10 ^3/uL (1.6-8.6) Lymphocytes # (Auto) 10 ^3/uL (0.4-5.4) Monocytes # (Auto) 10 ^3/uL (0-1.3) Differential Total Cells Counted 100.0 (100) Neutrophils % (Manual) 74 (37.0-80.0) Band Neutrophils % (Manual) 2 Lymphocytes % (Manual) 13 (10.0-50.0) Monocytes % (Manual) 9 (0-12) Eosinophils % (Manual) 2 (0-7) Basophils % (Manual) 0 (0.0-2.0) Metamyelocytes % (manual) 0 Myelocytes % (Manual) 0 Promyelocytes % (Manual) 0 Blast Cells % (Manual) 0 Reactive Lymphocytes 0 Smudge Cells 5 /100 WBC Platelet Estimate Adequate Sodium Level 138 mmol/L (136-145) Potassium Level 4.0 mmol/L (3.5-5.1) Chloride Level 102 mmol/L (98-107) Carbon Dioxide Level 29 mmol/L (20-31) Anion Gap 7 (5-15) Blood Urea Nitrogen 22 mg/dL (9-23) Creatinine 2.37 mg/dL (0.550-1.02) Glomerular Filtration Rate Calc 22 mL/min (>90) BUN/Creatinine Ratio 9.3 (10.0-20.0) Serum Glucose 86 mg/dL (74-106) Calcium Level 10.7 mg/dL (8.7-10.4) Random Vancomycin Level 18.8 ug/mL (5-10) Anisocytosis (manual) Slight Total Bilirubin 0.2 mg/dL (0.2-1.0) Aspartate Amino Transferase (AST) < 8 U/L (13-40) Alanine Aminotransferase (ALT) < 9 U/L (7-40) Alkaline Phosphatase 76 U/L (46-116) Total Protein 4.9 g/dL (5.7-8.2) Albumin 3.1 g/dL (3.2-4.8) Prothrombin Time 10.1 sec (9.3-11.8) Prothrombin Time INR 0.95 (0.9-1.15) Activated Partial Thromboplast Time 23.0 SEC (24.5-34.5) Lactic Acid Level 0.8 mmol/L (0.4-2.0) Test 10/14/24 16:25 10/14/24 14:30 Urine Color Light-brown (Yellow) Urine Clarity Ex.turbid (Clear) Urine pH 6.5 (5.0-9.0) Urine Specific [place] 1.018 (1.001-1.035) Urine Protein 2+ (Negative) Urine Ketones Negative (Negative) Urine Blood 2+ /uL (Negative) Urine Nitrite 1+ (Negative) Urine Bilirubin Negative (Negative) Urine Urobilinogen Normal mg/dL (Negative) Urine Leukocyte Esterase 3+ /uL (Negative) Urine RBC 86 /hpf (0 - 4) Urine WBC Clumps Present /hpf (None Seen) Urine Microscopic WBC 2211 /HPF (0-5) Urine Squamous Epithelial Cells Few /hpf (<5) Urine Bacteria Few /hpf (None Seen) Urine Hyaline Casts Mod /lpf (0 - 2) Urine Yeast (Budding) Moderate /hpf (None Seen) Urine Glucose Normal mg/dL (Normal) Poikilocytosis (manual) Slight Direct Bilirubin < 0.1 mg/dL (<0.3) Other Laboratory Tests 10/22/24 06:17 Brief Hx & Hospital Course: see dictated note Condition at Discharge: Poor Final Diagnosis/Problems List multiple myeloma Discharge Disposition: Hospice - Home Discharge Instruct/Medications Diet: Regular Activity: No Restrictions, As Tolerated Follow Up/Referral: fu with hospice Medications: per hospice leave owen in Discharge Statement: "Patient was advised to return to the ER or call 911 if any headaches, dizziness, shortness of breath, chest pain, abdominal pain, bleeding, fevers, or worsening of medical condition. Patient was counseled about treatment plan, medications, possible side effects, patientverbalized understanding. All questions were answered to the best of my ability. This discharge took greater then 30 minutes in planning, reviewing documentation, counseling the patient, and discussing with other team members." ASSESSMENT ASSESSMENT Assessment multiple myeloma Date of Service: Oct 22, 2024 Billing Provider: CAROLE LOMAX MD Common Visit Codes: [id number] DISCH DAY >30min CAROLE LOMAX MD Oct 22, 2024 10:56
--- NOTE | 2024-10-22 11:07 | DVHDS ---
DATE OF DISCHARGE: 10/22/2024 HISTORY OF PRESENT ILLNESS: The patient is a 64-year-old lady who was admitted because of generalized body pain, weakness and constipation and has history of atrial fibrillation, DVT, multiple myeloma, severe anemia and decubitus ulcer. HOSPITAL COURSE: The patient was noted to be septic with elevated white count of 21,000. The patient was anemic and was transfused 1 unit of blood. The patient was also noted to be in kidney failure. The patient had wound cultures that grew coag-negative staph. The patient was placed on antibiotics to include vancomycin and Zosyn. The patient's white count has since improved. After talking to patient and family, they wished her to be on hospice. The patient will be discharged in hospice once arrangements have been made. FINAL DIAGNOSES: Therefore, * Sepsis with decubitus ulcer with coag-negative staph. * Multiple myeloma. * History of atrial fibrillation. * Severe anemia, status post transfusion. * Severe protein malnutrition. * Chronic kidney disease stage IIIB. * History of deep venous thrombosis. * Hospice care. Time spent in discharge planning and review of plan with the patient, daughter Gladys and sr. social media & mobile manager was 39 minutes. MD LINDA Walsh/REBECCA TID: [id number] RECEIPT: [id number]
[2024-10-23] VITALS (7 sets, daily range): BP systolic 122–138; BP diastolic 82–86; PULSE 81–92; RESP 16–20; TEMP 97.3–98.5; O2SAT 94–98
[2024-10-23] MEDS: HYDROcodone-ACET 5/325MG TAB PO PRN (09:09)
--- NOTE | 2024-10-23 11:28 | DVHPN2 ---
Progress Note Date Seen: Oct 23, 2024 Medical Necessity Reason Pt with a Central, PICC or Fol: Yes The following are medically ne: Owen Catheter Reason for owen catheter: Strict I&O Subjective Patient reports: No new complaints Review of Systems: HEENT:Normal, CVS:Normal, RESPIRATORY:Normal, GI:Normal, :Normal, MSK:Normal, NEURO:Normal Objective vital signs Vital Sign Date Time Temp Pulse Resp B/P (MAP) Pulse Ox O2 Delivery O2 Flow Rate FiO2 10/23/24 11:09 84 14 126/86 10/23/24 09:00 97.4 96 97.4 10/23/24 08:22 Room Air* 0 21 Total Intake and Output 10/22/24 10/22/24 10/23/24 15:00 23:00 07:00 Intake Total 100 ml 700 ml Output Total 750 ml 550 ml Balance 100 ml -750 ml 150 ml medications Current Medications Medications Dose Ordered Sig/Angela Route Start Time Stop Time Status Last Admin Dose Admin Vancomycin HCl 0 ml @ 0 mls/hr UD IV 10/15/24 16:15 Piperacillin Sod/ Tazobactam Sod 100 ml @ 25 mls/hr Q12HR IV 10/15/24 22:00 10/23/24 09:09 25 MLS/HR Hydromorphone HCl 0.5 mg Q4HPRN PRN IV 10/16/24 15:00 10/23/24 11:09 0.5 MG Hydrocortisone Acetate 25 mg Q12HR [place] 10/21/24 22:00 Acetaminophen/ Hydrocodone Bitart 1 tab Q4HPRN PRN PO 10/21/24 11:45 10/23/24 09:09 1 TAB Examination: GENERAL:Normal, HEENT:Normal, NECK:Normal, LUNGS:Normal, CVS:Normal, ABDOMEN:Normal, MSK:Normal, MSK:Abnormal (DECUB ULCER), SKIN:Normal, NEURO:Normal, :Normal laboratory and microbiology Laboratory Tests 10/22/24 06:17 Test 10/22/24 06:17 Range/Units Serum Glucose 86 74-106 mg/dL Microbiology Date/Time Source Procedure Growth Status 10/15/24 12:00 Sacrum Gram Stain - Final Complete 10/15/24 12:00 Sacrum Wound Culture - Final Complete 10/14/24 16:25 Voided Urine Urine Culture - Final Complete 10/14/24 14:30 Blood Blood Culture - Final NO GROWTH AFTER 5 DAYS OF INCUBATION. Complete Problem List/Assessment/Plan Problem List/Assessment/Plan #1 sepsis with decub ulcer: iv antibiotics #2 multiple myeloma #3 h/o a fib: hold eliquis #4 severe anemia s/p transfusion, iv iron #5 severe protein malnutrition #6 ckd stage 3 b #7 h/o dvt #8 severe pain: extended release morphine long dw daughter Gladys- agrees with hospice advance care planning- dnr- time spent 21 mins Plan discussed with: Patient My Orders My Orders Orders - CAROLE LOMAX MD Procedure Category Date Status Time Vancomycin,Random LAB 10/24/24 Verified 04:00 Basic Metabolic Panel LAB 10/24/24 Verified 04:00 Hydrocodone-Acet PHA 10/23/24 Transmitted 5/325mg Tab ([place] 11:30 Morphine Extended PHA 10/23/24 Transmitted Release Tab (Oramorph 11:30 Morphine Extended PHA 10/23/24 Transmitted Release Tab (Oramorph 22:00 Discharge DISCHARGE 10/23/24 Transmitted 11:25 Dietary Evaluation Review Comments: No Rigo supplements 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 Expected Outcomes/Goals: Improved protein nutrition, gain body strength, improved wound healing. Date of Service: Oct 23, 2024 Billing Provider: CAROLE LOMAX MD Common Visit Codes: [id number] INP/OBS CARE(HIGH) CC Plasma Assessment Blood Product Administration S: [id number] CAROLE LOMAX MD Oct 23, 2024 11:28
[2024-10-23] MEDS: MORPHINE SULF 15mg ER tab PO ONE (12:40)
[2024-10-23] MEDS: MORPHINE SULF 15mg ER tab PO SCH (22:40)
[2024-10-24] VITALS (8 sets, daily range): BP systolic 102–122; BP diastolic 65–83; PULSE 81–93; RESP 16–18; TEMP 97.3–98.2; O2SAT 96–97
[2024-10-24] MEDS: ACETAMINOPHEN 325 MG TAB PO PRN (03:17)
[2024-10-24 07:28] LABS: Anion Gap 9 (5-15); Carbon Dioxide 27 mmol/L (20-31); Chloride 101 mmol/L (98-107); Potassium 4.1 mmol/L (3.5-5.1); Sodium 137 mmol/L (136-145)
[2024-10-24 07:29] LABS: Calcium 10.3 mg/dL (8.7-10.4)
[2024-10-24 07:34] LABS: Glucose 84 mg/dL (74-106)
[2024-10-24 07:38] LABS: BUN/Creatinine Ratio 9.1 (10.0-20.0); Blood Urea Nitrogen 22 mg/dL (9-23)
--- NOTE | 2024-10-24 15:10 | DVHPN2 ---
Reviewed: Care Plan, H&P, Labs, Medications, Previous Orders Changes from previous H/P or p: No Changes General: Per HPI Objective Vitals Vital Signs Date Time Temp Pulse Resp B/P (MAP) Pulse Ox O2 Delivery O2 Flow Rate FiO2 10/24/24 13:52 82 16 118/83 10/24/24 09:00 97.4 97 97.4 10/23/24 20:00 Room Air* 0 21 Intake/Output Intake and Output 10/24/24 07:00 Intake Total 1186 ml Output Total 1550 ml Balance -364 ml Intake Oral 986 ml IV Total 200 ml Output Urine Total 1550 ml # Bowel Movements 1 Medications Current Medications Medications Dose Ordered Sig/Angela Route Start Time Stop Time Status Last Admin Dose Admin Vancomycin HCl 0 ml @ 0 mls/hr UD IV 10/15/24 16:15 Piperacillin Sod/ Tazobactam Sod 100 ml @ 25 mls/hr Q12HR IV 10/15/24 22:00 10/24/24 11:02 25 MLS/HR Hydromorphone HCl 0.5 mg Q4HPRN PRN IV 10/16/24 15:00 10/24/24 13:52 0.5 MG Hydrocortisone Acetate 25 mg Q12HR [place] 10/21/24 22:00 Acetaminophen/ Hydrocodone Bitart 1 tab Q6HP PRN PO 10/23/24 11:30 Morphine Sulfate 15 mg Q12HR PO 10/23/24 22:00 10/24/24 11:01 15 MG Acetaminophen 650 mg Q6HP PRN PO 10/24/24 03:06 10/24/24 03:17 650 MG Laboratory Results Laboratory Tests 10/22/24 06:17 10/24/24 06:34 Chemistry Test 10/24/24 06:34 Calcium Level 10.3 mg/dL (8.7-10.4) Urinalysis Test 10/14/24 16:25 Urine Color Light-brown (Yellow) Urine Clarity Ex.turbid (Clear) Urine pH 6.5 (5.0-9.0) Urine Specific [place] 1.018 (1.001-1.035) Urine Protein 2+ (Negative) H Urine Ketones Negative (Negative) Urine Blood 2+ /uL (Negative) H Urine Nitrite 1+ (Negative) H Urine Bilirubin Negative (Negative) Urine Urobilinogen Normal mg/dL (Negative) Urine Leukocyte Esterase 3+ /uL (Negative) Urine RBC 86 /hpf (0 - 4) Urine WBC Clumps Present /hpf (None Seen) Urine Microscopic WBC 2211 /HPF (0-5) H Urine Squamous Epithelial Cells Few /hpf (<5) Urine Bacteria Few /hpf (None Seen) H Urine Hyaline Casts Mod /lpf (0 - 2) Urine Yeast (Budding) Moderate /hpf (None Seen) Urine Glucose Normal mg/dL (Normal) Microbiology Microbiology Date/Time Source Procedure Growth Status 10/15/24 12:00 Sacrum Gram Stain - Final Complete 10/15/24 12:00 Sacrum Wound Culture - Final Complete 10/14/24 16:25 Voided Urine Urine Culture - Final Complete 10/14/24 14:30 Blood Blood Culture - Final NO GROWTH AFTER 5 DAYS OF INCUBATION. Complete Labs and/or images reviewed: Labs reviewed by me, Image(s) reviewed by me Assessment/Plan Assessment/Plan Covering for Dr. Davis #1 sepsis with decub ulcer: iv antibiotics #2 multiple myeloma #3 h/o a fib: hold eliquis #4 severe anemia s/p transfusion, iv iron #5 severe protein malnutrition #6 ckd stage 3 b #7 h/o dvt #8 severe pain: extended release morphine Patient was discharged on hospice [facility] working [facility] Plan discussed with: Patient Date of Service: Oct 24, 2024 Billing Provider: GALI ORELLANA MD Common Visit Codes: [id number] INP/OBS CARE(HIGH) GALI ORELLANA MD Oct 24, 2024 15:10
[2024-10-24] MEDS: VANCOMYCIN 500mg/100mL 100 ML IV ONE (16:02)
[2024-10-24] MEDS: HYDROcodone-ACET 5/325MG TAB PO PRN (19:49)
[2024-10-25] VITALS (7 sets, daily range): BP systolic 99–110; BP diastolic 66–74; PULSE 76–88; RESP 6–20; TEMP 98–98.2; O2SAT 93–97
--- NOTE | 2024-10-25 10:02 | DVHPN2 ---
Reviewed: Care Plan, H&P, Labs, Medications, Previous Orders Changes from previous H/P or p: No Changes General: Per HPI Objective Vitals Vital Signs Date Time Temp Pulse Resp B/P (MAP) Pulse Ox O2 Delivery O2 Flow Rate FiO2 10/25/24 08:25 98.0 79 16 109/73 (85) 96 98.0 10/24/24 20:00 Room Air* 0 21 Intake/Output Intake and Output 10/25/24 07:00 Intake Total 880 ml Output Total 1100 ml Balance -220 ml Intake Oral 780 ml IV Total 100 ml Output Urine Total 1100 ml Medications Current Medications Medications Dose Ordered Sig/Angela Route Start Time Stop Time Status Last Admin Dose Admin Vancomycin HCl 0 ml @ 0 mls/hr UD IV 10/15/24 16:15 Piperacillin Sod/ Tazobactam Sod 100 ml @ 25 mls/hr Q12HR IV 10/15/24 22:00 10/25/24 09:40 25 MLS/HR Hydromorphone HCl 0.5 mg Q4HPRN PRN IV 10/16/24 15:00 10/25/24 06:30 0.5 MG Hydrocortisone Acetate 25 mg Q12HR [place] 10/21/24 22:00 Acetaminophen/ Hydrocodone Bitart 1 tab Q6HP PRN PO 10/23/24 11:30 10/25/24 05:16 1 TAB Morphine Sulfate 15 mg Q12HR PO 10/23/24 22:00 10/25/24 09:40 15 MG Acetaminophen 650 mg Q6HP PRN PO 10/24/24 03:06 10/24/24 03:17 650 MG Laboratory Results Laboratory Tests 10/22/24 06:17 10/24/24 06:34 10/25/24 06:33 Urinalysis Test 10/14/24 16:25 Urine Color Light-brown (Yellow) Urine Clarity Ex.turbid (Clear) Urine pH 6.5 (5.0-9.0) Urine Specific [place] 1.018 (1.001-1.035) Urine Protein 2+ (Negative) H Urine Ketones Negative (Negative) Urine Blood 2+ /uL (Negative) H Urine Nitrite 1+ (Negative) H Urine Bilirubin Negative (Negative) Urine Urobilinogen Normal mg/dL (Negative) Urine Leukocyte Esterase 3+ /uL (Negative) Urine RBC 86 /hpf (0 - 4) Urine WBC Clumps Present /hpf (None Seen) Urine Microscopic WBC 2211 /HPF (0-5) H Urine Squamous Epithelial Cells Few /hpf (<5) Urine Bacteria Few /hpf (None Seen) H Urine Hyaline Casts Mod /lpf (0 - 2) Urine Yeast (Budding) Moderate /hpf (None Seen) Urine Glucose Normal mg/dL (Normal) Microbiology Microbiology Date/Time Source Procedure Growth Status 10/15/24 12:00 Sacrum Gram Stain - Final Complete 10/15/24 12:00 Sacrum Wound Culture - Final Complete 10/14/24 16:25 Voided Urine Urine Culture - Final Complete 10/14/24 14:30 Blood Blood Culture - Final NO GROWTH AFTER 5 DAYS OF INCUBATION. Complete Labs and/or images reviewed: Labs reviewed by me, Image(s) reviewed by me Assessment/Plan Assessment/Plan Covering for Dr. Davis #1 sepsis with decub ulcer: iv antibiotics #2 multiple myeloma #3 h/o a fib: hold eliquis #4 severe anemia s/p transfusion, iv iron #5 severe protein malnutrition #6 ckd stage 3 b #7 h/o dvt #8 severe pain: extended release morphine Patient was discharged on hospice [facility] working [facility] Patient's daughter is appealing discharge to hospice Plan discussed with: Patient Date of Service: Oct 25, 2024 Billing Provider: GALI ORELLANA MD Common Visit Codes: [id number] INP/OBS CARE(HIGH) GALI ORELLANA MD Oct 25, 2024 10:02
[2024-10-26 01:00] VITALS: BP 116/73; PULSE 86; RESP 17; TEMP 98; O2SAT 97
[2024-10-26 05:00] VITALS: BP 111/65; PULSE 92; RESP 17; TEMP 98.2; O2SAT 96
[2024-10-26 08:25] VITALS: BP 123/75; PULSE 80; RESP 20; TEMP 97.9; O2SAT 98
--- NOTE | 2024-10-26 10:40 | DVHPN2 ---
Reviewed: Care Plan, H&P, Labs, Medications, Previous Orders Changes from previous H/P or p: No Changes General: Per HPI Objective Vitals Vital Signs Date Time Temp Pulse Resp B/P (MAP) Pulse Ox O2 Delivery O2 Flow Rate FiO2 10/26/24 10:28 89 16 106/69 10/26/24 08:25 97.9 98 97.9 10/25/24 20:00 Room Air* 0 21 Intake/Output Intake and Output 10/26/24 07:00 Intake Total 1038 ml Output Total 1250 ml Balance -212 ml Intake Oral 1038 ml Output Urine Total 1250 ml # Bowel Movements 2 Medications Current Medications Medications Dose Ordered Sig/Angela Route Start Time Stop Time Status Last Admin Dose Admin Vancomycin HCl 0 ml @ 0 mls/hr UD IV 10/15/24 16:15 Piperacillin Sod/ Tazobactam Sod 100 ml @ 25 mls/hr Q12HR IV 10/15/24 22:00 10/26/24 10:28 25 MLS/HR Hydromorphone HCl 0.5 mg Q4HPRN PRN IV 10/16/24 15:00 10/26/24 10:28 0.5 MG Hydrocortisone Acetate 25 mg Q12HR [place] 10/21/24 22:00 Acetaminophen/ Hydrocodone Bitart 1 tab Q6HP PRN PO 10/23/24 11:30 10/26/24 03:04 1 TAB Morphine Sulfate 15 mg Q12HR PO 10/23/24 22:00 10/26/24 10:29 15 MG Acetaminophen 650 mg Q6HP PRN PO 10/24/24 03:06 10/25/24 17:44 650 MG Laboratory Results Laboratory Tests 10/22/24 06:17 10/24/24 06:34 10/26/24 06:08 Urinalysis Test 10/14/24 16:25 Urine Color Light-brown (Yellow) Urine Clarity Ex.turbid (Clear) Urine pH 6.5 (5.0-9.0) Urine Specific [place] 1.018 (1.001-1.035) Urine Protein 2+ (Negative) H Urine Ketones Negative (Negative) Urine Blood 2+ /uL (Negative) H Urine Nitrite 1+ (Negative) H Urine Bilirubin Negative (Negative) Urine Urobilinogen Normal mg/dL (Negative) Urine Leukocyte Esterase 3+ /uL (Negative) Urine RBC 86 /hpf (0 - 4) Urine WBC Clumps Present /hpf (None Seen) Urine Microscopic WBC 2211 /HPF (0-5) H Urine Squamous Epithelial Cells Few /hpf (<5) Urine Bacteria Few /hpf (None Seen) H Urine Hyaline Casts Mod /lpf (0 - 2) Urine Yeast (Budding) Moderate /hpf (None Seen) Urine Glucose Normal mg/dL (Normal) Microbiology Microbiology Date/Time Source Procedure Growth Status 10/15/24 12:00 Sacrum Gram Stain - Final Complete 10/15/24 12:00 Sacrum Wound Culture - Final Complete 10/14/24 16:25 Voided Urine Urine Culture - Final Complete 10/14/24 14:30 Blood Blood Culture - Final NO GROWTH AFTER 5 DAYS OF INCUBATION. Complete Labs and/or images reviewed: Labs reviewed by me, Image(s) reviewed by me Assessment/Plan Assessment/Plan Covering for Dr. Davis #1 sepsis with decub ulcer: iv antibiotics #2 multiple myeloma #3 h/o a fib: hold eliquis #4 severe anemia s/p transfusion, iv iron #5 severe protein malnutrition #6 ckd stage 3 b #7 h/o dvt #8 severe pain: extended release morphine Patient was discharged on hospice [facility] working [facility] Patient's daughter is appealing discharge to hospice Plan discussed with: Patient Date of Service: Oct 26, 2024 Billing Provider: GALI ORELLANA MD Common Visit Codes: [id number] INP/OBS CARE(HIGH) GALI ORELLANA MD Oct 26, 2024 10:40
[2024-10-26 13:28] VITALS: BP 125/71; PULSE 89; RESP 18; TEMP 97.9; O2SAT 98
[2024-10-26 16:13] VITALS: BP 119/74; PULSE 91; RESP 18; TEMP 97.4; O2SAT 96
[2024-10-26 21:00] VITALS: BP 120/59; PULSE 86; RESP 20; TEMP 97.7; O2SAT 96
[2024-10-27 01:00] VITALS: BP 99/57; PULSE 82; RESP 18; TEMP 98.2; O2SAT 93
[2024-10-27 05:00] VITALS: BP 9/58; PULSE 83; RESP 18; TEMP 98.1; O2SAT 94
[2024-10-27 08:59] VITALS: BP 102/70; PULSE 89; RESP 18; TEMP 98.2; O2SAT 95
[2024-10-27 09:05] LABS: Hematocrit 24.7 % (36.0-46.0); Hemoglobin 8.2 g/dL (12.2-16.2); Mean Corpuscular Hemoglobin 28.8 pg (28.0-32.0); Mean Corpuscular Hgb Conc. 33.2 g/dL (32.0-36.0); Mean Corpuscular Volume 86.9 fL (80.0-100.0); Platelet Count (auto) 260 10^3/uL (140-450); Red Blood Cells 2.84 10^6/uL (4.0-5.20); Red Cell Distribution Width 16.7 % (11.8-14.3); White Blood Cell 7.4 10^3/uL (4.4-10.8)
[2024-10-27 09:09] LABS: Band Neutrophils % (manual) 0; Basophils % (manual) 0 (0.0-2.0); Blast Cells 0; Metamyelocytes % 0; Myelocytes % 0; Promyelocytes % 0; Reactive Lymphocytes 0
[2024-10-27 09:19] LABS: Albumin 3.6 g/dL (3.2-4.8); Alkaline Phosphatase 80 U/L (46-116); Anion Gap 8 (5-15); BUN/Creatinine Ratio 7.7 (10.0-20.0); Blood Urea Nitrogen 20 mg/dL (9-23); Carbon Dioxide 27 mmol/L (20-31); Chloride 103 mmol/L (98-107); Glucose 86 mg/dL (74-106); Potassium 4.1 mmol/L (3.5-5.1); Sodium 138 mmol/L (136-145)
[2024-10-27 09:49] LABS: Alanine Aminotransferase < 9 U/L (7-40); Aspartate Aminotransferase 9 U/L (13-40); Bilirubin, Total 0.3 mg/dL (0.2-1.0); Calcium 10.6 mg/dL (8.7-10.4); Total Protein 5.5 g/dL (5.7-8.2)
[2024-10-27 10:51] LABS: Eosinophils % (manual) 4 (0-7); Lymphocytes % (manual) 18 (10.0-50.0); Monocytes % (manual) 4 (0-12)
[2024-10-27 10:52] LABS: Platelet Estimate Adequate
--- NOTE | 2024-10-27 11:13 | DVHPN2 ---
Progress Note Date Seen: Oct 27, 2024 Medical Necessity Reason Pt with a Central, PICC or Fol: Yes The following are medically ne: Owen Catheter Reason for owen catheter: Strict I&O Subjective Patient reports: No new complaints Review of Systems: HEENT:Normal, CVS:Normal, RESPIRATORY:Normal, GI:Normal, :Normal, MSK:Normal, NEURO:Normal Objective vital signs Vital Sign Date Time Temp Pulse Resp B/P (MAP) Pulse Ox O2 Delivery O2 Flow Rate FiO2 10/27/24 10:24 94 20 115/75 10/27/24 08:59 98.2 95 98.2 10/26/24 20:00 Room Air* 0 21 Total Intake and Output 10/26/24 10/26/24 10/27/24 15:00 23:00 07:00 Intake Total 100 ml 920 ml 1300 ml Output Total 700 ml 1000 ml Balance 100 ml 220 ml 300 ml medications Current Medications Medications Dose Ordered Sig/Angela Route Start Time Stop Time Status Last Admin Dose Admin Vancomycin HCl 0 ml @ 0 mls/hr UD IV 10/15/24 16:15 Piperacillin Sod/ Tazobactam Sod 100 ml @ 25 mls/hr Q12HR IV 10/15/24 22:00 10/27/24 09:21 25 MLS/HR Hydromorphone HCl 0.5 mg Q4HPRN PRN IV 10/16/24 15:00 10/27/24 10:24 0.5 MG Hydrocortisone Acetate 25 mg Q12HR [place] 10/21/24 22:00 Acetaminophen/ Hydrocodone Bitart 1 tab Q6HP PRN PO 10/23/24 11:30 10/26/24 13:12 1 TAB Morphine Sulfate 15 mg Q12HR PO 10/23/24 22:00 10/27/24 09:21 15 MG Acetaminophen 650 mg Q6HP PRN PO 10/24/24 03:06 10/25/24 17:44 650 MG Examination: GENERAL:Normal, HEENT:Normal, NECK:Normal, LUNGS:Normal, CVS:Normal, ABDOMEN:Normal, MSK:Normal, MSK:Abnormal (DECUB ULCER), SKIN:Normal, NEURO:Normal, :Normal laboratory and microbiology Laboratory Tests 10/27/24 08:44 Test 10/27/24 08:44 Range/Units Serum Glucose 86 74-106 mg/dL Microbiology Date/Time Source Procedure Growth Status 10/15/24 12:00 Sacrum Gram Stain - Final Complete 10/15/24 12:00 Sacrum Wound Culture - Final Complete 10/14/24 16:25 Voided Urine Urine Culture - Final Complete 10/14/24 14:30 Blood Blood Culture - Final NO GROWTH AFTER 5 DAYS OF INCUBATION. 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 Expected Outcomes/Goals: Improved protein nutrition, gain body strength, improved wound healing. Date of Service: Oct 27, 2024 Billing Provider: CAROLE LOMAX MD Common Visit Codes: [id number] INP/OBS CARE(HIGH) CC Plasma Assessment Blood Product Administration S: [id number] CAROLE LOMAX MD Oct 27, 2024 11:13
[2024-10-27] MEDS: hydrOXYzine HCL 10 MG TAB PO PRN (12:04)
[2024-10-27 13:00] VITALS: BP 112/76; PULSE 87; RESP 17; TEMP 97.3; O2SAT 94
[2024-10-27] MEDS: AMPICILLIN & SULBACTAM SODIUM 3 GM in SODIUM CHL 0.9% 100 ML IV SCH (13:21)
[2024-10-27 17:00] VITALS: BP 110/69; PULSE 93; RESP 19; TEMP 98.4; O2SAT 100
[2024-10-28 05:00] VITALS: BP 116/72; PULSE 87; RESP 18; O2SAT 98
[2024-10-28 08:00] VITALS: PULSE 94; RESP 19; O2SAT 96
[2024-10-28 09:00] VITALS: BP 106/72; PULSE 94; RESP 19; TEMP 98; O2SAT 96
[2024-10-28 09:47] LABS: Hemoglobin 8.4 g/dL (12.2-16.2)
[2024-10-28 09:50] LABS: Mean Corpuscular Hemoglobin 28.9 pg (28.0-32.0); Mean Corpuscular Hgb Conc. 33.5 g/dL (32.0-36.0); Mean Corpuscular Volume 86.3 fL (80.0-100.0); Platelet Count (auto) 285 10^3/uL (140-450); Red Cell Distribution Width 17.2 % (11.8-14.3)
[2024-10-28 10:00] LABS: Basophils % (manual) 0 (0.0-2.0); Blast Cells 0; Metamyelocytes % 0; Monocytes % (manual) 0 (0-12); Myelocytes % 0; Promyelocytes % 0; Reactive Lymphocytes 0
--- NOTE | 2024-10-28 10:50 | DVHPN2 ---
Progress Note Date Seen: Oct 28, 2024 Medical Necessity Reason Pt with a Central, PICC or Fol: Yes The following are medically ne: Owen Catheter Reason for owen catheter: Strict I&O Subjective Patient reports: No new complaints Review of Systems: HEENT:Normal, CVS:Normal, RESPIRATORY:Normal, GI:Normal, :Normal, MSK:Normal, NEURO:Normal Objective vital signs Vital Sign Date Time Temp Pulse Resp B/P (MAP) Pulse Ox O2 Delivery O2 Flow Rate FiO2 10/28/24 09:00 98.0 94 19 106/72 (83) 96 98.0 10/27/24 20:00 Room Air* 0 21 Total Intake and Output 10/27/24 10/27/24 10/28/24 15:00 23:00 07:00 Intake Total 100 ml 925 ml 375 ml Output Total 600 ml 550 ml Balance 100 ml 325 ml -175 ml medications Current Medications Medications Dose Ordered Sig/Angela Route Start Time Stop Time Status Last Admin Dose Admin Hydromorphone HCl 0.5 mg Q4HPRN PRN IV 10/16/24 15:00 10/28/24 06:54 0.5 MG Hydrocortisone Acetate 25 mg Q12HR AK 10/21/24 22:00 Acetaminophen/ Hydrocodone Bitart 1 tab Q6HP PRN PO 10/23/24 11:30 10/26/24 13:12 1 TAB Morphine Sulfate 15 mg Q12HR PO 10/23/24 22:00 10/28/24 09:50 15 MG Acetaminophen 650 mg Q6HP PRN PO 10/24/24 03:06 10/25/24 17:44 650 MG Hydroxyzine HCl 20 mg Q6HP PRN PO 10/27/24 11:15 10/28/24 08:53 20 MG Ampicillin Sodium/ Sulbactam Sodium 3 gm/Sodium Chloride 100 ml @ 100 mls/hr Q12HR IV 10/28/24 22:00 Examination: GENERAL:Normal, HEENT:Normal, NECK:Normal, LUNGS:Normal, CVS:Normal, ABDOMEN:Normal, MSK:Normal, MSK:Abnormal (decub ulcer), SKIN:Normal, NEURO:Normal, :Normal laboratory and microbiology Laboratory Tests 10/28/24 09:29 10/27/24 08:44 Test 10/27/24 08:44 Range/Units Serum Glucose 86 74-106 mg/dL Microbiology Date/Time Source Procedure Growth Status 10/15/24 12:00 Sacrum Gram Stain - Final Complete 10/15/24 12:00 Sacrum Wound Culture - Final Complete 10/14/24 16:25 Voided Urine Urine Culture - Final Complete 10/14/24 14:30 Blood Blood Culture - Final NO GROWTH AFTER 5 DAYS OF INCUBATION. Complete Problem List/Assessment/Plan Problem List/Assessment/Plan #1 sepsis with decub ulcer: iv unasyn #2 multiple myeloma #3 h/o a fib: hold eliquis #4 severe anemia s/p transfusion, iv iron #5 severe protein malnutrition #6 ckd stage 3 b #7 h/o dvt #8 severe pain: extended release morphine long dw daughter Gladys- agrees with hospice advance care planning- dnr- time spent 21 mins Plan discussed with: Patient My Orders My Orders Orders - CAROLE LOMAX MD Procedure Category Date Status Time Hydroxyzine Oral PHA 10/27/24 In Process (Vistaril Oral) 11:15 Complete Blood Count LAB 10/28/24 In Process 06:00 Ampicillin & PHA 10/28/24 In Process Sulbactam Sodium 22:00 Manual Differential LAB 10/28/24 In Process 09:29 Dietary Evaluation Review Comments: No Rigo supplements 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 Expected Outcomes/Goals: Improved protein nutrition, gain body strength, improved wound healing. Date of Service: Oct 28, 2024 Billing Provider: CAROLE LOMAX MD Common Visit Codes: [id number] INP/OBS CARE(HIGH) CC Plasma Assessment Blood Product Administration S: [id number] CAROLE LOMAX MD Oct 28, 2024 10:50
[2024-10-28 12:46] LABS: Band Neutrophils % (manual) 1; Eosinophils % (manual) 2 (0-7); Lymphocytes % (manual) 22 (10.0-50.0); Platelet Estimate Adequate
[2024-10-28 13:00] VITALS: BP 104/67; PULSE 101; RESP 19; TEMP 97.6; O2SAT 94
[2024-10-28 17:00] VITALS: BP 111/71; PULSE 95; RESP 18; TEMP 98.2; O2SAT 96
[2024-10-28] MEDS: AMPICILLIN & SULBACTAM SODIUM 3 GM in SODIUM CHL 0.9% 100 ML IV SCH (20:37)
[2024-10-28 21:00] VITALS: BP 119/82; PULSE 98; RESP 20; TEMP 98.4; O2SAT 95
[2024-10-29] VITALS (8 sets, daily range): BP systolic 105–154; BP diastolic 65–83; PULSE 87–98; RESP 14–18; TEMP 97.9–98.7; O2SAT 94–99
--- NOTE | 2024-10-29 10:40 | DVHPN2 ---
Progress Note Date Seen: Oct 29, 2024 Medical Necessity Reason Pt with a Central, PICC or Fol: Yes The following are medically ne: Owen Catheter Reason for owen catheter: Strict I&O Subjective Patient reports: No new complaints Review of Systems: HEENT:Normal, CVS:Normal, RESPIRATORY:Normal, GI:Normal, :Normal, MSK:Normal, NEURO:Normal Objective vital signs Vital Sign Date Time Temp Pulse Resp B/P (MAP) Pulse Ox O2 Delivery O2 Flow Rate FiO2 10/29/24 09:30 93 15 154/82 10/29/24 09:00 97.9 97 97.9 10/29/24 08:00 Room Air* 0 21 Total Intake and Output 10/28/24 10/28/24 10/29/24 15:00 23:00 07:00 Intake Total 100 ml 1200 ml 200 ml Output Total 650 ml 675 ml Balance 100 ml 550 ml -475 ml medications Current Medications Medications Dose Ordered Sig/Angela Route Start Time Stop Time Status Last Admin Dose Admin Hydromorphone HCl 0.5 mg Q4HPRN PRN IV 10/16/24 15:00 10/29/24 09:30 0.5 MG Acetaminophen/ Hydrocodone Bitart 1 tab Q6HP PRN PO 10/23/24 11:30 10/26/24 13:12 1 TAB Morphine Sulfate 15 mg Q12HR PO 10/23/24 22:00 10/28/24 09:50 15 MG Acetaminophen 650 mg Q6HP PRN PO 10/24/24 03:06 10/29/24 01:21 650 MG Hydroxyzine HCl 20 mg Q6HP PRN PO 10/27/24 11:15 10/29/24 10:07 20 MG Ampicillin Sodium/ Sulbactam Sodium 3 gm/Sodium Chloride 100 ml @ 100 mls/hr Q12HR IV 10/28/24 22:00 10/29/24 09:32 100 MLS/HR Examination: GENERAL:Normal, HEENT:Normal, NECK:Normal, LUNGS:Normal, CVS:Normal, ABDOMEN:Normal, MSK:Normal, MSK:Abnormal (decub ulcer), SKIN:Normal, NEURO:Normal, :Normal laboratory and microbiology Laboratory Tests 10/28/24 09:29 10/27/24 08:44 Test 10/27/24 08:44 Range/Units Serum Glucose 86 74-106 mg/dL Microbiology Date/Time Source Procedure Growth Status 10/15/24 12:00 Sacrum Gram Stain - Final Complete 10/15/24 12:00 Sacrum Wound Culture - Final Complete 10/14/24 16:25 Voided Urine Urine Culture - Final Complete 10/14/24 14:30 Blood Blood Culture - Final NO GROWTH AFTER 5 DAYS OF INCUBATION. Complete Problem List/Assessment/Plan Problem List/Assessment/Plan #1 sepsis with decub ulcer: iv unasyn #2 multiple myeloma #3 h/o a fib: hold eliquis #4 severe anemia s/p transfusion, iv iron #5 severe protein malnutrition #6 ckd stage 3 b #7 h/o dvt #8 severe pain: extended release morphine long dw daughter Gladys- agrees with hospice advance care planning- dnr- time spent 21 mins Plan discussed with: Patient My Orders My Orders Orders - CAROLE LOMAX MD Procedure Category Date Status Time Discharge DISCHARGE 10/28/24 Transmitted 10:48 Dietary Evaluation Review Comments: No Rigo supplements 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 Expected Outcomes/Goals: Improved protein nutrition, gain body strength, improved wound healing. Date of Service: Oct 29, 2024 Billing Provider: CAROLE LOMAX MD Common Visit Codes: [id number] INP/OBS CARE(HIGH) CC Plasma Assessment Blood Product Administration S: [id number] CAROLE LOMAX MD Oct 29, 2024 10:40
[2024-10-30] VITALS (8 sets, daily range): BP systolic 103–145; BP diastolic 61–76; PULSE 78–97; RESP 14–18; TEMP 97.5–99.1; O2SAT 89–99
--- NOTE | 2024-10-30 11:10 | DVHPN2 ---
Progress Note Date Seen: Oct 30, 2024 Medical Necessity Reason Pt with a Central, PICC or Fol: Yes The following are medically ne: Owen Catheter Reason for owen catheter: Strict I&O Subjective Patient reports: No new complaints Review of Systems: HEENT:Normal, CVS:Normal, RESPIRATORY:Normal, GI:Normal, :Normal, MSK:Normal, NEURO:Normal Objective vital signs Vital Sign Date Time Temp Pulse Resp B/P (MAP) Pulse Ox O2 Delivery O2 Flow Rate FiO2 10/30/24 09:20 92 16 145/75 10/30/24 09:00 98.1 93 98.1 10/29/24 20:00 Room Air* 0 21 Total Intake and Output 10/29/24 10/29/24 10/30/24 15:00 23:00 07:00 Intake Total 100 ml 700 ml 420 ml Output Total 600 ml 600 ml Balance 100 ml 100 ml -180 ml medications Current Medications Medications Dose Ordered Sig/Angela Route Start Time Stop Time Status Last Admin Dose Admin Hydromorphone HCl 0.5 mg Q4HPRN PRN IV 10/16/24 15:00 10/30/24 09:20 0.5 MG Acetaminophen/ Hydrocodone Bitart 1 tab Q6HP PRN PO 10/23/24 11:30 10/26/24 13:12 1 TAB Acetaminophen 650 mg Q6HP PRN PO 10/24/24 03:06 10/29/24 19:49 650 MG Hydroxyzine HCl 20 mg Q6HP PRN PO 10/27/24 11:15 10/29/24 10:07 20 MG Ampicillin Sodium/ Sulbactam Sodium 3 gm/Sodium Chloride 100 ml @ 100 mls/hr Q12HR IV 10/28/24 22:00 10/30/24 09:23 100 MLS/HR Examination: GENERAL:Normal, HEENT:Normal, NECK:Normal, LUNGS:Normal, CVS:Normal, ABDOMEN:Normal, MSK:Normal, MSK:Abnormal (DECUB ULCER), SKIN:Normal, NEURO:Normal, :Normal laboratory and microbiology Laboratory Tests 10/28/24 09:29 10/27/24 08:44 Test 10/27/24 08:44 Range/Units Serum Glucose 86 74-106 mg/dL Microbiology Date/Time Source Procedure Growth Status 10/15/24 12:00 Sacrum Gram Stain - Final Complete 10/15/24 12:00 Sacrum Wound Culture - Final Complete 10/14/24 16:25 Voided Urine Urine Culture - Final Complete 10/14/24 14:30 Blood Blood Culture - Final NO GROWTH AFTER 5 DAYS OF INCUBATION. Complete Problem List/Assessment/Plan Problem List/Assessment/Plan #1 sepsis with decub ulcer: iv unasyn #2 multiple myeloma #3 h/o a fib: hold eliquis #4 severe anemia s/p transfusion, iv iron #5 severe protein malnutrition #6 ckd stage 3 b #7 h/o dvt #8 severe pain: dc morphine long dw daughter Gladys- agrees with hospice advance care planning- dnr- time spent 21 mins Plan discussed with: Patient, Daughter My Orders My Orders Orders - CAROLE LOMAX MD Procedure Category Date Status Time Complete Blood Count LAB 10/30/24 Logged 11:00 Comprehensive LAB 10/30/24 Logged Metabolic Panel 11:00 Dietary Evaluation Review Comments: No Rigo supplements 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 Expected Outcomes/Goals: Improved protein nutrition, gain body strength, improved wound healing. Date of Service: Oct 30, 2024 Billing Provider: CAROLE LOMAX MD Common Visit Codes: [id number] INP/OBS CARE(HIGH) CC Plasma Assessment Blood Product Administration S: [id number] CAROLE LOMAX MD Oct 30, 2024 11:10
[2024-10-30 14:43] LABS: Basophils # (auto) 0.1 10 ^3/uL (0-0.2); Basophils % (auto) 1.3 % (0.0-2.0); Eosinophils # (auto) 0.1 10 ^3/uL (0-0.8); Eosinophils % (auto) 0.9 % (0.0-7.0); Hematocrit 21.7 % (36.0-46.0); Hemoglobin 7.2 g/dL (12.2-16.2); Lymphocytes # (auto) 1.2 10 ^3/uL (0.4-5.4); Lymphocytes % (auto) 12.6 % (10.0-50.0); Mean Corpuscular Hemoglobin 28.6 pg (28.0-32.0); Mean Corpuscular Hgb Conc. 33.2 g/dL (32.0-36.0); Mean Corpuscular Volume 86.2 fL (80.0-100.0); Monocytes % (auto) 10.6 % (0.0-12.0); Neutrophils # (auto) 7.3 10 ^3/uL (1.6-8.6); Neutrophils % (auto) 74.6 % (37.0-80.0); Platelet Count (auto) 317 10^3/uL (140-450); Red Blood Cells 2.52 10^6/uL (4.0-5.20); Red Cell Distribution Width 16.7 % (11.8-14.3); White Blood Cell 9.8 10^3/uL (4.4-10.8)
[2024-10-30 14:53] LABS: Basophils % (manual) 0 (0.0-2.0); Blast Cells 0; Myelocytes % 0; Promyelocytes % 0; Reactive Lymphocytes 0
[2024-10-30 15:02] LABS: Albumin 3.5 g/dL (3.2-4.8); Alkaline Phosphatase 71 U/L (46-116); Anion Gap 11 (5-15); BUN/Creatinine Ratio 7.9 (10.0-20.0); Blood Urea Nitrogen 22 mg/dL (9-23); Carbon Dioxide 28 mmol/L (20-31); Glucose 97 mg/dL (74-106); Potassium 4.1 mmol/L (3.5-5.1); Sodium 137 mmol/L (136-145)
[2024-10-30 15:06] LABS: Alanine Aminotransferase < 9 U/L (7-40); Aspartate Aminotransferase 10 U/L (13-40); Bilirubin, Total 0.3 mg/dL (0.2-1.0); Calcium 10.8 mg/dL (8.7-10.4); Chloride 98 mmol/L (98-107); Total Protein 5.4 g/dL (5.7-8.2)
[2024-10-30 16:55] LABS: Band Neutrophils % (manual) 4
[2024-10-30 16:56] LABS: Eosinophils % (manual) 1 (0-7); Lymphocytes % (manual) 15 (10.0-50.0); Metamyelocytes % 1; Monocytes % (manual) 6 (0-12)
[2024-10-30 16:57] LABS: Platelet Estimate Adequate
[2024-10-31] MEDS: HYDROmorphone HCL 2 MG/ML VL/or syr IV PRN (03:34)
[2024-10-31 05:00] VITALS: BP 118/77; PULSE 91; RESP 18; TEMP 98; O2SAT 95
[2024-10-31 08:00] VITALS: PULSE 94; RESP 20; O2SAT 97
[2024-10-31 09:00] VITALS: BP 106/67; PULSE 94; RESP 20; TEMP 98; O2SAT 97
[2024-10-31 13:00] VITALS: BP 117/66; PULSE 82; RESP 20; TEMP 98.1; O2SAT 97
--- NOTE | 2024-10-31 15:41 | DVHDS2 ---
Discharge Summary Date of Admission Oct 14, 2024 at 21:55 Date of Discharge: Oct 27, 2024 Labs/Diagnostic Data: Laboratory Results Test 10/30/24 14:25 10/27/24 08:44 10/22/24 06:17 10/20/24 06:41 White Blood Count 9.8 10^3/uL (4.4-10.8) Red Blood Count 2.52 10^6/uL (4.0-5.20) Hemoglobin 7.2 g/dL (12.2-16.2) Hematocrit 21.7 % (36.0-46.0) Mean Corpuscular Volume 86.2 fL (80.0-100.0) Mean Corpuscular Hemoglobin 28.6 pg (28.0-32.0) Mean Corpuscular Hemoglobin Concent 33.2 g/dL (32.0-36.0) Red Cell Distribution Width 16.7 % (11.8-14.3) Platelet Count 317 10^3/uL (140-450) Mean Platelet Volume 6.5 fL (6.9-10.8) Neutrophils (%) (Auto) 74.6 % (37.0-80.0) Lymphocytes (%) (Auto) 12.6 % (10.0-50.0) Monocytes (%) (Auto) 10.6 % (0.0-12.0) Eosinophils (%) (Auto) 0.9 % (0.0-7.0) Basophils (%) (Auto) 1.3 % (0.0-2.0) Neutrophils # (Auto) 7.3 10 ^3/uL (1.6-8.6) Lymphocytes # (Auto) 1.2 10 ^3/uL (0.4-5.4) Monocytes # (Auto) 1.0 10 ^3/uL (0-1.3) Eosinophils # (Auto) 0.1 10 ^3/uL (0-0.8) Basophils # (Auto) 0.1 10 ^3/uL (0-0.2) Differential Total Cells Counted 100.0 (100) Neutrophils % (Manual) 73 (37.0-80.0) Band Neutrophils % (Manual) 4 Lymphocytes % (Manual) 15 (10.0-50.0) Monocytes % (Manual) 6 (0-12) Eosinophils % (Manual) 1 (0-7) Basophils % (Manual) 0 (0.0-2.0) Metamyelocytes % (manual) 1 Myelocytes % (Manual) 0 Promyelocytes % (Manual) 0 Blast Cells % (Manual) 0 Nucleated Red Blood Cells 0.0 % Reactive Lymphocytes 0 Platelet Estimate Adequate Sodium Level 137 mmol/L (136-145) Potassium Level 4.1 mmol/L (3.5-5.1) Chloride Level 98 mmol/L (98-107) Carbon Dioxide Level 28 mmol/L (20-31) Anion Gap 11 (5-15) Blood Urea Nitrogen 22 mg/dL (9-23) Creatinine 2.78 mg/dL (0.550-1.02) Glomerular Filtration Rate Calc 19 mL/min (>90) BUN/Creatinine Ratio 7.9 (10.0-20.0) Serum Glucose 97 mg/dL (74-106) Calcium Level 10.8 mg/dL (8.7-10.4) Total Bilirubin 0.3 mg/dL (0.2-1.0) Aspartate Amino Transferase (AST) 10 U/L (13-40) Alanine Aminotransferase (ALT) < 9 U/L (7-40) Alkaline Phosphatase 71 U/L (46-116) Total Protein 5.4 g/dL (5.7-8.2) Albumin 3.5 g/dL (3.2-4.8) Random Vancomycin Level 11.5 ug/mL (5-10) Smudge Cells 5 /100 WBC Anisocytosis (manual) Slight Test 10/16/24 07:13 10/15/24 03:30 10/14/24 16:25 10/14/24 14:30 Prothrombin Time 10.1 sec (9.3-11.8) Prothrombin Time INR 0.95 (0.9-1.15) Activated Partial Thromboplast Time 23.0 SEC (24.5-34.5) Lactic Acid Level 0.8 mmol/L (0.4-2.0) Urine Color Light-brown (Yellow) Urine Clarity Ex.turbid (Clear) Urine pH 6.5 (5.0-9.0) Urine Specific Edgar 1.018 (1.001-1.035) Urine Protein 2+ (Negative) Urine Ketones Negative (Negative) Urine Blood 2+ /uL (Negative) Urine Nitrite 1+ (Negative) Urine Bilirubin Negative (Negative) Urine Urobilinogen Normal mg/dL (Negative) Urine Leukocyte Esterase 3+ /uL (Negative) Urine RBC 86 /hpf (0 - 4) Urine WBC Clumps Present /hpf (None Seen) Urine Microscopic WBC 2211 /HPF (0-5) Urine Squamous Epithelial Cells Few /hpf (<5) Urine Bacteria Few /hpf (None Seen) Urine Hyaline Casts Mod /lpf (0 - 2) Urine Yeast (Budding) Moderate /hpf (None Seen) Urine Glucose Normal mg/dL (Normal) Poikilocytosis (manual) Slight Direct Bilirubin < 0.1 mg/dL (<0.3) Other Laboratory Tests 10/30/24 14:25 Brief Hx & Hospital Course: HISTORY OF PRESENT ILLNESS: The patient is a 64-year-old lady who was admitted because of generalized body pain, weakness and constipation and has history of atrial fibrillation, DVT, multiple myeloma, severe anemia and decubitus ulcer. HOSPITAL COURSE: The patient was noted to be septic with elevated white count of 21,000. The patient was anemic and was transfused 1 unit of blood. The patient was also noted to be in kidney failure. The patient had wound cultures that grew coag-negative staph. The patient was placed on antibiotics to include vancomycin and Zosyn. The patient's white count has since improved. After talking to patient and family, they wished her to be on hospice. The patient will be discharged in hospice once arrangements have been made. Condition at Discharge: Good Final Diagnosis/Problems List multiple myeloma Discharge Disposition: Hospice- Medical Facility Discharge Instruct/Medications Diet: Regular Activity: No Restrictions, As Tolerated Follow Up/Referral: fu with hospice Medications: per hospice leave owen in Discharge Statement: "Patient was advised to return to the ER or call 911 if any headaches, dizziness, shortness of breath, chest pain, abdominal pain, bleeding, fevers, or worsening of medical condition. Patient was counseled about treatment plan, medications, possible side effects, patientverbalized understanding. All questions were answered to the best of my ability. This discharge took greater then 30 minutes in planning, reviewing documentation, counseling the patient, and discussing with other team members." ASSESSMENT ASSESSMENT Assessment multiple myeloma Date of Service: Oct 31, 2024 Billing Provider: DAVIAN MENDIETA MD Common Visit Codes: [id number] DISCH DAY >30min DAVIAN MENDIETA MD Oct 31, 2024 15:41
[2024-10-31 17:04] VITALS: BP 118/69; PULSE 84; RESP 20; TEMP 98.1; O2SAT 97
[2024-10-31 19:40] VITALS: BP 107/69; PULSE 91; RESP 18; TEMP 98.4; O2SAT 97
== END 2024-10-31 20:19 | disposition hospice, inpatient (51) | DRG 871 ==
LOC: ER 13:39 → EDBD 13:39 → EDUNIT# 13:39 → OVERFLOW 21:55 → EAST 10-15 18:55
PROVIDERS: ADMIT Family Medicine; ATTEND Hospitalist
PROC: 30233N1 Transfusion of Nonautologous Red Blood Cells into Peripheral Vein, Percutaneous Approach (ICD-10-PCS; principal; 2024-10-15)
DX: A41.1 Sepsis due to other specified staphylococcus (principal); E43 Unspecified severe protein-calorie malnutrition; L89.154 Pressure ulcer of sacral region, stage 4; N39.0 Urinary tract infection, site not specified; R64 Cachexia; C90.00 Multiple myeloma not having achieved remission; N17.9 Acute kidney failure, unspecified; E83.52 Hypercalcemia; D64.9 Anemia, unspecified; I12.9 Hypertensive chronic kidney disease with stage 1 through stage 4 chronic kidney disease, or unspecified chronic kidney disease; N18.32 Chronic kidney disease, stage 3b; I48.91 Unspecified atrial fibrillation; K59.00 Constipation, unspecified; Z68.21 Body mass index [BMI] 21.0-21.9, adult; Z74.01 Bed confinement status; Z86.718 Personal history of other venous thrombosis and embolism; Z51.5 Encounter for palliative care; Z82.49 Family history of ischemic heart disease and other diseases of the circulatory system
CPT/HCPCS: 36415; 71045; 80048; 80053; 80076; 80202; 81001; 82565; 83605; 85007; 85014; 85018; 85025; 85027; 85610; 85730; 86850; 86900; 86901; 86920; 87040; 87081; 87086; 87205; 93005; 96365; 96366; 96375; 96376; G0378; J1756; J2405; J2543

== ENCOUNTER 2024-11-12 22:43 | Inpatient (IN) | payer BC ==
[~2024-11-12] VITALS: Ht 170.2 cm; Wt 50.0 kg
[~2024-11-12 22:43] MED LIST changes: -ALLO100T PO; -AMLO1TAB22 PO; -BUME2TAB5 PO; -DOCU-265 PO; -FERR-7 PO; -FURO80TA3 PO; -LIDO1PAD55 TOP; -MORP1TAB12 PO; -OXYC325T14 PO
[2024-11-13] VITALS (7 sets, daily range): BP systolic 102–126; BP diastolic 67–83; PULSE 74–94; RESP 10–17; TEMP 97.6–98.6; O2SAT 96–99
[2024-11-13 02:27] LABS: Urine Bacteria FEW /hpf (None Seen); Urine Blood 1+ /uL (Negative); Urine Budding Yeast MANY /hpf (None Seen); Urine Clarity Turbid (Clear); Urine Color Colorless (Yellow); Urine Protein, UAD 2+ (Negative); Urine Specific Gravity 1.014 (1.001-1.035); Urine Squamous Epithelial Cell None Seen /hpf (<5); Urine Urobilinogen Normal (Negative); Urine WBC 106 /HPF (0-5); Urine pH 5.5 (5.0-9.0)
[2024-11-13] MEDS: MORPHINE SULFATE INJ 2 MG/ml SYRG IV PRN (02:39)
[2024-11-13 02:40] LABS: Hemoglobin 7.9 g/dL (12.2-16.2)
[2024-11-13 02:42] LABS: Hematocrit 25.3 % (36.0-46.0); Mean Corpuscular Hgb Conc. 31.3 g/dL (32.0-36.0); Mean Corpuscular Volume 89.5 fL (80.0-100.0); Platelet Count (auto) 348 10^3/uL (140-450); Red Blood Cells 2.82 10^6/uL (4.0-5.20); Red Cell Distribution Width 16.6 % (11.8-14.3); White Blood Cell 15.2 10^3/uL (4.4-10.8)
[2024-11-13 03:00] LABS: Albumin 3.3 g/dL (3.2-4.8); Alkaline Phosphatase 54 U/L (46-116); Anion Gap 13 (5-15); BUN/Creatinine Ratio 18.9 (10.0-20.0); Carbon Dioxide 21 mmol/L (20-31); Glucose 92 mg/dL (74-106)
[2024-11-13] MEDS ORDERED: HYDR-4902 PO (03:00)
[2024-11-13] MEDS ORDERED: SENN-58 PO (03:00)
[2024-11-13] MEDS ORDERED: ZOFR4T PO (03:00)
[2024-11-13] MEDS ORDERED: DIPH50TA9 PO (03:00)
[2024-11-13] MEDS ORDERED: ACET-1304 PO (03:00)
[2024-11-13 03:13] LABS: Alanine Aminotransferase < 9 U/L (7-40); Aspartate Aminotransferase 9 U/L (13-40); Bilirubin, Total 0.2 mg/dL (0.2-1.0); Blood Urea Nitrogen 57 mg/dL (9-23); Chloride 120 mmol/L (98-107); Potassium 3.2 mmol/L (3.5-5.1); Sodium 154 mmol/L (136-145); Total Protein 4.8 g/dL (5.7-8.2)
[2024-11-13 03:27] LABS: Basophils % (manual) 0 (0.0-2.0); Blast Cells 0; Eosinophils % (manual) 0 (0-7); Metamyelocytes % 0; Monocytes % (manual) 0 (0-12); Myelocytes % 0; Promyelocytes % 0; Reactive Lymphocytes 0
[2024-11-13] MEDS: ACETAMINOPHEN 325 MG TAB PO PRN (03:52)
--- NOTE | 2024-11-13 04:08 | DVHHP2 ---
History of Present Illness Reason for Visit: Generalized weakness History of Present Illness 64-year-old female transferred from [facility] for continuity of care and disposition. Patient presented to outside facility three days ago with generalized weakness. Patient was previously on hospice due to multiple myeloma. Patient was noted to be in acute on chronic renal failure with electrolyte imbalance. She was also noted to have a urinary tract infection. Patient transferred in stable condition. Patient currently denies chest pain or shortness for breath. Denies abdominal pain, nausea or vomiting. Past Medical History Multiple myeloma, chronic kidney disease, hypertension and atrial fibrillation Past Surgical History None Family History Noncontributory Smoke: No ALCOHOL: none Drugs: None Lives: Long-Term Review of Systems Review of Systems Review of systems are negative otherwise addressed in HPI. Allergies: Coded Allergies: NO KNOWN ALLERGIES (Unverified , 02/02/24) Medications Current Medications Medications Dose Ordered Sig/Angela Route Start Time Stop Time Status Last Admin Dose Admin Apixaban 2.5 mg BID PO 11/13/24 10:00 Acetaminophen/ Hydrocodone Bitart 1 tab Q4HP PRN PO 11/13/24 02:00 Ondansetron HCl 4 mg Q4HP PRN IV 11/13/24 02:00 Acetaminophen 650 mg Q6HP PRN PO 11/13/24 02:00 11/13/24 03:52 650 MG Morphine Sulfate 2 mg Q4HPRN PRN IV 11/13/24 02:00 11/13/24 02:39 2 MG Ferrous Sulfate 325 mg BIDWM PO 11/13/24 08:00 UNV Ceftriaxone Sodium 50 ml @ 100 mls/hr DAILY@09 IV 11/13/24 09:00 UNV Exam Vital Signs Vital Signs Date Time Temp Pulse Resp B/P (MAP) Pulse Ox O2 Delivery O2 Flow Rate FiO2 11/13/24 03:52 97.6 11/13/24 02:39 94 15 111/78 11/13/24 01:04 98 Room Air* 0 21 Exam Gen: 64-year-old female in mild distress, cachectic Skin: Warm, dry, pale, stage IV coccyx ulcer HEENT: Normocephalic atraumatic, mucous membranes moist and pink. Neck: Cervical and supraclavicular nodes normal without enlargement, trachea is midline, thyroid gland is normal without masses. Pulmonary: Clear to auscultation and percussion bilaterally. Cardiac: Regular rate and rhythm. No murmur Abdomen: Soft, nontender, nondistended, bowel sounds present all 4 quadrants, no guarding, no rigidity, no organomegaly. Extremities: No cyanosis, clubbing, unstageable left heel pressure ulcer, Neuro: Cranial nerves II through XII grossly intact, normal affect and speech, no focal motor deficits. Labs/Xrays Labs Test 11/13/24 02:18 11/13/24 02:10 Range/Units White Blood Count 15.2 H 4.4-10.8 10^3/uL Red Blood Count 2.82 L 4.0-5.20 10^6/uL Hemoglobin 7.9 L 12.2-16.2 g/dL Hematocrit 25.3 L 36.0-46.0 % Mean Corpuscular Volume 89.5 80.0-100.0 fL Mean Corpuscular Hemoglobin 28.0 28.0-32.0 pg Mean Corpuscular Hemoglobin Concent 31.3 L 32.0-36.0 g/dL Red Cell Distribution Width 16.6 H 11.8-14.3 % Platelet Count 348 140-450 10^3/uL Mean Platelet Volume 6.5 L 6.9-10.8 fL Neutrophils (%) (Auto) 37.0-80.0 % Lymphocytes (%) (Auto) 10.0-50.0 % Monocytes (%) (Auto) 0.0-12.0 % Basophils (%) (Auto) 0.0-2.0 % Neutrophils # (Auto) 1.6-8.6 10 ^3/uL Lymphocytes # (Auto) 0.4-5.4 10 ^3/uL Monocytes # (Auto) 0-1.3 10 ^3/uL Sodium Level 154 H 136-145 mmol/L Potassium Level 3.2 L 3.5-5.1 mmol/L Chloride Level 120 H 98-107 mmol/L Carbon Dioxide Level 21 20-31 mmol/L Anion Gap 13 5-15 Blood Urea Nitrogen 57 H 9-23 mg/dL Creatinine 3.02 H 0.550-1.02 mg/dL Glomerular Filtration Rate Calc 17 >90 mL/min BUN/Creatinine Ratio 18.9 10.0-20.0 Serum Glucose 92 74-106 mg/dL Calcium Level 11.0 H 8.7-10.4 mg/dL Total Bilirubin 0.2 0.2-1.0 mg/dL Aspartate Amino Transferase (AST) 9 L 13-40 U/L Alanine Aminotransferase (ALT) < 9 7-40 U/L Alkaline Phosphatase 54 46-116 U/L Total Protein 4.8 L 5.7-8.2 g/dL Albumin 3.3 3.2-4.8 g/dL Urine Color Colorless Yellow Urine Clarity Turbid H Clear Urine pH 5.5 5.0-9.0 Urine Specific Chromo 1.014 1.001-1.035 Urine Protein 2+ H Negative Urine Ketones Negative Negative Urine Blood 1+ H Negative /uL Urine Nitrite Negative Negative Urine Bilirubin Negative Negative Urine Urobilinogen Normal Negative mg/dL Urine Leukocyte Esterase 3+ Negative /uL Urine RBC 23 0 - 4 /hpf Urine Microscopic WBC 106 H 0-5 /HPF Urine Squamous Epithelial Cells None seen <5 /hpf Urine Calcium Oxalate Crystals Few None Seen Urine Bacteria Few H None Seen /hpf Urine Yeast (Budding) Many None Seen /hpf Urine Glucose Normal Normal mg/dL Assessment/Plan Assessment/Plan Assessment Failure to thrive Multiple myeloma Acute on chronic renal failure Multiple pressure ulcers Electrolyte imbalance Microcytic anemia Urinary tract infection Cachexia Leukocytosis Hypercalcemia of malignancy Plan Admit the patient to [facility] to the hospitalist Nephrology consultation Nutrition consult Hematology/oncology consultation Maintenance IV fluids Resume home medications Rocephin Plan discussed with: Patient My Orders Orders - CAROLE FINLEY AGACN Procedure Category Date Status Time Mrsa Screen GONZALEZ 11/13/24 In Process 01:56 Complete Blood Count LAB 11/13/24 In Process 01:52 Chest Xray 1 View XY 11/13/24 Logged 01:52 Apixaban (Eliquis) PHA 11/13/24 In Process 10:00 Admit ADMIT 11/13/24 Transmitted 01:52 Hydrocodone-Acet PHA 11/13/24 In Process 5/325mg Tab ([place] 02:00 Ondansetron Hcl PHA 11/13/24 In Process (Zofran) 02:00 Condition: Stable MARIAELENA 11/13/24 In Process 01:52 Acetaminophen Tablet PHA 11/13/24 In Process (Tylenol Tablet) 02:00 Bedside Commode MARIAELENA 11/13/24 In Process 01:52 Maintain Bed Rest MARIAELENA 11/13/24 In Process 01:52 Morphine Sulfate PHA 11/13/24 In Process Injection 02:00 * Wound Consult CONS 11/13/24 Transmitted * Kitchen Stewardess CONS 11/13/24 Transmitted Consult * Dietary Consult CONS 11/13/24 Transmitted 02:50 Manual Differential LAB 11/13/24 In Process 02:18 *Dr. [facility] CONS 11/13/24 Transmitted -[place] 03:52 Consult For Nutrition NOURISH 11/13/24 Transmitted 03:52 Sodium LAB 11/13/24 Logged 06:00 Sodium LAB 11/13/24 Logged 12:00 Sodium LAB 11/13/24 Logged 18:00 Ferrous Sulfate Tablet PHA 11/13/24 Logged 08:00 Ceftriaxone 1gm/50ml PHA 11/13/24 Logged D5w (Rocephin) 09:00 Cardiac DIET 11/13/24 Transmitted Diet-2gna,Lofat,Lochol Breakfast Date of Service: Nov 13, 2024 Billing Provider: CAROLE FINLEY Common Visit Codes: [id number] INP/OBS CARE (MOD) CAROLE FINLEY Nov 13, 2024 04:08
[2024-11-13] MEDS: D5W/SOD CHL 0.45% 1,000 ML IV SCH (05:01)
[2024-11-13 05:15] LABS: Band Neutrophils % (manual) 4; Lymphocytes % (manual) 24 (10.0-50.0); Platelet Estimate Adequate
--- NOTE | 2024-11-13 05:54 | DVH ---
EXAM: XR Chest, 1 View CLINICAL INDICATION: sob TECHNIQUE: Frontal view of the chest. COMPARISON: XY CHEST PORTABLE on DOS: 10/15/24, XY CHEST XRAY 1 VIEW on DOS: 08/12/24, XY CHEST PORT ABLE on DOS: 08/10/24 FINDINGS: LUNGS AND PLEURAL SPACES: Unremarkable. No consolidation. No pneumothorax. HEART: Unremarkable. No cardiomegaly. MEDIASTINUM: Unremarkable. Normal mediastinal contour. BONES/JOINTS: Unremarkable. No acute fracture. OTHER FINDINGS: . None. ... IMPRESSION: No acute cardiopulmonary process.
[2024-11-13] MEDS: HYDROcodone-ACET 5/325MG TAB PO PRN (09:07)
[2024-11-13] MEDS: cefTRIAXone 1GM/50ML D5W 50 ML IV SCH (09:07)
[2024-11-13] MEDS: FERROUS SULFATE 325mg EC TAB PO SCH (09:07)
[2024-11-13] MEDS: APIXABAN 2.5 MG TAB PO SCH (09:07)
--- NOTE | 2024-11-13 10:44 | DVHPN2 ---
Progress Note Date Seen: Nov 13, 2024 Medical Necessity Reason Pt with a Central, PICC or Fol: Yes The following are medically ne: Owen Catheter Reason for owen catheter: Strict I&O Subjective Patient reports: No new complaints Review of Systems: HEENT:Normal, CVS:Normal, RESPIRATORY:Normal, GI:Normal, :Normal, MSK:Normal, NEURO:Normal Objective vital signs Vital Sign Date Time Temp Pulse Resp B/P (MAP) Pulse Ox O2 Delivery O2 Flow Rate FiO2 11/13/24 09:00 97.6 74 16 108/70 (83) 99 97.6 11/13/24 01:04 Room Air* 0 21 Total Intake and Output 11/12/24 11/12/24 11/13/24 15:00 23:00 07:00 Intake Total 200 ml Output Total 200 ml Balance 0 ml medications Current Medications Medications Dose Ordered Sig/Angela Route Start Time Stop Time Status Last Admin Dose Admin Apixaban 2.5 mg BID PO 11/13/24 10:00 11/13/24 09:07 2.5 MG Acetaminophen/ Hydrocodone Bitart 1 tab Q4HP PRN PO 11/13/24 02:00 11/13/24 09:07 1 TAB Ondansetron HCl 4 mg Q4HP PRN IV 11/13/24 02:00 Acetaminophen 650 mg Q6HP PRN PO 11/13/24 02:00 11/13/24 03:52 650 MG Morphine Sulfate 2 mg Q4HPRN PRN IV 11/13/24 02:00 11/13/24 02:39 2 MG Ferrous Sulfate 325 mg BIDWM PO 11/13/24 08:00 11/13/24 09:07 325 MG Ceftriaxone Sodium 50 ml @ 100 mls/hr DAILY@09 IV 11/13/24 09:00 11/13/24 09:07 100 MLS/HR Dextrose/Sodium Chloride 1,000 ml @ 80 mls/hr [id number] IV 11/13/24 04:15 11/13/24 05:01 80 MLS/HR Examination: GENERAL:Normal, HEENT:Normal, NECK:Normal, LUNGS:Normal, CVS:Normal, ABDOMEN:Normal, MSK:Normal, MSK:Abnormal (decub ulcer), SKIN:Normal, NEURO:Normal, :Normal laboratory and microbiology Laboratory Tests 11/13/24 06:04 11/13/24 02:18 Test 11/13/24 02:18 Range/Units Serum Glucose 92 74-106 mg/dL Problem List/Assessment/Plan Problem List/Assessment/Plan * Sepsis with uti: iv rocephin * Multiple myeloma. * History of atrial fibrillation. * anemia * Severe protein malnutrition. * Chronic kidney disease stage IIIB. * History of deep venous thrombosis: on eliquis * hypernatremia: d5w * decub ulcer poor prognosis advance care planning- was dnr -will reclarify- time spent 19mins Plan discussed with: Patient My Orders My Orders Orders - CAROLE LOMAX MD Procedure Category Date Status Time D5w 5% PHA 11/13/24 Transmitted 10:45 Urine Bacterial GONZALEZ 11/13/24 Transmitted Culture 10:37 * Roofer [employer] CONS 11/13/24 Transmitted Consult Basic Metabolic Panel LAB 11/14/24 Verified 06:00 Complete Blood Count LAB 11/14/24 Verified 06:00 Date of Service: Nov 13, 2024 Billing Provider: CAROLE LOMAX MD Common Visit Codes: [id number] INP/OBS CARE(HIGH) Secondary Visit Codes: [id number] CARE PLAN 30 MINUTES CAROLE LOMAX MD Nov 13, 2024 10:44
[2024-11-13] MEDS: D5W 5% 1,000 ML IV SCH (13:23)
--- NOTE | 2024-11-13 17:12 | DVHINCON2 ---
Date of service: Nov 13, 2024 Reason for Consultation IVETH History of Present Illness 64 years old female with past medical history of Chronic kidney disease four, hypertension, multiple myeloma, DVT, osteoarthritis, anemia, recently on hospice presented with chief complaints of placement issues she tells me she has no where to go that is why she came to hospital, she looks cachectic she said she did not start any treatment for multiple myeloma Past Medical History As documented in HPI Allergies: Coded Allergies: NO KNOWN ALLERGIES (Unverified , 02/02/24) Home Meds Active Scripts Apixaban Base (ELIQUIS) 2.5 Mg Tab, 2.5 MG PO BID for 180 Days, #180 TAB Prov:KIM MATHEWS RESIDENT 06/25/24 Reported Medications Ondansetron Odt 4MG Tab (ZOFRAN PO) 4 Mg Tb, 4 MG PO for nausea, TAB ODT TAB-DISSOLVE IN MOUTH, THEN SWALLOW 11/13/24 Hydrocodone-Acetaminophen (Hydrocodone Bitartrate/AC 5-325 mg) 1 Tab Tab, 1 TAB PO QID, TAB 11/13/24 Diphenhydramine Hcl (Diphenhydramine Hcl) 50 Mg Tab, 1 TAB PO QPM, #30 TAB 11/13/24 Acetaminophen (Tylenol Extra Strength Fo) 500 Mg Tab, 500 MG PO, TAB 11/13/24 Senna (Senokot) 8.6 Mg Tab, 1 TAB PO BID, #40 TAB 11/13/24 Current Medications Current Medications Medications (Trade) Dose Ordered Sig/Angela Route PRN Reason Start Time Stop Time Status Last Admin Apixaban (Eliquis) 2.5 mg BID PO 11/13/24 10:00 11/13/24 09:07 Acetaminophen/ Hydrocodone Bitart ([place] 5/325MG Tab) 1 tab Q4HP PRN PO MODERATE PAIN (4-6 PAIN SCALE) 11/13/24 02:00 11/13/24 09:07 Ondansetron HCl (Zofran) 4 mg Q4HP PRN IV NAUSEA / VOMITING 11/13/24 02:00 Acetaminophen (Tylenol Tablet) 650 mg Q6HP PRN PO PAIN SCALE 1-3 OR TEMP>100.4 11/13/24 02:00 11/13/24 03:52 Morphine Sulfate 2 mg Q4HPRN PRN IV SEVERE PAIN (7-10 PAIN SCALE) 11/13/24 02:00 11/13/24 13:36 Ferrous Sulfate 325 mg BIDWM PO 11/13/24 08:00 11/13/24 17:09 Ceftriaxone Sodium 50 ml @ 100 mls/hr DAILY@09 IV 11/13/24 09:00 11/13/24 09:07 Dextrose/Sodium Chloride 1,000 ml @ 80 mls/hr [id number] IV 11/13/24 04:15 11/13/24 10:41 DC 11/13/24 05:01 Dextrose 1,000 ml @ 75 mls/hr [id number] IV 11/13/24 10:45 11/13/24 13:23 Family History: Arthritis G8 MOTHER, Onset:Unknown FH: heart attack G8 MOTHER, Onset:60 years & older G8 FATHER, Onset:60 years & older Review of Systems As documented in HPI H&P Exam Vital Signs/I&O Vital Sign Date Time Temp Pulse Resp B/P (MAP) Pulse Ox O2 Delivery O2 Flow Rate FiO2 11/13/24 13:36 86 16 111/65 11/13/24 09:00 97.6 99 97.6 11/13/24 08:00 Room Air* 0 21 Intake and Output 11/12/24 11/13/24 19:00 07:00 Intake Total 200 ml Output Total 200 ml Balance 0 ml Intake Oral 200 ml Output Urine Total 200 ml Stool Total 0 ml Physical Exam General-not in any distress,, appears emaciated and cachectic HEENT-normocephalic, no icterus, positive pallor, neck supple Respiratory-fair air entry bilateral, [id number] heard, no murmurs appreciated Abdominal-soft, nontender, nondistended Musculoskeletal-no pedal edema, no calf tenderness Genitourinary-deferred Neuro-awake alert oriented x3, Psychiatric-not agitated, cooperative, Labs/Diagnostic Data Labs/Diagnostic Data Laboratory Tests Test 11/13/24 11:58 11/13/24 06:04 11/13/24 02:18 11/13/24 02:10 Range/Units Sodium Level 153 H 155 H 154 H 136-145 mmol/L White Blood Count 15.2 H 4.4-10.8 10^3/uL Red Blood Count 2.82 L 4.0-5.20 10^6/uL Hemoglobin 7.9 L 12.2-16.2 g/dL Hematocrit 25.3 L 36.0-46.0 % Mean Corpuscular Volume 89.5 80.0-100.0 fL Mean Corpuscular Hemoglobin 28.0 28.0-32.0 pg Mean Corpuscular Hemoglobin Concent 31.3 L 32.0-36.0 g/dL Red Cell Distribution Width 16.6 H 11.8-14.3 % Platelet Count 348 140-450 10^3/uL Mean Platelet Volume 6.5 L 6.9-10.8 fL Neutrophils (%) (Auto) 37.0-80.0 % Lymphocytes (%) (Auto) 10.0-50.0 % Monocytes (%) (Auto) 0.0-12.0 % Basophils (%) (Auto) 0.0-2.0 % Neutrophils # (Auto) 1.6-8.6 10 ^3/uL Lymphocytes # (Auto) 0.4-5.4 10 ^3/uL Monocytes # (Auto) 0-1.3 10 ^3/uL Differential Total Cells Counted 100.0 100 Neutrophils % (Manual) 72 37.0-80.0 Band Neutrophils % (Manual) 4 Lymphocytes % (Manual) 24 10.0-50.0 Monocytes % (Manual) 0 0-12 Eosinophils % (Manual) 0 0-7 Basophils % (Manual) 0 0.0-2.0 Metamyelocytes % (manual) 0 Myelocytes % (Manual) 0 Promyelocytes % (Manual) 0 Blast Cells % (Manual) 0 Reactive Lymphocytes 0 Platelet Estimate Adequate Potassium Level 3.2 L 3.5-5.1 mmol/L Chloride Level 120 H 98-107 mmol/L Carbon Dioxide Level 21 20-31 mmol/L Anion Gap 13 5-15 Blood Urea Nitrogen 57 H 9-23 mg/dL Creatinine 3.02 H 0.550-1.02 mg/dL Glomerular Filtration Rate Calc 17 >90 mL/min BUN/Creatinine Ratio 18.9 10.0-20.0 Serum Glucose 92 74-106 mg/dL Calcium Level 11.0 H 8.7-10.4 mg/dL Total Bilirubin 0.2 0.2-1.0 mg/dL Aspartate Amino Transferase (AST) 9 L 13-40 U/L Alanine Aminotransferase (ALT) < 9 7-40 U/L Alkaline Phosphatase 54 46-116 U/L Total Protein 4.8 L 5.7-8.2 g/dL Albumin 3.3 3.2-4.8 g/dL Urine Color Colorless Yellow Urine Clarity Turbid H Clear Urine pH 5.5 5.0-9.0 Urine Specific [place] 1.014 1.001-1.035 Urine Protein 2+ H Negative Urine Ketones Negative Negative Urine Blood 1+ H Negative /uL Urine Nitrite Negative Negative Urine Bilirubin Negative Negative Urine Urobilinogen Normal Negative mg/dL Urine Leukocyte Esterase 3+ Negative /uL Urine RBC 23 0 - 4 /hpf Urine Microscopic WBC 106 H 0-5 /HPF Urine Squamous Epithelial Cells None seen <5 /hpf Urine Calcium Oxalate Crystals Few None Seen Urine Bacteria Few H None Seen /hpf Urine Yeast (Budding) Many None Seen /hpf Urine Glucose Normal Normal mg/dL Microbiology Date/Time Source Procedure Growth Status 11/13/24 02:10 Nose MRSA Screen - Final Complete Assessment Acute kidney injury on Chronic kidney disease four hemodynamic mediated Multiple myeloma untreated was on hospice before Hypernatremia Sepsis/UTI Hypo kalemia Hypercalcemia likely secondary to multiple myeloma Recommendations Continue D5W IV Patient is hospice appropriate--she was on hospice prior Potassium replace p.r.n. Plan discussed with: Patient DARCY BECKWITH MD Nov 13, 2024 17:12
[2024-11-13] MEDS: POTASSIUM EFFERVESENT TAB 25 MEQ PO ONE (17:34)
[2024-11-14] VITALS (7 sets, daily range): BP systolic 101–134; BP diastolic 68–78; PULSE 72–88; RESP 12–19; TEMP 97.1–98.9; O2SAT 96–100
[2024-11-14] MEDS: ONDANSETRON HCL 4 MG/2 ML VIAL IV PRN (00:37)
[2024-11-14 07:14] LABS: Red Cell Distribution Width 16.7 % (11.8-14.3)
[2024-11-14 07:16] LABS: Hematocrit 25.7 % (36.0-46.0); Hemoglobin 7.9 g/dL (12.2-16.2); Mean Corpuscular Hemoglobin 27.8 pg (28.0-32.0); Mean Corpuscular Hgb Conc. 30.9 g/dL (32.0-36.0); Mean Corpuscular Volume 89.9 fL (80.0-100.0); Platelet Count (auto) 283 10^3/uL (140-450); Red Blood Cells 2.86 10^6/uL (4.0-5.20); White Blood Cell 15.7 10^3/uL (4.4-10.8)
[2024-11-14 07:19] LABS: Anion Gap 13 (5-15); Basophils % (manual) 0 (0.0-2.0); Blast Cells 0; Carbon Dioxide 20 mmol/L (20-31); Eosinophils % (manual) 0 (0-7); Metamyelocytes % 0; Myelocytes % 0; Promyelocytes % 0; Reactive Lymphocytes 0
[2024-11-14 07:20] LABS: Chloride 116 mmol/L (98-107); Potassium 3.2 mmol/L (3.5-5.1); Sodium 149 mmol/L (136-145)
[2024-11-14 07:25] LABS: BUN/Creatinine Ratio 17.1 (10.0-20.0); Glucose 94 mg/dL (74-106)
[2024-11-14 07:26] LABS: Blood Urea Nitrogen 48 mg/dL (9-23)
[2024-11-14 08:20] LABS: Band Neutrophils % (manual) 1; Lymphocytes % (manual) 15 (10.0-50.0); Monocytes % (manual) 4 (0-12); Platelet Estimate Adequate
[2024-11-14 08:21] LABS: Anisocytosis Slight; Ovalocytes FEW
--- NOTE | 2024-11-14 09:13 | DVHPN2 ---
Progress Note Date Seen: Nov 14, 2024 Medical Necessity Reason Pt with a Central, PICC or Fol: Yes The following are medically ne: Owen Catheter Reason for owen catheter: Strict I&O Subjective Patient reports: No new complaints Other Systems: Patient seen and examined by myself today in follow-up Objective vital signs Vital Sign Date Time Temp Pulse Resp B/P (MAP) Pulse Ox O2 Delivery O2 Flow Rate FiO2 11/14/24 05:00 98.1 78 12 101/68 (79) 100 98.1 11/13/24 20:00 Room Air* 0 21 Total Intake and Output 11/13/24 11/13/24 11/14/24 15:00 23:00 07:00 Intake Total 50 ml 320 ml 1000 ml Output Total 350 ml 250 ml Balance 50 ml -30 ml 750 ml medications Current Medications Medications Dose Ordered Sig/Angela Route Start Time Stop Time Status Last Admin Dose Admin Apixaban 2.5 mg BID PO 11/13/24 10:00 11/14/24 08:19 2.5 MG Acetaminophen/ Hydrocodone Bitart 1 tab Q4HP PRN PO 11/13/24 02:00 11/13/24 09:07 1 TAB Ondansetron HCl 4 mg Q4HP PRN IV 11/13/24 02:00 11/14/24 00:37 4 MG Acetaminophen 650 mg Q6HP PRN PO 11/13/24 02:00 11/13/24 03:52 650 MG Morphine Sulfate 2 mg Q4HPRN PRN IV 11/13/24 02:00 11/13/24 13:36 2 MG Ferrous Sulfate 325 mg BIDWM PO 11/13/24 08:00 11/14/24 08:19 325 MG Ceftriaxone Sodium 50 ml @ 100 mls/hr DAILY@09 IV 11/13/24 09:00 11/14/24 08:19 100 MLS/HR Dextrose 1,000 ml @ 75 mls/hr [id number] IV 11/13/24 10:45 11/14/24 02:43 75 MLS/HR Examination: LUNGS:Normal, CVS:Normal, MSK:Normal laboratory and microbiology Laboratory Tests 11/14/24 06:20 Test 11/14/24 06:20 Range/Units Serum Glucose 94 74-106 mg/dL Microbiology Date/Time Source Procedure Growth Status 11/13/24 02:10 Nose MRSA Screen - Final Complete Problem List/Assessment/Plan Problem List/Assessment/Plan Acute kidney injury on Chronic kidney disease four hemodynamic mediated Multiple myeloma untreated was on hospice before Hypernatremia due to dehydration Sepsis/UTI Hypokalemia Hypercalcemia likely secondary to multiple myeloma Dehydration Recommendations Kidney function is improving Increased urine output Hypercalcemia is improving KCL replacement Magnesium sulfate Patient is hospice appropriate--she was on hospice prior Hematology consult We will continue to follow up Plan discussed with: Patient HAMIDA KENDALL MD Nov 14, 2024 09:13
[2024-11-14] MEDS: MAGNESIUM SULFATE 1GM/100ML 100 ML IV SCH (11:09)
[2024-11-14] MEDS: POTASSIUM EFFERVESENT TAB 25 MEQ PO ONE (11:10)
[2024-11-14] MEDS: SOD CHL 0.45% 1,000 ML IV SCH (11:21)
--- NOTE | 2024-11-14 19:37 | DVHPN2 ---
Subjective in bed resting Changes from previous H/P or p: No Changes Objective Vitals Vital Signs Date Time Temp Pulse Resp B/P (MAP) Pulse Ox O2 Delivery O2 Flow Rate FiO2 11/14/24 16:25 77 15 113/73 11/14/24 13:00 97.1 100 97.1 11/14/24 08:00 Room Air* 0 21 Intake/Output Intake and Output 11/14/24 07:00 Intake Total 1370 ml Output Total 600 ml Balance 770 ml Intake Oral 320 ml IV Total 1050 ml Output Urine Total 600 ml General Appearance: Alert, Oriented X3 Lungs: Clear to auscultation Cardiovascular: Regular rate, Normal S1 Abdomen: Normal bowel sounds, Soft Medications Current Medications Medications Dose Ordered Sig/Angela Route Start Time Stop Time Status Last Admin Dose Admin Apixaban 2.5 mg BID PO 11/13/24 10:00 11/14/24 08:19 2.5 MG Acetaminophen/ Hydrocodone Bitart 1 tab Q4HP PRN PO 11/13/24 02:00 11/13/24 09:07 1 TAB Ondansetron HCl 4 mg Q4HP PRN IV 11/13/24 02:00 11/14/24 00:37 4 MG Acetaminophen 650 mg Q6HP PRN PO 11/13/24 02:00 11/13/24 03:52 650 MG Morphine Sulfate 2 mg Q4HPRN PRN IV 11/13/24 02:00 11/14/24 15:55 2 MG Ferrous Sulfate 325 mg BIDWM PO 11/13/24 08:00 11/14/24 08:19 325 MG Ceftriaxone Sodium 50 ml @ 100 mls/hr DAILY@09 IV 11/13/24 09:00 11/14/24 08:19 100 MLS/HR Sodium Chloride 1,000 ml @ 100 mls/hr Q10H IV 11/14/24 09:15 11/14/24 11:21 100 MLS/HR Laboratory Results Laboratory Tests 11/14/24 06:20 Chemistry Test 11/14/24 06:20 Calcium Level 10.0 mg/dL (8.7-10.4) Urinalysis Test 11/13/24 02:10 Urine Color Colorless (Yellow) Urine Clarity Turbid (Clear) H Urine pH 5.5 (5.0-9.0) Urine Specific [place] 1.014 (1.001-1.035) Urine Protein 2+ (Negative) H Urine Ketones Negative (Negative) Urine Blood 1+ /uL (Negative) H Urine Nitrite Negative (Negative) Urine Bilirubin Negative (Negative) Urine Urobilinogen Normal mg/dL (Negative) Urine Leukocyte Esterase 3+ /uL (Negative) Urine RBC 23 /hpf (0 - 4) Urine Microscopic WBC 106 /HPF (0-5) H Urine Squamous Epithelial Cells None seen /hpf (<5) Urine Calcium Oxalate Crystals Few (None Seen) Urine Bacteria Few /hpf (None Seen) H Urine Yeast (Budding) Many /hpf (None Seen) Urine Glucose Normal mg/dL (Normal) Microbiology Microbiology Date/Time Source Procedure Growth Status 11/13/24 02:10 Nose MRSA Screen - Final Complete 11/13/24 02:10 Voided Urine Urine Culture - Preliminary Resulted Assessment/Plan Assessment/Plan * Sepsis with uti: iv rocephin * Multiple myeloma. * History of atrial fibrillation. * anemia * Severe protein malnutrition. * Chronic kidney disease stage IIIB. * History of deep venous thrombosis: on eliquis * hypernatremia: d5w * decub ulcer poor prognosis Plan discussed with: Patient Date of Service: Nov 14, 2024 Billing Provider: DAVIAN MENDIETA MD Common Visit Codes: [id number] INP/OBS CARE(HIGH) DAVIAN MENDIETA MD Nov 14, 2024 19:37
[2024-11-15] VITALS (8 sets, daily range): BP systolic 117–153; BP diastolic 76–86; PULSE 69–81; RESP 14–19; TEMP 97.6–99.2; O2SAT 95–100
--- NOTE | 2024-11-15 09:11 | DVHPN2 ---
Progress Note Date Seen: Nov 15, 2024 Medical Necessity Reason Pt with a Central, PICC or Fol: Yes The following are medically ne: Owen Catheter Reason for owen catheter: Strict I&O Subjective Patient reports: No new complaints Other Systems: Patient seen and examined by myself today in follow-up Objective vital signs Vital Sign Date Time Temp Pulse Resp B/P (MAP) Pulse Ox O2 Delivery O2 Flow Rate FiO2 11/15/24 08:59 98.0 70 18 153/76 (101) 95 98.0 11/14/24 20:00 Room Air* 0 21 Total Intake and Output 11/14/24 11/14/24 11/15/24 15:00 23:00 07:00 Intake Total 250 ml 1100 ml Output Total 550 ml 1 ml Balance 250 ml 550 ml -1 ml medications Current Medications Medications Dose Ordered Sig/Angela Route Start Time Stop Time Status Last Admin Dose Admin Apixaban 2.5 mg BID PO 11/13/24 10:00 11/15/24 08:28 2.5 MG Acetaminophen/ Hydrocodone Bitart 1 tab Q4HP PRN PO 11/13/24 02:00 11/13/24 09:07 1 TAB Ondansetron HCl 4 mg Q4HP PRN IV 11/13/24 02:00 11/15/24 04:33 4 MG Acetaminophen 650 mg Q6HP PRN PO 11/13/24 02:00 11/15/24 04:17 650 MG Morphine Sulfate 2 mg Q4HPRN PRN IV 11/13/24 02:00 11/15/24 04:33 2 MG Ferrous Sulfate 325 mg BIDWM PO 11/13/24 08:00 11/15/24 08:28 325 MG Ceftriaxone Sodium 50 ml @ 100 mls/hr DAILY@09 IV 11/13/24 09:00 11/15/24 08:28 100 MLS/HR Sodium Chloride 1,000 ml @ 100 mls/hr Q10H IV 11/14/24 09:15 11/15/24 08:33 100 MLS/HR Examination: LUNGS:Normal, CVS:Normal, MSK:Normal laboratory and microbiology Laboratory Tests 11/14/24 06:20 Test 11/14/24 06:20 Range/Units Serum Glucose 94 74-106 mg/dL Microbiology Date/Time Source Procedure Growth Status 11/13/24 02:10 Nose MRSA Screen - Final Complete 11/13/24 02:10 Voided Urine Urine Culture - Preliminary Resulted Problem List/Assessment/Plan Problem List/Assessment/Plan Acute kidney injury on Chronic kidney disease four hemodynamic mediated Multiple myeloma untreated was on hospice before Hypernatremia due to dehydration Sepsis/UTI Hypokalemia Hypercalcemia likely secondary to multiple myeloma Dehydration Recommendations Kidney function is improving Increased urine output Hypercalcemia is improving IV fluid 1/2 NS at 100 cc/hour KCL replacement Magnesium sulfate Patient is hospice appropriate--she was on hospice prior Hematology consult We will continue to follow up Plan discussed with: Patient My Orders My Orders Orders - HAMIDA KENDALL MD Procedure Category Date Status Time Sod Chl 0.45% (Sodium PHA 11/14/24 In Process Chloride 0.45% Via 09:15 Dietary Evaluation Review Comments: 1. Liberalize diet to Puree - remove renal & cardiac modififers for least-restrictive diet possible; consider PROBATION MANAGER consult to assess most appropriate diet texture 2. Add Ensure Enlive supplements TID w/ meals to enhance nutrition 3. If pt to return to hospice, recommend diet per pt preference/comfort Expected Outcomes/Goals: Weight maintenance, improved nutritional status, increased PO w/ expanded choices HAMIDA KENDALL MD Nov 15, 2024 09:10
--- NOTE | 2024-11-15 17:55 | DVHPN2 ---
Subjective in bed resting Changes from previous H/P or p: No Changes Objective Vitals Vital Signs Date Time Temp Pulse Resp B/P (MAP) Pulse Ox O2 Delivery O2 Flow Rate FiO2 11/15/24 16:36 98.0 74 16 117/79 (92) 99 98.0 11/15/24 08:00 Room Air* 0 21 Intake/Output Intake and Output 11/15/24 07:00 Intake Total 1350 ml Output Total 551 ml Balance 799 ml Intake Oral 100 ml IV Total 1250 ml Output Urine Total 551 ml General Appearance: Alert, Oriented X3 Lungs: Clear to auscultation Cardiovascular: Regular rate, Normal S1 Abdomen: Normal bowel sounds, Soft Medications Current Medications Medications Dose Ordered Sig/Angela Route Start Time Stop Time Status Last Admin Dose Admin Apixaban 2.5 mg BID PO 11/13/24 10:00 11/15/24 08:28 2.5 MG Acetaminophen/ Hydrocodone Bitart 1 tab Q4HP PRN PO 11/13/24 02:00 11/13/24 09:07 1 TAB Ondansetron HCl 4 mg Q4HP PRN IV 11/13/24 02:00 11/15/24 10:37 4 MG Acetaminophen 650 mg Q6HP PRN PO 11/13/24 02:00 11/15/24 10:29 650 MG Morphine Sulfate 2 mg Q4HPRN PRN IV 11/13/24 02:00 11/15/24 04:33 2 MG Ferrous Sulfate 325 mg BIDWM PO 11/13/24 08:00 11/15/24 08:28 325 MG Ceftriaxone Sodium 50 ml @ 100 mls/hr DAILY@09 IV 11/13/24 09:00 11/15/24 08:28 100 MLS/HR Sodium Chloride 1,000 ml @ 100 mls/hr Q10H IV 11/14/24 09:15 11/15/24 08:33 100 MLS/HR Laboratory Results Laboratory Tests 11/14/24 06:20 Urinalysis Test 11/13/24 02:10 Urine Color Colorless (Yellow) Urine Clarity Turbid (Clear) H Urine pH 5.5 (5.0-9.0) Urine Specific [place] 1.014 (1.001-1.035) Urine Protein 2+ (Negative) H Urine Ketones Negative (Negative) Urine Blood 1+ /uL (Negative) H Urine Nitrite Negative (Negative) Urine Bilirubin Negative (Negative) Urine Urobilinogen Normal mg/dL (Negative) Urine Leukocyte Esterase 3+ /uL (Negative) Urine RBC 23 /hpf (0 - 4) Urine Microscopic WBC 106 /HPF (0-5) H Urine Squamous Epithelial Cells None seen /hpf (<5) Urine Calcium Oxalate Crystals Few (None Seen) Urine Bacteria Few /hpf (None Seen) H Urine Yeast (Budding) Many /hpf (None Seen) Urine Glucose Normal mg/dL (Normal) Microbiology Microbiology Date/Time Source Procedure Growth Status 11/13/24 02:10 Nose MRSA Screen - Final Complete 11/13/24 02:10 Voided Urine Urine Culture - Preliminary Resulted Assessment/Plan Assessment/Plan * Sepsis with uti: iv rocephin * Multiple myeloma. * History of atrial fibrillation. * anemia * Severe protein malnutrition. * Chronic kidney disease stage IIIB. * History of deep venous thrombosis: on eliquis * hypernatremia: d5w * decub ulcer poor prognosis Plan discussed with: Patient Date of Service: Nov 15, 2024 Billing Provider: DAVIAN MENDIETA MD Common Visit Codes: [id number] INP/OBS CARE(HIGH) DAVIAN MENDIETA MD Nov 15, 2024 17:55
[2024-11-16] VITALS (8 sets, daily range): BP systolic 104–134; BP diastolic 75–83; PULSE 68–83; RESP 15–20; TEMP 97.6–99; O2SAT 99–100
--- NOTE | 2024-11-16 09:55 | DVHPN2 ---
Progress Note Date Seen: Nov 16, 2024 Medical Necessity Reason Pt with a Central, PICC or Fol: Yes The following are medically ne: Owen Catheter Reason for owen catheter: Strict I&O Subjective Patient reports: No new complaints Other Systems: Patient seen and examined by myself today in follow-up Objective vital signs Vital Sign Date Time Temp Pulse Resp B/P (MAP) Pulse Ox O2 Delivery O2 Flow Rate FiO2 11/16/24 08:29 98.8 83 20 104/77 (86) 100 98.8 11/15/24 20:00 Room Air* 0 21 Total Intake and Output 11/15/24 11/15/24 11/16/24 15:00 23:00 07:00 Intake Total 50 ml 200 ml 100 ml Output Total 700 ml 700 ml Balance 50 ml -500 ml -600 ml medications Current Medications Medications Dose Ordered Sig/Angela Route Start Time Stop Time Status Last Admin Dose Admin Apixaban 2.5 mg BID PO 11/13/24 10:00 11/15/24 22:16 2.5 MG Acetaminophen/ Hydrocodone Bitart 1 tab Q4HP PRN PO 11/13/24 02:00 11/13/24 09:07 1 TAB Ondansetron HCl 4 mg Q4HP PRN IV 11/13/24 02:00 11/16/24 03:21 4 MG Acetaminophen 650 mg Q6HP PRN PO 11/13/24 02:00 11/15/24 22:24 650 MG Morphine Sulfate 2 mg Q4HPRN PRN IV 11/13/24 02:00 11/16/24 03:22 2 MG Ferrous Sulfate 325 mg BIDWM PO 11/13/24 08:00 11/15/24 08:28 325 MG Ceftriaxone Sodium 50 ml @ 100 mls/hr DAILY@09 IV 11/13/24 09:00 11/15/24 08:28 100 MLS/HR Sodium Chloride 1,000 ml @ 100 mls/hr Q10H IV 11/14/24 09:15 11/15/24 19:02 100 MLS/HR Examination: LUNGS:Normal, CVS:Normal, MSK:Abnormal laboratory and microbiology Laboratory Tests 11/14/24 06:20 Test 11/14/24 06:20 Range/Units Serum Glucose 94 74-106 mg/dL Microbiology Date/Time Source Procedure Growth Status 11/13/24 02:10 Nose MRSA Screen - Final Complete 11/13/24 02:10 Voided Urine Urine Culture - Preliminary Resulted Problem List/Assessment/Plan Problem List/Assessment/Plan Acute kidney injury on Chronic kidney disease stage IV hemodynamic mediated Multiple myeloma untreated was on hospice before Hypernatremia due to dehydration Sepsis/UTI Hypokalemia Hypercalcemia likely secondary to multiple myeloma Dehydration Recommendations Kidney function is improving Increased urine output Hypercalcemia is improving IV fluid 1/2 NS at 100 cc/hour KCL replacement Magnesium sulfate Patient is hospice appropriate--she was on hospice prior Hematology consult We will continue to follow up Plan discussed with: Patient Dietary Evaluation Review Comments: 1. Liberalize diet to Puree - remove renal & cardiac modififers for least-restrictive diet possible; consider PROGRAM OFFICER consult to assess most appropriate diet texture 2. Add Ensure Enlive supplements TID w/ meals to enhance nutrition 3. If pt to return to hospice, recommend diet per pt preference/comfort Expected Outcomes/Goals: Weight maintenance, improved nutritional status, increased PO w/ expanded choices HAMIDA KENDALL MD Nov 16, 2024 09:55
--- NOTE | 2024-11-16 14:25 | DVHPN2 ---
Subjective in bed resting Changes from previous H/P or p: No Changes Objective Vitals Vital Signs Date Time Temp Pulse Resp B/P (MAP) Pulse Ox O2 Delivery O2 Flow Rate FiO2 11/16/24 12:34 99.0 80 20 120/83 (95) 99 99.0 11/16/24 08:00 Room Air* 0 21 Intake/Output Intake and Output 11/16/24 07:00 Intake Total 350 ml Output Total 1400 ml Balance -1050 ml Intake Oral 300 ml IV Total 50 ml Output Urine Total 1400 ml General Appearance: Alert, Oriented X3 Lungs: Clear to auscultation Cardiovascular: Regular rate, Normal S1 Abdomen: Normal bowel sounds, Soft Medications Current Medications Medications Dose Ordered Sig/Angela Route Start Time Stop Time Status Last Admin Dose Admin Apixaban 2.5 mg BID PO 11/13/24 10:00 11/16/24 09:50 2.5 MG Acetaminophen/ Hydrocodone Bitart 1 tab Q4HP PRN PO 11/13/24 02:00 11/13/24 09:07 1 TAB Ondansetron HCl 4 mg Q4HP PRN IV 11/13/24 02:00 11/16/24 10:18 4 MG Acetaminophen 650 mg Q6HP PRN PO 11/13/24 02:00 11/15/24 22:24 650 MG Morphine Sulfate 2 mg Q4HPRN PRN IV 11/13/24 02:00 11/16/24 10:19 2 MG Ferrous Sulfate 325 mg BIDWM PO 11/13/24 08:00 11/16/24 09:50 325 MG Ceftriaxone Sodium 50 ml @ 100 mls/hr DAILY@09 IV 11/13/24 09:00 11/16/24 09:49 100 MLS/HR Sodium Chloride 1,000 ml @ 100 mls/hr Q10H IV 11/14/24 09:15 11/15/24 19:02 100 MLS/HR Laboratory Results Laboratory Tests 11/14/24 06:20 Urinalysis Test 11/13/24 02:10 Urine Color Colorless (Yellow) Urine Clarity Turbid (Clear) H Urine pH 5.5 (5.0-9.0) Urine Specific [place] 1.014 (1.001-1.035) Urine Protein 2+ (Negative) H Urine Ketones Negative (Negative) Urine Blood 1+ /uL (Negative) H Urine Nitrite Negative (Negative) Urine Bilirubin Negative (Negative) Urine Urobilinogen Normal mg/dL (Negative) Urine Leukocyte Esterase 3+ /uL (Negative) Urine RBC 23 /hpf (0 - 4) Urine Microscopic WBC 106 /HPF (0-5) H Urine Squamous Epithelial Cells None seen /hpf (<5) Urine Calcium Oxalate Crystals Few (None Seen) Urine Bacteria Few /hpf (None Seen) H Urine Yeast (Budding) Many /hpf (None Seen) Urine Glucose Normal mg/dL (Normal) Microbiology Microbiology Date/Time Source Procedure Growth Status 11/13/24 02:10 Nose MRSA Screen - Final Complete 11/13/24 02:10 Voided Urine Urine Culture - Preliminary Resulted Assessment/Plan Assessment/Plan * Sepsis with uti: iv rocephin * Multiple myeloma. * History of atrial fibrillation. * anemia * Severe protein malnutrition. * Chronic kidney disease stage IIIB. * History of deep venous thrombosis: on eliquis * hypernatremia: d5w * decub ulcer poor prognosis Plan discussed with: Patient My Orders Orders - DAVIAN MENDIETA MD Procedure Category Date Status Time Basic Metabolic Panel LAB 11/17/24 Verified 05:00 Basic Metabolic Panel LAB 11/18/24 Verified 05:00 Basic Metabolic Panel LAB 11/19/24 Verified 05:00 Basic Metabolic Panel LAB 11/20/24 Verified 05:00 Basic Metabolic Panel LAB 11/21/24 Verified 05:00 Basic Metabolic Panel LAB 11/22/24 Verified 05:00 Basic Metabolic Panel LAB 11/23/24 Verified 05:00 Date of Service: Nov 16, 2024 Billing Provider: DAVIAN MENDIETA MD Common Visit Codes: [id number] INP/OBS CARE(HIGH) DAVIAN MENDIETA MD Nov 16, 2024 14:25
[2024-11-17] VITALS (8 sets, daily range): BP systolic 118–151; BP diastolic 75–91; PULSE 68–80; RESP 14–19; TEMP 96.2–97.8; O2SAT 98–100
[2024-11-17 06:46] LABS: Anion Gap 13 (5-15); Sodium 142 mmol/L (136-145)
[2024-11-17 06:52] LABS: BUN/Creatinine Ratio 15.9 (10.0-20.0)
[2024-11-17 06:54] LABS: Blood Urea Nitrogen 36 mg/dL (9-23); Calcium 8.4 mg/dL (8.7-10.4); Carbon Dioxide 19 mmol/L (20-31); Chloride 110 mmol/L (98-107); Glucose 70 mg/dL (74-106); Potassium 2.9 mmol/L (3.5-5.1)
--- NOTE | 2024-11-17 10:40 | DVHPN2 ---
Progress Note Date Seen: Nov 17, 2024 Medical Necessity Reason Pt with a Central, PICC or Fol: Yes The following are medically ne: Owen Catheter Reason for owen catheter: Strict I&O Subjective Patient reports: No new complaints Review of Systems: HEENT:Normal, CVS:Normal, RESPIRATORY:Normal, GI:Normal, :Normal, MSK:Normal, NEURO:Normal Objective vital signs Vital Sign Date Time Temp Pulse Resp B/P (MAP) Pulse Ox O2 Delivery O2 Flow Rate FiO2 11/17/24 09:00 96.2 79 18 139/83 (101) 100 96.2 11/16/24 20:00 Room Air* 0 21 Total Intake and Output 11/16/24 11/16/24 11/17/24 15:00 23:00 07:00 Intake Total 1050 ml 400 ml Output Total 1300 ml 800 ml Balance 1050 ml -1300 ml -400 ml medications Current Medications Medications Dose Ordered Sig/Angela Route Start Time Stop Time Status Last Admin Dose Admin Apixaban 2.5 mg BID PO 11/13/24 10:00 11/17/24 09:45 2.5 MG Acetaminophen/ Hydrocodone Bitart 1 tab Q4HP PRN PO 11/13/24 02:00 11/17/24 09:45 1 TAB Ondansetron HCl 4 mg Q4HP PRN IV 11/13/24 02:00 11/16/24 20:25 4 MG Acetaminophen 650 mg Q6HP PRN PO 11/13/24 02:00 11/15/24 22:24 650 MG Morphine Sulfate 2 mg Q4HPRN PRN IV 11/13/24 02:00 11/16/24 20:26 2 MG Ferrous Sulfate 325 mg BIDWM PO 11/13/24 08:00 11/17/24 09:46 325 MG Ceftriaxone Sodium 50 ml @ 100 mls/hr DAILY@09 IV 11/13/24 09:00 11/16/24 09:49 100 MLS/HR Sodium Chloride 1,000 ml @ 100 mls/hr Q10H IV 11/14/24 09:15 11/16/24 21:39 100 MLS/HR Examination: GENERAL:Normal, HEENT:Normal, NECK:Normal, LUNGS:Normal, CVS:Normal, ABDOMEN:Normal, MSK:Normal, MSK:Abnormal (decub ulcer), SKIN:Normal, NEURO:Normal, :Normal laboratory and microbiology Laboratory Tests 11/17/24 05:23 11/14/24 06:20 Test 11/17/24 05:23 Range/Units Serum Glucose 70 L 74-106 mg/dL Microbiology Date/Time Source Procedure Growth Status 11/13/24 02:10 Nose MRSA Screen - Final Complete 11/13/24 02:10 Voided Urine Urine Culture - Final Yeast, not Orquidea albicans Complete Problem List/Assessment/Plan Problem List/Assessment/Plan * Sepsis with uti: iv rocephin * Multiple myeloma. * History of atrial fibrillation. * anemia * Severe protein malnutrition. * Chronic kidney disease stage IIIB. * History of deep venous thrombosis: on eliquis * hypernatremia: d5w * decub ulcer * hypokalemia: replace poor prognosis advance care planning- dnr- time spent 19mins Plan discussed with: Patient Dietary Evaluation Review Comments: 1. Liberalize diet to Puree - remove renal & cardiac modififers for least-restrictive diet possible; consider EMERGENCY VEHICLE OPERATOR consult to assess most appropriate diet texture 2. Add Ensure Enlive supplements TID w/ meals to enhance nutrition 3. If pt to return to hospice, recommend diet per pt preference/comfort Expected Outcomes/Goals: Weight maintenance, improved nutritional status, increased PO w/ expanded choices Date of Service: Nov 17, 2024 Billing Provider: CAROLE LOMAX MD Common Visit Codes: [id number] INP/OBS CARE(HIGH) Secondary Visit Codes: [id number] CARE PLAN 30 MINUTES CAROLE LOMAX MD Nov 17, 2024 10:40
[2024-11-17] MEDS ORDERED: POTASSIUM CHL 20 Meq TABLET PO ONE (10:45)
[2024-11-17] MEDS: POTASSIUM EFFERVESENT TAB 25 MEQ GT ONE (12:51)
--- NOTE | 2024-11-17 13:19 | DVHPN2 ---
Progress Note Date Seen: Nov 17, 2024 Medical Necessity Reason Pt with a Central, PICC or Fol: Yes The following are medically ne: Owen Catheter Reason for owen catheter: Strict I&O Objective vital signs Vital Sign Date Time Temp Pulse Resp B/P (MAP) Pulse Ox O2 Delivery O2 Flow Rate FiO2 11/17/24 09:00 96.2 79 18 139/83 (101) 100 96.2 11/17/24 08:00 Room Air* 0 21 Total Intake and Output 11/16/24 11/16/24 11/17/24 15:00 23:00 07:00 Intake Total 1050 ml 400 ml Output Total 1300 ml 800 ml Balance 1050 ml -1300 ml -400 ml medications Current Medications Medications Dose Ordered Sig/Angela Route Start Time Stop Time Status Last Admin Dose Admin Apixaban 2.5 mg BID PO 11/13/24 10:00 11/17/24 09:45 2.5 MG Acetaminophen/ Hydrocodone Bitart 1 tab Q4HP PRN PO 11/13/24 02:00 11/17/24 09:45 1 TAB Ondansetron HCl 4 mg Q4HP PRN IV 11/13/24 02:00 11/16/24 20:25 4 MG Acetaminophen 650 mg Q6HP PRN PO 11/13/24 02:00 11/15/24 22:24 650 MG Morphine Sulfate 2 mg Q4HPRN PRN IV 11/13/24 02:00 11/16/24 20:26 2 MG Ferrous Sulfate 325 mg BIDWM PO 11/13/24 08:00 11/17/24 09:46 325 MG Ceftriaxone Sodium 50 ml @ 100 mls/hr DAILY@09 IV 11/13/24 09:00 11/16/24 09:49 100 MLS/HR Sodium Chloride 1,000 ml @ 100 mls/hr Q10H IV 11/14/24 09:15 11/16/24 21:39 100 MLS/HR Examination: GENERAL:Abnormal, CVS:Abnormal, NEURO:Abnormal laboratory and microbiology Laboratory Tests 11/17/24 05:23 11/14/24 06:20 Test 11/17/24 05:23 Range/Units Serum Glucose 70 L 74-106 mg/dL Microbiology Date/Time Source Procedure Growth Status 11/13/24 02:10 Nose MRSA Screen - Final Complete 11/13/24 02:10 Voided Urine Urine Culture - Final Yeast, not Orquidea albicans Complete Problem List/Assessment/Plan Problem List/Assessment/Plan Acute kidney injury on Chronic kidney disease stage IV hemodynamic mediated Multiple myeloma untreated was on hospice before Hypernatremia due to dehydration Sepsis/UTI Hypokalemia Hypercalcemia likely secondary to multiple myeloma Dehydration Kidney function is improving IV fluid 1/2 NS at 100 cc/hour electrolyte replacement potassium Patient is hospice appropriate Hematology Plan discussed with: Daughter Dietary Evaluation Review Comments: 1. Liberalize diet to Puree - remove renal & cardiac modififers for least-restrictive diet possible; consider PROOF MACHINE OPERATOR consult to assess most appropriate diet texture 2. Add Ensure Enlive supplements TID w/ meals to enhance nutrition 3. If pt to return to hospice, recommend diet per pt preference/comfort Expected Outcomes/Goals: Weight maintenance, improved nutritional status, increased PO w/ expanded choices BAYRON MALONEY MD Nov 17, 2024 13:19
[2024-11-17] MEDS: NYSTATIN (MOUTH-THROAT) 500,000 UNITS/5 ML SUSP MT SCH (18:00)
[2024-11-17] MEDS: NYSTATIN (MOUTH-THROAT) 500,000 UNITS/5 ML SUSP MT ONE (18:40)
[2024-11-18 01:00] VITALS: BP 119/71; PULSE 80; RESP 16; TEMP 97.5; O2SAT 98
[2024-11-18 08:05] VITALS: O2SAT 100
[2024-11-18 09:00] VITALS: BP 136/77; PULSE 83; RESP 17; TEMP 98.5; O2SAT 100
--- NOTE | 2024-11-18 10:05 | DVHPN2 ---
Progress Note Date Seen: Nov 18, 2024 Medical Necessity Reason Pt with a Central, PICC or Fol: Yes The following are medically ne: Owen Catheter Reason for owen catheter: Strict I&O Subjective Patient reports: No new complaints Review of Systems: HEENT:Normal, CVS:Normal, RESPIRATORY:Normal, GI:Normal, :Normal, MSK:Normal, NEURO:Normal Objective vital signs Vital Sign Date Time Temp Pulse Resp B/P (MAP) Pulse Ox O2 Delivery O2 Flow Rate FiO2 11/18/24 09:00 98.5 83 17 136/77 (96) 100 98.5 11/17/24 20:00 Room Air* 0 21 Total Intake and Output 11/17/24 11/17/24 11/18/24 15:00 23:00 07:00 Intake Total 320 ml 80 ml Output Total 750 ml 400 ml Balance -430 ml -320 ml medications Current Medications Medications Dose Ordered Sig/Angela Route Start Time Stop Time Status Last Admin Dose Admin Apixaban 2.5 mg BID PO 11/13/24 10:00 11/18/24 09:32 2.5 MG Acetaminophen/ Hydrocodone Bitart 1 tab Q4HP PRN PO 11/13/24 02:00 11/18/24 05:10 1 TAB Ondansetron HCl 4 mg Q4HP PRN IV 11/13/24 02:00 11/16/24 20:25 4 MG Acetaminophen 650 mg Q6HP PRN PO 11/13/24 02:00 11/17/24 22:05 650 MG Morphine Sulfate 2 mg Q4HPRN PRN IV 11/13/24 02:00 11/16/24 20:26 2 MG Ferrous Sulfate 325 mg BIDWM PO 11/13/24 08:00 11/18/24 09:33 325 MG Ceftriaxone Sodium 50 ml @ 100 mls/hr DAILY@09 IV 11/13/24 09:00 11/16/24 09:49 100 MLS/HR Sodium Chloride 1,000 ml @ 100 mls/hr Q10H IV 11/14/24 09:15 11/16/24 21:39 100 MLS/HR Nystatin 5 ml QID MT 11/17/24 18:00 11/18/24 09:34 5 ML Examination: GENERAL:Normal, HEENT:Normal, NECK:Normal, LUNGS:Normal, CVS:Normal, ABDOMEN:Normal, MSK:Normal, MSK:Abnormal (decub ulcer), SKIN:Normal, NEURO:Normal, :Normal laboratory and microbiology Laboratory Tests 11/17/24 05:23 11/14/24 06:20 Test 11/17/24 05:23 Range/Units Serum Glucose 70 L 74-106 mg/dL Microbiology Date/Time Source Procedure Growth Status 11/13/24 02:10 Nose MRSA Screen - Final Complete 11/13/24 02:10 Voided Urine Urine Culture - Final Yeast, not Orquidea albicans Complete Problem List/Assessment/Plan Problem List/Assessment/Plan * Sepsis with uti: iv rocephin * Multiple myeloma. * History of atrial fibrillation. * anemia * Severe protein malnutrition. * Chronic kidney disease stage IIIB. * History of deep venous thrombosis: on eliquis * hypernatremia: d5w * decub ulcer * hypokalemia: replace poor prognosis refusing blood draws had long dw Gladys and pt's brothers- explained poor prognosis. Also, dw dr Kothari- suggested hospice due to poor prognosis advance care planning- dnr- time spent 19mins Plan discussed with: Patient My Orders My Orders Orders - CAROLE LOMAX MD Procedure Category Date Status Time Complete Blood Count LAB 11/18/24 Logged 06:00 * Transmission Rebuilder CONS 11/17/24 Transmitted Consult Nystatin PHA 11/17/24 In Process (Mouth-Throat) 18:00 Insert Midline ORDERS 11/18/24 Transmitted 09:37 Complete Blood Count LAB 11/18/24 Transmitted 09:37 Comprehensive LAB 11/18/24 Transmitted Metabolic Panel 09:37 Dietary Evaluation Review Comments: 1. Liberalize diet to Puree - remove renal & cardiac modififers for least-restrictive diet possible; consider VAT WASHER consult to assess most appropriate diet texture 2. Add Ensure Enlive supplements TID w/ meals to enhance nutrition 3. If pt to return to hospice, recommend diet per pt preference/comfort Expected Outcomes/Goals: Weight maintenance, improved nutritional status, increased PO w/ expanded choices Date of Service: Nov 18, 2024 Billing Provider: CAROLE LOMAX MD Common Visit Codes: [id number] INP/OBS CARE(HIGH) CAROLE LOMAX MD Nov 18, 2024 10:05
[2024-11-18 11:45] LABS: Mean Corpuscular Volume 88.2 fL (80.0-100.0)
[2024-11-18 11:47] LABS: Hematocrit 22.9 % (36.0-46.0); Hemoglobin 7.3 g/dL (12.2-16.2); Mean Corpuscular Hgb Conc. 31.8 g/dL (32.0-36.0); Platelet Count (auto) 239 10^3/uL (140-450); Red Cell Distribution Width 16.2 % (11.8-14.3); White Blood Cell 13.4 10^3/uL (4.4-10.8)
[2024-11-18] MEDS: ONDANSETRON ODT 4 MG TAB PO PRN (11:51)
[2024-11-18 12:10] LABS: Basophils % (manual) 0 (0.0-2.0); Blast Cells 0; Eosinophils % (manual) 0 (0-7); Metamyelocytes % 0; Myelocytes % 0; Promyelocytes % 0; Reactive Lymphocytes 0
[2024-11-18 12:16] LABS: Alanine Aminotransferase 16 U/L (7-40); Alkaline Phosphatase 72 U/L (46-116); Anion Gap 13 (5-15); BUN/Creatinine Ratio 15.5 (10.0-20.0); Carbon Dioxide 20 mmol/L (20-31); Glucose 95 mg/dL (74-106); Sodium 144 mmol/L (136-145)
[2024-11-18 12:19] LABS: Albumin 3.1 g/dL (3.2-4.8); Aspartate Aminotransferase 9 U/L (13-40); Bilirubin, Total 0.2 mg/dL (0.2-1.0); Blood Urea Nitrogen 34 mg/dL (9-23); Calcium 8.2 mg/dL (8.7-10.4); Chloride 111 mmol/L (98-107); Magnesium 2.6 mg/dL (1.6-2.6); Total Protein 4.7 g/dL (5.7-8.2)
--- NOTE | 2024-11-18 12:38 | DVHPN2 ---
Progress Note Date Seen: Nov 18, 2024 Medical Necessity Reason Pt with a Central, PICC or Fol: Yes The following are medically ne: Owen Catheter Reason for owen catheter: Strict I&O Objective vital signs Vital Sign Date Time Temp Pulse Resp B/P (MAP) Pulse Ox O2 Delivery O2 Flow Rate FiO2 11/18/24 09:00 98.5 83 17 136/77 (96) 100 98.5 11/18/24 08:05 Room Air* 0 21 Total Intake and Output 11/17/24 11/17/24 11/18/24 15:00 23:00 07:00 Intake Total 320 ml 80 ml Output Total 750 ml 400 ml Balance -430 ml -320 ml medications Current Medications Medications Dose Ordered Sig/Angela Route Start Time Stop Time Status Last Admin Dose Admin Apixaban 2.5 mg BID PO 11/13/24 10:00 11/18/24 09:32 2.5 MG Acetaminophen/ Hydrocodone Bitart 1 tab Q4HP PRN PO 11/13/24 02:00 11/18/24 10:24 1 TAB Ondansetron HCl 4 mg Q4HP PRN IV 11/13/24 02:00 11/16/24 20:25 4 MG Acetaminophen 650 mg Q6HP PRN PO 11/13/24 02:00 11/17/24 22:05 650 MG Morphine Sulfate 2 mg Q4HPRN PRN IV 11/13/24 02:00 11/16/24 20:26 2 MG Ferrous Sulfate 325 mg BIDWM PO 11/13/24 08:00 11/18/24 09:33 325 MG Ceftriaxone Sodium 50 ml @ 100 mls/hr DAILY@09 IV 11/13/24 09:00 11/16/24 09:49 100 MLS/HR Sodium Chloride 1,000 ml @ 100 mls/hr Q10H IV 11/14/24 09:15 11/16/24 21:39 100 MLS/HR Nystatin 5 ml QID MT 11/17/24 18:00 11/18/24 09:34 5 ML Ondansetron HCl 4 mg Q4HP PRN PO 11/18/24 11:30 11/18/24 11:51 4 MG Examination: GENERAL:Abnormal, LUNGS:Abnormal, ABDOMEN:Abnormal, SKIN:Abnormal laboratory and microbiology Laboratory Tests 11/18/24 11:19 Test 11/18/24 11:19 Range/Units Serum Glucose 95 74-106 mg/dL Microbiology Date/Time Source Procedure Growth Status 11/13/24 02:10 Nose MRSA Screen - Final Complete 11/13/24 02:10 Voided Urine Urine Culture - Final Yeast, not Orquidea albicans Complete Problem List/Assessment/Plan Problem List/Assessment/Plan Acute kidney injury on Chronic kidney disease stage IV hemodynamic mediated Multiple myeloma untreated was on hospice before Hypernatremia due to dehydration Sepsis/UTI Hypokalemia Hypercalcemia likely secondary to multiple myeloma Dehydration Kidney function is improving IV fluid 1/2 NS at 100 cc/hour electrolyte replacement potassium Patient is hospice appropriate Hematology no new recs from renal standpoint will sign off the case. Plan discussed with: Patient My Orders My Orders Orders - BAYRON MALONEY MD Procedure Category Date Status Time Potassium Effervesent PHA 11/18/24 Verified Tab (Klor-Con/Ef) 12:45 Dietary Evaluation Review Comments: 1. Liberalize diet to Puree - remove renal & cardiac modififers for least-restrictive diet possible; consider POUNDMASTER consult to assess most appropriate diet texture 2. Add Ensure Enlive supplements TID w/ meals to enhance nutrition 3. If pt to return to hospice, recommend diet per pt preference/comfort Expected Outcomes/Goals: Weight maintenance, improved nutritional status, increased PO w/ expanded choices BAYRON MALONEY MD Nov 18, 2024 12:38
[2024-11-18 13:00] VITALS: BP 126/78; PULSE 84; RESP 17; TEMP 98.3; O2SAT 99
[2024-11-18 13:08] LABS: Band Neutrophils % (manual) 1; Lymphocytes % (manual) 13 (10.0-50.0); Monocytes % (manual) 5 (0-12); Platelet Estimate Adequate
[2024-11-18 13:09] LABS: Anisocytosis Slight; Ovalocytes FEW
[2024-11-18] MEDS: POTASSIUM EFFERVESENT TAB 25 MEQ PO ONE (13:24)
[2024-11-18 16:35] VITALS: BP 125/76; PULSE 80; RESP 17; TEMP 98; O2SAT 97
[2024-11-18 21:00] VITALS: BP 162/64; PULSE 84; RESP 1; RESP 17; TEMP 97.6; O2SAT 99
[2024-11-19] VITALS (8 sets, daily range): BP systolic 104–166; BP diastolic 52–82; PULSE 71–83; RESP 15–21; TEMP 97.4–97.7; O2SAT 95–100
--- NOTE | 2024-11-19 10:06 | DVHPN2 ---
Progress Note Date Seen: Nov 19, 2024 Medical Necessity Reason Pt with a Central, PICC or Fol: Yes The following are medically ne: Owen Catheter Reason for owen catheter: Strict I&O Subjective Patient reports: No new complaints Review of Systems: HEENT:Normal, CVS:Normal, RESPIRATORY:Normal, GI:Normal, :Normal, MSK:Normal, NEURO:Normal Objective vital signs Vital Sign Date Time Temp Pulse Resp B/P (MAP) Pulse Ox O2 Delivery O2 Flow Rate FiO2 11/19/24 08:47 97.5 71 21 141/72 (95) 99 97.5 11/19/24 08:05 Room Air* 0 21 Total Intake and Output 11/18/24 11/18/24 11/19/24 15:00 23:00 07:00 Intake Total 200 ml 200 ml Output Total 550 ml 340 ml Balance -350 ml -140 ml medications Current Medications Medications Dose Ordered Sig/Angela Route Start Time Stop Time Status Last Admin Dose Admin Apixaban 2.5 mg BID PO 11/13/24 10:00 11/19/24 08:09 2.5 MG Acetaminophen/ Hydrocodone Bitart 1 tab Q4HP PRN PO 11/13/24 02:00 11/19/24 08:09 1 TAB Ondansetron HCl 4 mg Q4HP PRN IV 11/13/24 02:00 11/16/24 20:25 4 MG Acetaminophen 650 mg Q6HP PRN PO 11/13/24 02:00 11/17/24 22:05 650 MG Morphine Sulfate 2 mg Q4HPRN PRN IV 11/13/24 02:00 11/16/24 20:26 2 MG Ferrous Sulfate 325 mg BIDWM PO 11/13/24 08:00 11/19/24 08:08 325 MG Ceftriaxone Sodium 50 ml @ 100 mls/hr DAILY@09 IV 11/13/24 09:00 11/19/24 08:09 100 MLS/HR Sodium Chloride 1,000 ml @ 100 mls/hr Q10H IV 11/14/24 09:15 11/19/24 09:25 100 MLS/HR Nystatin 5 ml QID MT 11/17/24 18:00 11/18/24 23:05 5 ML Ondansetron HCl 4 mg Q4HP PRN PO 11/18/24 11:30 11/18/24 16:24 4 MG Examination: GENERAL:Normal, HEENT:Normal, NECK:Normal, LUNGS:Normal, CVS:Normal, ABDOMEN:Normal, MSK:Normal, MSK:Abnormal (decub ulcer), SKIN:Normal, NEURO:Normal, :Normal laboratory and microbiology Laboratory Tests 11/18/24 11:19 Test 11/18/24 11:19 Range/Units Serum Glucose 95 74-106 mg/dL Microbiology Date/Time Source Procedure Growth Status 11/13/24 02:10 Nose MRSA Screen - Final Complete 11/13/24 02:10 Voided Urine Urine Culture - Final Yeast, not Orquidea albicans Complete Problem List/Assessment/Plan Problem List/Assessment/Plan * Sepsis with uti: iv rocephin * Multiple myeloma. * History of atrial fibrillation. * anemia * Severe protein malnutrition. * Chronic kidney disease stage IIIB. * History of deep venous thrombosis: on eliquis * hypernatremia: d5w * decub ulcer * hypokalemia: replace poor prognosis refusing blood draws had long marisa Graham and pt's brothers- explained poor prognosis. Also, dw dr Kothari- suggested hospice due to poor prognosis advance care planning- dnr- time spent 19mins Plan discussed with: Patient Dietary Evaluation Review Comments: 1. Liberalize diet to Puree - remove renal & cardiac modififers for least-restrictive diet possible; consider DIRECTOR OF SCIENCE consult to assess most appropriate diet texture 2. Add Ensure Enlive supplements TID w/ meals to enhance nutrition 3. If pt to return to hospice, recommend diet per pt preference/comfort Expected Outcomes/Goals: Weight maintenance, improved nutritional status, increased PO w/ expanded choices Date of Service: Nov 19, 2024 Billing Provider: CAROLE LOMAX MD Common Visit Codes: [id number] INP/OBS CARE(HIGH) CAROLE LOMAX MD Nov 19, 2024 10:06
[2024-11-19] MEDS: POTASSIUM EFFERVESENT TAB 25 MEQ PO ONE (10:29)
[2024-11-19 13:07] LABS: Sodium 142 mmol/L (136-145)
[2024-11-19 13:08] LABS: Anion Gap 10 (5-15); Carbon Dioxide 21 mmol/L (20-31)
[2024-11-19 13:13] LABS: BUN/Creatinine Ratio 14.1 (10.0-20.0); Blood Urea Nitrogen 28 mg/dL (9-23); Calcium 7.7 mg/dL (8.7-10.4); Chloride 111 mmol/L (98-107); Glucose 91 mg/dL (74-106); Potassium 2.8 mmol/L (3.5-5.1)
[2024-11-20] VITALS (8 sets, daily range): BP systolic 140–149; BP diastolic 66–78; PULSE 71–84; RESP 16–20; TEMP 97.4–98.7; O2SAT 92–100
[2024-11-20 05:10] LABS: Sodium 140 mmol/L (136-145)
[2024-11-20 05:11] LABS: Anion Gap 9 (5-15); Carbon Dioxide 21 mmol/L (20-31)
[2024-11-20 05:17] LABS: BUN/Creatinine Ratio 15.4 (10.0-20.0); Glucose 84 mg/dL (74-106)
[2024-11-20 05:21] LABS: Blood Urea Nitrogen 27 mg/dL (9-23); Calcium 7.7 mg/dL (8.7-10.4); Chloride 110 mmol/L (98-107); Potassium 3.1 mmol/L (3.5-5.1)
[2024-11-20] MEDS ORDERED: FER325T PO (10:08)
[2024-11-20] MEDS ORDERED: NYS5LQ MT (10:08)
[2024-11-20] MEDS ORDERED: HYDR-4798 PO (10:08)
--- NOTE | 2024-11-20 10:10 | DVHDS2 ---
Discharge Summary Date of Admission Nov 13, 2024 at 00:47 Date of Discharge: Nov 20, 2024 Labs/Diagnostic Data: Laboratory Results Test 11/20/24 04:48 11/18/24 11:19 11/13/24 02:10 Sodium Level 140 mmol/L (136-145) Potassium Level 3.1 mmol/L (3.5-5.1) Chloride Level 110 mmol/L (98-107) Carbon Dioxide Level 21 mmol/L (20-31) Anion Gap 9 (5-15) Blood Urea Nitrogen 27 mg/dL (9-23) Creatinine 1.75 mg/dL (0.550-1.02) Glomerular Filtration Rate Calc 32 mL/min (>90) BUN/Creatinine Ratio 15.4 (10.0-20.0) Serum Glucose 84 mg/dL (74-106) Calcium Level 7.7 mg/dL (8.7-10.4) White Blood Count 13.4 10^3/uL (4.4-10.8) Red Blood Count 2.60 10^6/uL (4.0-5.20) Hemoglobin 7.3 g/dL (12.2-16.2) Hematocrit 22.9 % (36.0-46.0) Mean Corpuscular Volume 88.2 fL (80.0-100.0) Mean Corpuscular Hemoglobin 28.0 pg (28.0-32.0) Mean Corpuscular Hemoglobin Concent 31.8 g/dL (32.0-36.0) Red Cell Distribution Width 16.2 % (11.8-14.3) Platelet Count 239 10^3/uL (140-450) Mean Platelet Volume 6.8 fL (6.9-10.8) Neutrophils (%) (Auto) % (37.0-80.0) Lymphocytes (%) (Auto) % (10.0-50.0) Monocytes (%) (Auto) % (0.0-12.0) Basophils (%) (Auto) % (0.0-2.0) Neutrophils # (Auto) 10 ^3/uL (1.6-8.6) Lymphocytes # (Auto) 10 ^3/uL (0.4-5.4) Monocytes # (Auto) 10 ^3/uL (0-1.3) Differential Total Cells Counted 100.0 (100) Neutrophils % (Manual) 81 (37.0-80.0) Band Neutrophils % (Manual) 1 Lymphocytes % (Manual) 13 (10.0-50.0) Monocytes % (Manual) 5 (0-12) Eosinophils % (Manual) 0 (0-7) Basophils % (Manual) 0 (0.0-2.0) Metamyelocytes % (manual) 0 Myelocytes % (Manual) 0 Promyelocytes % (Manual) 0 Blast Cells % (Manual) 0 Reactive Lymphocytes 0 Platelet Estimate Adequate Anisocytosis (manual) Slight Ovalocytes Few Sebastian Cells Few Schistocytes Few Magnesium Level 2.6 mg/dL (1.6-2.6) Total Bilirubin 0.2 mg/dL (0.2-1.0) Aspartate Amino Transferase (AST) 9 U/L (13-40) Alanine Aminotransferase (ALT) 16 U/L (7-40) Alkaline Phosphatase 72 U/L (46-116) Total Protein 4.7 g/dL (5.7-8.2) Albumin 3.1 g/dL (3.2-4.8) Urine Color Colorless (Yellow) Urine Clarity Turbid (Clear) Urine pH 5.5 (5.0-9.0) Urine Specific [place] 1.014 (1.001-1.035) Urine Protein 2+ (Negative) Urine Ketones Negative (Negative) Urine Blood 1+ /uL (Negative) Urine Nitrite Negative (Negative) Urine Bilirubin Negative (Negative) Urine Urobilinogen Normal mg/dL (Negative) Urine Leukocyte Esterase 3+ /uL (Negative) Urine RBC 23 /hpf (0 - 4) Urine Microscopic WBC 106 /HPF (0-5) Urine Squamous Epithelial Cells None seen /hpf (<5) Urine Calcium Oxalate Crystals Few (None Seen) Urine Bacteria Few /hpf (None Seen) Urine Yeast (Budding) Many /hpf (None Seen) Urine Glucose Normal mg/dL (Normal) Other Laboratory Tests 11/20/24 04:48 11/18/24 11:19 Brief Hx & Hospital Course: see dictated note Condition at Discharge: Poor Final Diagnosis/Problems List RENAL FAILURE Discharge Disposition: Home with Health Services Discharge Instruct/Medications Diet: Regular Activity: No Restrictions, As Tolerated Follow Up/Referral: FU WITH ONCOLOGY/PCP Medications: RESUME HOME MEDS SCRIPT TO PHARMACY DC AFTER REPEAT K LEVEL Discharge Statement: "Patient was advised to return to the ER or call 911 if any headaches, dizziness, shortness of breath, chest pain, abdominal pain, bleeding, fevers, or worsening of medical condition. Patient was counseled about treatment plan, medications, possible side effects, patientverbalized understanding. All questions were answered to the best of my ability. This discharge took greater then 30 minutes in planning, reviewing documentation, counseling the patient, and discussing with other team members." ASSESSMENT ASSESSMENT Assessment RENAL FAILURE Date of Service: Nov 20, 2024 Billing Provider: CAROLE LOMAX MD Common Visit Codes: [id number] DISCH DAY >30min CAROLE LOMAX MD Nov 20, 2024 10:10
--- NOTE | 2024-11-20 10:19 | DVHDS ---
DATE OF DISCHARGE: 11/20/2024 HISTORY OF PRESENT ILLNESS: The patient is a 64-year-old lady who was admitted with generalized weakness and was recently on hospice for multiple myeloma. She has history of chronic kidney disease, hypertension, atrial fibrillation as well as a decubitus ulcer. HOSPITAL COURSE: The patient had a chest x-ray that showed no acute abnormality. The patient had acute renal failure. She was seen in Nephrology consult by Dr. Rios. Creatinine improved from 3-1.7. The patient was hypokalemic and that was replaced. She also had UTI and was placed on IV Rocephin. The patient while in the hospital refused blood draws. I have had long discussion with the patient's daughter, Gladys and explained her poor prognosis. I also discussed with Dr. Kothari, who suggested that the patient will be placed on Hospice care. The patient will now be discharged to intermediate facility after potassium was replaced to resume her home medications as well as to be on Hickman p.r.n. for pain, nystatin 5 mL swish and swallow q.i.d. for 10 days and iron sulfate 325 mg p.o. b.i.d. FINAL DIAGNOSES: Therefore, * Sepsis with urinary tract infection. * Multiple myeloma. * History of atrial fibrillation. * Anemia. * Severe protein malnutrition. * Acute on chronic renal failure, likely vasomotor nephropathy. * History of deep venous thrombosis. * Hyponatremia. * Decubitus ulcer. * Hypokalemia. Time spent in discharge planning and review of plan with the patient, nursing and social science analyst was 39 minutes The patient was a DNR while in the hospital. MD LINDA Walsh/MIRNA TID: [id number] RECEIPT: [id number] MTDD
[2024-11-20] MEDS: POTASSIUM CHLORIDE 40 MEQ, LIDOCAINE 1% (LOCAL ANESTH.) 4 ML in SODIUM CHL 0.9% 250 ML IV ONE (16:29)
[2024-11-21 01:00] VITALS: BP 128/75; PULSE 71; RESP 18; TEMP 98.4; O2SAT 98
[2024-11-21 05:00] VITALS: BP 141/73; PULSE 73; RESP 18; TEMP 98; O2SAT 99
[2024-11-21 07:51] LABS: Anion Gap 10 (5-15); Sodium 138 mmol/L (136-145)
[2024-11-21 07:54] LABS: Calcium 7.2 mg/dL (8.7-10.4); Carbon Dioxide 19 mmol/L (20-31); Chloride 109 mmol/L (98-107); Potassium 3.4 mmol/L (3.5-5.1)
[2024-11-21 07:57] LABS: Glucose 81 mg/dL (74-106)
[2024-11-21 07:59] LABS: Blood Urea Nitrogen 23 mg/dL (9-23)
[2024-11-21 08:00] VITALS: BP 120/70; PULSE 71; RESP 15; RESP 18; TEMP 97.6; O2SAT 99
[2024-11-21 12:00] VITALS: BP 128/78; PULSE 91; RESP 15; TEMP 97.9; O2SAT 99
--- NOTE | 2024-11-21 13:00 | DVHPN2 ---
Reviewed: Care Plan, H&P, Labs, Medications, Previous Orders, Radiology Changes from previous H/P or p: No Changes Objective Vitals Vital Signs Date Time Temp Pulse Resp B/P (MAP) Pulse Ox O2 Delivery O2 Flow Rate FiO2 11/21/24 08:00 97.6 71 15 120/70 (87) 99 97.6 11/20/24 20:00 Room Air* 0 21 Intake/Output Intake and Output 11/21/24 07:00 Intake Total 1100 ml Output Total 1350 ml Balance -250 ml Intake Oral 1100 ml Output Urine Total 1350 ml General Appearance: Alert, Oriented X3 Lungs: Clear to auscultation Cardiovascular: Regular rate, Normal S1 Abdomen: Normal bowel sounds, Soft Medications Current Medications Medications Dose Ordered Sig/Angela Route Start Time Stop Time Status Last Admin Dose Admin Apixaban 2.5 mg BID PO 11/13/24 10:00 11/21/24 10:24 2.5 MG Acetaminophen/ Hydrocodone Bitart 1 tab Q4HP PRN PO 11/13/24 02:00 11/21/24 10:24 1 TAB Ondansetron HCl 4 mg Q4HP PRN IV 11/13/24 02:00 11/21/24 04:26 4 MG Acetaminophen 650 mg Q6HP PRN PO 11/13/24 02:00 11/17/24 22:05 650 MG Morphine Sulfate 2 mg Q4HPRN PRN IV 11/13/24 02:00 11/16/24 20:26 2 MG Ferrous Sulfate 325 mg BIDWM PO 11/13/24 08:00 11/21/24 10:24 325 MG Ceftriaxone Sodium 50 ml @ 100 mls/hr DAILY@09 IV 11/13/24 09:00 11/21/24 10:24 100 MLS/HR Sodium Chloride 1,000 ml @ 100 mls/hr Q10H IV 11/14/24 09:15 11/20/24 23:40 100 MLS/HR Nystatin 5 ml QID MT 11/17/24 18:00 11/21/24 05:33 5 ML Ondansetron HCl 4 mg Q4HP PRN PO 11/18/24 11:30 11/20/24 21:01 4 MG Laboratory Results Laboratory Tests 11/18/24 11:19 11/21/24 07:11 Chemistry Test 11/21/24 07:11 Calcium Level 7.2 mg/dL (8.7-10.4) L Urinalysis Test 11/13/24 02:10 Urine Color Colorless (Yellow) Urine Clarity Turbid (Clear) H Urine pH 5.5 (5.0-9.0) Urine Specific [place] 1.014 (1.001-1.035) Urine Protein 2+ (Negative) H Urine Ketones Negative (Negative) Urine Blood 1+ /uL (Negative) H Urine Nitrite Negative (Negative) Urine Bilirubin Negative (Negative) Urine Urobilinogen Normal mg/dL (Negative) Urine Leukocyte Esterase 3+ /uL (Negative) Urine RBC 23 /hpf (0 - 4) Urine Microscopic WBC 106 /HPF (0-5) H Urine Squamous Epithelial Cells None seen /hpf (<5) Urine Calcium Oxalate Crystals Few (None Seen) Urine Bacteria Few /hpf (None Seen) H Urine Yeast (Budding) Many /hpf (None Seen) Urine Glucose Normal mg/dL (Normal) Microbiology Microbiology Date/Time Source Procedure Growth Status 11/13/24 02:10 Nose MRSA Screen - Final Complete 11/13/24 02:10 Voided Urine Urine Culture - Final Yeast, not Orquidea albicans Complete Labs and/or images reviewed: Labs reviewed by me, Image(s) reviewed by me Assessment/Plan Assessment/Plan Covering for Dr. Davis * Sepsis with urinary tract infection. * Multiple myeloma. * History of atrial fibrillation. * Anemia. * Severe protein malnutrition. * Acute on chronic renal failure, likely vasomotor nephropathy. * History of deep venous thrombosis. * Hyponatremia. * Decubitus ulcer. * Hypokalemia. Patient awaiting bed at [facility] No new complaints Plan discussed with: Patient Date of Service: Nov 21, 2024 Billing Provider: GALI ORELLANA MD Common Visit Codes: [id number] INP/OBS CARE(HIGH) GALI ORELLANA MD Nov 21, 2024 13:00
[2024-11-21 16:00] VITALS: BP 139/79; PULSE 78; RESP 15; TEMP 97.4; O2SAT 97
[2024-11-21] MEDS: ENSURE CLEAR Mixed Berry 8oz Carton PO SCH (18:00)
[2024-11-21 20:00] VITALS: BP 139/73; PULSE 79; RESP 16; TEMP 98.1; O2SAT 98
[2024-11-22] VITALS (8 sets, daily range): BP systolic 121–141; BP diastolic 68–78; PULSE 76–95; RESP 14–18; TEMP 97.5–98.6; O2SAT 96–99
--- NOTE | 2024-11-22 07:42 | DVHPN2 ---
Reviewed: Care Plan, H&P, Labs, Medications, Previous Orders, Radiology Changes from previous H/P or p: No Changes Objective Vitals Vital Signs Date Time Temp Pulse Resp B/P (MAP) Pulse Ox O2 Delivery O2 Flow Rate FiO2 11/22/24 05:00 98.2 82 129/69 (89) 98 98.2 11/22/24 00:50 16 11/21/24 20:00 Room Air* 0 21 Intake/Output Intake and Output 11/22/24 07:00 Intake Total 680 ml Output Total 1600 ml Balance -920 ml Intake Oral 680 ml Output Urine Total 1600 ml General Appearance: Alert, Oriented X3 Lungs: Clear to auscultation Cardiovascular: Regular rate, Normal S1 Abdomen: Normal bowel sounds, Soft Medications Current Medications Medications Dose Ordered Sig/Angela Route Start Time Stop Time Status Last Admin Dose Admin Apixaban 2.5 mg BID PO 11/13/24 10:00 11/21/24 21:42 2.5 MG Ondansetron HCl 4 mg Q4HP PRN IV 11/13/24 02:00 11/21/24 04:26 4 MG Acetaminophen 650 mg Q6HP PRN PO 11/13/24 02:00 11/22/24 06:09 650 MG Ferrous Sulfate 325 mg BIDWM PO 11/13/24 08:00 11/21/24 18:00 325 MG Ceftriaxone Sodium 50 ml @ 100 mls/hr DAILY@09 IV 11/13/24 09:00 11/21/24 10:24 100 MLS/HR Sodium Chloride 1,000 ml @ 100 mls/hr Q10H IV 11/14/24 09:15 11/21/24 21:39 100 MLS/HR Nystatin 5 ml QID MT 11/17/24 18:00 11/22/24 06:09 5 ML Ondansetron HCl 4 mg Q4HP PRN PO 11/18/24 11:30 11/20/24 21:01 4 MG Enteral Nutritional Formula 240 ml TIDWM PO 11/21/24 18:00 11/21/24 18:00 240 ML Laboratory Results Laboratory Tests 11/18/24 11:19 11/21/24 07:11 Urinalysis Test 11/13/24 02:10 Urine Color Colorless (Yellow) Urine Clarity Turbid (Clear) H Urine pH 5.5 (5.0-9.0) Urine Specific [place] 1.014 (1.001-1.035) Urine Protein 2+ (Negative) H Urine Ketones Negative (Negative) Urine Blood 1+ /uL (Negative) H Urine Nitrite Negative (Negative) Urine Bilirubin Negative (Negative) Urine Urobilinogen Normal mg/dL (Negative) Urine Leukocyte Esterase 3+ /uL (Negative) Urine RBC 23 /hpf (0 - 4) Urine Microscopic WBC 106 /HPF (0-5) H Urine Squamous Epithelial Cells None seen /hpf (<5) Urine Calcium Oxalate Crystals Few (None Seen) Urine Bacteria Few /hpf (None Seen) H Urine Yeast (Budding) Many /hpf (None Seen) Urine Glucose Normal mg/dL (Normal) Microbiology Microbiology Date/Time Source Procedure Growth Status 11/13/24 02:10 Nose MRSA Screen - Final Complete 11/13/24 02:10 Voided Urine Urine Culture - Final Yeast, not Orquidea albicans Complete Labs and/or images reviewed: Labs reviewed by me, Image(s) reviewed by me Assessment/Plan Assessment/Plan Covering for Dr. Davis * Sepsis with urinary tract infection. * Multiple myeloma. * History of atrial fibrillation. * Anemia. * Severe protein malnutrition. * Acute on chronic renal failure, likely vasomotor nephropathy. * History of deep venous thrombosis. * Hyponatremia. * Decubitus ulcer. * Hypokalemia. Patient awaiting for transportation to [facility] and care No new complaints Plan discussed with: Patient, Other (RN) My Orders Orders - GALI ORELLANA MD Procedure Category Date Status Time Nutritional PHA 11/21/24 In Process Supplements (Ensure 18:00 Date of Service: Nov 22, 2024 Billing Provider: GALI ORELLANA MD Common Visit Codes: [id number] INP/OBS CARE(HIGH) GALI ORELLANA MD Nov 22, 2024 07:42
[2024-11-23 08:00] VITALS: PULSE 75; RESP 16; O2SAT 99
--- NOTE | 2024-11-23 08:55 | DVHPN2 ---
Reviewed: Care Plan, H&P, Labs, Medications, Previous Orders, Radiology Changes from previous H/P or p: No Changes Objective Vitals Vital Signs Date Time Temp Pulse Resp B/P (MAP) Pulse Ox O2 Delivery O2 Flow Rate FiO2 11/22/24 21:04 97.5 95 18 134/68 (90) 98 97.5 11/22/24 20:00 Room Air* 0 21 Intake/Output Intake and Output 11/23/24 07:00 Intake Total 750 ml Output Total 1290 ml Balance -540 ml Intake Oral 750 ml Output Urine Total 1290 ml General Appearance: Alert, Oriented X3 Lungs: Clear to auscultation Cardiovascular: Regular rate, Normal S1 Abdomen: Normal bowel sounds, Soft Medications Current Medications Medications Dose Ordered Sig/Angela Route Start Time Stop Time Status Last Admin Dose Admin Apixaban 2.5 mg BID PO 11/13/24 10:00 11/23/24 08:27 2.5 MG Ondansetron HCl 4 mg Q4HP PRN IV 11/13/24 02:00 11/22/24 17:19 4 MG Acetaminophen 650 mg Q6HP PRN PO 11/13/24 02:00 11/23/24 06:15 650 MG Ferrous Sulfate 325 mg BIDWM PO 11/13/24 08:00 11/23/24 08:27 325 MG Ceftriaxone Sodium 50 ml @ 100 mls/hr DAILY@09 IV 11/13/24 09:00 11/23/24 08:27 100 MLS/HR Sodium Chloride 1,000 ml @ 100 mls/hr Q10H IV 11/14/24 09:15 11/23/24 03:22 100 MLS/HR Nystatin 5 ml QID MT 11/17/24 18:00 11/23/24 08:27 5 ML Ondansetron HCl 4 mg Q4HP PRN PO 11/18/24 11:30 11/20/24 21:01 4 MG Enteral Nutritional Formula 240 ml TIDWM PO 11/21/24 18:00 11/23/24 08:27 240 ML Laboratory Results Laboratory Tests 11/18/24 11:19 11/21/24 07:11 Urinalysis Test 11/13/24 02:10 Urine Color Colorless (Yellow) Urine Clarity Turbid (Clear) H Urine pH 5.5 (5.0-9.0) Urine Specific [place] 1.014 (1.001-1.035) Urine Protein 2+ (Negative) H Urine Ketones Negative (Negative) Urine Blood 1+ /uL (Negative) H Urine Nitrite Negative (Negative) Urine Bilirubin Negative (Negative) Urine Urobilinogen Normal mg/dL (Negative) Urine Leukocyte Esterase 3+ /uL (Negative) Urine RBC 23 /hpf (0 - 4) Urine Microscopic WBC 106 /HPF (0-5) H Urine Squamous Epithelial Cells None seen /hpf (<5) Urine Calcium Oxalate Crystals Few (None Seen) Urine Bacteria Few /hpf (None Seen) H Urine Yeast (Budding) Many /hpf (None Seen) Urine Glucose Normal mg/dL (Normal) Microbiology Microbiology Date/Time Source Procedure Growth Status 11/13/24 02:10 Nose MRSA Screen - Final Complete 11/13/24 02:10 Voided Urine Urine Culture - Final Yeast, not Orquidea albicans Complete Labs and/or images reviewed: Labs reviewed by me, Image(s) reviewed by me Assessment/Plan Assessment/Plan Covering for Dr. Davis * Sepsis with urinary tract infection. * Multiple myeloma. * History of atrial fibrillation. * Anemia. * Severe protein malnutrition. * Acute on chronic renal failure, likely vasomotor nephropathy. * History of deep venous thrombosis. * Hyponatremia. * Decubitus ulcer. * Hypokalemia. Patient awaiting for transportation to board and care No new complaints rehabilitation services coordinator working on authorization from the insurance Plan discussed with: Patient My Orders Orders - GALI ORELLANA MD Procedure Category Date Status Time Complete Blood Count LAB 11/24/24 Verified 04:00 Comprehensive LAB 11/24/24 Verified Metabolic Panel 04:00 Date of Service: Nov 23, 2024 Billing Provider: GALI ORELLANA MD Common Visit Codes: [id number] INP/OBS CARE(HIGH) GALI ORELLANA MD Nov 23, 2024 08:55
[2024-11-23 09:00] VITALS: BP 135/61; PULSE 75; RESP 16; TEMP 98.1; O2SAT 99
[2024-11-23] MEDS: HYDROcodone-ACET 10/325MG TAB PO PRN (10:18)
[2024-11-23 13:00] VITALS: BP 112/5; PULSE 84; RESP 14; TEMP 97.8; O2SAT 98
[2024-11-23 17:00] VITALS: BP 131/63; PULSE 75; RESP 16; TEMP 97.4; O2SAT 100
[2024-11-23 20:00] VITALS: PULSE 76; RESP 17; O2SAT 98
[2024-11-23 21:00] VITALS: BP 134/23; PULSE 76; RESP 17; TEMP 97.4; O2SAT 98
[2024-11-24] VITALS (8 sets, daily range): BP systolic 109–140; BP diastolic 62–76; PULSE 72–93; RESP 16–18; TEMP 97.2–97.9; O2SAT 93–99
--- NOTE | 2024-11-24 10:54 | DVHPN2 ---
Progress Note Date Seen: Nov 24, 2024 Medical Necessity Reason Pt with a Central, PICC or Fol: Yes The following are medically ne: Owen Catheter Reason for owen catheter: Strict I&O Subjective Patient reports: No new complaints Review of Systems: HEENT:Normal, CVS:Normal, RESPIRATORY:Normal, GI:Normal, :Normal, MSK:Normal, NEURO:Normal Objective vital signs Vital Sign Date Time Temp Pulse Resp B/P (MAP) Pulse Ox O2 Delivery O2 Flow Rate FiO2 11/24/24 09:00 97.2 76 16 137/76 (96) 99 97.2 11/23/24 20:00 Room Air* 0 21 Total Intake and Output 11/23/24 11/23/24 11/24/24 15:00 23:00 07:00 Intake Total 530 ml 780 ml 240 ml Output Total 575 ml 950 ml Balance 530 ml 205 ml -710 ml medications Current Medications Medications Dose Ordered Sig/Angela Route Start Time Stop Time Status Last Admin Dose Admin Apixaban 2.5 mg BID PO 11/13/24 10:00 11/24/24 08:27 2.5 MG Acetaminophen 650 mg Q6HP PRN PO 11/13/24 02:00 11/23/24 06:15 650 MG Ferrous Sulfate 325 mg BIDWM PO 11/13/24 08:00 11/24/24 08:26 325 MG Ceftriaxone Sodium 50 ml @ 100 mls/hr DAILY@09 IV 11/13/24 09:00 11/24/24 08:27 100 MLS/HR Sodium Chloride 1,000 ml @ 100 mls/hr Q10H IV 11/14/24 09:15 11/23/24 21:50 100 MLS/HR Nystatin 5 ml QID MT 11/17/24 18:00 11/23/24 08:27 5 ML Ondansetron HCl 4 mg Q4HP PRN PO 11/18/24 11:30 11/23/24 23:55 4 MG Enteral Nutritional Formula 240 ml TIDWM PO 11/21/24 18:00 11/24/24 08:27 240 ML Acetaminophen/ Hydrocodone Bitart 1 tab Q6HP PRN PO 11/23/24 10:00 11/24/24 08:28 1 TAB Examination: GENERAL:Normal, HEENT:Normal, NECK:Normal, LUNGS:Normal, CVS:Normal, ABDOMEN:Normal, MSK:Normal, MSK:Abnormal (decub ulcer), SKIN:Normal, NEURO:Normal, :Normal laboratory and microbiology Laboratory Tests 11/21/24 07:11 11/18/24 11:19 Test 11/21/24 07:11 Range/Units Serum Glucose 81 74-106 mg/dL Microbiology Date/Time Source Procedure Growth Status 11/13/24 02:10 Nose MRSA Screen - Final Complete 11/13/24 02:10 Voided Urine Urine Culture - Final Yeast, not Orquidea albicans Complete Problem List/Assessment/Plan Problem List/Assessment/Plan * Sepsis with uti * Multiple myeloma. * History of atrial fibrillation. * anemia * Severe protein malnutrition. * acute on chronic renal failure ?vasomotor nephropathy: repeat labs * History of deep venous thrombosis: on eliquis * hypernatremia: 1/2 ns * decub ulcer * hypokalemia: replace poor prognosis refusing blood draws had long dw Gladys and pt's brothers- explained poor prognosis. Also, dw dr Kothari- suggested hospice due to poor prognosis advance care planning- dnr- time spent 19mins Plan discussed with: Patient My Orders My Orders Orders - CAROLE LOMAX MD Procedure Category Date Status Time Complete Blood Count LAB 11/24/24 Transmitted 10:51 Comprehensive LAB 11/24/24 Transmitted Metabolic Panel 10:51 Dietary Evaluation Review Comments: 1. Liberalize diet to Puree - remove renal & cardiac modififers for least-restrictive diet possible; consider RUBBERIZING MECHANIC consult to assess most appropriate diet texture 2. Add Ensure Enlive supplements TID w/ meals to enhance nutrition 3. If pt to return to hospice, recommend diet per pt preference/comfort Expected Outcomes/Goals: Weight maintenance, improved nutritional status, increased PO w/ expanded choices Date of Service: Nov 24, 2024 Billing Provider: CAROLE LOMAX MD Common Visit Codes: [id number] INP/OBS CARE(HIGH) CAROLE LOMAX MD Nov 24, 2024 10:54
[2024-11-25] VITALS (8 sets, daily range): BP systolic 110–127; BP diastolic 57–69; PULSE 75–91; RESP 15–20; TEMP 97.7–99.6; O2SAT 98–100
--- NOTE | 2024-11-25 09:59 | DVHPN2 ---
Progress Note Date Seen: Nov 25, 2024 Medical Necessity Reason Pt with a Central, PICC or Fol: Yes The following are medically ne: Owen Catheter Reason for owen catheter: Strict I&O Subjective Patient reports: No new complaints Review of Systems: HEENT:Normal, CVS:Normal, RESPIRATORY:Normal, GI:Normal, :Normal, MSK:Normal, NEURO:Normal Objective vital signs Vital Sign Date Time Temp Pulse Resp B/P (MAP) Pulse Ox O2 Delivery O2 Flow Rate FiO2 11/25/24 05:00 97.7 84 17 123/64 (83) 99 97.7 11/24/24 20:00 Room Air* 0 21 Total Intake and Output 11/24/24 11/24/24 11/25/24 15:00 23:00 07:00 Intake Total 50 ml 1400 ml 975 ml Output Total 700 ml 900 ml Balance 50 ml 700 ml 75 ml medications Current Medications Medications Dose Ordered Sig/Angela Route Start Time Stop Time Status Last Admin Dose Admin Apixaban 2.5 mg BID PO 11/13/24 10:00 11/25/24 09:47 2.5 MG Acetaminophen 650 mg Q6HP PRN PO 11/13/24 02:00 11/23/24 06:15 650 MG Ferrous Sulfate 325 mg BIDWM PO 11/13/24 08:00 11/25/24 09:48 325 MG Sodium Chloride 1,000 ml @ 100 mls/hr Q10H IV 11/14/24 09:15 11/25/24 02:42 100 MLS/HR Nystatin 5 ml QID MT 11/17/24 18:00 11/23/24 08:27 5 ML Ondansetron HCl 4 mg Q4HP PRN PO 11/18/24 11:30 11/23/24 23:55 4 MG Enteral Nutritional Formula 240 ml TIDWM PO 11/21/24 18:00 11/25/24 08:00 240 ML Acetaminophen/ Hydrocodone Bitart 1 tab Q6HP PRN PO 11/23/24 10:00 11/25/24 09:48 1 TAB Examination: GENERAL:Normal, HEENT:Normal, NECK:Normal, LUNGS:Normal, CVS:Normal, ABDOMEN:Normal, MSK:Normal, MSK:Abnormal (decub ulcer), SKIN:Normal, NEURO:Normal, :Normal laboratory and microbiology Laboratory Tests 11/21/24 07:11 11/18/24 11:19 Test 11/21/24 07:11 Range/Units Serum Glucose 81 74-106 mg/dL Microbiology Date/Time Source Procedure Growth Status 11/13/24 02:10 Nose MRSA Screen - Final Complete 11/13/24 02:10 Voided Urine Urine Culture - Final Yeast, not Orquidea albicans Complete Problem List/Assessment/Plan Problem List/Assessment/Plan * Sepsis with uti * Multiple myeloma: long acting morphine * History of atrial fibrillation. * anemia * Severe protein malnutrition. * acute on chronic renal failure ?vasomotor nephropathy: repeat labs * History of deep venous thrombosis: on eliquis * hypernatremia: 1/2 ns * decub ulcer * hypokalemia: replace poor prognosis ?hospice care refusing blood draws had long marisa Graham and pt's brothers- explained poor prognosis. Also, dw dr Kothari- suggested hospice due to poor prognosis advance care planning- dnr- time spent 19mins Plan discussed with: Patient My Orders My Orders Orders - CAROLE LOMAX MD Procedure Category Date Status Time Complete Blood Count LAB 11/25/24 Verified 09:57 Comprehensive LAB 11/25/24 Verified Metabolic Panel 09:57 Morphine Extended PHA 11/25/24 Verified Release Tab (Oramorph 10:00 Dietary Evaluation Review Comments: 1. Liberalize diet to Puree - remove renal & cardiac modififers for least-restrictive diet possible; consider WELDING TESTER consult to assess most appropriate diet texture 2. Add Ensure Enlive supplements TID w/ meals to enhance nutrition 3. If pt to return to hospice, recommend diet per pt preference/comfort Expected Outcomes/Goals: Weight maintenance, improved nutritional status, increased PO w/ expanded choices Date of Service: Nov 25, 2024 Billing Provider: CAROLE LOMAX MD Common Visit Codes: [id number] INP/OBS CARE(HIGH) CAROLE LOMAX MD Nov 25, 2024 09:59
[2024-11-25] MEDS: MORPHINE SULF 15mg ER tab PO SCH (11:53)
[2024-11-25 11:56] LABS: Red Cell Distribution Width 17.5 % (11.8-14.3); White Blood Cell 10.6 10^3/uL (4.4-10.8)
[2024-11-25 11:59] LABS: Mean Corpuscular Hemoglobin 30.2 pg (28.0-32.0); Mean Corpuscular Hgb Conc. 32.3 g/dL (32.0-36.0); Mean Corpuscular Volume 93.7 fL (80.0-100.0); Platelet Count (auto) 229 10^3/uL (140-450); Red Blood Cells 2.13 10^6/uL (4.0-5.20)
[2024-11-25 12:07] LABS: Hemoglobin 6.5 g/dL (12.2-16.2)
[2024-11-25 12:09] LABS: Band Neutrophils % (manual) 0; Basophils % (manual) 0 (0.0-2.0); Blast Cells 0; Eosinophils % (manual) 0 (0-7); Myelocytes % 0; Promyelocytes % 0; Reactive Lymphocytes 0
[2024-11-25 12:25] LABS: Alkaline Phosphatase 72 U/L (46-116); Anion Gap 10 (5-15); BUN/Creatinine Ratio 11.4 (10.0-20.0); Blood Urea Nitrogen 16 mg/dL (9-23); Glucose 87 mg/dL (74-106); Sodium 137 mmol/L (136-145)
[2024-11-25 12:38] LABS: Alanine Aminotransferase < 9 U/L (7-40); Albumin 2.5 g/dL (3.2-4.8); Aspartate Aminotransferase 8 U/L (13-40); Bilirubin, Total 0.2 mg/dL (0.2-1.0); Calcium 6.3 mg/dL (8.7-10.4); Carbon Dioxide 17 mmol/L (20-31); Chloride 110 mmol/L (98-107); Potassium 3.1 mmol/L (3.5-5.1)
[2024-11-25 14:38] LABS: Lymphocytes % (manual) 13 (10.0-50.0); Metamyelocytes % 2; Monocytes % (manual) 1 (0-12)
[2024-11-25 14:39] LABS: Anisocytosis Slight; Ovalocytes FEW; Platelet Estimate Adequate
[2024-11-26 01:00] VITALS: BP 115/63; PULSE 85; RESP 16; TEMP 99.1; O2SAT 98
[2024-11-26 05:00] VITALS: BP 119/66; PULSE 89; RESP 17; TEMP 99.4; O2SAT 98
[2024-11-26 08:00] VITALS: RESP 16
[2024-11-26 08:40] VITALS: TEMP 37.4
--- NOTE | 2024-11-26 10:01 | DVHDS ---
DATE OF DISCHARGE: 11/26/2024 HISTORY OF PRESENT ILLNESS: The patient is a 64-year-old lady who was admitted with complaints of generalized weakness and was recently on hospice for multiple myeloma and kidney disease. HOSPITAL COURSE: The patient had a chest x-ray that showed no acute pulmonary process. The patient was anemic. I had extensive discussion with the patient's daughter and brothers about her overall poor prognosis. The patient has a decubitus ulcer, which was dressed while in the hospital. The patient will now be discharged on hospice as per the patient and family wishes. FINAL DIAGNOSES: Therefore, * Multiple myeloma. * History of atrial fibrillation. * Anemia. * Severe protein malnutrition. * Acute on chronic renal failure, questionable vasomotor nephropathy. * History of deep venous thrombosis. * Hypernatremia. * Decubitus ulcer. * Hypokalemia. * Hospice care. Time spent in discharge planning and review of plan with the patient and nursing was 39 minutes. MD LINDA Walsh/MIRNA TID: [id number] RECEIPT: [id number]
== END 2024-11-26 12:01 | disposition hospice, home (50) | DRG 871 ==
LOC: CENTRAL 11-13 00:47
PROVIDERS: ADMIT Internal Medicine; ATTEND Internal Medicine
PROC: 05HB33Z Insertion of Infusion Device into Right Basilic Vein, Percutaneous Approach (ICD-10-PCS; principal; 2024-11-18)
PROC: B54MZZA Ultrasonography of Right Upper Extremity Veins, Guidance (ICD-10-PCS; 2024-11-18)
DX: A41.9 Sepsis, unspecified organism (principal); E43 Unspecified severe protein-calorie malnutrition; N17.0 Acute kidney failure with tubular necrosis; N39.0 Urinary tract infection, site not specified; C90.00 Multiple myeloma not having achieved remission; E87.0 Hyperosmolality and hypernatremia; R64 Cachexia; N18.4 Chronic kidney disease, stage 4 (severe); Z68.1 Body mass index [BMI] 19.9 or less, adult; E87.6 Hypokalemia; Z66 Do not resuscitate; R62.7 Adult failure to thrive; D50.9 Iron deficiency anemia, unspecified; I48.91 Unspecified atrial fibrillation; E83.52 Hypercalcemia; I12.9 Hypertensive chronic kidney disease with stage 1 through stage 4 chronic kidney disease, or unspecified chronic kidney disease; E86.0 Dehydration; Z79.01 Long term (current) use of anticoagulants; Z79.891 Long term (current) use of opiate analgesic; Z79.899 Other long term (current) drug therapy; Z79.1 Long term (current) use of non-steroidal anti-inflammatories (NSAID); Z79.2 Long term (current) use of antibiotics; Z82.49 Family history of ischemic heart disease and other diseases of the circulatory system; Z86.718 Personal history of other venous thrombosis and embolism; Z51.5 Encounter for palliative care
CPT/HCPCS: 36415; 71045; 80048; 80053; 81001; 83735; 84132; 84295; 85007; 85027; 87081; 87086; 87088; G0378; J2003; J2405; Q0162